=== PATIENT | male | born 1955 | race Caucasian/White ===

== ENCOUNTER 2018-01-04 20:02 | Emergency (ER) | payer BC, SELFPAY ==
[2018-01-04 20:07] VITALS: BP 122/75; PULSE 76; RESP 14; TEMP 36.6; O2SAT 97
--- NOTE | 2018-01-04 20:44 | ED.GENADUL ---
Disposition Clinical Impression: Laceration of face Disposition: HOME Condition: Good Instructions: Care For Your Absorbable Stitches (ED), Facial Laceration (ED) Additional Instructions: Please keep the area dry for the next 24-48 hours. Please follow-up immediately with your primary care provider for reassessment. If you notice any redness, or signs of infection please return immediately. If you notice any worsening of your symptoms, or any new symptoms such as vomiting, diarrhea, fever, chills, shortness of breath, chest pain, numbness, weakness, or fainting , please return immediately to the emergency department for reevaluation. Please follow up with your primary care provider as soon as possible for reassessment and reevaluation. As always, it was a pleasure participating in your medical care today. Referrals: Noé Hung, [Primary Care Provider] - Medical Decision Making - Medical Decision Making This is a pleasant 62-year-old male who presents for laceration over his left lip superior to the vermilion border. It is 2 cm in length, it is linear, and vertical. Physical exam demonstrates no internal laceration. The patient's tetanus is up-to-date. He is on no blood thinners. The area was cleaned, irrigated, anesthetized, and suture. He tolerated this well. 5 absorbable sutures/5.0 were placed for good wound edge reapproximation. The area was covered with a small amount of Dermabond. Patient tolerated the procedure well. He will be discharged home with close follow-up with his primary care provider. We discussed red flags which to return he understands. I have extensively reviewed the treatment plan and discharge instructions with the patient and their family. I have addressed all patient concerns at this time. The patient and family was made aware of what symptoms to monitor for that would warrant a return to the emergency department. Discussed the plan with the patient and family, they demonstrate verbal understanding and agreement with our assessment and plan at this time. Procedure: Suture Patient was positioned appropriately, 5cc lidocaine with epinephrine was used as a local anesthetic. Copious amounts of normal saline were used for irrigation. Patient was sterile draped with wound exposed. 5.0 chromic gut sutures /5 simple interrupted sutures were placed with good approximation. The area was then glued with Dermabond. The area was covered with bandage. Estimated Blood Loss: 0ml The patient tolerated the procedure well and there were no complications. History of Present Illness - General Chief complaint: Laceration Stated complaint: UNKNOWN Time Seen by Provider: 01/04/18 20:40 - History of Present Illness Initial comments: This is a pleasant 62-year-old male with a past medical history of hypertension, hyperlipidemia, quadruple bypass and daily aspirin use who presents for facial laceration. She states that roughly 1 hour prior to arrival he was hammering in his hammer split in half, it broke and struck him in the left upper lip. After this laceration he immediately came in for evaluation. The patient's tetanus was updated within the past 6 years. He denies any other complaints at this time. He denies any radiation of the pain, any vision changes, headache, or other symptoms at this time. - Related Data Aspirin 81 mg PO DAILY tab-cap 12/13/15 Atorvastatin Calcium 20 mg PO DAILY #90 tab-cap 05/08/17 Metoprolol [Lopressor] 12.5 mg PO BID #300 tab 08/08/17 Triamcinolone [Kenalog 0.025% Oint] 80 gm TP BID #1 tub 10/03/17 Levothyroxine [Levothroid] 100 mcg PO DAILY@0600 #90 tab 10/09/17 Nitroglycerin [Nitrostat] 0.4 mg SL Q5 MIN PRN X3 PRN #50 bottle 11/20/17 Allergies Allergy/AdvReac Type Severity Reaction Status Date / Time No Known Allergies Allergy Unverified 01/04/18 20:12 Review of Systems Other: 10 point review of systems was performed, pertinent positives and negatives are noted in the history of present illness. Past Medical History - Past Medical History Medical history: CAD, hyperlipidemia Hypothyroidism Surgical history: angioplasty/stent General Exam - Other Other exam information: 1.Const: Well-nourished, Well-developed, appearing stated age 2.Eyes: PERRL, no conjunctival injection, and symmetrical lids. 3.ENT: Atraumatic external nose and ears. Moist MM. Neck: Symmetric, trachea midline, No thyromegaly. Patient does have a small 2 cm laceration over the upper lip on the left-hand side. There is no involvement of the vermilion border. No evidence of laceration on the internal aspect of the lip. Laceration is straight and vertical. Small contusion over the gum and inside aspect of the lip. The teeth were not loose. No evidence of tooth fracture. There is no evidence of raccoon eyes, mccray sign, CSF rhinorrhea, mastoid tenderness, cranial crepitus, hemotympanum, exophthalmos, or hyphema. Patient demonstrates intact dentition with no signs of tooth avulsion or fracture, no signs of jaw deformity, no evidence of a LeFort's fracture, with an intact palate, nose and orbital region. There is no evidence of a nasal septal hematoma. No proptosis. Jaw closes symmetrically. Airway is clear. 4.CVS: +S1/S2, No murmurs or gallops. Peripheral pulses 2+ and equal in all extremities. Brisk capillary refill in all extremities. 5.RESP: Unlabored respiratory effort. Clear to auscultation bilaterally. No wheezes rales or rhonchi 6.GI: Soft, Nontender/Nondistended, No hepatosplenomegaly. No guarding or rebound. 7.MSK: Normocephalic/Atraumatic, Extremities w/o deformity or ttp No cyanosis or clubbing, Normal movement of all extremities 8.Skin: Warm, Dry. No rashes or lesions. 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 Sensation grossly intact, no focal neurologic deficits. 10.Psych: (AAO) x3. Appropriate mood and affect Course Vital Signs - 24 hr 01/04/18 20:07 Temperature 36.6 C Pulse 76 Respiratory 14 Rate Blood Pressure 122/75 Pulse Oximetry 97
== END 2018-01-04 20:54 | disposition home or self-care (01) ==
PROVIDERS: Emergency Provider Student in an Organized Health Care Education/Training Program; PCP Emergency Medicine
DX: S01.511A Laceration without foreign body of lip, initial encounter (principal); W27.0XXA Contact with workbench tool, initial encounter
CPT/HCPCS: 12011

== ENCOUNTER 2018-03-06 08:49 | Outpatient (CLI) | payer BC, SELFPAY ==
[2018-03-06 11:31] LABS: TSH 0.55 uIU/mL (0.358-3.74)
== END 2018-03-06 09:09 ==
PROVIDERS: PCP Emergency Medicine; Visit Provider Emergency Medicine
DX: E03.9 Hypothyroidism, unspecified (principal)
CPT/HCPCS: 36415; 84443

== ENCOUNTER 2018-12-19 08:37 | Emergency (ER) | payer MEDICARE, SELFPAY ==
[2018-12-19 08:38] VITALS: BP 134/77; PULSE 82; RESP 16; TEMP 36.7; O2SAT 97
--- NOTE | 2018-12-19 08:54 | W.ED.GENAD ---
Discharge Plan Disposition Patient Disposition: HOME Condition: Improving Discharge Details Chief Complaint: Nk/Back Pain Clinical Impression: Spasm of lumbar paraspinous muscle, Acute lumbar back pain, Degenerative arthritis of lumbar spine, Herniated lumbar intervertebral disc Primary Care Provider: Noé Hung ED Provider: Yoko Mathis Home Meds and New Rx's Prescriptions: New diazepam [Valium] 5 mg tablet 5 mg PO QID PRN (Reason: muscle spasm) Qty: 14 RF: 0 lidocaine [Lidoderm] 5 % adhesive patch,medicated 1 patch TP DAILY PRN (Reason: pain) Qty: 15 RF: 0 Continued aspirin [Aspirin Low-Strength] 81 MG tablet,chewable 81 mg PO DAILY RF: 0 triamcinolone acetonide 80 GM ointment 80 gm Topical BID Qty: 1 RF: 2 nitroglycerin [Nitrostat] 0.4 MG tablet, sublingual 0.4 mg Sublingual Q5 MIN PRN X3 PRNQty: 50 RF: 0 atorvastatin 20 mg tablet 20 mg PO DAILY Qty: 90 RF: 4 levothyroxine 100 mcg tablet 100 mcg PO DAILY@0600 Qty: 90 RF: 3 prednisone 20 mg tablet 40 mg PO DAILY Qty: 10 RF: 0 metoprolol tartrate 25 MG tablet 12.5 mg PO BID Qty: 300 RF: 6 Discharge Instructions Instructions: Low Back Strain (ED), Muscle Spasm (ED), Lower Back Exercises (ED) Additional Instructions: Encourage hydration. You may use Tylenol 1000mg three times daily, Ibuprofen 600mg four times daily for discomfort. You may use topical patches such as Lidoderm or Salonpas patches. Please ambulate frequently, preform gentle stretching. Attached is information on low back exercises. Referral for physical therapy attached, please call today to schedule appointment. You may use Valium as prescribed for muscle spasm. Take this medication only as prescribed. Do not drive while taking this medication. Please follow up with primary care next week for reevaluation. If you develop increased pain, fevers/chills, sensation changes, weakness or other new/worsening symptoms please seek care urgently once again. Stand Alone Forms: Physical Therapy Referral Referrals: Noé Hung, [Primary Care Provider] - Discharge Data Discharge Date/Time-TO BE ENTERED AT DEPARTURE: 12/19/18 12:25 Medical Decision Making Patient is a 63 year old male, brought in via EMS, with c/c of back pain x 3 days. Patient states that pain began slightly on Sunday. Has had pain similar to this historically, states that over the past few months he has had more flares than usual but that pain typical subsides after 24 hours and with ibuprofen. States that pain has progressively worsened since onset. States Sunday he was standing for 5 hours which exacerbated pain. Sunday unable ot get out of bed. Was seen by PCP yesterday morning who began him on po prednisone. Took 40mg in AM and PM yesterday. Pain has persisted. Had Dilaudid at home from previous surgery. Took 2 tabs this AM at 0630 at direction of PCP. Sates that he has been urinating more than typical. Does not feel that he is retaining. No fevers/chills. Denies trauma. Feels that he has spasms and tightness. Patient PMH significant for hypothyroidism, hyperlipidemia, GERD, CAD s/p CABG. Patient is not anticoagulated. Denies CP, SOB. No recent travel. Denies abdominal pain. No radiation of the pain. No altered sensation in LE. On exam, patient is resting comfortably. He does appear uncomfortable with movement. He has no saddle paresthesias. Strength equal BLE. REflexes intact, equal bilaterally. Will not preform ROM of spine secondary to pain. Indicates area L1-L5 as area of discomfort but not midline, running laterally from this. Paraspinal spasm evident throughout this area. Positive straight leg raise on left side. No midline pain, no step off palpable. Plan to treat for spasm, will give Tylenol, Toradol, Valium, Lidoderm patch and reassess. Discussed that we will need to mobilize him. Advised that him being sedentary for the past 2 days may have been exacerbating this. Patient reports minimal improvement 20 mins after medicating. Patient was not initially endorsing any weakness. However, on further discussion patient is now endorsing weakness in his BLE with ambulation. Reports that when he tried to get up yesterday he was unable to support his own weight and associates with weakness as well as pain. States that today, when coming out with EMS, he require a 2 person assist and again felt that he has BLE weakness. No perineal paresthesias. He is able to move his BLE against resistance at this time, this does cause increased pain in his lumbar spine. MRI available, will move forward with advanced imaging. Radiologist recommended plain films with MRI. Radiologist contact department. Advised that he has degenerative changes, L2-L3 small disc herniation. Advised no significant spinal stenosis. Discussed with patient. Once he returned from MRI, he is appearing much improved. Was able to ambulate unassisted with minimal pain. Feels ready for discharge. He will continue with prednisone. Prescribing Valium. Advised not to take the Dilaudid with his Valium. Discussed stretching/exercises. Will refer to PT. He will f/u with PCP in one week for reevaluation. He was given strict return precautions. All quesitons adn concerns were addressed, he is in agreement with this plan. HPI General Mode of arrival: EMS. Date/Time Provider Initiated Documentation: 12/19/18 08:54. Limitations to Documentation: no limitations. Information obtained by: patient. History of Present Illness 63 year old M presents to the emergency department with the chief complaint of back pain, described as mild, with intensity rated at 3. Quality is described as aching, and is localized to the back. Patient reports no radiation. Patient started experiencing this day(s) (3) and it has been now resolved (resolves with immobilization). Immobilization improves symptom(s), Movement worsens symptoms (pain severe with movement, unable to get out of bed x 2 days secondary to pain) . Patient notes denies chest pain, cough, diaphoresis, fever/chills, headaches, loss of appetite, malaise, nausea/vomiting, rash, shortness of breath and weakness. Patient did receive the following treatments prior to arrival, other (prednisone, dilaudid) Related Data Home Medications Medication Instructions Recorded Confirmed aspirin [Aspirin Low-Strength] 81 mg PO DAILY tab-cap 12/13/15 12/19/18 metoprolol tartrate 12.5 mg PO BID #300 tab 08/08/17 12/19/18 triamcinolone acetonide 80 gm TOPICAL BID #1 tub 10/03/17 12/19/18 nitroglycerin [Nitrostat] 0.4 mg SUBLINGUAL Q5 MIN PRN X3 11/20/17 12/19/18 PRN #50 bottle atorvastatin 20 mg tablet 20 mg PO DAILY #90 tab 05/07/18 12/19/18 levothyroxine 100 mcg tablet 100 mcg PO DAILY@0600 #90 tab 12/05/18 12/19/18 prednisone 20 mg tablet 40 mg PO DAILY #10 tab 12/18/18 12/19/18 diazepam [Valium] 5 mg PO QID PRN #14 tab 12/19/18 lidocaine [Lidoderm] 1 patch TP DAILY PRN #15 each 12/19/18 Previous Rx's Medication Instructions Recorded metoprolol tartrate 12.5 mg PO BID #300 tab 08/08/17 triamcinolone acetonide 80 gm TOPICAL BID #1 tub 10/03/17 atorvastatin 20 mg tablet 20 mg PO DAILY #90 tab 05/07/18 levothyroxine 100 mcg tablet 100 mcg PO DAILY@0600 #90 tab 12/05/18 prednisone 20 mg tablet 40 mg PO DAILY #10 tab 12/18/18 diazepam [Valium] 5 mg PO QID PRN #14 tab 12/19/18 lidocaine [Lidoderm] 1 patch TP DAILY PRN #15 each 12/19/18 Allergies Allergy/AdvReac Type Severity Reaction Status Date / Time No Known Allergies Allergy Verified 12/19/18 08:45 General Stated Complaint: Nk/Back Pain KEI: 3 Review of Systems Constitutional Reports as per HPI, Denies chills, Denies fever(s), Denies headache(s), Denies lethargy and Denies poor appetite Eyes Denies change in vision ENT Denies dizziness, Denies headache(s) and Denies neck pain Cardiovascular Reports as per HPI, Denies chest pain, Denies chest pain at rest, Denies chest pain with activity, Denies pedal edema, Denies lightheadedness, Denies dyspnea and Denies dyspnea on exertion Respiratory Reports as per HPI, Denies chest congestion, Denies cough, Denies pain on inspiration, Denies pain with cough, Denies dyspnea, Denies dyspnea on exertion and Denies wheezing Gastrointestinal Reports as per HPI, Denies abdominal pain, Denies diarrhea, Denies nausea and Denies vomiting Genitourinary Reports urinary frequency (reports unusual for him to urinate throughout the day, 5x past 24 hours) Musculoskeletal Reports as per HPI, Reports abnormal gait (unable to ambulate secondary to back pain), Reports back pain, Denies myalgias, Denies arthralgias, Denies joint swelling, Reports limited range of motion, Denies loss of height, Reports muscle cramps, Denies muscle weakness, Denies neck pain, Denies numbness, Denies radiating pain into limb, Reports stiffness and Denies tingling Integumentary/Breasts Reports as per HPI and Denies rash Neurologic Reports as per HPI, Reports abnormal gait (unable to ambulate secondary to back pain), Denies dizziness, Denies headache(s), Denies numbness, Denies radicular pain and Denies tingling Allergic/Immunologic Denies wheezing [facility] Surgical History Stress Test Family History Mother Diabetes Essential hypertension Personal history of malignant neoplasm Father Personal history of malignant neoplasm Heart disease Myocardial infarction Sister Multiple sclerosis Sister No problems noted. Brother No problems noted. Brother No problems noted. Grandfather No problems noted. Grandfather No problems noted. Grandmother No problems noted. Grandmother No problems noted. 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 What type of physical activity do you participate in: none Do you feel safe at home: Yes Do you feel safe in your relationship?: Yes Exam Const General: cooperative, healthy appearing, comfortable, no acute distress and well developed Nutritional Appearance: average body habitus and well nourished Orientation: alert, awake and oriented x3 HENMT Head: normal to inspection Ears: hearing grossly normal bilaterally Mouth: moist mucous membranes Chest Chest: normal inspection of the chest, normal palpation of entire chest wall and no crepitus Resp Effort & Inspection: normal respiratory effort, able to speak in complete sentences and no respiratory distress Auscultation: clear to auscultation bilaterally, no rales, no rhonchi and no wheezes Cardio Rate: regular rate Rhythm: regular rhythm Heart Sounds: S1 normal and S2 normal GI Inspection: normal to inspection, no edema and non-distended Palpation: soft, no hepatosplenomegaly, not firm, no guarding, not rigid and nontender Auscultation: normal bowel sounds Back/Spine/Pelvis Thoracic/Lumbar Spine: straight leg raise positive (on left side) Pelvis: no pain with anterior-posterior compression and no pain with lateral compression Skin General skin exam: no rashes or lesions noted Trauma: no lacerations or abrasions Neuro General: alert, awake and oriented x3 Cognition: normal cognition Speech: speech normal Gait: normal gait Extrem General: normal to inspection, normal capillary refill (2+ distal pulses), no pedal edema, no calf tenderness and no pedal edema Psych Appearance: grossly normal and well kempt Mental Status: mental status grossly normal Speech and Movement: speech and movement normal Course Vital Signs Temperature 36.7 C 12/19/18 08:38 Pulse 82 12/19/18 08:38 Respiratory Rate 16 12/19/18 08:38 Blood Pressure 134/77 12/19/18 08:38 Pulse Oximetry 97 12/19/18 08:38 Temperature 36.7 C 12/19/18 08:38 Temperature Source Temporal Artery Scan 12/19/18 08:38 Pulse 82 12/19/18 08:38 Respiratory Rate 16 12/19/18 08:38 Respiratory Effort Non-Labored 12/19/18 08:44 Blood Pressure 134/77 12/19/18 08:38 Blood Pressure Position Supine 12/19/18 08:38 Pulse Oximetry 97 12/19/18 08:38 Oxygen Delivery Method Room Air 12/19/18 08:38 Oxygen Flow Rate 0 12/19/18 08:38 Pain Level 2 12/19/18 08:44
[2018-12-19] MEDS: diazePAM 5 MG TAB PO (09:03)
[2018-12-19] MEDS: Acetaminophen 325 MG TAB 650 MG PO (09:04)
[2018-12-19] MEDS: predniSONE 20 MG TAB 60 MG PO (09:04)
[2018-12-19] MEDS: Ketorolac 30 MG/ML VIAL IM (09:04)
[2018-12-19] MEDS: Lidocaine 5% Patch 1 PATCH TP (09:05)
--- NOTE | 2018-12-19 09:59 | DI.RAD_ITS ---
SYMPTOM/DIAGNOSIS: BACK PAIN LUMBOSACRAL SPINE: The vertebral bodies and disc spaces appear intact. Pedicles, spinous and transverse processes are intact. There is mild DJD involving the facet joints at L4-5 and L5-S1. There is no evidence of spondylolysis or spondylolisthesis. The sacrum and sacroiliac joints are intact. SUMMARY: Subluxation. Degenerative changes involving the lower lumbar facet joints are evident with no evidence of spondylolysis or spondylolisthesis.
--- NOTE | 2018-12-19 10:40 | DI.MRI_ITS ---
SYMPTOM/DIAGNOSIS: BACK PAIN, WEAKNESS IN BLE MRI LUMBAR SPINE: T1 and T2 axial, and T2 axial MSMA pulses sequences were performed. At L1-2 there is no evidence of a disc herniation. Minimal facet joint DJD is evident and there is no evidence of spinal stenosis. At L2-3 a small disc herniation containing a radial tear is demonstrated. There are moderate facet joint degenerative changes and no evidence of a disc protrusion. There is no evidence of significant spinal stenosis. At L3-4 there is no evidence of a disc herniation. Facet joint DJD is evident and there is no evidence of significant spinal stenosis. At L4-5 there is a mild disc bulge with no evidence of a fnk disc herniation. There is severe facet joint DJD and no evidence of significant spinal stenosis. At L5-S1 there is no evidence of a disc herniation. Moderately severe facet joint DJD and no evidence of spinal stenosis. SUMMARY: Evidence of degenerative disc disease and DJD with a small subligamentous disc herniation centered to the left of the midline and containing a small radial tear at L2-3. Note is made of severe facet joint DJD involving the lower lumbar spine as noted above.
--- NOTE | 2018-12-19 12:27 | NUR.NOTE ---
Nursing Note: [age] able to walk slowly in room.
== END 2018-12-19 12:25 | disposition home or self-care (01) ==
PROVIDERS: Emergency Provider Physician Assistant; PCP Emergency Medicine
DX: M62.830 Muscle spasm of back (principal); M54.5 Low back pain; M51.36 Other intervertebral disc degeneration, lumbar region; M51.06 Intervertebral disc disorders with myelopathy, lumbar region
CPT/HCPCS: 96372; 99284; 72110; 72148; J1885; J7512

== ENCOUNTER 2018-12-27 14:21 | Emergency (ER) | payer MEDICARE, SELFPAY ==
[2018-12-27] VITALS (52 sets, daily range): BP systolic 51–120; BP diastolic 24–77; PULSE 61–98; RESP 16–24; TEMP 36.8; O2SAT 93–98
--- NOTE | 2018-12-27 15:04 | ED.GENADUL_ITS ---
Discharge Plan Disposition Patient Disposition: HOME Condition: Stable Discharge Details Chief Complaint: GI Bleed Clinical Impression: Complaint of melena, Bright red blood per rectum, Diverticulosis Primary Care Provider: Noé Hung ED Provider: Denia Cooley Home Meds and New Rx's Prescriptions: New cyclobenzaprine 10 mg tablet 10 mg PO TID PRN (Reason: muscle spasm) Qty: 10 RF: 0 Prilosec OTC 20 mg tablet,delayed release (DR/EC) 20 mg PO DAILY 14 Days Qty: 14 RF: 0 sucralfate [Carafate] 1 gram tablet 1 gm PO BID 14 Days Qty: 28 RF: 0 Continued aspirin [Aspirin Low-Strength] 81 MG tablet,chewable 81 mg PO DAILY RF: 0 nitroglycerin [Nitrostat] 0.4 MG tablet, sublingual 0.4 mg Sublingual Q5 MIN PRN X3 PRNQty: 50 RF: 0 atorvastatin 20 mg tablet 20 mg PO DAILY Qty: 90 RF: 4 levothyroxine 100 mcg tablet 100 mcg PO DAILY@0600 Qty: 90 RF: 3 diazepam [Valium] 5 mg tablet 5 mg PO QID PRN (Reason: muscle spasm) Qty: 14 RF: 0 lidocaine [Lidoderm] 5 % adhesive patch,medicated 1 patch TP DAILY PRN (Reason: pain) Qty: 15 RF: 0 metoprolol tartrate 25 MG tablet 12.5 mg PO BID Qty: 300 RF: 6 Discharge Instructions Instructions: Rectal Bleeding (ED) Additional Instructions: Avoid aspirin and ibuprofen for the next few weeks. Take the Flexeril as needed and directed for any back pain. Take the Prilosec and Carafate as directed. Follow-up with Dr. Olea in the office on Sunday. Return to the emergency department if you develop any worsening or new concerning symptoms. Referrals: Merry Olea DO [OSTEOPATHIC DOCTOR] - Discharge Data Discharge Date/Time-TO BE ENTERED AT DEPARTURE: 12/27/18 21:06 Discharge Physician: Denia Cooley Medical Decision Making 63-year-old male with a history of coronary artery disease, CABG, high cholesterol, hypothyroidism who presents with dark stools for the past 2 days, and melena mixed with blood clots today. He denied fever, vomiting or abdominal pain. He is hemodynamically stable. He appears nontoxic and is texting on his phone on arrival. He has mild left lower quadrant abdominal tenderness. Rectal exam reveals bright red blood-tinged mucus. No steve blood. No stool noted. Differential diagnosis includes PUD, gastritis, diverticulitis, colitis. Will place an IV, check screening labs, CT abdomen and pelvis and give bolus IV fluids. 1700 -- Labs reviewed. Hgb 13.9. Normal white blood cell count. Normal electrolytes. Lipase normal. CT notes diverticulosis without diverticulitis. Patient's bleeding started at 1:30 PM today. Will obtain a repeat hemoglobin which will be approximately 5 hours after onset of bleeding, and 3 hours after first hemoglobin. 1845 -- Repeat hemoglobin down trended to 12.6. Case discussed with Dr. Miranda and she will evaluate patient in the ED. patient states he would rather go home. Dr. Olea evaluated patient and cleared for discharge. Patient given dose of IV Protonix here as well as prescription for Prilosec, Carafate and Flexeril for his back pain in place of aspirin and NSAIDs which he is advised to avoid for the next couple weeks. Dr. Olea will follow up with patient in the office on Sunday. Patient advised to return here immediately with any worsening or new concerning symptoms. Imaging Data Radiologic Study: Radiologist's impression: CT Abdomen and Pelvis With Contrast EXAM DATE/TIME: 12/27/2018 4:10 PM CLINICAL HISTORY: 63 years old, male; Abdominal pain; Localized; Other: R/O diverticulitis TECHNIQUE: Imaging protocol: Axial computed tomography images of the abdomen and pelvis with intravenous contrast. Coronal and sagittal reformatted images were created and reviewed. Contrast material: OMNIPAQUE 350;Contrast volume: 100 ml;Contrast route: IV RAC; COMPARISON: No relevant prior studies available. FINDINGS: Lungs: Scarring versus atelectasis at the pulmonary bases. Liver: Normal. No mass. Gallbladder and bile ducts: Normal. No calcified stones. No ductal dilation. Pancreas: Normal. No ductal dilation. Spleen: Normal. No splenomegaly. Adrenals: Normal. No mass. Kidneys and ureters: Normal. No hydronephrosis. Stomach and bowel: Distal colonic diverticulosis without diverticulitis. Appendix: Unable to identify the appendix. Intraperitoneal space: Normal. No free air. No significant fluid collection. Vasculature: Normal. No abdominal aortic aneurysm. Lymph nodes: Normal. No enlarged lymph nodes. Bladder: Unremarkable as visualized. Reproductive: Unremarkable as visualized. Bones/joints: Sternotomy. Soft tissues: Unremarkable. IMPRESSION: No acute finding. Distal colonic diverticulosis without diverticulitis. Lab Data Lab results reviewed: Yes I reviewed the patient's lab results. Laboratory Results WBC 7.87 k/cumm (4.4-10.8) 12/27/18 15:20 RBC 4.81 m/cumm (4.50-6.00) 12/27/18 15:20 Hgb 13.9 g/dL (13.5-17.5) 12/27/18 15:20 Hct 41.2 % (40.0-50.0) 12/27/18 15:20 MCV 85.7 fL (80-95) 12/27/18 15:20 MCH 28.9 pg (27.0-33.0) 12/27/18 15:20 MCHC 33.7 g/dL (32.0-36.0) 12/27/18 15:20 RDW 14.3 % (11.8-14.1) H 12/27/18 15:20 Plt Count 166 x1000/uL (130-400) 12/27/18 15:20 MPV 8.7 fL (8.0-11.0) 12/27/18 15:20 Immature Gran % 0.4 12/27/18 15:20 76.0 12/27/18 15:20 12.7 12/27/18 15:20 8.8 12/27/18 15:20 2.0 12/27/18 15:20 0.1 12/27/18 15:20 Absolute Neutrophils 5.98 k/cumm (1.2-6.7) 12/27/18 15:20 Absolute Lymphocytes 1.00 k/cumm (1.2-3.4) L 12/27/18 15:20 Absolute Monocytes 0.69 k/cumm (0.11-0.7) 12/27/18 15:20 Absolute Eosinophils 0.16 k/cumm (0.0-0.7) 12/27/18 15:20 Absolute Basophils 0.01 k/cumm (0.0-0.2) 12/27/18 15:20 Sodium 140 mmol/L (136-145) 12/27/18 15:20 Potassium 3.8 mmol/L (3.5-5.1) 12/27/18 15:20 Chloride 105 mmol/L (98-107) 12/27/18 15:20 Carbon Dioxide 25.5 mmol/L (21.0-32.0) 12/27/18 15:20 9.5 mmol/L (3-11) 12/27/18 15:20 BUN 24 mg/dL (7-18) H 12/27/18 15:20 1.01 mg/dL (0.70-1.30) 12/27/18 15:20 >= 60.00 (mL/min/1.73m2) 12/27/18 15:20 Glucose 112 mg/dL (70-100) H 12/27/18 15:20 Calcium 8.3 mg/dL (8.5-10.1) L 12/27/18 15:20 0.5 mg/dL (0.2-1.0) 12/27/18 15:20 AST 12 U/L (15-37) L 12/27/18 15:20 ALT 26 U/L (12-78) 12/27/18 15:20 67 U/L (46-116) 12/27/18 15:20 6.7 g/dL (6.4-8.2) 12/27/18 15:20 3.5 g/dL (3.4-5.0) 12/27/18 15:20 232 U/L (73-393) 12/27/18 15:20 HPI General Mode of arrival: ambulatory . Date/Time Provider Initiated Documentation: 12/27/18 14:33 . Limitations to Documentation: no limitations . Information obtained by: patient . HPI Narrative: Patient is a 63-year-old male with a history of coronary artery disease, high cholesterol, hypothyroidism who presents with dark brown-colored stools for the past 2 days, and near black mixed with blood clot stool today approximately 90 minutes ago. Patient denies any fever, nausea, vomiting, abdominal pain, rectal pain. He states he has been taking 400 to 600 mg of Motrin twice daily for the past week due to back pain. He states he drank 2 alcoholic drinks last night. He denies taking iron or blood thinners. He states he had a colonoscopy within the past 10 years which he thinks was negative. Related Data Home Medications Medication Instructions Recorded Confirmed aspirin [Aspirin Low-Strength] 81 mg PO DAILY tab-cap 12/13/15 12/27/18 metoprolol tartrate 12.5 mg PO BID #300 tab 08/08/17 12/27/18 nitroglycerin [Nitrostat] 0.4 mg SUBLINGUAL Q5 MIN PRN X3 11/20/17 12/27/18 PRN #50 bottle atorvastatin 20 mg tablet 20 mg PO DAILY #90 tab 05/07/18 12/27/18 levothyroxine 100 mcg tablet 100 mcg PO DAILY@0600 #90 tab 12/05/18 12/27/18 diazepam [Valium] 5 mg PO QID PRN #14 tab 12/19/18 12/27/18 lidocaine [Lidoderm] 1 patch TP DAILY PRN #15 each 12/19/18 12/27/18 cyclobenzaprine 10 mg PO TID PRN #10 tab 12/27/18 omeprazole magnesium [Prilosec OTC] 20 mg PO DAILY 14 Days #14 tab 12/27/18 sucralfate [Carafate] 1 gm PO BID 14 Days #28 tab 12/27/18 Previous Rx's Medication Instructions Recorded metoprolol tartrate 12.5 mg PO BID #300 tab 08/08/17 atorvastatin 20 mg tablet 20 mg PO DAILY #90 tab 05/07/18 levothyroxine 100 mcg tablet 100 mcg PO DAILY@0600 #90 tab 12/05/18 diazepam [Valium] 5 mg PO QID PRN #14 tab 12/19/18 lidocaine [Lidoderm] 1 patch TP DAILY PRN #15 each 12/19/18 cyclobenzaprine 10 mg PO TID PRN #10 tab 12/27/18 omeprazole magnesium [Prilosec OTC] 20 mg PO DAILY 14 Days #14 tab 12/27/18 sucralfate [Carafate] 1 gm PO BID 14 Days #28 tab 12/27/18 Allergies Allergy/AdvReac Type Severity Reaction Status Date / Time No Known Allergies Allergy Verified 12/19/18 08:45 General Stated Complaint: GI Bleed KEI: 3 Review of Systems Review of Systems All systems reviewed & are unremarkable except as noted in HPI and below Constitutional Reports as per HPI, Denies chills and Denies fever(s) Eyes Denies blurry vision ENT Denies dizziness, Denies sore throat and Denies throat swelling Cardiovascular Denies chest pain and Denies dyspnea Respiratory Denies cough and Denies dyspnea Gastrointestinal Denies abdominal pain, Denies diarrhea and Denies vomiting Genitourinary Denies hematuria and Denies dysuria Musculoskeletal Denies back pain and Denies numbness Integumentary/Breasts Denies lesions and Denies rash Neurologic Denies dizziness, Denies focal weakness and Denies numbness Allergic/Immunologic Denies throat swelling [facility] Medical History (Updated 12/27/18 @ 20:15 by Merry Olea DO) Coronary artery disease of [place] artery of [place] heart with stable angina pectoris (Inactive 12/15/15) Herniated intervertebral disc of lumbar spine (Acute) Hyperlipidemia (Inactive) Hypothyroidism (Inactive 11/26/12) Surgical History Hx of CABG (Chronic) Stress Test Family History Mother Diabetes Essential hypertension Personal history of malignant neoplasm Father Personal history of malignant neoplasm Heart disease Myocardial infarction Sister Multiple sclerosis Sister No problems noted. Brother No problems noted. Brother No problems noted. Grandfather No problems noted. Grandfather No problems noted. Grandmother No problems noted. Grandmother No problems noted. 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 What type of physical activity do you participate in: none Do you feel safe at home: Yes Do you feel safe in your relationship?: Yes Exam Const General: cooperative, healthy appearing and no acute distress HENMT Head: normal to inspection Face and sinus: normal facial exam Eyes General: appearance normal, both eyes and all related structures EOM: EOM intact bilaterally Neck Neck: normal visual inspection and No submandibular swelling Lymphatic: no lymphadenopathy noted Chest Chest: normal inspection of the chest and no tenderness Resp Effort & Inspection: normal respiratory effort and able to speak in complete sentences Auscultation: clear to auscultation bilaterally Cardio Rate: regular rate Rhythm: regular rhythm GI Inspection: normal to inspection Palpation: soft, not firm, not rigid and tender in the LLQ (minimal ) Auscultation: normal bowel sounds Rectal Exam: visual inspection normal, normal sphincter tone and heme positive stool gross blood Skin General skin exam: no rashes or lesions noted Neuro General: alert, awake and oriented x3 Cognition: normal cognition Speech: speech normal Motor: muscle tone normal throughout Sensory Exam: no sensory deficits noted Extrem General: normal to inspection, full ROM, normal capillary refill, no calf tenderness bilaterally and no edema Psych Appearance: grossly normal Mental Status: mental status grossly normal Speech and Movement: speech and movement normal Affect: normal affect Course Vital Signs Temperature 98.2 F 12/27/18 14:24 Pulse 98 H 12/27/18 14:24 Respiratory Rate 18 12/27/18 14:24 Blood Pressure 115/71 12/27/18 14:24 Pulse Oximetry 96 12/27/18 14:24 Temperature 98.2 F 12/27/18 14:24 Pulse 98 H 12/27/18 14:24 Respiratory Rate 18 12/27/18 14:24 Respiratory Effort Non-Labored 12/27/18 14:32 Blood Pressure 115/71 12/27/18 14:24 Blood Pressure Position Sitting 12/27/18 14:24 Pulse Oximetry 96 12/27/18 14:24 Oxygen Delivery Method Room Air 12/27/18 14:24 Oxygen Flow Rate 0 12/27/18 14:24 Pain Level 0 12/27/18 14:32
[2018-12-27 15:26] LABS: Abs Immature Grans 0.03 k/cumm (0.0-0.09); Absolute Basophil Count 0.01 k/cumm (0.0-0.2); Absolute Eosinophil Count 0.16 k/cumm (0.0-0.7); Absolute Monocyte Count 0.69 k/cumm (0.11-0.7); Absolute Neutrophil Count 5.98 k/cumm (1.2-6.7); Basophils % 0.1; HCT 41.2 % (40.0-50.0); HGB 13.9 g/dL (13.5-17.5); Immature Grans % 0.4; Lymphocytes % 12.7; Mean Corp. HGB Concentration 33.7 g/dL (32.0-36.0); Mean Corpuscular Hemoglobin 28.9 pg (27.0-33.0); Mean Corpuscular Volume 85.7 fL (80-95); Mean Platelet Volume 8.7 fL (8.0-11.0); Monocytes % 8.8; Platelet Count 166 x1000/uL (130-400); RBC 4.81 m/cumm (4.50-6.00); RBC Distribution Width 14.3 % (11.8-14.1); White Blood Cell Count 7.87 k/cumm (4.4-10.8)
[2018-12-27] MEDS: Normal Saline 1,000 ML 1000 ML IV (15:32)
--- NOTE | 2018-12-27 15:40 | NUR.NOTE ---
Nursing Note: pt resting in bed, no signs of distress. will continue to monitor.
[2018-12-27 15:47] LABS: ALT 26 U/L (12-78); AST 12 U/L (15-37); Albumin 3.5 g/dL (3.4-5.0); Alkaline Phosphatase 67 U/L (46-116); Anion Gap 9.5 mmol/L (3-11); BUN 24 mg/dL (7-18); Bilirubin, Total 0.5 mg/dL (0.2-1.0); CO2 25.5 mmol/L (21.0-32.0); CREATININE 1.01 mg/dL (0.70-1.30); Calcium 8.3 mg/dL (8.5-10.1); Chloride 105 mmol/L (98-107); Glucose 112 mg/dL (70-100); Lipase 232 U/L (73-393); Potassium 3.8 mmol/L (3.5-5.1); Sodium 140 mmol/L (136-145); Total Protein 6.7 g/dL (6.4-8.2)
[2018-12-27] MEDS: Omnipaque 350 MG/ML 100 ML BTL IJ (16:08)
--- NOTE | 2018-12-27 16:10 | DI.CT_ITS ---
SYMPTOM/DIAGNOSIS: LLQ ABD PAIN, ? DIVERTICULITIS ABDOMEN AND PELVIC CT: CT examination of the abdomen and pelvis was performed with intravenous infusion of 100 cc's of Omnipaque 350. The liver and spleen are normal in size and shape with no evidence of any focal defects. There is no evidence of biliary dilatation. The gallbladder has a normal CT appearance. The pancreas appears intact and is not enlarged. There is no evidence of retroperitoneal lymphadenopathy. The bladder appears intact. The kidneys show bilateral function and there is no evidence of a renal mass. The vascular structures appear intact. There is no evidence of a mass in the pelvis. There is no evidence of a fluid collection or adenopathy. CONCLUSION: Normal abdominal and pelvic CT. Diverticulosis without evidence of diverticulitis.
--- NOTE | 2018-12-27 16:26 | DI.VRAD_ITS ---
EXAM: CT Abdomen and Pelvis With Contrast EXAM DATE/TIME: 12/27/2018 4:10 PM CLINICAL HISTORY: 63 years old, male; Abdominal pain; Localized; Other: R/O diverticulitis TECHNIQUE: Imaging protocol: Axial computed tomography images of the abdomen and pelvis with intravenous contrast. Coronal and sagittal reformatted images were created and reviewed. Contrast material: OMNIPAQUE 350;Contrast volume: 100 ml;Contrast route: IV RAC; COMPARISON: No relevant prior studies available. FINDINGS: Lungs: Scarring versus atelectasis at the pulmonary bases. Liver: Normal. No mass. Gallbladder and bile ducts: Normal. No calcified stones. No ductal dilation. Pancreas: Normal. No ductal dilation. Spleen: Normal. No splenomegaly. Adrenals: Normal. No mass. Kidneys and ureters: Normal. No hydronephrosis. Stomach and bowel: Distal colonic diverticulosis without diverticulitis. Appendix: Unable to identify the appendix. Intraperitoneal space: Normal. No free air. No significant fluid collection. Vasculature: Normal. No abdominal aortic aneurysm. Lymph nodes: Normal. No enlarged lymph nodes. Bladder: Unremarkable as visualized. Reproductive: Unremarkable as visualized. Bones/joints: Sternotomy. Soft tissues: Unremarkable. IMPRESSION: No acute finding. Distal colonic diverticulosis without diverticulitis. Dictated and Authenticated by: Era Montemayor MD. Ordering:NADIRA Loza MD
[2018-12-27 18:37] LABS: HCT 38.1 % (40.0-50.0); HGB 12.6 g/dL (13.5-17.5)
--- NOTE | 2018-12-27 20:07 | SCONE_ITS ---
Date of service: 12/27/18 Time of Service: 20:07 Assessment and Plan (1) Gastritis: Current visit: No Status: Acute (2) GI bleed due to NSAIDs: Current visit: No Status: Acute x1 episode of black tarry stools adn clots. no further episodes. No pain. + worsening of H/I over the past week. Hx of CAD/s/p CABG and on chronic ASA. Had episode of acute back problems secondray to bulging discs and was on steriods and lg doses of ibuprofen -IV protonix today in ED and start on po protonix -po carafate ac/hs -no further NSAIDS. -hold ASA x 1 week -use flexeril/tylenol for pain. yoga/physical therapy regimine. ice/ Rx flexeril try not to used nsaid's for 2 wks -no ETOH and limit caffeine x1 weeks time -F/u w/ myself in clinic on Sunday or Sunday -return to ED if increase in abdominal /pain/passing lg clots/dizzy or lightheaded. History of Present Illness Chief Complaint: rectal bleeding Narrative: pt had episode of drak tarry stools and clots. He had one episode today. No since he was in the ED. He had one episode of mild hypotension in the ED. He has had no abdominal pain today. He was started on high does ibuprofen and prednisone adn takes ASA daily. He did have a CABG. SO stares he was having problems w/ H/I this past week. He does have mild chronic gerd. he has not had a CE. CT reviewed. he had mild LLQ pain when he came in today. He has no epigastric pain today. I did review his CT Consults Consult date: 12/27/18 Requesting physician: Denia Cooley Review of Systems Review of Systems All systems reviewed & are unremarkable except as noted in HPI and below Constitutional Reports as per HPI, Reports system reviewed and no additional complaints, except as docu, Denies anorexia, Denies chills, Denies difficulty sleeping, Denies fatigue, Denies headache(s), Denies lethargy, Denies malaise, Denies poor appetite, Denies weakness, Denies weight gain and Denies weight loss Eyes Reports as per HPI, Reports system reviewed and no additional complaints, except as docu and Denies change in vision ENT Reports system reviewed and no additional complaints, except as docu, Reports as per HPI, Denies change in voice, Denies dental pain, Denies dysphagia, Denies dizziness, Denies facial pain, Denies headache(s) and Denies odynophagia Cardiovascular Reports as per HPI, Reports system reviewed and no additional complaints, except as docu, Denies chest pain, Denies chest pain with activity, Denies syncope, De nies leg edema and Denies dyspnea Respiratory Reports as per HPI, Reports system reviewed and no additional complaints, except as docu, Denies chest congestion, Denies cough, Denies pain with cough and Denie s dyspnea Gastrointestinal Reports as per HPI, Reports system reviewed and no additional complaints, except as docu, Denies abdominal pain, Reports melena, Denies bloating, Denies change in bowel habits, Denies change in stool character, Denies constipation, Denies cramping, Denies dysphagia, Denies early satiety, Reports heartburn, Denies diarrhea, Reports loose stools, Denies nausea, Denies odynophagia and Denies vomiting Genitourinary Reports system reviewed and no additional complaints, except as docu Musculoskeletal Reports system reviewed and no additional complaints, except as docu, Reports as per HPI, Denies abnormal gait, Reports back pain, Denies arthralgias and Denies muscle weakness Comments: herniated disc Integumentary/Breasts Reports system reviewed and no additional complaints, except as docu, Reports as per HPI, Denies changing lesions, Denies new lesions and Denies jaundice Neurologic Reports system reviewed and no additional complaints, except as docu, Reports as per HPI, Denies abnormal speech, Denies abnormal gait, Denies dizziness, Denies syncope, Denies headache(s), Denies memory loss and Denies weakness Psychiatric Reports system reviewed and no additional complaints, except as docu, Reports as per HPI, Denies change in appetite and Denies memory loss Endocrine Denies fatigue, Denies polydipsia and Denies polyuria Hematologic/Lymphatic Reports system reviewed and no additional complaints, except as docu, Denies easy bleeding and Denies easy bruising Allergic/Immunologic Denies system reviewed and no additional complaints, except as docu, Reports as per HPI and Denies urticaria [facility] Medical History (Updated 12/27/18 @ 20:15 by Merry Olea DO) Coronary artery disease of [place] artery of [place] heart with stable angina pectoris (Inactive 12/15/15) Herniated intervertebral disc of lumbar spine (Acute) Hyperlipidemia (Inactive) Hypothyroidism (Inactive 11/26/12) Surgical History Hx of CABG (Chronic) Stress Test Family History Mother Diabetes Essential hypertension Personal history of malignant neoplasm Father Personal history of malignant neoplasm Heart disease Myocardial infarction Sister Multiple sclerosis Sister No problems noted. Brother No problems noted. Brother No problems noted. Grandfather No problems noted. Grandfather No problems noted. Grandmother No problems noted. Grandmother No problems noted. 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 no distress VSS currently. no further bleeding/stools since has been in the ED. [facility] Head: normal to inspection, normocephalic and atraumatic Ears: hearing grossly normal bilaterally and external ears normal General nose exam: external nose normal Face and sinus: normal facial exam and sinuses nontender Mouth: oral mucosae normal, lip normal, tongue normal and moist mucous membranes Teeth and gingiva: dentition normal Eyes General: appearance normal, both eyes and all related structures Conjunctivae: conjunctivae normal Sclera: sclerae normal Pupils: PERRL Neck Neck: normal visual inspection and full ROM Chest Chest: normal inspection of the chest Resp Effort & Inspection: normal respiratory effort, able to speak in complete sentences, no cough, no nasal flaring, not tachypneic and no use of accessory muscles Auscultation: clear to auscultation bilaterally, no rales, no rhonchi and no wheezes Cardio Jugular venous pressure: no JVD Rate: regular rate Rhythm: regular rhythm GI Inspection: normal to inspection, no edema and non-distended Palpation: soft, no masses, nontender and No ascites Auscultation: normal bowel sounds Rectal Exam: abnormal stool Skin General skin exam: no rashes or lesions noted Trauma: no lacerations or abrasions Neuro General: alert, oriented x3, oriented, gait normal, moves all extremities, no focal motor deficits and CN's II-XI intact bilaterally Cognition: normal cognition Speech: speech normal Gait: normal gait Motor: muscle tone normal throughout Extrem General: normal to inspection, full ROM and no clubbing, cyanosis or edema Psych Appearance: grossly normal and well kempt Mental Status: mental status grossly normal Speech and Movement: speech and movement normal Affect: normal affect Results Last Vital Signs Temp 36.8 C 12/27/18 14:24 Pulse 65 12/27/18 19:07 Resp 17 12/27/18 15:46 BP 116/75 12/27/18 19:07 Pulse Ox 96 12/27/18 19:10 Labs : 12/27/18 18:30 12/27/18 15:20 Laboratory Results - last 24 hr 12/27/18 12/27/18 12/27/18 15:20 15:20 18:30 WBC 7.87 RBC 4.81 Hgb 13.9 12.6 L Hct 41.2 38.1 L MCV 85.7 MCH 28.9 MCHC 33.7 RDW 14.3 H Plt Count 166 MPV 8.7 Immature Gran % 0.4 Neutrophils % 76.0 Lymphocytes % 12.7 Monocytes % 8.8 Eosinophils % 2.0 Basophils % 0.1 Absolute Neutrophils 5.98 Absolute Lymphocytes 1.00 L Absolute Monocytes 0.69 Absolute Eosinophils 0.16 Absolute Basophils 0.01 Sodium 140 Potassium 3.8 Chloride 105 Carbon Dioxide 25.5 Anion Gap 9.5 BUN 24 H Creatinine 1.01 Estimated GFR/1.73 m2 >= 60.00 Glucose 112 H Calcium 8.3 L Total Bilirubin 0.5 AST 12 L ALT 26 Alkaline Phosphatase 67 Total Protein 6.7 Albumin 3.5 Lipase 232
[2018-12-27] MEDS: Pantoprazole 40 MG VIAL IVP (20:43)
== END 2018-12-27 21:06 | disposition home or self-care (01) ==
PROVIDERS: Emergency Provider Physician Assistant; PCP Emergency Medicine
DX: K57.33 Diverticulitis of large intestine without perforation or abscess with bleeding (principal); R10.32 Left lower quadrant pain; M54.5 Low back pain
CPT/HCPCS: 36415; 80053; 83690; 96361; 96374; 99253; 99285; 74177; 85014; 85018; 85025; 99284; J3490

== ENCOUNTER 2018-12-30 13:28 | Outpatient (CLI) | payer MEDICARE, SELFPAY ==
[2018-12-30 14:08] LABS: Abs Immature Grans 0.01 k/cumm (0.0-0.09); Absolute Basophil Count 0.02 k/cumm (0.0-0.2); Absolute Eosinophil Count 0.15 k/cumm (0.0-0.7); Absolute Lymphocyte Count 1.07 k/cumm (1.2-3.4); Absolute Monocyte Count 0.31 k/cumm (0.11-0.7); Absolute Neutrophil Count 5.61 k/cumm (1.2-6.7); Basophils % 0.3; Eosinophils % 2.1; HCT 36.8 % (40.0-50.0); HGB 12.3 g/dL (13.5-17.5); Immature Grans % 0.1; Lymphocytes % 14.9; Mean Corp. HGB Concentration 33.4 g/dL (32.0-36.0); Mean Corpuscular Hemoglobin 28.9 pg (27.0-33.0); Mean Corpuscular Volume 86.6 fL (80-95); Mean Platelet Volume 8.9 fL (8.0-11.0); Monocytes % 4.3; Neutrophils % 78.3; Platelet Count 172 x1000/uL (130-400); RBC 4.25 m/cumm (4.50-6.00); RBC Distribution Width 14.2 % (11.8-14.1); White Blood Cell Count 7.17 k/cumm (4.4-10.8)
[2018-12-30 15:02] LABS: Iron 76 ug/dL (50-175); Total Iron Binding Capacity 297 ug/dL (250-450); Transferrin Sat 26 % (20-55)
[2018-12-30 15:06] LABS: Ferritin 159 ng/mL (8-388)
== END 2018-12-30 13:48 ==
PROVIDERS: PCP Emergency Medicine; Visit Provider Surgery
DX: K21.9 Gastro-esophageal reflux disease without esophagitis (principal); K29.70 Gastritis, unspecified, without bleeding; K92.2 Gastrointestinal hemorrhage, unspecified; T39.395A Adverse effect of other nonsteroidal anti-inflammatory drugs [NSAID], initial encounter; I25.10 Atherosclerotic heart disease of native coronary artery without angina pectoris
CPT/HCPCS: 36415; 82728; 83540; 83550; 85025

== ENCOUNTER → 2018-12-31 11:30 | Outpatient (BNVA) | payer MEDICARE, SELFPAY | PROVIDERS: PCP Emergency Medicine; Referring Provider Emergency Medicine; Visit Provider Surgery | DX: K92.2 Gastrointestinal hemorrhage, unspecified (principal); T39.395A Adverse effect of other nonsteroidal anti-inflammatory drugs [NSAID], initial encounter; K21.9 Gastro-esophageal reflux disease without esophagitis; I25.10 Atherosclerotic heart disease of native coronary artery without angina pectoris | CPT/HCPCS: 99212; 99213 ==

== ENCOUNTER 2019-01-01 07:22 | Day surgery (SDC) | payer MEDICARE, SELFPAY ==
[2019-01-01 07:54] VITALS: BP 100/71; PULSE 73; RESP 18; TEMP 36.4; O2SAT 96
[2019-01-01] MEDS: Lactated Ringers 1,000 ML 80 ML IV (08:20)
--- NOTE | 2019-01-01 09:30 | STOM_PTH ---
PATIENT: Olman Randolph LOC: [facility]IO U#:[id number] AGE/SX: 63/M ROOM: RE01/01/[address]: Merry Olea : 1955 BED: DIS: 01/01/2019 SPEC #: [id number] RECD: 01/01/19 12:44 STATUS: SEAN RE #: [id number] CLOVIS: 01/01/19 09:[address]: Merry Olea DEPT: Surgical Specimen RECD BY: Clara Kerr ENTERED: 01/01/19 12:45 SP TYPE: STOMACH OTHR DR: Noé Hung DO Tissues: 1 - BIOPSY BOWEL 2 - STOMACH BIOPSY 3 - STOMACH BIOPSY 4 - ESOPHAGUS BIOPSY Procedures: GROSS AND MICRO LEVEL 4 IMMUNOPEROXIDASE STAIN Comments: [id number]
--- NOTE | 2019-01-01 09:45 | ENDO_ITS ---
Date of service: 01/01/19 Time of Service: 09:45 Endoscopy Report DATE OF PROCEDURE: 01/01/19 PRE-OP DIAGNOSIS: GI bleed POST-OP DIAGNOSIS: other (hiatal hernia/esophageal diverticulum/gastritis) PROCEDURE: egd w/ bx SURGEON: Merry Olea ANESTHESIA: GETA ESTIMATED BLOOD LOSS: 2 PATHOLOGY: other COMPLICATIONS: None DISPOSITION: same day INDICATIONS: on going rectal bleeding PROCEDURE DESCRIPTION: After informed consent was obtained the patient was take to the procedure room and placed in a supine position. Monitors were applied and a time out was done. The patients name, date of , procedure type, allergies to medications and metal in their body was reviewed. A bite block was placed and the patient was sedated. Once sedated and comfortable the gastroscop e was advanced through the oropharynx which was grossly normal into the esophagus. The proximal and mid-esophagus were nl. He does have a small esophageal diverticululm in the mid eohagus. No signs of infection or incarceration. It was small and asymp. In the distal esophagus there was lg hiatal hernia. Possible some eohpagitis adn Barett's. Bx were taken noted. The scope was advanced into the stomach and through the pylorus into the 3rd portion of the duodenum. The duodenum was noted to be nl. Biopsies were done. The scope was retracted back into the stomach and biopsies were done to rule out H. pylori. There were x3 punctate ulcers at the antrum. One was about 3mm. It did have a nice eschar on it. There are no signs of acitve or old bleeding. The scope was retroflexed. The cardia and fundus were noted to be normal. There lg a hiatal hernia noted. The scope was retracted back into the esophagus and biopsies were done of the GE junction to rule out Greco's. The Z line was regular. The scope was removed and the patient was woken up and taken back to [facility] in stable condition. Follow up: 2 wks
--- NOTE | 2019-01-01 10:02 | W.PM.DS.N ---
Date of service: 01/01/19 Time of Service: 10:02 Discharge Plan Disposition Patient Disposition: HOME Condition: Good Discharge Details Reason For Visit: gi bleed Attending Provider: Merry Olea Primary Care Provider: Noé Hung Home Meds and New Rx's Prescriptions: New esomeprazole magnesium [Heartburn Treatment] 20 mg capsule,delayed release(DR/EC) 40 mg PO DAILY Qty: 30 RF: 12 Continued sucralfate [Carafate] 1 gram tablet 1 gm PO BID 14 Days Qty: 28 RF: 0 Discontinued aspirin [Aspirin Low-Strength] 81 MG tablet,chewable 81 mg PO DAILY RF: 0 Prilosec OTC 20 mg tablet,delayed release (DR/EC) 20 mg PO DAILY 14 Days Qty: 14 RF: 0 No Action nitroglycerin [Nitrostat] 0.4 MG tablet, sublingual 0.4 mg Sublingual Q5 MIN PRN X3 PRNQty: 50 RF: 0 atorvastatin 20 mg tablet 20 mg PO DAILY Qty: 90 RF: 4 levothyroxine 100 mcg tablet 100 mcg PO DAILY@0600 Qty: 90 RF: 3 lidocaine [Lidoderm] 5 % adhesive patch,medicated 1 patch TP DAILY PRN (Reason: pain) Qty: 15 RF: 0 metoprolol tartrate 25 MG tablet 12.5 mg PO BID Qty: 300 RF: 6 cyclobenzaprine 10 mg tablet 10 mg PO TID PRN (Reason: muscle spasm) Qty: 10 RF: 0 Discharge Instructions Additional Instructions: Findings:gastritis/hiatal hernia Continue with lifestyle modifications: no alcohol, tobacco products, Aspirin or NSAID's (ibuprofen, Motrin, Naprosyn, aleve, etc) x 2 wks. Limit: soda pop/any carbonated beverages, caffeine (including tea & chocolate), and acidic foods, (tomatoes, citrus, onions, peppermints) spicy or fried/fatty foods. Do not lie down for 30 minutes after eating, and do not eat 2 hours prior to bedtime. Avoid wearing tight fitting clothing/ belts -F/u w/ pain managment to discuss epidural injectons rx: nexium 40mg po daily carafate AC/HS stop ASA for 2 wks. Than resums Follow up:2 wks Please call if you develop: fevers >101.5 Nausea or Vomiting Abdominal pain that is not transient DAY SURGERY UNIT POST COLONOSCOPY INSTRUCTIONS 1. Because there will be medication in your system for the next 24 hours, you may feel a little sleepy. Your coordination will be affected. Therefore: a. Do not drive or operate dangerous equipment for 24 hours. b. Do not drink alcohol beverages for 24 hours (not even beer). c. Plan to go home and rest for the day. 2. Generally there are no restrictions on your activity after a day or so has gone by, but you may feel a bit fatigued for a few days. 3 After you arrive home you may have a light meal and return to a normal diet as you can tolerate it without feeling sick to your stomach. 4. After surgery, you may feel pain or discomfort. This should be only transient, but if it persists please contact your doctor. 5. If there are any questions regarding the findings of your procedure, please feel free to contact your doctor. 6. If you are unable to contact your doctor with a problem, contact the hospital at [phone]. 7. Continue all your regular medications unless directed otherwise. I understand the above instructions and have no questions. Signature of Patient or Responsible Adult Escort Date/Time Name of Responsible Adult Escort Signature of Nurse Date/Time Stand Alone Forms: DSU Post EGD Instructions, Andrey Perez (DSU) Activity:: Activity as Tolerated Diet:: small light meals x 24 hrs Discharge Orders Discharge Orders: Discharge Order (Routine); Ordered 01/01/19 Ordered By: Merry Olea DS: Data Vitals/I&O Vitals and I&O: Vital Signs Temperature 36.4 C L 01/01/19 07:54 Pulse 73 01/01/19 07:54 Pulse Rhythm Regular 01/01/19 07:54 Respiratory Rate 18 01/01/19 07:54 Respiratory Depth Normal 01/01/19 07:54 Blood Pressure 100/71 01/01/19 07:54 Pulse Oximetry 96 01/01/19 07:54 Oxygen Delivery Method Room Air 01/01/19 07:54 Oxygen Flow Rate 0 01/01/19 07:54 Intake & Output 12/31/18 12/31/18 01/01/19 11:59 23:59 11:59 Intake Total 300 / 300 Balance 300 / 300 Weight 76.3 kg 75.2 kg Intake: IV 300 / 300 PFSH Medical History Coronary artery disease of [place] artery of [place] heart with stable angina pectoris (Inactive 12/15/15) Herniated intervertebral disc of lumbar spine (Acute) Hyperlipidemia (Inactive) Hypothyroidism (Inactive 11/26/12) 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 What type of physical activity do you participate in: none Do you feel safe at home: Yes Do you feel safe in your relationship?: Yes
[2019-01-01 10:15] VITALS: BP 105/67; PULSE 60; RESP 16; TEMP 36.6; O2SAT 96
== END 2019-01-01 10:50 | disposition home or self-care (01) ==
PROVIDERS: PCP Emergency Medicine; Visit Provider Surgery
PROC: 0DJ68ZZ Inspection of Stomach, Via Natural or Artificial Opening Endoscopic (ICD-10-PCS; CPT 43235; principal; 2019-01-01 08:45)
DX: K25.4 Chronic or unspecified gastric ulcer with hemorrhage (principal); D62 Acute posthemorrhagic anemia; T39.315A Adverse effect of propionic acid derivatives, initial encounter; K44.9 Diaphragmatic hernia without obstruction or gangrene; Q39.6 Congenital diverticulum of esophagus; K31.89 Other diseases of stomach and duodenum; K22.70 Barrett's esophagus without dysplasia; K21.0 Gastro-esophageal reflux disease with esophagitis
CPT/HCPCS: 43239; 88305; NC; 88361

== ENCOUNTER 2019-01-15 14:23 | Outpatient (CLI) | payer MEDICARE, SELFPAY ==
[2019-01-15 14:50] LABS: Abs Immature Grans 0.01 k/cumm (0.0-0.09); Absolute Basophil Count 0.02 k/cumm (0.0-0.2); Absolute Eosinophil Count 0.15 k/cumm (0.0-0.7); Absolute Lymphocyte Count 0.98 k/cumm (1.2-3.4); Absolute Monocyte Count 0.31 k/cumm (0.11-0.7); Basophils % 0.4; Eosinophils % 3.1; HCT 37.6 % (40.0-50.0); HGB 12.4 g/dL (13.5-17.5); Immature Grans % 0.2; Lymphocytes % 20.1; Mean Corpuscular Hemoglobin 28.8 pg (27.0-33.0); Mean Corpuscular Volume 87.2 fL (80-95); Monocytes % 6.4; Neutrophils % 69.8; Platelet Count 205 x1000/uL (130-400); RBC 4.31 m/cumm (4.50-6.00); RBC Distribution Width 14.6 % (11.8-14.1); White Blood Cell Count 4.87 k/cumm (4.4-10.8)
== END 2019-01-15 14:43 ==
PROVIDERS: PCP Emergency Medicine; Visit Provider Surgery
DX: D62 Acute posthemorrhagic anemia (principal); K25.9 Gastric ulcer, unspecified as acute or chronic, without hemorrhage or perforation; K92.2 Gastrointestinal hemorrhage, unspecified; T39.395A Adverse effect of other nonsteroidal anti-inflammatory drugs [NSAID], initial encounter
CPT/HCPCS: 36415; 85025

== ENCOUNTER → 2019-01-22 11:09 | Outpatient (BNVA) | payer MEDICARE, SELFPAY | PROVIDERS: PCP Emergency Medicine; Referring Provider Emergency Medicine; Visit Provider Surgery | DX: K92.2 Gastrointestinal hemorrhage, unspecified (principal); T39.395A Adverse effect of other nonsteroidal anti-inflammatory drugs [NSAID], initial encounter | CPT/HCPCS: 99212; 99213 ==

== ENCOUNTER 2019-04-04 07:00 | Outpatient (CLI) | payer OTHER, SELFPAY ==
[2019-04-04 11:52] LABS: Calculated LDL 74 mg/dL; Cholesterol 152 mg/dL (50-200); HDL Cholesterol 48 mg/dL (40-60); TSH 0.66 uIU/mL (0.36-3.74); Triglyceride 154 mg/dL (30-150)
[2019-04-07 12:08] LABS: PSA, Screening 1.1 ng/mL (0.0-4.5)
== END 2019-04-04 07:20 ==
PROVIDERS: PCP Emergency Medicine; Visit Provider Emergency Medicine
DX: E03.9 Hypothyroidism, unspecified (principal); I25.10 Atherosclerotic heart disease of native coronary artery without angina pectoris; Z12.5 Encounter for screening for malignant neoplasm of prostate
CPT/HCPCS: 36415; 80061; 84153; 84443

== ENCOUNTER 2020-04-29 04:44 | Outpatient (CLI) | payer OTHER, SELFPAY ==
[2020-05-01 10:05] LABS: COVID-19 RT-PCR Result NEGATIVE (Negative)
== END 2020-04-29 05:04 ==
PROVIDERS: PCP Emergency Medicine; Visit Provider Emergency Medicine
DX: Z11.59 Encounter for screening for other viral diseases (principal)
CPT/HCPCS: U0003

== ENCOUNTER 2021-08-04 18:27 | Outpatient (REF) | payer OTHER, SELFPAY ==
[2021-08-04 19:23] LABS: Bilirubin Negative (Negative); Blood Trace-intact (Negative); Clarity Clear (Clear); Glucose Negative (Negative); Ketones Trace mg/dL (Negative); Leukocyte Esterase Negative (Negative); Nitrite Negative (Negative); Specific Gravity >= 1.030 (1.005-1.025)
[2021-08-04 19:29] LABS: Bacteria Negative HPF (Negative); C & S Indicated? No; Casts Negative LPF (Negative); Crystals Many Calcium Oxalate HPF (Negative); Epithelial Cells Negative HPF (Negative); Mucus Trace (Negative); Other Cells Negative (Negative); WBC 0-2 HPF (0-5)
== END 2021-08-04 18:28 | disposition home or self-care (01) ==
LOC: LBN 18:27
PROVIDERS: PCP Emergency Medicine; Visit Provider Emergency Medicine
DX: R31.9 Hematuria, unspecified (principal)
CPT/HCPCS: 81003; 81015

== ENCOUNTER 2021-08-12 02:07 | Outpatient (CLI) | payer MEDICARE, SELFPAY ==
--- NOTE | 2021-08-12 11:03 | DI.CT_ITS ---
Exam(s) CT RENAL COLIC WO EXAM: CT RENAL COLIC WO CLINICAL HISTORY: gross hematuria,R31.9. TECHNIQUE: Imaging Protocol: Axial computed tomography images with coronal and sagittal reformatted images were created and reviewed. COMPARISON: CT CT ABDOMEN PELVIS W from 12/27/2018 FINDINGS: ABDOMEN: Lung Bases: Normal where visualized. Liver: Normal density. No measurable mass. Gallbladder and biliary tract: No radiodense calculus or biliary ductal dilation. Pancreas: Normal density, no abnormal calcifications or inflammatory process. Spleen: Normal. Kidneys: Normal size, contour and axis.No radiodense stones or obstructive uropathy. No masses seen. Adrenal glands: No mass is seen. Lymph nodes: Within normal limits. Abdominal Aorta: Abdominal portion non-dilated. Atherosclerosis. PELVIS: Bladder:The bladder is not well distended limiting evaluation. Bowel: No obstruction or bowel wall thickening. Appendix is unremarkable. There is diverticulosis of the sigmoid colon but no evidence of acute diverticulitis. Peritoneal cavity: No ascites, collection or mesenteric inflammatory response. No free air. Reproductive organs: Within normal limits. Bones: Within normal limits. Soft Tissues: Within normal limits. IMPRESSION: 1. No evidence of nephrolithiasis or hydronephrosis. 2. The urinary bladder is not distended limiting evaluation. If there is concern for urinary bladder abnormality cystoscopy or CT urogram should be considered. 3. Sigmoid diverticulosis but no evidence of acute diverticulitis. RADIATION DOSE DELIVERED: 739.15mGy.cm Total DLP DATA REPOSITORY: All CT scans at this facility are submitted to the National Radiology Data Registry (NRDR) Dose Index Registry (DIR) with the [employer] (ACR). RADIATION OPTIMIZATION: All CT scans at this facility use at least one of these dose optimization te chniques: automated exposure control; mA and/or kV adjustment per patient size (includes targeted exa ms where dose is matched to clinical indication); or iterative reconstruction.
== END 2021-08-12 02:27 ==
PROVIDERS: PCP Family Medicine; Visit Provider Emergency Medicine
DX: R31.9 Hematuria, unspecified (principal); K57.30 Diverticulosis of large intestine without perforation or abscess without bleeding
CPT/HCPCS: 74176

== ENCOUNTER 2021-08-12 03:35 | Outpatient (CLI) | payer MEDICARE, SELFPAY ==
[2021-08-12 12:36] LABS: Anion Gap 8.2 mmol/L (3-11); BUN 15 mg/dL (7-18); CO2 27.8 mmol/L (21.0-32.0); CREATININE 0.9 mg/dL (0.70-1.30); Calcium 8.8 mg/dL (8.5-10.1); Calculated LDL 72 mg/dL (<100); Chloride 107 mmol/L (98-107); Cholesterol 133 mg/dL (<200); Glucose 97 mg/dL (74-106); HDL Cholesterol 53 mg/dL (40-60); Potassium 4.3 mmol/L (3.5-5.1); Sodium 143 mmol/L (136-145); TSH 1.38 uIU/mL (0.36-3.74); Triglyceride 43 mg/dL (<150)
== END 2021-08-12 03:36 | disposition home or self-care (01) ==
LOC: LBO 03:35
PROVIDERS: PCP Family Medicine; Visit Provider Emergency Medicine
DX: E03.9 Hypothyroidism, unspecified (principal); R31.9 Hematuria, unspecified; I10 Essential (primary) hypertension
CPT/HCPCS: 36415; 80048; 80061; 84153; 84443

== ENCOUNTER → 2021-08-16 13:28 | Outpatient (BNVA) | payer MEDICARE, SELFPAY | PROVIDERS: PCP Family Medicine; Referring Provider Family Medicine; Visit Provider Surgery | DX: R13.10 Dysphagia, unspecified (principal); Z12.11 Encounter for screening for malignant neoplasm of colon | CPT/HCPCS: 99213 ==

== ENCOUNTER → 2021-09-14 12:51 | Outpatient (BNVA) | payer MEDICARE, SELFPAY | PROVIDERS: PCP Family Medicine; Referring Provider Family Medicine; Visit Provider Nurse Practitioner Gerontology | DX: R31.0 Gross hematuria (principal) | CPT/HCPCS: 99215 ==

== ENCOUNTER 2021-09-19 01:58 | Outpatient (CLI) | payer MEDICARE, SELFPAY ==
[2021-09-19 12:15] LABS: Source Nasal/Nares
[2021-09-19 21:31] LABS: COVID-19 PCR Negative (Negative)
== END 2021-09-19 01:59 | disposition home or self-care (01) ==
LOC: LBO 01:59
PROVIDERS: PCP Family Medicine; Visit Provider Surgery
DX: Z20.822 Contact with and (suspected) exposure to COVID-19 (principal); Z01.818 Encounter for other preprocedural examination
CPT/HCPCS: 87635; U0005

== ENCOUNTER 2021-09-21 08:27 | Day surgery (SDC) | payer MEDICARE, SELFPAY ==
[2021-09-21] VITALS (9 sets, daily range): BP systolic 92–120; BP diastolic 57–86; PULSE 57–77; RESP 11–24; TEMP 36–36.5; O2SAT 97–100; BMI 24.4
--- NOTE | 2021-09-21 07:02 | W.PREOPHP ---
Assessment and Plan Assessment and plan (1) Dysphagia: Status: Acute Assessment and plan: Mr. Spring is a pleasant 65-year-old gentleman with some infrequent dysphagia.? He underwent an upper endoscopy for GI bleeding in 2019.? At that time he was noted to have an esophageal diverticulum, hiatal hernia and some gastritis.? He is no longer having to take ibuprofen for his back pain.? He is no longer taking the PPI that was prescribed back then.? He denies any burning in his chest or epigastric pain.? We discussed doing an upper endoscopy at the time of his screening colonoscopy just to make sure that he does not have some silent reflux and has a Schatzki's ring or Greco's.? The procedure was described as well as the risks and benefits and the patient wished to proceed. Risks, benefits and complications have been reviewed. Complications include but are not limited to bleeding, pain, perforation, sore throat, aspiration, and adverse reaction to the medications.? Questions were entertained and answered to their satisfaction and they wished to proceed. No guarantees were given or implied. Proceed with EGD under sedation (2) Encounter for colorectal cancer screening: Mr. Spring is a 65-year-old gentleman who had a colonoscopy back in 2009.? He did not have any polyps but he did have some evidence of ischemic colitis.? He denies any melena, hematochezia, changes in bowel habits, unintentional weight loss or family history of colon cancer.? We reviewed the procedure and the risks and benefits and he wished to proceed Risks, benefits and complications have been reviewed. Complications include but are not limited to bleeding, pain, perforation, missed small lesion/polyp, sore throat, aspiration and adverse reaction to the medications. Questions were entertained and answered to their satisfaction and they wished to proceed. No guarantees were given or implied. Proceed with colonoscopy under sedation History of Present Illness Narrative: Mr. Spring is a very pleasant 65-year-old gentleman who comes in today to discuss an upper endoscopy.? He was referred by his primary care physician for some intermittent dysphagia.? Mr. Flaherty states that it happens very infrequently.? He thinks maybe 3-4 times a year.? It usually does not depend on what he is eating.? He had an upper endoscopy back in 2018 which showed a hiatal hernia, esophageal diverticulum and gastritis.? At that time he was taking a lot of ibuprofen for some back pain.? His back pain is much better and he only takes ibuprofen rarely at this point.? He is not taking any antacids at this time.? He denies any reflux or heartburn type symptoms. Of note the patient's last colonoscopy was in 2009.? He did not have any polyps at that time.? He was noted to have some ischemic colitis.? He denies any changes in bowel habits, melena, hematochezia, unintentional weight loss or abdominal pain.? We discussed doing an upper endoscopy at the time of a colonoscopy. His past medical history significant for cardiovascular disease.? He has had no chest pain and no shortness of breath.? He had a normal echo and normal stress test in 2018. Anesthesia: general (without airway) Previous surgical intolerances: No Previous surgical complications: No Pulmonary risk factors: age > 60 Date of surgery: Planned procedure: Yes Sleep apnea risks: No Can climb one flight of stairs (12-13 steps) in less than 30 seconds without stopping and without symptoms: Yes The surgery proposed for this patient is: moderate risk Active cardiac conditions: CAD- Hx of CABG x4 (11/2015) Active risk factors: none ASA (acetylsalicylic acid): aspirin Beta blockers: yes, continue No changes in his health since he was last seen Review of Systems All systems reviewed & are unremarkable except as noted in HPI and below PFSH All Active Problems Deviated nasal septum (Acute) Gastroesophageal reflux disease (Acute) Headache (Acute) Psoriasis (Acute 10/03/17) Gastritis (Acute) 01/01/19, EGD Dr Merry Olea, [facility] GI bleed due to NSAIDs (Acute) CAD (coronary artery disease) (Chronic) Postoperative anemia due to acute blood loss (Acute) History of stress test (Acute) Low back pain (Acute) Hematuria (Acute) Dysphagia (Acute) Medical History Coronary artery disease of [place] artery of [place] heart with stable angina pectoris (12/15/15) CABG x 4 12/03 Esophageal diverticulum 01/01/19 Dr Merry Olea Herniated intervertebral disc of lumbar spine Hiatal hernia EGD, 01/01/19, Dr Merry Olea, [facility] Hyperlipidemia Hypothyroidism (11/26/12) Surgical History (Updated 09/21/21 @ 08:45 by Lay Silva) History of colonoscopy History of esophagogastroduodenoscopy (EGD) Hx of CABG 2016-F/U with PCP Dr. Hung, was told he did not have to f/u with cardiology Stress Test [facility]-Abnormal study after max exercise. Family History Mother Diabetes Essential hypertension Personal history of malignant neoplasm lung Father Personal history of malignant neoplasm throat Heart disease Myocardial infarction Sister Multiple sclerosis Sister No problems noted. Brother No problems noted. Brother No problems noted. Grandfather No problems noted. Grandfather No problems noted. Grandmother No problems noted. Grandmother No problems noted. 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 What is your relationship status?: Panel score (0-1 are the most socially isolated patients): 1 What type of physical activity do you participate in: bicycling and additional Details: currently unable Do you feel safe at home: Yes Do you feel safe in your relationship?: Yes Meds Allergies and Home Medications Allergies Allergy/AdvReac Type Severity Reaction Status Date / Time No Known Allergies Allergy Verified 09/21/21 08:15 Home Medications Medication Instructions Recorded Confirmed Type aspirin 81 mg tablet,delayed 81 mg PO DAILY 02/25/19 09/19/21 History release (Adult Aspirin Regimen) levothyroxine 100 mcg tablet 100 mcg PO DAILY@0600 #90 tab 01/04/21 09/21/21 Rx metoprolol tartrate 25 mg tablet 12.5 mg PO BID #300 tab 01/27/21 09/21/21 Rx nitroglycerin 0.4 mg sublingual 0.4 mg SUBLINGUAL Q5 MIN PRN X3 05/28/21 09/19/21 Rx tablet (Nitrostat) PRN #20 tab atorvastatin 20 mg tablet 20 mg PO DAILY #90 tab 06/02/21 09/21/21 Rx Exam Const General: cooperative, comfortable and no acute distress [facility] Head: normocephalic and atraumatic Resp Effort & Inspection: normal respiratory effort Auscultation: clear to auscultation bilaterally Cardio Rate: regular rate Rhythm: regular rhythm
--- NOTE | 2021-09-21 07:05 | PDOC.DSDIS_ITS ---
Discharge Plan Disposition Patient Disposition: HOME Condition: Good Discharge Details Reason For Visit: [place]/EGD Attending Provider: Savannah Vega Primary Care Provider: Huang Vines Home Meds and New Rx's Prescriptions: New famotidine [Pepcid] 40 mg tablet 40 mg PO QHS Qty: 30 3RF Continued aspirin [Adult Aspirin Regimen] 81 mg tablet,delayed release (DR/EC) 81 mg PO DAILY 0RF levothyroxine 100 mcg tablet 100 mcg PO DAILY@0600 Qty: 90 3RF metoprolol tartrate 25 mg tablet 12.5 mg PO BID Qty: 300 6RF nitroglycerin [Nitrostat] 0.4 mg tablet, sublingual 0.4 mg Sublingual Q5 MIN PRN X3 PRN (Reason: chest pain) Qty: 20 1RF atorvastatin 20 mg tablet 20 mg PO DAILY Qty: 90 4RF Discharge Instructions Additional Instructions: Findings: inflammation at the GE junction 2 polyps prep was not adequate Follow up: 1 year Please call if you develop: fevers >101.5 Nausea or Vomiting Abdominal pain that is not transient Rectal bleeding that is more then a tbsp A hard abdomen and inability to pass gas DAY SURGERY UNIT POST ENDOSCOPY INSTRUCTIONS Instructions for everyone who is given Anesthesia: For your safety, please do the following for the next 24 Hours: a. Do not drive or operate dangerous equipment b. Do not drink alcohol beverages or use any recreational drugs for the first 24 hours or while taking pain medications. The medications in your body may have a reaction that can be dangerous. c. Do not make any important decisions or sign any important papers 1. Generally there are no restrictions on your activity after a day or so has gone by, but you may feel a bit fatigued for a few days. 2. After you arrive home you may have a light meal and return to a normal diet as you can tolerate it without feeling sick to your stomach. 3. After surgery, you may feel pain or discomfort. This should be only transient, but if it persists please contact your doctor. 4. If there are any questions regarding the findings of your procedure, please feel free to contact your doctor. 6. If you are unable to contact your doctor with a problem, contact the hospital at [phone]. 7. Continue all your regular medications unless directed otherwise. I understand the above instructions and have no questions. Signature of Patient or Responsible Adult Escort Date/Time Name of Responsible Adult Escort Signature of Nurse Date/Time Activity:: Activity as Tolerated Diet:: As Tolerated Discharge Orders Discharge Orders: Discharge Order (Routine); Ordered 09/21/21 Ordered By: Savannah Vega DS: Diagnosis Discharge Diagnosis (1) Dysphagia: Status: Acute
--- NOTE | 2021-09-21 07:06 | ENDO_ITS ---
Date of service: 09/21/21 Time of Service: 10:10 Endoscopy Report DATE OF PROCEDURE: 09/21/21 PRE-OP DIAGNOSIS: Dysphagia and screening colonoscopy POST-OP DIAGNOSIS: other (esophagitis, gastritis, polyps, diverticulosis) PROCEDURE: 1. EGD with biopsies 2. Colonoscopy SURGEON: Savannah Vega ANESTHESIA TYPE: General:No Airway PATHOLOGY: other (GE junction bx, antrum bx, ascending colon polyps x2) COMPLICATIONS: None DISPOSITION: same day INDICATIONS: Mr. Spring is a pleasant 65-year-old gentleman with some infrequent dysphagia.? He underwent an upper endoscopy for GI bleeding in 2019.? At that time he was noted to have an esophageal diverticulum, hiatal hernia and some gastritis.? He is no longer having to take ibuprofen for his back pain.? He is no longer taking the PPI that was prescribed back then.? He denies any burning in his chest or epigastric pain.? We discussed doing an upper endoscopy at the time of his screening colonoscopy just to make sure that he does not have some silent reflux and has a Schatzki's ring or Greco's.? The procedure was described as well as the risks and benefits and the patient wished to proceed. Risks, benefits and complications have been reviewed. Complications include but are not limited to bleeding, pain, perforation, sore throat, aspiration, and adverse reaction to the medications.? Questions were entertained and answered to their satisfaction and they wished to proceed. No guarantees were given or implied. Proceed with EGD under sedation (2) Encounter for colorectal cancer screening: Mr. Spring is a 65-year-old gentleman who had a colonoscopy back in 2009.? He did not have any polyps but he did have some evidence of ischemic colitis.? He denies any melena, hematochezia, changes in bowel habits, unintentional weight loss or family history of colon cancer.? We reviewed the procedure and the risks and benefits and he wished to proceed Risks, benefits and complications have been reviewed. Complications include but are not limited to bleeding, pain, perforation, missed small lesion/polyp, sore throat, aspiration and adverse reaction to the medications. Questions were entertained and answered to their satisfaction and they wished to proceed. No guarantees were given or implied. Proceed with colonoscopy under sedation PREP: Miralax/Dulcolax PROCEDURE START TIME: 10:10 PROCEDURE END TIME: 10:53 COLONOSCOPY RETRACTION TIME: 18 minutes FINDINGS: inflammation of the ge junction and antrum incomplete prep with pond waster: and lost of debris including nuts and seeds which were clogging the scope. Ascending colon polyps x2 PROCEDURE DESCRIPTION: After informed consent was obtained the patient was take to the procedure room and placed in a supine position. Monitors were applied and a time out was done. The patients name, date of , procedure type, allergies to med ications and metal in their body was reviewed. A bite block was placed and the patient was sedated. Once sedated and comfortable the gastroscope was advanced through the oropharynx which was grossly normal into the esophagus. The proximal and mid- esophagus were normal. In the distal esophagus there was mild inflammation noted. The scope was advanced into the stomach and through the pylorus into the 3rd portion of the duodenum. The duodenum was noted to be normal. The scope was retracted back into the stomach. There was mild inflammation noted in the antrum. Biopsies were done to rule out H. pylori. There were no ulcers. The scope was retro-flexed. The cardia and fundus were noted to be normal. There was no hiatal hernia noted. The scope was retracted back into the esophagus and biopsies were done of the GE junction to rule out Greco's. The Z line was regular. The GE junction was at 34 cm. While the patient was still sedated they were placed in a left decubitous position. A rectal exam was done. External exam was normal. Internal exam revealed a normal sphincter tone and no palpable masses. The scope was then introduced and retro-flexed. no internal hemorrhoids, masses or polyps were identified on retroflexion. The scope was then advanced to the cecum with some difficulty. The ileocecal valve and appendiceal orifice were identified. The prep was inadequate. The scope was then slowly retracted over 15 minutes back into the rectum. Polyps were removed with with cold forceps in the ascending colon. There was diverticulosis noted in the sigmoid colon. The scope was removed and the patient was woken up and taken back to Same day surgery in stable condition. The patient tolerated the procedure well and there were no immediate complications. Follow up: 1year due to poor prep
[2021-09-21] MEDS: Lactated Ringers 1,000 ML 80 ML IV (08:56)
--- NOTE | 2021-09-21 09:37 | W.ANESPRE ---
General Info Date of Service Date Performed: 09/21/21 Height: 5 ft 10 in Weight: 77.2 kg Body Mass Index (BMI): 24.4 Surgical Procedure: Operation Date: 09/21/21 10:05 Proposed Procedure Side Surgeon p Colonoscopy/Gastroscopy Savannah Vega MD Meds Allergies and Home Medications Allergies Allergy/AdvReac Type Severity Reaction Status Date / Time No Known Allergies Allergy Verified 09/21/21 08:15 Home Medication Medication Instructions Recorded aspirin 81 mg tablet,delayed 81 mg PO DAILY 02/25/19 release (Adult Aspirin Regimen) levothyroxine 100 mcg tablet 100 mcg PO DAILY@0600 #90 tab 01/04/21 metoprolol tartrate 25 mg tablet 12.5 mg PO BID #300 tab 01/27/21 nitroglycerin 0.4 mg sublingual 0.4 mg SUBLINGUAL Q5 MIN PRN X3 05/28/21 tablet (Nitrostat) PRN #20 tab atorvastatin 20 mg tablet 20 mg PO DAILY #90 tab 06/02/21 Current Visit Medications: Current Medications Generic Name Dose Route Start Last Admin Trade Name Freq PRN Reason Stop Dose Admin Hyoscyamine Sulfate 0.125 mg 09/21/21 07:11 Hyoscyamine 0.125 Mg Sl/Oral/Chew SL DIRECTED PRN Ringer's Solution 1,000 mls @ 80 mls/hr 09/21/21 06:00 09/21/21 08:56 IV 10/20/21 23:59 80 mls/hr INFUSION RENEE Administration IV Miscellaneous Supplies 1 each 09/21/21 06:00 Iv Access IV 10/20/21 23:59 DIRECTED RENEE Ondansetron HCl 4 mg 09/21/21 07:11 Ondansetron 4 Mg/2 Ml Vial IVP Q4H PRN PRN Nausea / Vomiting Sodium Chloride 0 ml 09/21/21 06:00 Normal Saline Flush 10 Ml Syr IV 10/20/21 23:59 PRN PRN Sodium Chloride 0 ml 09/21/21 06:00 Normal Saline 10 Ml Vial IJ 10/20/21 23:59 DIRECTED PRN Sterile Water 0 ml 09/21/21 06:00 Water,Injection,Sterile 10 Ml Vial IJ 10/20/21 23:59 DIRECTED PRN PFSH Active Problems Active Problems: Problem Status Onset Code Deviated nasal septum J34.2 Gastroesophageal reflux disease K21.9 Headache R51 Psoriasis 10/03/17 L40.9 Gastritis K29.70 GI bleed due to NSAIDs K92.2, T39.395A CAD (coronary artery disease) I25.10 Postoperative anemia due to acute blood loss D62 History of stress test Z92.89 Low back pain M54.5 Hematuria R31.9 Dysphagia R13.10 Medical History Medical History 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 Hung, was told he did not have to f/u with cardiology Stress Test [facility]-Abnormal study after max exercise. Tobacco Smoking/Tobacco Use Status: Never Alcohol Alcohol Intake: current Alcohol intake frequency: a few times a week Substance Use Substance use: Never Substance use type: does not use Vital Signs and Lab Results Vital Signs Most Recent Vital Signs in EMR: Most Recent Vital Signs Temp Pulse Resp BP Pulse Ox 36.1 C L 77 16 120/86 99 09/21/21 08:39 09/21/21 08:39 09/21/21 08:39 09/21/21 08:39 09/21/21 08:39 Lab Results Blood Type / Crossmatch: No Data to Display Complete Blood Count: No Data to Display Complete Metabolic Panel: No Data to Display Liver Function Panel: No Data to Display Coagulation Panel: No Data to Display Cardiac Panel: No Data to Display Arterial Blood Gas: No Data to Display Venous Blood Gas: No Data to Display Pancreas Panel: No Data to Display Thyroid Panel: No Data to Display Infectious Disease: Coronavirus (COVID-19)(PCR) Negative (Negative) 09/19/21 09:00 09/19/21 Coronavirus 2019 Source Nasal/Nares 09/19/21 09:00 09/19/21 Blood Cultures: No Data to Display Toxicology Panel: No Data to Display Imaging and Studies Imaging and Studies Study information below may be from another EMR and interpreted by another provider. Please see original notes in EMR for more complete details. Stress Test Summary: 1. Myocardial perfusion imaging: No myocardial perfusion defects noted. 2. The calculated left ventricular ejection fraction after stress: 51%. LV global systolic function is normal. No left ventricular regional motion abnormality. Echocardiogram Summary: 1. Left ventricle: The cavity size was normal. Wall thickness was normal. Systolic function was normal. The estimated ejection fraction was 55-60%. Wall motion was normal; there were no regional wall motion abnormalities. Diastolic parameters were normal. 2. Ascending aorta: The ascending aorta was mildly dilated. 3. Right ventricle: The cavity size was normal. Wall thickness was normal. Systolic function was normal. Anesthesia Assessment and Plan Anesthesia History Personal History: No History of Anesthesia Complications Family History: No Family History of Anesthesia Complications Exercise Tolerance Exercise Tolerance: Metabolic Equivalents>4 Pertinent Negatives Pertinent Negatives: No Symptoms of GERD, No Major Cardiovascular Symptoms or Complaints, No Major Pulmonary Symptoms or Complaints and No History of CVA/TIA Cardiac & Pulmonary Exam Cardiac Exam: Normal S1/S2 Heart Sounds Pulmonary Exam: Clear Bilateral Breath Sounds Implantable Cardiac Device Does patient have a Pacemaker or an ICD?: No Airway Exam Known Difficult Airway: No Mallampati Class: 2 Mouth Opening: Normal (> 3cm) Thyromental Distance: Greater than 3 cm Neck Range of Motion: Full ROM Neck Circumference: Normal Teeth Condition: Normal Dentition ASA Classification ASA Score: ASA 2 Emergency Case?: No NPO Status NPO Status: NPO Clears >2 hours, Solids >8 hours Anesthesia Plan Resuscitation Status: Full Code Anesthesia Technique: General Anesthesia Airway Planned: Natural Airway Monitors Used: Standard Monitors
--- NOTE | 2021-09-21 10:11 | BOWEL_PTH ---
PATIENT: Olman Randolph LOC: RIO U#:[id number] AGE/SX: 65/M ROOM: RE09/21/[address]: Savannah Vega MD : [id number] BED: DIS: 09/21/2021 SPEC #: [id number] RECD: 09/21/21 12:20 STATUS: SEAN REQ #: [id number] CLOVIS: 09/21/21 10:[address]: Savannah Vega DEPT: Surgical Specimen RECD BY: Paige Mcghee ENTERED: 09/21/21 12:22 SP TYPE: Bowel OTHR DR: Huang Vines Tissues: 1 - STOMACH BIOPSY 2 - ESOPHAGUS BIOPSY 3 - BIOPSY BOWEL Procedures: GROSS AND MICRO LEVEL 4 Comments: [id number]
--- NOTE | 2021-09-21 12:12 | W.ANESPOSTOP ---
Postoperative Evaluation Date, Time and Location Date Performed: 09/21/21 Time Performed: 12:08 Patient Location: Day Surgery Unit Vital Signs Most Recent Imported Vital Signs: Most Recent Vital Signs Temp Pulse Resp BP Pulse Ox 36 C L 63 16 109/78 100 09/21/21 11:38 09/21/21 11:38 09/21/21 11:38 09/21/21 11:38 09/21/21 11:38 Pain Score Most Recent Pain Score: Most Recent Pain Score Pain Level 0 09/21/21 11:38 Assessment Mental Status: Awake (Alert & Oriented to Patient Baseline) Airway and Respiratory Function: Patent airway with normal (patient baseline) respiratory exam Cardiovascular Function: Hemodynamically Stable Hydration Status: Adequately Hydrated Nausea & Vomiting: No Nausea or Vomiting Pain: Pt. Denies Any Pain Peripheral Nerve Block: Patient did not receive a nerve block
== END 2021-09-21 12:15 | disposition home or self-care (01) ==
LOC: SUR 08:27
PROVIDERS: PCP Family Medicine; Visit Provider Surgery
PROC: (CPT 45380; principal; 2021-09-21 10:00)
DX: Z12.11 Encounter for screening for malignant neoplasm of colon (principal); K20.90 Esophagitis, unspecified without bleeding; K29.70 Gastritis, unspecified, without bleeding; K63.5 Polyp of colon; K57.30 Diverticulosis of large intestine without perforation or abscess without bleeding; K31.9 Disease of stomach and duodenum, unspecified; K22.89 Other specified disease of esophagus
CPT/HCPCS: 45380; 43239; 88305

== ENCOUNTER 2021-10-18 02:32 | Outpatient (CLI) | payer MEDICARE, SELFPAY ==
[2021-10-18 11:15] LABS: Source Nasal/Nares
[2021-10-18 14:37] LABS: COVID-19 PCR Negative (Negative)
== END 2021-10-18 02:33 | disposition home or self-care (01) ==
LOC: LBO 02:32
PROVIDERS: PCP Family Medicine; Visit Provider Urology
DX: Z20.822 Contact with and (suspected) exposure to COVID-19 (principal); Z01.818 Encounter for other preprocedural examination
CPT/HCPCS: 87635; U0005

== ENCOUNTER 2021-10-20 08:23 | Day surgery (SDC) | payer MEDICARE, SELFPAY ==
[2021-10-20 08:34] VITALS: BP 122/78; PULSE 54; RESP 16; TEMP 36.5; O2SAT 98
[2021-10-20] MEDS: Lactated Ringers 1,000 ML 80 ML IV (08:57)
[2021-10-20 09:40] VITALS: BMI 25.1
--- NOTE | 2021-10-20 09:40 | ANES.PREOP_ITS ---
General Info Date of Service Date Performed: 10/20/21 Height: 5 ft 10 in Weight: 79.4 kg Body Mass Index (BMI): 25.1 Surgical Procedure: Operation Date: 10/20/21 10:25 Proposed Procedure Side Surgeon p Cystoscopy/Retrograde Bilateral Uriel Crump MD s Possible Transurethral Resection Prostate Uriel Crump MD Meds Allergies and Home Medications Allergies Allergy/AdvReac Type Severity Reaction Status Date / Time No Known Allergies Allergy Verified 10/20/21 08:38 Home Medication Medication Instructions Recorded aspirin 81 mg tablet,delayed 81 mg PO DAILY 02/25/19 release (Adult Aspirin Regimen) levothyroxine 100 mcg tablet 100 mcg PO DAILY@0600 #90 tabs 01/04/21 metoprolol tartrate 25 mg tablet 12.5 mg PO BID #300 tabs 01/27/21 nitroglycerin 0.4 mg sublingual 0.4 mg sublingual Q5 MIN PRN X3 05/28/21 tablet (Nitrostat) PRN chest pain #20 tabs atorvastatin 20 mg tablet 20 mg PO DAILY #90 tabs 06/02/21 Current Visit Medications: Current Medications Generic Name Dose Route Start Last Admin Trade Name Freq PRN Reason Stop Dose Admin Ringer's Solution 1,000 mls @ 80 mls/hr 10/20/21 06:00 10/20/21 08:57 IV 11/18/21 23:59 80 mls/hr INFUSION RENEE Administration Cefazolin Sodium/Dextrose 2 gm in 50 mls @ 100 mls/hr 10/20/21 06:00 Ancef Duplex IVPB 11/18/21 23:59 PREOP RENEE IV Miscellaneous Supplies 1 each 10/20/21 06:00 Iv Access IV 11/18/21 23:59 DIRECTED RENEE Sodium Chloride 0 ml 10/20/21 06:00 Normal Saline Flush 10 Ml Syr IV 11/18/21 23:59 PRN PRN Sodium Chloride 0 ml 10/20/21 06:00 Normal Saline 10 Ml Vial IJ 11/18/21 23:59 DIRECTED PRN Sterile Water 0 ml 10/20/21 06:00 Water,Injection,Sterile 10 Ml Vial IJ 11/18/21 23:59 DIRECTED PRN PFSH Active Problems Active Problems: Problem Status Onset Code Colon polyp K63.5 Deviated nasal septum J34.2 Gastroesophageal reflux disease K21.9 Headache R51 Psoriasis 10/03/17 L40.9 Gastritis K29.70 GI bleed due to NSAIDs K92.2, T39.395A CAD (coronary artery disease) I25.10 Postoperative anemia due to acute blood loss D62 History of stress test Z92.89 Low back pain M54.5 Hematuria R31.9 Dysphagia R13.10 Medical History Medical History 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 Hung, was told he did not have to f/u with cardiology Stress Test [facility]-Abnormal study after max exercise. Tobacco Smoking/Tobacco Use Status: Never Alcohol Alcohol Intake: current Alcohol intake frequency: a few times a week Substance Use Substance use: Never Substance use type: does not use Vital Signs and Lab Results Vital Signs Most Recent Vital Signs in EMR: Most Recent Vital Signs Temp Pulse Resp BP Pulse Ox 36.5 C 54 L 16 122/78 98 10/20/21 08:34 10/20/21 08:34 10/20/21 08:34 10/20/21 08:34 10/20/21 08:34 Lab Results Blood Type / Crossmatch: No Data to Display Complete Blood Count: No Data to Display Complete Metabolic Panel: No Data to Display Liver Function Panel: No Data to Display Coagulation Panel: No Data to Display Cardiac Panel: No Data to Display Arterial Blood Gas: No Data to Display Venous Blood Gas: No Data to Display Pancreas Panel: No Data to Display Thyroid Panel: No Data to Display Infectious Disease: Coronavirus (COVID-19)(PCR) Negative (Negative) 10/18/21 10:45 Coronavirus 2019 Source Nasal/Nares 10/18/21 10:45 Blood Cultures: No Data to Display Toxicology Panel: No Data to Display Imaging and Studies Imaging and Studies Study information below may be from another EMR and interpreted by another provider. Please see original notes in EMR for more complete details. Stress Test Summary: 1. Myocardial perfusion imaging: No myocardial perfusion defects noted. 2. The calculated left ventricular ejection fraction after stress: 51%. LV global systolic function is normal. No left ventricular regional motion abnormality. Echocardiogram Summary: 1. Left ventricle: The cavity size was normal. Wall thickness was normal. Systolic function was normal. The estimated ejection fraction was 55-60%. Wall motion was normal; there were no regional wall motion abnormalities. Diastolic parameters were normal. 2. Ascending aorta: The ascending aorta was mildly dilated. 3. Right ventricle: The cavity size was normal. Wall thickness was normal. Systolic function was normal. Anesthesia Assessment and Plan Anesthesia History Personal History: No History of Anesthesia Complications Family History: No Family History of Anesthesia Complications Exercise Tolerance Exercise Tolerance: Metabolic Equivalents>4 Pertinent Negatives Pertinent Negatives: No Symptoms of GERD, No Major Cardiovascular Symptoms or Complaints, No Major Pulmonary Symptoms or Complaints and No History of CVA/TIA Cardiac & Pulmonary Exam Cardiac Exam: Normal S1/S2 Heart Sounds Pulmonary Exam: Clear Bilateral Breath Sounds Implantable Cardiac Device Does patient have a Pacemaker or an ICD?: No Airway Exam Known Difficult Airway: No Mallampati Class: 2 Mouth Opening: Normal (> 3cm) Thyromental Distance: Greater than 3 cm Neck Range of Motion: Full ROM Neck Circumference: Normal Teeth Condition: Normal Dentition ASA Classification ASA Score: ASA 2 Emergency Case?: No NPO Status NPO Status: NPO Clears >2 hours, Solids >8 hours Anesthesia Plan Resuscitation Status: Full Code Anesthesia Technique: General Anesthesia Airway Planned: Natural Airway (ETT if tumor is found) Monitors Used: Standard Monitors
--- NOTE | 2021-10-20 10:06 | W.PM.HP.N ---
Date of service: 10/20/21 Time of Service: 09:06 Assessment and Plan Assessment and plan (1) Hematuria: Status: Acute Assessment and plan: For cystoscopy with bilateral retrograde pyelogram to complete his hematuria workup. History of Present Illness History of Present Illness Chief Complaint: Gross Hematuria Narrative: This is a 65-year-old gentleman who has a history of intermittent gross painless hematuria. He tells me that these episodes usually occur after strenuous activity. Most recently, he noticed gross hematuria for about 24 hours over the weekend. He has been evaluated with a noncontrast CT scan which showed no kidney stones and no renal masses. He presents for cystoscopy to complete his hematuria work-up. Review of Systems Constitutional Comments: No fevers or chills Deviated septum. No vision change or dysphasia No diabetes or thyroid dysfunction No shortness of breath, cough or hemoptysis No chest pain or palpitations Hx GERD. No hepatitis, ulcers, jaundice No seizures, strokes or peripheral neuropathy Hx GI bleed/anemia Low back pain. 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 Hung, was told he did not have to f/u with cardiology Stress Test [facility]-Abnormal study after max exercise. Family History Mother Diabetes Essential hypertension Personal history of malignant neoplasm lung Father Personal history of malignant neoplasm throat Heart disease Myocardial infarction Sister Multiple sclerosis Sister No problems noted. Brother No problems noted. Brother No problems noted. Grandfather No problems noted. Grandfather No problems noted. Grandmother No problems noted. Grandmother No problems noted. 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 What is your relationship status?: Panel score (0-1 are the most socially isolated patients): 1 What type of physical activity do you participate in: bicycling and additional Details: currently unable Do you feel safe at home: Yes Do you feel safe in your relationship?: Yes Meds Allergies and Home Medications Allergies Allergy/AdvReac Type Severity Reaction Status Date / Time No Known Allergies Allergy Verified 10/20/21 08:38 Home Medications Medication Instructions Recorded Confirmed Type aspirin 81 mg tablet,delayed 81 mg PO DAILY 02/25/19 10/20/21 History release (Adult Aspirin Regimen) levothyroxine 100 mcg tablet 100 mcg PO DAILY@0600 #90 tabs 01/04/21 10/20/21 Rx metoprolol tartrate 25 mg tablet 12.5 mg PO BID #300 tabs 01/27/21 10/20/21 Rx nitroglycerin 0.4 mg sublingual 0.4 mg sublingual Q5 MIN PRN X3 05/28/21 10/20/21 Rx tablet (Nitrostat) PRN chest pain #20 tabs atorvastatin 20 mg tablet 20 mg PO DAILY #90 tabs 06/02/21 10/20/21 Rx Exam Const General: cooperative and comfortable Neck Neck: normal visual inspection and supple Resp Effort & Inspection: normal respiratory effort Auscultation: clear to auscultation bilaterally Cardio Rate: regular rate Rhythm: regular rhythm GI Palpation: soft Neuro General: patient alert, patient awake and patient oriented x3 Results Last Vital Signs Temp 36.5 C 10/20/21 08:34 Pulse 54 L 10/20/21 08:34 Resp 16 10/20/21 08:34 BP 122/78 10/20/21 08:34 Pulse Ox 98 10/20/21 08:34
[2021-10-20] MEDS: ceFAZolin 2 GM/50 ML BAG IVPB (10:46)
[2021-10-20] MEDS: Lidocaine 2% Jelly 6 ML SYR (10:55)
[2021-10-20] MEDS: Omnipaque 300 MG/ML 50 ML BTL (11:04)
--- NOTE | 2021-10-20 11:08 | DI.RAD_ITS ---
Exam(s) XR RETROGRADE IN OR EXAM: XR RETROGRADE IN OR CLINICAL HISTORY: Hematuria. TECHNIQUE: 2D digital imaging was performed. COMPARISON: No exams were available for comparison FINDINGS: Fluoroscopy was provided during retrograde bilateral injections performed by the urologist. See procedure report for details. Total fluoroscopy time 33 seconds/cumulative dose= 5.5210mGy IMPRESSION: DATA REPOSITORY: RADIATION DOSE DELIVERED:
--- NOTE | 2021-10-20 11:12 | W.PM.DSUDISC ---
Discharge Plan Disposition Patient Disposition: HOME Condition: Stable Discharge Details Reason For Visit: cystoscopy Attending Provider: Uriel Crump Primary Care Provider: Noble Ramirez Home Meds and New Rx's Prescriptions: No Action aspirin [Adult Aspirin Regimen] 81 mg tablet,delayed release (DR/EC) 81 mg PO DAILY levothyroxine 100 mcg tablet 100 mcg PO DAILY@0600 Qty: 90 3RF metoprolol tartrate 25 mg tablet 12.5 mg PO BID Qty: 300 6RF nitroglycerin [Nitrostat] 0.4 mg tablet, sublingual 0.4 mg Sublingual Q5 MIN PRN X3 PRN (Reason: chest pain) Qty: 20 1RF atorvastatin 20 mg tablet 20 mg PO DAILY Qty: 90 4RF Discharge Instructions Additional Instructions: followup @ 1 month Stand Alone Forms: Anesthesia Discharge Inst., Andrey Perez (DSU) Activity:: Activity as Tolerated Shower/Bathe:: 24 hours Diet:: As Tolerated Discharge Orders Discharge Orders: Discharge Order (Routine); Ordered 10/20/21 Ordered By: Uriel Crump DS: Diagnosis Discharge Diagnosis (1) Hematuria: Status: Acute
[2021-10-20 11:18] VITALS: BP 93/67; PULSE 62; RESP 18; TEMP 36.2; O2SAT 98
[2021-10-20] MEDS: Phenazopyridine 200 MG TAB PO (11:39)
[2021-10-20 11:46] VITALS: BP 108/72; PULSE 58; RESP 16; TEMP 36.3; O2SAT 99
--- NOTE | 2021-10-20 13:20 | ROE_ITS ---
Date of service: 10/20/21 Time of Service: 11:30 Operative Note Operative Note DATE OF PROCEDURE: 10/20/21 PRE-OP DIAGNOSIS: Gross hematuria PROCEDURE: cystoscopy with bilateral retrograde pyelogram SURGEON: Uriel Crump ANESTHESIA TYPE: Local By Surgeon and General:No Airway Refer to Anesthesia Record ESTIMATED BLOOD LOSS: 2 PATHOLOGY: none sent COMPLICATIONS: None Patient was transported to: same day Patient's condition: stable Implants: none Indications: This is a 65-year-old gentleman who has a history of intermittent episodes of gross painless hematuria. He has been evaluated with a noncontrast CT scan which showed no evidence of renal stones or renal masses. He presents for cystoscopy with bilateral retrograde pyelogram to complete his hematuria work- up. Findings: No bladder tumors Procedure Description: The patient was given a dose of preoperative antibiotics. He was brought to the operating room on 10/20/2021. After successful induction of general anesthesia, he was placed in the dorsal lithotomy position. His genitalia was prepped and draped. 2% Xylocaine jelly was instilled into the urethra to act as a local anesthetic. A 22 Portuguese rigid cystoscope was passed through the urethra into the bladder. The urethra and bladder were inspected with the 30 degree lens. The pendulous, bulbar and membranous urethra appeared normal with no strictures. The prostatic urethra showed some increased vascularity out toward the verumontanum. No papillary lesions were seen on the prostatic mucosa. No active bleeding was seen. The bladder neck was then entered and the bladder mucosa was inspected. Both ureteral orifices appeared normal with no blood coming from either side. The remainder the bladder was relatively smooth-walled with no papillary or nodular lesions. The bladder findings were confirmed on reinspection of the bladder with a 70 degree lens. Each ureteral orifice was then cannulated with a 5 Portuguese access catheter. A retrograde film was obtained by injecting Omnipaque through the access catheter under fluoroscopic guidance. No filling defects were found in either ureter or collecting system. Both sides drained promptly on a 5-minute drainage film. Based on today's examination, there is no significant uropathology. The most likely source of his hematuria would be his prostate. If he remains symptomatic, a trial of a 5 alpha reductase inhibitor could be considered.
--- NOTE | 2021-10-20 15:08 | W.ANESPOSTOP ---
Postoperative Evaluation Date, Time and Location Date Performed: 10/20/21 Time Performed: 15:09 Patient Location: Day Surgery Unit Vital Signs Most Recent Imported Vital Signs: Most Recent Vital Signs Temp Pulse Resp BP Pulse Ox 36.3 C L 58 L 16 108/72 99 10/20/21 11:46 10/20/21 11:46 10/20/21 11:46 10/20/21 11:46 10/20/21 11:46 Pain Score Most Recent Pain Score: Most Recent Pain Score Pain Level 0 10/20/21 11:46 Assessment Mental Status: Awake (Alert & Oriented to Patient Baseline) Airway and Respiratory Function: Patent airway with normal (patient baseline) respiratory exam Cardiovascular Function: Hemodynamically Stable Hydration Status: Adequately Hydrated Nausea & Vomiting: No Nausea or Vomiting Pain: Pt. Denies Any Pain Peripheral Nerve Block: Patient did not receive a nerve block Postoperative Comments:: Patient seen earlier today. Denied question or concern.
== END 2021-10-20 12:19 | disposition home or self-care (01) ==
PROVIDERS: PCP Family Medicine; Visit Provider Urology
PROC: (CPT 74450; principal; 2021-10-20 10:15)
DX: R31.0 Gross hematuria (principal); I25.10 Atherosclerotic heart disease of native coronary artery without angina pectoris; K21.9 Gastro-esophageal reflux disease without esophagitis
CPT/HCPCS: 52005; 74420; J0690; Q9967

== ENCOUNTER → 2021-12-01 10:34 | Outpatient (BNVA) | payer MEDICARE, SELFPAY | PROVIDERS: PCP Family Medicine; Referring Provider Family Medicine; Visit Provider Urology | DX: R31.9 Hematuria, unspecified (principal) | CPT/HCPCS: 99213 ==

== ENCOUNTER → 2023-03-06 08:40 | Outpatient (BNVA) | payer MEDICARE, SELFPAY | PROVIDERS: PCP Family Medicine; Referring Provider Family Medicine; Visit Provider Surgery | DX: Z12.11 Encounter for screening for malignant neoplasm of colon (principal); Z86.010 Personal history of colon polyps ==

== ENCOUNTER 2023-03-15 08:25 | Day surgery (SDC) | payer MEDICARE, SELFPAY ==
--- NOTE | 2023-03-14 16:59 | W.PM.DSUDISC ---
Date of service: 03/15/23 Time of Service: 10:47 Discharge Plan Disposition Patient Disposition: Home Condition: Good Discharge Details Attending Provider: Krishna Denney Primary Care Provider: Noble Ramirez Home Meds and New Rx's Prescriptions: Continued metoprolol succinate 25 mg tablet extended release 24 hr 25 mg PO DAILY Qty: 90 3RF nitroglycerin [Nitrostat] 0.4 mg tablet, sublingual 0.4 mg Sublingual Q5 MIN PRN X3 PRN (Reason: chest pain) Qty: 25 1RF aspirin [Adult Aspirin Regimen] 81 mg tablet,delayed release (DR/EC) 81 mg PO DAILY atorvastatin 20 mg tablet 20 mg PO DAILY Qty: 90 4RF levothyroxine 100 mcg tablet 100 mcg PO DAILY@0600 Qty: 90 3RF Discontinued polyethylene glycol 3350 17 gram/dose powder 238 g PO ONCE Qty: 238 0RF Rx Instructions: take per colonoscopy instructions bisacodyl [Dulcolax (bisacodyl)] 5 mg tablet,delayed release (DR/EC) 5 mg PO ONCE Qty: 8 0RF Rx Instructions: take per colonoscopy instructions Discharge Instructions Instructions: Diverticulosis (GEN), Diverticulosis Diet (GEN) Additional Instructions: Cristi, we were able to complete your colonoscopy today without much difficulty. I did not see any signs of tumors or polyps anywhere along the length of your colon. Incidentally, you do have some diverticulosis. Diverticula are weak spots in the colon wall that typically accumulate with persons age. The best way to manage them is with a diet that is well-balanced and rich in dietary fiber. I have attached some general information here regarding diverticulosis and basic principles of diverticular disease management. Because of the nature of the polyp that was removed on your previous colonoscopy, I recommend a follow-up in 5 years. 1. If tolerated, consume a soft, low fiber diet for 1-2 days. 2[address] Do not drive, drink alcohol, operate machinery, make critical decisions, or do activities that require coordination or balance for 24 hours. 3. Because air was put into your colon during the procedure, expelling air from your rectum (passing gas or farting) is normal. 4. You may not have a bowel movement for 1-3 days because of the colonoscopy prep. This is normal. 5. Go directly to the emergency room if you notice any of the following: Develop chills (warm to touch), or if you have a thermometer and your temperature is above 101 Difficulty breathing or difficultly swallowing Persistent vomiting Severe abdominal pain, other than gas cramps Severe chest pain Black, tarry stools Any bleeding ? exceeding one tablespoon 6. Call your physician if the site where your intravenous was started becomes red, swollen, painful, and warm to touch. 7. Your physician has reviewed your pre-procedure medications. Please continue to take those medications as previously ordered. You will be given specific information/education regarding any changes to your medications before leaving. Activity:: Activity as Tolerated Diet:: As Tolerated Discharge Orders Discharge Orders: Discharge Order (Routine); Ordered 03/14/23 Ordered By: Krishna Denney DS: Diagnosis Discharge Diagnosis (1) Screening for colorectal cancer: Status: Acute Asessment and Plan: Diverticulosis, but otherwise negative screening colonoscopy. Based on previous tubular adenoma, recommend follow-up in 5 years
--- NOTE | 2023-03-14 17:00 | COLE_ITS ---
Date of service: 03/15/23 Time of Service: 10:50 Colonoscopy Report Date of procedure: 03/15/23 Pre-op diagnosis general: Screening colonoscopy Post-op diagnosis procedure note: other (Diverticulosis) Procedure: Colonoscopy Surgeon: Krishna Denney Anesthesia Type: General:No Airway Estimated blood loss (mL): 0 Pathology: none sent Complications: None Disposition: same day Indications: Cristi is a 67-year-old male who needs another screening colonoscopy Prep: Miralax/Dulcolax Procedure Start Time: 10:14 Procedure End Time: 10:38 Retraction Time: 16 Findings: Diverticulosis Procedure Description: After the induction of monitored anesthetic care, and with the patient in left lateral decubitus position, I began by performing an external anorectal exam.? Perineum and skin were normal, as was the anal verge.? There was no evidence of external hemorrhoids.? Next, I performed a digital rectal exam.? I did not appreciate any abnormal findings.? Next, I advanced a colonoscope into the rectal vault.? I performed retroflexion.? This was normal.? Using insufflation, I then advanced the colonoscope beyond the rectal folds and into the sigmoid colon before advancing towards the cecum.? There was sigmoid diverticulosis.? The scope was noted to be in the cecum by identification of the ileocecal valve and appendiceal orifice.? I then began withdrawing the colonoscope using repeated irrigation as necessary for full evaluation of the colonic mucosa. ?Once the scope was withdrawn to the level of the rectum, great care was taken to examine portions of the rectal folds.? Finally, the scope was withdrawn and the patient was brought to the same-day surgery recovery unit as the anesthetic wore off. ?The findings and instructions were shared with the patient prior to discharge. [place] Bowel Prep [place] Bowel Prep Right Colon: 2 Left Colon: 2 Transverse Colon: 3 Total Score: 7
[2023-03-15 08:30] VITALS: BP 117/88; PULSE 86; RESP 16; TEMP 36.6; O2SAT 97
[2023-03-15] MEDS: Lactated Ringers 1,000 ML 80 ML IV (09:15)
--- NOTE | 2023-03-15 09:47 | ANES.PREOP_ITS ---
General Info Date of Service Date Performed: 03/15/23 Height: 5 ft 10 in Weight: 79.1 kg Body Mass Index (BMI): 25.0 Surgical Procedure: Operation Date: 03/15/23 10:05 Proposed Procedure Side Surgeon grover Denney MD Meds Allergies and Home Medications Allergies Allergy/AdvReac Type Severity Reaction Status Date / Time No Known Allergies Allergy Verified 03/15/23 08:46 Home Medication Medication Instructions Recorded aspirin 81 mg tablet,delayed 81 mg PO DAILY 02/25/19 release (Adult Aspirin Regimen) metoprolol succinate 25 mg 25 mg PO DAILY #90 tabs 11/30/22 tablet,extended release 24 hr nitroglycerin 0.4 mg sublingual 0.4 mg sublingual Q5 MIN PRN X3 11/30/22 tablet (Nitrostat) PRN chest pain #25 tabs atorvastatin 20 mg tablet 20 mg PO DAILY #90 tabs 12/09/22 levothyroxine 100 mcg tablet 100 mcg PO DAILY@0600 #90 tabs 03/08/23 Current Visit Medications: Current Medications Generic Name Dose Route Start Last Admin Trade Name Freq PRN Reason Stop Dose Admin Hyoscyamine Sulfate 0.125 mg 03/14/23 17:02 Hyoscyamine 0.125 Mg Sl/Oral/Chew SL 04/13/23 17:01 DIRECTED PRN Ringer's Solution 1,000 mls @ 80 mls/hr 03/15/23 06:00 03/15/23 09:15 IV 03/15/23 23:59 80 mls/hr INFUSION RENEE Administration IV Miscellaneous Supplies 1 each 03/15/23 06:00 Iv Access IV 03/15/23 23:59 DIRECTED RENEE Ondansetron HCl 4 mg 03/14/23 17:02 Ondansetron 4 Mg/2 Ml Vial IVP 04/13/23 17:01 Q4H PRN PRN Nausea / Vomiting Sodium Chloride 0 ml 03/15/23 06:00 Normal Saline Flush 10 Ml Syr IV 03/15/23 23:59 PRN PRN Sodium Chloride 0 ml 03/15/23 06:00 Normal Saline 10 Ml Vial IJ 03/15/23 23:59 DIRECTED PRN Sterile Water 0 ml 03/15/23 06:00 Water,Injection,Sterile 10 Ml Vial IJ 03/15/23 23:59 DIRECTED PRN PFSH Active Problems Active Problems: Problem Status Onset Code Screening for colorectal cancer Z12.11, Z12.12 Colon polyp K63.5 Dysphagia R13.10 Hematuria R31.9 Low back pain M54.5 History of stress test Z92.89 Postoperative anemia due to acute blood loss D62 CAD (coronary artery disease) I25.10 GI bleed due to NSAIDs K92.2, T39.395A Gastritis K29.70 Psoriasis 10/03/17 L40.9 Headache R51 Gastroesophageal reflux disease K21.9 Deviated nasal septum J34.2 Medical History Medical History Esophageal diverticulum 01/01/19 Dr Merry Olea Hiatal hernia EGD, 01/01/19, Dr Merry Olea, [facility] Herniated intervertebral disc of lumbar spine Hypothyroidism (11/26/12) Hyperlipidemia 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 Hung, was told he did not have to f/u with cardiology 02/2023 F/U with Dr. zaman currently Stress Test [facility]-Abnormal study after max exercise. Tobacco Smoking/Tobacco Use Status: Never Passive smoking exposure: Yes Second hand exposure: Yes Alcohol Alcohol Intake: current Alcohol intake frequency: a few times a week Alcohol type: hard liquor Substance Use Substance use: Never Substance use type: does not use Vital Signs and Lab Results Vital Signs Most Recent Vital Signs in EMR: Most Recent Vital Signs Temp Pulse Resp BP Pulse Ox 36.6 C 86 16 117/88 97 03/15/23 08:30 03/15/23 08:30 03/15/23 08:30 03/15/23 08:30 03/15/23 08:30 Lab Results Blood Type / Crossmatch: No Data to Display Complete Blood Count: No Data to Display Complete Metabolic Panel: No Data to Display Liver Function Panel: No Data to Display Coagulation Panel: No Data to Display Cardiac Panel: No Data to Display Arterial Blood Gas: No Data to Display Venous Blood Gas: No Data to Display Pancreas Panel: No Data to Display Thyroid Panel: No Data to Display Infectious Disease: No Data to Display Blood Cultures: No Data to Display Toxicology Panel: No Data to Display Imaging and Studies Imaging and Studies Study information below may be from another EMR and interpreted by another provider. Please see original notes in EMR for more complete details. Stress Test Summary: 1. Myocardial perfusion imaging: No myocardial perfusion defects noted. 2. The calculated left ventricular ejection fraction after stress: 51%. LV global systolic function is normal. No left ventricular regional motion abnormality. Echocardiogram Summary: 1. Left ventricle: The cavity size was normal. Wall thickness was normal. Systolic function was normal. The estimated ejection fraction was 55-60%. Wall motion was normal; there were no regional wall motion abnormalities. Diastolic parameters were normal. 2. Ascending aorta: The ascending aorta was mildly dilated. 3. Right ventricle: The cavity size was normal. Wall thickness was normal. Systolic function was normal. Anesthesia Assessment and Plan Anesthesia History Personal History: No History of Anesthesia Complications Family History: No Family History of Anesthesia Complications Exercise Tolerance Exercise Tolerance: Metabolic Equivalents>4 Pertinent Negatives Pertinent Negatives: No Symptoms of GERD and No Major Pulmonary Symptoms or Complaints Cardiac & Pulmonary Exam Cardiac Exam: Normal S1/S2 Heart Sounds Pulmonary Exam: Clear Bilateral Breath Sounds Implantable Cardiac Device Does patient have a Pacemaker or an ICD?: No Airway Exam Known Difficult Airway: No Mallampati Class: 2 Mouth Opening: Normal (> 3cm) Thyromental Distance: Greater than 3 cm Neck Range of Motion: Full ROM Neck Circumference: Normal Teeth Condition: Normal Dentition ASA Classification ASA Score: ASA 3 Emergency Case?: No NPO Status NPO Status: NPO Clears >2 hours, Solids >8 hours Anesthesia Plan Resuscitation Status: Full Code Anesthesia Technique: General Anesthesia Airway Planned: Natural Airway Monitors Used: Standard Monitors
[2023-03-15 09:50] VITALS: BMI 25.0
[2023-03-15 10:49] VITALS: BP 101/79; PULSE 68; RESP 16; TEMP 36.4; O2SAT 96
--- NOTE | 2023-03-15 10:58 | W.ANESPOSTOP ---
Postoperative Evaluation Date, Time and Location Date Performed: 03/15/23 Time Performed: 10:58 Patient Location: Day Surgery Unit Vital Signs Most Recent Imported Vital Signs: Most Recent Vital Signs Temp Pulse Resp BP Pulse Ox 36.4 C L 68 16 101/79 96 03/15/23 10:49 03/15/23 10:49 03/15/23 10:49 03/15/23 10:49 03/15/23 10:49 Pain Score Most Recent Pain Score: Most Recent Pain Score Pain Level 0 03/15/23 10:49 Assessment Mental Status: Awake (Alert & Oriented to Patient Baseline) Airway and Respiratory Function: Patent airway with normal (patient baseline) respiratory exam Cardiovascular Function: Hemodynamically Stable Hydration Status: Adequately Hydrated Nausea & Vomiting: No Nausea or Vomiting Pain: Pt. Denies Any Pain Peripheral Nerve Block: Patient did not receive a nerve block
[2023-03-15 11:21] VITALS: BP 112/67; PULSE 67; RESP 16; TEMP 36.5; O2SAT 99
== END 2023-03-15 11:59 | disposition home or self-care (01) ==
LOC: SUR 08:26
PROVIDERS: PCP Family Medicine; Visit Provider Surgery
PROC: 0DJD8ZZ Inspection of Lower Intestinal Tract, Via Natural or Artificial Opening Endoscopic (ICD-10-PCS; CPT 45378; principal; 2023-03-15 10:00)
DX: Z12.11 Encounter for screening for malignant neoplasm of colon (principal); K21.9 Gastro-esophageal reflux disease without esophagitis; K57.30 Diverticulosis of large intestine without perforation or abscess without bleeding
CPT/HCPCS: G0121

== ENCOUNTER 2023-03-27 00:58 | Outpatient (CLI) | payer MEDICARE, SELFPAY ==
[2023-03-27 12:57] LABS: Calculated LDL 166 mg/dL (<100); Cholesterol 266 mg/dL (<200); HDL Cholesterol 53 mg/dL (40-60); TSH (W/Ref FT4) 38.75 uIU/mL (0.36-3.74); Triglyceride 238 mg/dL (<150)
[2023-03-27 13:19] LABS: FREE T4 0.76 ng/dL (0.76-1.46)
== END 2023-03-27 00:59 | disposition home or self-care (01) ==
LOC: LOS 00:58
PROVIDERS: PCP Family Medicine; Visit Provider Family Medicine
DX: E78.5 Hyperlipidemia, unspecified (principal); E03.9 Hypothyroidism, unspecified
CPT/HCPCS: 36415; 80061; 84439; 84443

== ENCOUNTER 2023-12-06 02:41 | Outpatient (CLI) | payer MEDICARE, SELFPAY ==
--- OUTSIDE RECORDS SUMMARY | 2023-12-06 02:42 | XMS_ITS | Encounter Summary ---
Author Organization [facility] [place] [address] Care Team Providers Care Livestock Breeder Name Role Phone Noé Hung DO Primary Care Provider Encounter Details Date Type Department Care Team (Late st Contact Info) Description 12/22/2015 Orders [place] [id number] Ashley Wall APRN [facility] [place] [address] Social History Tobacco Use Types Packs/Day Years Used Date Smoking Tobacco: Never Smokeless Tobacco: Never Alcohol Use Standard Drinks/Week Comments Yes 1 (1 standard drink = 0.6 oz pur e alcohol) 1 glass per day Sex and Gender Information Value Date Recorded Sex Assigned at Not on file Gender Identity Not on file Sexual Orientation Not on file documented as of this encounter Plan of Treatment Not on file documented as of this encounter Visit Diagnoses Not on filedocumented in this encounter Care Teams Livestock Breeder Relationship Specialty Start Date End Date Noé Hung DO [address] [place], [place] [id number] PCP - General 05/10/10 documented as of this encounter
--- OUTSIDE RECORDS SUMMARY | 2023-12-06 02:42 | XMS_ITS | Clinical Summary ---
Author Organization [facility] Address [facility] [place] [address] Care Team Providers Care Wheel Assembler Name Role Phone Noé Hung DO Primary Care Provider Allergies No known active allergies Medications Medication Sig Dispensed Refills Start Date End Date Status aspirin 81 mg Tablet, Chewable Take 81 mg by mouth daily. Active nitroGLYcerin (NITROSTAT) 0.4 mg Tablet, Sublingual Place 0.4 mg under the tongue every 5 minutes as needed for Chest pain. Active acetaminophen (TYLENOL) 500 mg Tablet Take 2 tablets by mouth every 6 hours. 12/04/2015 Active meTOPROLOL tartrate (LOPRESSOR) 25 mg Tablet Take 1 tablet by mouth every 8 hours. 120 tablet 3 12/04/2015 Active gabapentin (NEURONTIN) 100 mg Capsule Take 1 capsule by mouth 3 times daily. 30 capsule 3 12/22/2015 Active Additional Information Patient not taking.Reported on 03/11/2019 ferrous sulfate 325 mg (65 mg iron) Tablet Take 325 mg by mouth 2 times daily. Active atorvastatin (LIPITOR) 20 mg Tablet Take 1 tablet by mouth daily. 30 tablet 3 12/31/2015 Active levothyroxine (SYNTHROID) 100 mcg Tablet 0 03/06/2019 Active Active Problems Problem Noted Date Diagnosed Date Hypothyroidism 11/25/2015 3-vessel CAD Overview (11/26/2015): ?? 11/25/2015 cardiac catheterization: Three vessel coronary artery disease (LAD, LCX and RCA) Resolved Problems Problem Noted Date Diagnosed Date Resolved Date Coronary artery disease 11/25/2015 070 11/2015 Family History Medical History Relation Comments Myocardial Infarction Father Type 2 Diabetes Mother Relation Status Comments Father Mother Social History Tobacco Use Types Packs/Day Years Used Date Smoking Tobacco: Never Smokeless Tobacco: Never Alcohol Use Standard Drinks/Week Comments Yes 1 (1 standard drink = 0.6 oz pur e alcohol) 1 glass per day Sex and Gender Information Value Date Recorded Sex Assigned at Not on file Gender Identity Not on file Sexual Orientation Not on file Last Filed Vital Signs Vital Sign Reading Time Taken Comments Blood Pressure 127/73 03/11/2019 1:22 PM EDT Pulse 70 03/11/2019 1:22 PM EDT Temperature 37.2 ??C (99 ??F) 12/04/2015 7:44 AM EDT Respiratory Rate 17 12/04/2015 7:44 AM EDT Oxygen Saturation 98% 12/31/2015 4:09 PM EDT Inhaled Oxygen Concentration - - Weight 75.8 kg (167 lb) 03/11/2019 1:22 PM EDT Height 177.8 cm (5' 10) 03/11/2019 1:22 PM EDT Body Mass Index 23.96 03/11/2019 1:22 PM EDT Plan of Treatment Health Maintenance Due Date Last Done Comments CT Colonography 1953 Colonoscopy 1953 Colorectal Cancer Screening 1953 FIT DNA 1953 FIT 1953 Sigmoidoscopy (10 year) with FIT yearly 1953 Sigmoidoscopy 1953 Hepatitis C Screening 12/15/1971 Tdap adult 1972 Tetanus vaccine 1972 Zoster vaccine (1 of 2) 12/15/2003 Advance Directive 2008 Pneumoccocal Vaccine: 65+ (1 of 1 - PCV) 2018 Covid-19 Vaccine (1 - 2022-24 season) 2023 Influenza (Flu) vaccine (1 o f 1 - Influenza standard series) 01/20/2024 Medical Devices Implanted Type Area Automatic Bandsaw Tender Device Identifier Shelf Expiration Date Model / Serial / Lot Bryce Berumen Ss ,38in ([id number]) - [id number] Implanted:Qty : 4 on 11/29/2015 by Yash Benton MD at [facility] IMPLANTS N/A: Sternum [employer] - [id number] 07/12/2020 [id number] / NA / [id number] Cable,Tpr,Bln t,Ss ([id number]) - [id number] Implanted:Qty : 1 on 11/29/2015 by Yash Benton MD at [facility] IMPLANTS N/A: Sternum [employer] - [id number] 05/20/2020 [id number] / NA / [id number] Advance Directives * Full Code (Latest Code Status on File) Date Activated Date Inactivated Comments 11/29/2015 2:09 PM 12/04/2015 3:30 PM Question Answer Comments Does patient have capacity to make decision: Yes * Full Code Date Activated Date Inactivated Comments 11/29/2015 7:13 AM 11/29/2015 1:58 PM Question Answer Comments Does patient have capacity to make decision: Yes * Full Code Date Activated Date Inactivated Comments 11/25/2015 9:18 AM 11/29/2015 7:13 AM Question Answer Comments Does patient have capacity to make decision: Yes Care Teams Wheel Assembler Relationship Specialty Start Date End Date Noé Hung DO [address] [place], [place] [address] PCP - General 05/10/10
--- OUTSIDE RECORDS SUMMARY | 2023-12-06 02:42 | XMS_ITS | Encounter Summary ---
[place] [address] Care Team Providers Care Heavy Equipment Technician Name Role Phone Noé Hnug DO Primary Care Provider [phone] Encounter Details Date Type Department Care Team (Late st Contact Info) Description 12/19/2018 Ancillary Procedure [place] [phone] Stuart Elizondo MD [facility] [address] [place] [address] Social History Tobacco Use Types Packs/Day Years [...] on file documented as of this encounter Procedures Procedure Name Priority Date/Time Associated Diagnosis Comments FILM LIBRARY STORAGE ONLY MR SPINE Routine 12/19/2018 12:00 AM EDT documented in this encounter Results * Film Library- Storage Only MR Spine (12/19/2018 12:00 AM EDT) Narrative [facility] - 02/28/2019 5:37 AM EDT This exam is auto-finalizing. It's purpose is for storage only. Stuart Elizondo MD IMG FILM LIBRARY ORD ERABLES [facility] [place], [place] documented in this encounter Visit Diagnoses Not on filedocumented in this encounter Care Teams Heavy Equipment Technician Relationship Specialty Start Date End Date Noé Hung DO [address] [place] [address] PCP - General 05/10/10 documented as of this encounter
--- OUTSIDE RECORDS SUMMARY | 2023-12-06 02:42 | XMS_ITS | Encounter Summary ---
Author Organization [facility] Address [facility] [place] [address] Care Team Providers Care Material Combiner Name Role Phone Noé Hung DO Primary Care Provider [phone] Encounter Details Date Type Department Care Team (Late st Contact Info) Description 12/31/2015 3:40 PM EDT Office Visit [place]iac [place] [id number] Michael Etienne PA [facility] [place] [address] S/P CABG x 4 Social History Tobacco Use Types Packs/Day Years Used Date Smoking Tobacco: Never Smokeless Tobacco: Never Alcohol Use Standard Drinks/Week Comments Yes 1 (1 standard drink = 0.6 oz pur e alcohol) 1 glass per day Sex and Gender Information Value Date Recorded Sex Assigned at Not on file Gender Identity Not on file Sexual Orientation Not on file documented as of this encounter Last Filed Vital Signs Vital Sign Reading Time Taken Comments Blood Pressure 120/78 12/31/2015 4:09 PM EDT Pulse 90 12/31/2015 4:09 PM EDT Temperature - - Respiratory Rate - - Oxygen Saturation 98% 12/31/2015 4:09 PM EDT Inhaled Oxygen Concentration - - Weight 76.2 kg (168 lb 1.6 oz) 12/31/2015 4:09 P M EDT Height 177.8 cm (5' 10) 12/31/2015 4:09 PM EDT Body Mass Index 24.12 12/31/2015 4:09 PM EDT documented in this encounter Progress Notes * Michael Etienne PA - 12/31/2015 3:40 PM EDT Cardiac Surgery Clinic Note: ID: [id number] Cardiac Surgery Attending: Dr. Benton Tacker Off: Dr. Atkins PCP: NOÉ HUNG, DO S: s/p cabg x4 on 11/29/2015 discharged on POD#5. Doing ok. Reports right forearm and 2nd digit numbness after surgery. The right forearm has improved but has some residual right hand 2nd digit numbness. Was on neurontin for this but wants to stop due to fear of side effects. He was only taking 100mg TID. He does report some mild blurry vision after surgery as well. This has improved over the lastfew days. No vision loss, eye pain, change in patterns, hallucinations, DIETZ. He has not seen his Tacker Off. He will see his PCP in the next week. Denies n/v, fever, chills, SOB, CP, abd pain. He isambulating well. Told PO diet. Normal BM's. EKG: Shows NSR. CXR: Demonstrates clear inflated lungs. No effusions. Current medications: Outpatient Prescriptions Marked as Taking for the 12/31/15 encounter (Office Visit) with Michael Etienne PA Medication Sig Dispense Refill ??? ferrous sulfate 325 mg (65 mg iron) Tablet Take 325 mg by mouth 2 times daily. ??? gabapentin (NEURONTIN) 100 mg Capsule Take 1 capsule by mouth 3 times daily. 30 capsule 3 ??? acetaminophen (TYLENOL) 500 mg Tablet Take 2 tablets by mouth every 6 hours. ??? meTOPROLOL tartrate (LOPRESSOR) 25 mg Tablet Take 1 tablet by mouth every 8 hours. 120 tablet 3 ??? aspirin 81 mg Tablet, Chewable Take 81 mg by mouth daily. ??? nitroGLYcerin (NITROSTAT) 0.4 mg Tablet, Sublingual Place 0.4 mg under the tongue every 5 minutes as needed for Chest pain. ??? atorvastatin (LIPITOR) 20 mg Tablet Take 20 mg by mouth daily. ??? levothyroxine (SYNTHROID) 75 mcg tablet 75MCG = 1 Tablet(s), PO, Once daily O: Vitals: 12/31/15 1609 BP: 120/78 Pulse: 90 SpO2: 98% Weight: 76.2 kg (168 lb 1.6 oz) Height: 177.8 cm (5' 10) Physical exam: General: A&Ox3. NAD. Lungs: CTABL Heart: RRR Abdomen: +BS. NT, ND Ext: Moves all extremities. Right hand 2nd digit decreased sensation. Decreased 3rd digit strength 3/5. Incisions: c/d/i Assessment/Plan: s/p CABG doing well. Recovering. Right hand likely due to OR surgical positioning.Numbness is improving and will likely improve over the next month or so. His blurry vision should also resolve but if it does not I asked him to see his Opthalmologist in the next month or so as he may need a change in prescription. No Medications changes: Will refill lipitor. -May resume driving. -May resume unrestricted activities with exception of heavy lifting > 20# for four more weeks. -Patient to follow up with PCP to resume management of chronic medical issues. -Patient to contact PCP for future refill needs. -Patient to follow-up with Tacker Off as discussed/arranged. -We would happy to see patient on an as needed basis going forward. DW Attending Surgeon. Signed: NEPTALI WELCH [facility] Section of Cardiac Surgery 12/31/2015 documented in this encounter Plan of Treatment Not on file documented as of this encounter Procedures Procedure Name Priority Date/Time Associated Diagnosis Comments EKG 12-LEAD Routine 12/31/2015 4:18 PM EDT S/P CABG x 4 documented in this encounter Results * EKG 12 Lead (12/31/2015 4:18 PM EDT) Ventricular rate 89 BPM MUSE SYSTEM Atrial Rate 89 BPM MUSE SYSTEM P-R Interval 136 ms MUSE SYSTEM QRS Duration 90 ms MUSE SYSTEM Q-T Interval 388 ms MUSE SYSTEM QTC Calculated (Bezet) 472 ms MUSE SYSTEM Calculated P Rodeo 67 degrees MUSE SYSTEM Calculated R Rodeo 48 degrees MUSE SYSTEM Calculated T Rodeo 56 degrees MUSE SYSTEM INTERPRETATION Normal sinus rhythm Nonspecific T wave abnormality Prolonged QT Abnormal ECG Confirmed by MD Thurman Douglas ([id number]) on 01/01/2016 5:25:59 PM MUSE SYSTEM 12/31/2015 4:18 PM EDT 01/01/2016 5:25 PM EDT Yash Benton MD ECG ORDERABLES MUSE SYSTEM documented in this encounter Visit Diagnoses Diagnosis S/P CABG x 4 Postsurgical aortocoronary bypass status documented in this encounter Care Teams Material Combiner Relationship Specialty Start Date End Date Noé Hung DO [address] [place] [address] PCP - General 05/10/10 documented as of this encounter
--- OUTSIDE RECORDS SUMMARY | 2023-12-06 02:42 | XMS_ITS | Encounter Summary ---
Author Organization [facility] [place] [address] Care Team Providers Care Cyber Security Engineer Name Role Phone Noé Hung DO Primary Care Provider Encounter Details Date Type Department Care Team (Late st Contact Info) Description 12/19/2018 12:05 AM EDT Ancillary [place] [address] [facility] [place] [address] Social History Tobacco Use Types Packs/Day Years [...] Associated Diagnosis Comments FILM LIBRARY STORAGE ONLY DX SPINE Routine 12/19/2018 12:05 AM EDT documented in this encounter Results * Film Library- Storage Only DX Spine (12/19/2018 12:05 AM EDT) Narrative [facility] - 02/28/2019 5:38 AM EDT This exam is auto-finalizing. It's purpose is for storage only. Stuart Elizondo MD IMG FILM LIBRARY ORD ERABLES [facility] [place] documented in this encounter Visit Diagnoses Not on filedocumented in this encounter Care Teams Cyber Security Engineer Relationship Specialty Start Date End Date Noé Hung DO [address] [place] [address] PCP - General 05/10/10 documented as of this encounter
--- OUTSIDE RECORDS SUMMARY | 2023-12-06 02:42 | XMS_ITS | Encounter Summary ---
Author Organization [facility] Address [facility] [place] [address] Care Team Providers Care Halftone Operator Name Role Phone Noé Hung DO Primary Care Provider Reason for Visit * Reason Comments Back Pain * Consultation (Routine) - Closed Specialty Diagnoses / Procedures Referred By Contac t Referred To Contact [facility] Diagnoses Low back pain Spine - Low back pain/ MRI (L) 12/19/18 @ [facility] Yusra Christian, SAND ANALYST [address] [place] [address] [facility] [place] [address] Referral ID Status Reason Start Date Expiration Date Visits Re quested Visits Authorized [id number] Closed 02/26/2019 02/26/2020 1 1 Encounter Details Date Type Department Care Team (Late st Contact Info) Description 03/11/2019 1:20 PM EDT Office Visit [place] [address] Hussain Rangel PA [facility] [place] [address] Chronic midline low back pain without sciatica Social History Tobacco Use Types Packs/Day Years [...] Pulse 70 03/11/2019 1:22 PM EDT Temperature - - Respiratory Rate - - Oxygen Saturation - - Inhaled Oxygen Concentration - - Weight 75.8 kg (167 lb) 03/11/2019 1:22 PM EDT Height 177.8 cm (5' 10) 03/11/2019 1:22 PM EDT Body Mass Index 23.96 03/11/2019 1:22 PM EDT documented in this encounter Progress Notes * Hussain Rangel PA - 03/11/2019 1:20 PM EDT Olman Rivera is a 63-year-old gentleman I am seen today for chief complaint of episodic low back pain. He tells me that about 30 years ago he had significant back pain that took him out of work for a few days after he was lifting a heavy range into a building. He tells me that ever since that time he gets episodes of back pain every 5 years or so which can be quite debilitating but ultimatelyimprove in less than a week. He was concerned however because earlier this year he tells me he had 4 such episodes and even had one quite significant and severe in December that he required emergency medical attention. More recently his pain has been improving. He mentions no more than 2/10 pain intensity. Mention a sense of locking up and tightness and spasm that affects him mostly over his midline low back and bilateral lumbosacral junctions without more distal radiation. No lower extremity pain or weakness with this. No bowel or bladder changes. 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 He also tells me he left the cycle but has not been doing so due to his back injuries this year. Objective: On exam today this is a pleasant thin 63-year-old gentleman. Height is 5 feet 10 inches weight is 167 pounds, body mass index 23.9. He stands with straight spine level shoulders and pelvis without obvious spinal deformity. Motor and sensory exam shows full and intact sensation throughout. +2 reflexes both knees and both ankles painless hip range of motion bilaterally. Straight leg raises are negat tiera. Imaging: I went over his lumbar spine MRI from December 2018. In summary this shows a very small central protruding disc with a small annular tear at the L2-L3 level but aside from that disc and vertebral body heights well-maintained throughout and there is no significant evidence for nerve root compression or any significant kind of spinal stenosis at any level of the low back. Alignment is maintained without scoliosis or listhesis. Assessment/plan: Olman Rivera is a 63-year-old gentleman I am seen today for chief complaint of episodic chroniclow back pain in relation to distant back injury with more frequent episodes as of late. I advised Mr. Flaherty that fortunately his neurological exam and imaging studies are quite reassuring. We discussed that ultimately he knows back pain is more mechanical and functional in nature as opposed to anykind of structural abnormality. He has been starting to do the Kylie strategy following the treat your own back book, althoughthat has only been about 2 days ago. I encouraged him to go further with that. Also talked about the use of a TENS unit as well. We also discussed briefly the use of a lumbar roll especially when he is driving across the nation and also doing basic extension exercises. I advised Mr. Rivera I am happy to follow-up with him if necessary. documented in this encounter Plan of Treatment Not on file documented as of this encounter Visit Diagnoses Diagnosis Chronic midline low back pain without sciatica documented in this encounter Care Teams Halftone Operator Relationship Specialty Start Date End Date Noé Hung DO [address] [place] [address] PCP - General 05/10/10 documented as of this encounter
--- OUTSIDE RECORDS SUMMARY | 2023-12-06 02:42 | XMS_ITS | Encounter Summary ---
Author Organization [facility] Address [facility] [place] [address] Care Team Providers Care Fundraising Consultant Name Role Phone Noé Hung DO Primary Care Provider Encounter Details Date Type Department Care Team (Latest Contact Info) Description 12/31/2015 1:11 PM EDT - 12/31/2015 11:59 PM EDT Hospital Encounter XRay at [address] [place] [address] Yash Benton MD [facility] [place] [address] S/P CABG x 4 Discharge Disposition: Home Social History Tobacco Use Types Packs/Day Years Used Date Smoking Tobacco: Never Smokeless Tobacco: Never Alcohol Use Standard Drinks/Week Comments Yes 1 (1 standard drink = 0.6 oz pur e alcohol) 1 glass per day Sex and Gender Information Value Date Recorded Sex Assigned at Not on file Gender Identity Not on file Sexual Orientation Not on file documented as of this encounter Medications at Time of Discharge Medication Sig Dispensed Refills Start Date End Date atorvastatin (LIPITOR) 20 mg Tablet Take 1 tablet by mouth daily. 30 tablet 3 12/31/2015 acetaminophen (TYLENOL) 500 mg Tablet Take 2 tablets by mouth every 6 hours. 12/04/2015 meTOPROLOL tartrate (LOPRESSOR) 25 mg Tablet Take 1 tablet by mouth every 8 hours. 120 tablet 3 12/04/2015 aspirin 81 mg Tablet, Chewable Take 81 mg by mouth daily. nitroGLYcerin (NITROSTAT) 0.4 mg Tablet, Sublingual Place 0.4 mg under the tongue every 5 minutes as needed for Chest pain. ferrous sulfate 325 mg (65 mg iron) Tablet Take 325 mg by mouth 2 times daily. gabapentin (NEURONTIN) 100 mg Capsule Take 1 capsule by mouth 3 times daily. 30 capsule 3 12/22/2015 levothyroxine (SYNTHROID) 75 mcg tablet 75MCG = 1 Tablet(s), PO, Once daily 04/24/2006 03/11/2019 documented as of this encounter Plan of Treatment Not on file documented as of this encounter Procedures Procedure Name Priority Date/Time Associated Diagnosis Comments XR CHEST PA AND LATERAL Routine 12/31/2015 1:23 PM EDT S/P CABG x 4 documented in this encounter Results * XR Chest PA & Lateral (Generic) (12/31/2015 1:23 PM EDT) Anatomical Region Laterality Modality Chest N/A Digital Radiogra phy Impressions 12/31/2015 2:23 PM EDT Improved inflation but small residual pleural effusions. I have personally reviewed the image(s) and the residents interpretation and agree with the findings, Stuart Campos at 12/31/2015 2:23 PM Narrative 12/31/2015 2:23 PM EDT EXAMINATION: XR CHEST ROUTINE PA AND LATERAL CLINICAL HISTORY: s/p cabg TECHNIQUE: PA and lateral chest COMPARISON: Chest radiograph 12/02/2015, 11/29/2015. FINDINGS: Minimal by basilar atelectasis, improved compared to prior examination. Otherwise no focal opacities. No pneumothorax. Small bilateral pleural effusion, improved compared to prior examination. Cardiomediastinal silhouette and pulmonary vascular markings are within normal limits. Intact median sternotomy wires and surgical clips are noted. No acute or aggressive osseous lesions. Procedure Note Stuart Campos MD - 12/31/2015 EXAMINATION: XR CHEST ROUTINE PA AND LATERAL CLINICAL HISTORY: s/p cabg TECHNIQUE: PA and lateral chest COMPARISON: Chest radiograph 12/02/2015, 11/29/2015. FINDINGS: Minimal by basilar atelectasis, improved compared to prior examination. Otherwise no focal opacities. No pneumothorax. Small bilateral pleuraleffusion, improved compared to prior examination. Cardiomediastinal silhouette and pulmonary vascular markings are within normal limits. Intact mediansternotomy wires and surgical clips are noted. No acute or aggressive osseouslesions. IMPRESSION Improved inflation but small residual pleural effusions. I have personally reviewed the image(s) and the residents interpretationand agree with the findings, Stuart Campos at 12/31/2015 2:23 PM Yash Benton MD IMG DX ORDERABLES documented in this encounter Visit Diagnoses Diagnosis S/P CABG x 4 Postsurgical aortocoronary bypass status documented in this encounter Care Teams Fundraising Consultant Relationship Specialty Start Date End Date Noé Hung DO [address] [place] [address] PCP - General 05/10/10 documented as of this encounter
--- OUTSIDE RECORDS SUMMARY | 2023-12-06 02:43 | XMS_ITS | Encounter Summary ---
Author Organization [facility] Address [facility] [place] [address] Care Team Providers Care Manager Paid Name Role Phone Mojgan Boateng DO Primary Care Provider Reason for Referral * Consultation (Routine) - Specialty Diagnoses / Procedures Referred By Contac t Referred To Contact Cardiac Rehabilitation Diagnoses S/P CABG x 4 Yash Benton MD [facility] [place] [address] Referral ID Status Reason Start Date Expiration Date V isits Requested Visits Authorized [id number] Consult, Test & Treat 12/04/2015 06/01/2016 36 36 Reason for Visit * Auth/Cert Specialty Diagnoses / Procedures Referred By Contac t Referred To Contact Diagnoses Coronary artery disease CHEST PAIN CAD Procedures CARDIAC CATHETERIZATION @CABG; 4 VENOUS GRAFTS & ARTERIAL GRAFT ENDOSCOPIC HARVEST VEIN(S) FOR CABG Referral ID Status Reason Start Date Expiration Date Visits Re quested Visits Authorized [id number] 1 1 Encounter Details Date Type Department Care Team (Latest Contact Info) Description 11/25/2015 8:08 AM EDT - 12/04/2015 1:30 PM EDT Hospital Encounter Intermediate [place] [address] Xiomy Zarate MD [facility] [place] [address] [address] Julius Atkins MD [facility] [place] [address] Yash Benton MD [facility] [place] [address] ASCVD (arteriosclerotic cardiovascular disease); S/P CABG x 4 Discharge Disposition: Home with VNA Social History Tobacco Use Types Packs/Day Years [...] Sign Reading Time Taken Comments Blood Pressure 111/70 12/04/2015 7:44 AM EDT Pulse 98 12/03/2015 2:45 PM EDT Temperature 37.2 ??C (99 ??F) 12/04/2015 7:44 AM EDT Respiratory Rate 17 12/04/2015 7:44 AM EDT Oxygen Saturation 97% 12/04/2015 7:44 AM EDT Inhaled Oxygen Concentration - - Weight 79.1 kg (174 lb 6.1 oz) 12/04/2015 5:13 A M EDT Height 177.8 cm (5' 10) 11/25/2015 8:53 AM EDT Body Mass Index 25.02 11/25/2015 8:53 AM EDT documented in this encounter Discharge Summaries * Srikanth Barnes PA - 12/04/2015 9:27 AM EDT Inpatient - Discharge Summary Patient Name: Olman Rivera Patient Age: 59 y.o. Birthdate: 1955 Language: Macedonian Race: White Ethnicity: Not nor Admit Date: 11/25/2015 Discharge Date: 12/04/15 Attending Physician: Yash Benton MD Follow-up Recommendations for Providers: Please continue routine management of cardiovascular risk factors including blood pressure, lipids,glucose, etc. Please note any changes to medications. Patient to follow-up with PCP, MOJGAN BOATENG DO, in 1-2 weeks. Patient to follow-up with Business Risk Consultant, Julius Atkins MD, in two weeks. Patient to follow-up with Cardiac Surgery, Dr. Yash Benton, in ~ 4 weeks with CXR, EKG. Inpatient Provider Contact Information: [facility] Section of Cardiac Surgery [facility] [address] FAX [phone] Discharge Diagnoses (Hospital Problems) Primary Diagnoses: CAD: s/p cabg x4 on 11/29/2015 Secondary Diagnoses: None Other Diagnoses (Chronic Problems): There are no active non-hospital problems to display for this patient. Discharged to: Patient discharged to home Functional and Cognitive Status: At baseline Discharge Conditions/Prognosis: Stable and improving Past Medical History Diagnosis Date ??? Hypothyroidism Past Surgical History Procedure Laterality Date ??? Tonsillectomy N/A ??? Pro endoscopy w/video-asst vein harvest, cabg N/A 11/29/2015 ENDOSCOPIC HARVEST VEIN(S) FOR CABG performed by Yash Benton MD at [facility] MA[facility] OR ??? Pro cabg, artery-vein, three N/A 11/29/2015 @CABG; 3 VENOUS GRAFTS & ARTERIAL GRAFT performed by Yash Benton MD at [facility] MA[facility] OR Prior To Admission Medications Prescriptions Prior to Admission Medication Sig Dispense Refill Last Dose ??? aspirin 81 mg Tablet, Chewable Take 81 mg by mouth daily. 11/25/2015 at Unknown time ??? atorvastatin (LIPITOR) 20 mg Tablet Take 20 mg by mouth daily. 11/24/2015 at Unknown time ??? isosorbide mononitrate (IMDUR) 30 mg Tablet Sustained Release 24 hr Take 30 mg by mouth daily. 11/25/2015 at Unknown time ??? clopidogrel (PLAVIX) 75 mg Tablet Take 75 mg by mouth daily. 11/25/2015 at Unknown time ??? levothyroxine (SYNTHROID) 75 mcg tablet 75MCG = 1 Tablet(s), PO, Once daily 11/25/2015 at Unknowntime ??? nitroGLYcerin (NITROSTAT) 0.4 mg Tablet, Sublingual Place 0.4 mg under the tongue every 5 minutes as needed for Chest pain. Unknown at Unknown time Updated Allergies/ADRs: No Known Allergies History of Presentation: 59 year old male with PMH of hypothyroidism. Patient had been in usual state of health until several weeks ago when he has been noticing exertional chest discomfort while walking his dog. Relieved with rest. Non-radiating. Denies n/v, diaphoresis, syncope, abd pain, rest pain. Seen his PCP and was worked up with nuclear stress test showing inferior/apical ischemia. He does have FMH of CAD. Cardiac Cath performed today showing 3V CAD (LAD, LCX, RCA). ?? No history of cancer, diabetes, smoking, stroke, chest surgery. Creatinine 1. EF 60%. Was on plavixprior to cath, but not given during or after. Not on heparin gtt. No rest pain. ?? Major Procedures/Operations: 11/29/2015: Coronary artery bypass grafting x 4 (MURRAY to LAD, RSVG to PDA, RSVG to OM1, RSVG to D1) Hospital Course: Olman Rivera was admitted to [facility] on 11/25/2015 via the Cardiology Service. He was found to have obstructive CAD. He consented for surgery. He was medically managed and remained stable while awaiting surgery He was brought to the operating room 11/29/[address] Yash Benton performed coronary arterybypass grafting. He tolerated the procedure and was brought to the Cardiovascular Intensive Care Unit for recovery. He initially required the pharmacologic support of intravenous levophed and epinephrine. In the first several hours after surgery there was concern for bleeding and possible tamponadeand a TTE was obtained, which ruled out tamponade. He was able to wean off of pressors with hemodynamic stability being maintained and his chest tube output tapered off. He was extubated from the ventilator the morning of POD#1. All drips were weaned to off. Routine postoperative and home medications were started and a diet was advanced. He was started on beta blockade and this was optimized. Diuretics were started and he responded appropriately. By postoperative day #1 he was transferred to the Intermediate Cardiac Care Unit for continued rehabilitation. All tubes, lines, and epicardial pacing wires were removed without incident. He voided normally after his Anderson was removed. He was seen by Physical Therapy and Cardiac Rehabilitation. Sternal precaution education was provided. The remainder of the his hospital course was uneventful and by postoperative day #5 he had met all criteria for discharge. Pain was controlled on oral medications. He had walked 5 minutes and goneup and down stairs. He was tolerating a regular diet and had a bowel movement. Vital Signs at Discharge: Last set of vitals: BP 111/70 (BP Location (NBP): Left arm) Pulse 98 Temp 37.2 ??C (99 ??F) (Oral) Resp 17 Ht 177.8 cm (5' 10) Wt 79.1 kg (174 lb 6.1 oz) SpO2 97% BMI 25.02 kg/m2 Patient Vitals for the past 168 hrs: Weight 12/04/15 0513 79.1 kg (174 lb 6.1 oz) 12/03/15 0606 81 kg (178 lb 9.2 oz) 12/02/15 0559 83.5 kg (184 lb 1.4 oz) 12/01/15 0600 81.6 kg (179 lb 14.3 oz) 11/30/15 0400 83.9 kg (184 lb 15.5 oz) 11/29/15 0547 76.8 kg (169 lb 5 oz) 11/28/15 0618 77 kg (169 lb 12.1 oz) 11/28/15 0603 77 kg (169 lb 12.1 oz) Current weight: 79.1 kg Admit/Preop weight: 76.8 kg Pertinent physical exam findings prior to discharge: General: NAD, AOx3, sitting in bedside chair CVS: RRR, no m/r/g Pulm: LSC ?? Abd: soft, non-tender, +bs : anderson with yellow urine Ext: warm and well perfused, trace b/l LEIA Neuro: Grossly intact, nonfocal, moving all four extremities spontaneously. ?? Important Studies and Lab Data: Lab Results Component Value Date WBC 5.4 12/03/2015 RBC 3.02 (L) 12/03/2015 HGB 8.6 (L) 12/03/2015 HCT 26.1 (L) 12/03/2015 PLATELET 141 (L) 12/03/2015 Recent Labs 11/29/15 1425 INR 1.4* Lab Results Component Value Date NA 138 12/03/2015 K 3.9 12/04/2015 CL 101 12/03/2015 CO2 28 12/03/2015 BUN 11 12/03/2015 CREATININE 0.82 12/03/2015 Pending Studies and Lab Data: None Immunizations Given this Hospitalization: There is no immunization history on file for this patient. Smoking Status at Discharge: History Smoking Status ??? Never Smoker Smokeless Tobacco ??? Never Used Discharge Medications: Your Medications New Medications Dose Details acetaminophen 500 mg Tab Commonly known as: TYLENOL Take 2 tablets by mouth every 6 hours. 1000 mg Refills: 0 furosemide 20 mg Tab Commonly known as: LASIX Take 1 tablet by mouth daily. 20 mg Quantity: 10 tablet Refills: 0 HYDROmorphone 2 mg Tab Commonly known as: DILAUDID Take 1 tablet by mouth every 4 hours as needed for Pain (2 mg for pain 3-5/10; 4 mg for pain 6-7/10; 6 mg for pain 8-10/10). 2 mg Quantity: 30 tablet Refills: 0 meTOPROLOL tartrate 25 mg Tab Commonly known as: LOPRESSOR Take 1 tablet by mouth every 8 hours. 25 mg Quantity: 120 tablet Refills: 3 potassium chloride 10 mEq Tbsr Commonly known as: K-DUR/KLOR-CON Take 1 tablet by mouth daily. 10 mEq Quantity: 10 tablet Refills: 0 Continued medications, unchanged Dose Details aspirin 81 mg Chew Take 81 mg by mouth daily. 81 mg Refills: 0 atorvastatin 20 mg Tab Commonly known as: LIPITOR Take 20 mg by mouth daily. 20 mg Refills: 0 nitroGLYcerin 0.4 mg Subl Commonly known as: NITROSTAT Place 0.4 mg under the tongue every 5 minutes as needed for Chest pain. 0.4 mg Refills: 0 SYNTHROID 75 mcg Tab 75MCG = 1 Tablet(s), PO, Once daily Generic drug: levothyroxine Refills: 0 STOPPED Medications clopidogrel 75 mg Tab Commonly known as: PLAVIX isosorbide mononitrate 30 mg Tablet sr Commonly known as: IMDUR Discharge Instructions: Call your doctor if: You have a fever of greater than 101 degrees, shaking chills, if you develop redness or drainage from your incision sites, or if you have questions. Please call your surgeon's office if you have any discharge or drainage from your chest incision. Your surgeon, Dr. Yash Benton and/or the Cardiac Surgery Physician Regular Senior Care Provider Team may be reached at . Weight: Weigh yourself daily. Please call the office if you notice increasing weight, increasing fluid retention (edema), and/or SOB. Sternal (breast bone) precautions: No lifting greater than 7-10 pounds; no pushing or pulling with upper extremities; no excessive chest stretching for the first 4 weeks. Further instructions will begiven to you at your follow-up appointment. Activity level: Walk three times a day. You should continue to increase your walks by 1-2 minutes each day. It is expected that you will be walking 20-30 minutes twice a day within 3-4 weeks after discharge to home. Rest between activities and after meals. Use common sense, don't exhaust yourself. Biking: You may use a stationary bicycle whenever you are comfortable enough to permit this. Tighten the resistance slightly. Increase the amount of time on the bicycle as you would do for your walks, a minute or two each day. No biking outside until after your return appointment with Dr. Jeffery. You may use a [place] Track or treadmill but avoid any pulling motion with the arms. Home activities: You may do light housework, e.g. dusting, setting the table, washing dishes, preparing a meal. Light carpentry and gardening are allowed. Avoid trying to open tight jars and stuck windows. No vacuuming, mopping, raking, shoveling, digging or hoeing until after your return visit with the surgeon. Sexual activity: You may engage in sexual activity when you feel ready. Use a position that protects your sternum (breastbone). Do not have your partner lie on your chest. Stairs: There are no restrictions on stair climbing. Use common sense. Don't exhaust yourself. Activities outside the home: After the first week home you may go out to dinner, visit friends, go to a movie, go to yarsanism, etc. Heavy activities: No hunting, skiing, jogging, snow shoveling, snowmobiling, lawn mowing, swimming,golf or tennis until after your return appointment with the surgeon. Do not ride motorcycles, ATV'stractors or horses. Avoid the use of a rifle with kickback against the shoulder for six months. Sleep: Try to establish normal sleep patterns. Long naps during the day may make it hard for you tosleep at night. Use the pain medication at bedtime for the first week at home. If you have nightmares, contact us. Some medications make this worse and these can be changed. Smoking: It is very important that you not smoke after surgery. Smoking cessation education was provided as appropriate. If you need further assistance with this please call and you will be referred to a smoking cessation specialist. Medications: Take only those medications listed on your discharge information. Keep your pain undercontrol so you can be active, do your coughing and breathing exercises and sleep. Contact us if thepain medication isn't working for you. Do not take any herbal preparations until after you return to see the surgeon. Special Physician Instructions: DO NOT USE ANY IBUPROFEN (ADVIL, MOTRIN, ETC) OR OTHER NSAIDS (NONSTEROIDAL ANTI-INFLAMMATORY DRUGS) FOR A TOTAL OF 10 DAYS AFTER SURGERY. PLEASE CONTACT THE CARDIOTHORACIC SURGERY OFFICE IF YOU HAVE QUESTIONS ABOUT WHICH DRUGS YOU SHOULD NOT USE. . Diet: You should follow a regular diet until your appetite returns to normal. At that point in timeyou should resume a low fat, low cholesterol, [place] [employer] Diet. Driving: No driving until cleared by your surgeon. Avoid long trips if possible. If you must go on a long trip, stop the car and walk every hour. Shower/Bath: You may shower daily. No baths, soaking, or swimming until cleared by your surgeon. Wound care: Wash your incisions daily with antibacterial soap and rinse well, pat dry. Assess for any signs of infection such as increased redness, pain, warmth or drainage. Please call your surgeon's office if you have any discharge or drainage from your chest incision. If there is a lot of swelling, apply fadi wraps during the day and remove at bedtime. Elevate your legs when you are sitting. REMOVE CHEST TUBE SUTURES ON OR AFTER 12/09/2015 Home oxygen therapy: N/A Follow up appointments: 1. You should arrange to see your primary care physician, MOJGAN BOATENG DO, in one-to-two weeksor as soon as possible. 2. Cardiology, Dr. Atkins, in two weeks. 3. You will return to clinic to see Dr. Yash Benton or a Cardiac Surgery PA in ~4 weeks and will have a CXR, EKG at that time. A letter will be mailed to you with your appointment information. Cardiac Rehabilitation: Olman Rivera was seen today regarding participation in the outpatient Phase 2 Cardiac Rehabilitation at [facility] . The patient agrees to a referral to this program. The referral will be sent at discharge and the patient should be contacted by the ?? Program within 1- 2 weeks from discharge. ?? Future Appointments and Orders Future Orders Complete By Expires EKG 12 Lead [EKG1 Custom] 01/04/2016 12/03/2016 Process Instructions: Scheduling Instructions: Questions: Which DH location will this be performed?: [place] Is a rhythm strip needed?: No If EKG Reason is Pre-op Evaluation, indicate diagnosis for surgery.: Should this service/procedure be billed to the research sponsor?: XR Chest PA & Lateral (Generic) [[id number] Custom] 01/04/2016 12/03/2016 Process Instructions: Scheduling Instructions: Questions: Where will study be performed?: [facility] Portable exam?: Reason for exam and clinical history: s/p cabg Other pertinent information: Stat read required?: Date of injury if applicable: Requested Time: Referral to Cardiac Rehab [[id number] Custom] As directed Process Instructions: If no progress note charted, please enter Clinical details in comments. Scheduling Instructions: Questions: My question or request is: s/p CABG; cardiac rehab @ [facility] Referral to Home Health - at DISCHARGE [WVL5188 CPT(R)] As directed Process Instructions: Scheduling Instructions: Comments: DOCUMENTATION FOR VNA SERVICES (INCLUDING THOSE PATIENTS WITH MEDICARE COVERAGE REQUIRING HOME VNA SERVICES AND/OR HOSPICE SERVICES) PATIENT'S LOCATION: Olman Rivera [address] [place] [address] [phone] (home) No relevant phone numbers on file. Director Of Analytics's Name: Self, Aziza In discussion with the attending physician, it is certified that this patient is under their care and that they, or a Nurse Practitioner, or Physician Regular Senior Care Provider who is working directly with them, hada face to face encounter that meets the physician face to face encounter requirements with this patient on 11/26/2015 The encounter with the patient was in whole, or in part, for the following medical condition, whichis the primary reason for home health care services: Deconditioned after surgery, Now requires assist of one person to safely manage community surfaces. In discussion with the provider, it is certified that, based on their findings, the following services are medically necessary for home health services. To provide the following care/treatments with the clinical findings supporting the need for services as follows: HOME HEALTH AGENCY: [facility] PHONE: [phone] FAX: [phone] RN orders: Cardiopulmonary assessment, incisional assessment, assess vital signs, assessment of rehab progress, medication management and effectiveness, home safety evaluation. PT ORDERS: Continue rehab for endurance, gait stability and strength with mobility and transfers. Home safety evaluation. Home exercise program if appropriate. Start of Care Date: 24-48 hours post discharge SPECIAL INSTRUCTIONS: For any follow up questions, needs, or issues please call the Cardiac SurgeryOffice at [phone] Home Health agencies which cover the area of patient's residence have been reviewed, either verbally or in writing, and patient/family have chosen the agency as noted. Questions: Agency name and contact information: [facility] Patient location post discharge: home What services are requested: Physical Therapy Registered Nurse Start date: 11/26/2015 Responsible MD post discharge contact info: PCP Arrangements for VNA/home care: As above. VN RN OR PCP TO PLEASE REMOVE CHEST TUBE SUTURES ON OR AFTER 12/09/2015 Signed: Srikanth Barnes PA-C [facility] Section of Cardiac Surgery [facility] [address] FAX [phone] Date: 12/04/2015 CC: DO Salo SMITH Michael G, MD [address] [address] [place] [address] documented in this encounter Discharge Instructions * Patient Instructions* Srikanth Barnes PA - 12/04/2015 9:27 AM EDT ?? Discharge Instructions: ?? Call your doctor if: You have a fever of greater than 101 degrees, shaking chills, if you develop redness or drainage from your incision sites, or if you have questions. Please call your surgeon's office if you have any discharge or drainage from your chest incision. Your surgeon, Dr. Yash Benton and/or the Cardiac Surgery Physician Regular Senior Care Provider Team may be reached at . ?? Weight: Weigh yourself daily. Please call the office if you notice increasing weight, increasing fluid retention (edema), and/or SOB. ?? Sternal (breast bone) precautions: No lifting greater than 7-10 pounds; no pushing or pulling with upper extremities; no excessive chest stretching for the first 4 weeks. Further instructions will begiven to you at your follow-up appointment. ?? Activity level: Walk three times a day. You should continue to increase your walks by 1-2 minutes each day. It is expected that you will be walking 20-30 minutes twice a day within 3-4 weeks after discharge to home. Rest between activities and after meals. Use common sense, don't exhaust yourself. ?? Biking: You may use a stationary bicycle whenever you are comfortable enough to permit this. Tighten the resistance slightly. Increase the amount of time on the bicycle as you would do for your walks, a minute or two each day. No biking outside until after your return appointment with Dr. Jeffery. You may use a [place] Track or treadmill but avoid any pulling motion with the arms. ?? Home activities: You may do light housework, e.g. dusting, setting the table, washing dishes, preparing a meal. Light carpentry and gardening are allowed. Avoid trying to open tight jars and stuck windows. No vacuuming, mopping, raking, shoveling, digging or hoeing until after your return visit with the surgeon. ?? Sexual activity: You may engage in sexual activity when you feel ready. Use a position that protects your sternum (breastbone). Do not have your partner lie on your chest. ?? Stairs: There are no restrictions on stair climbing. Use common sense. Don't exhaust yourself. ?? Activities outside the home: After the first week home you may go out to dinner, visit friends, go to a movie, go to yarsanism, etc. ?? Heavy activities: No hunting, skiing, jogging, snow shoveling, snowmobiling, lawn mowing, swimming,golf or tennis until after your return appointment with the surgeon. Do not ride motorcycles, ATV'stractors or horses. Avoid the use of a rifle with kickback against the shoulder for six months. ?? Sleep: Try to establish normal sleep patterns. Long naps during the day may make it hard for you tosleep at night. Use the pain medication at bedtime for the first week at home. If you have nightmares, contact us. Some medications make this worse and these can be changed. ?? Smoking: It is very important that you not smoke after surgery. Smoking cessation education was provided as appropriate. If you need further assistance with this please call and you will be referred to a smoking cessation specialist. ?? Medications: Take only those medications listed on your discharge information. Keep your pain undercontrol so you can be active, do your coughing and breathing exercises and sleep. Contact us if thepain medication isn't working for you. Do not take any herbal preparations until after you return to see the surgeon. ?? Special Physician Instructions: DO NOT USE ANY IBUPROFEN (ADVIL, MOTRIN, ETC) OR OTHER NSAIDS (NONSTEROIDAL ANTI-INFLAMMATORY DRUGS) FOR A TOTAL OF 10 DAYS AFTER SURGERY. PLEASE CONTACT THE CARDIOTHORACIC SURGERY OFFICE IF YOU HAVE QUESTIONS ABOUT WHICH DRUGS YOU SHOULD NOT USE. . ? Diet: You should follow a regular diet until your appetite returns to normal. At that point in timeyou should resume a low fat, low cholesterol, [place] Heart [employer] Diet. ?? Driving: No driving until cleared by your surgeon. Avoid long trips if possible. If you must go on a long trip, stop the car and walk every hour. ?? Shower/Bath: You may shower daily. No baths, soaking, or swimming until cleared by your surgeon. ? Wound care: Wash your incisions daily with antibacterial soap and rinse well, pat dry. Assess for any signs of infection such as increased redness, pain, warmth or drainage. Please call your surgeon's office if you have any discharge or drainage from your chest incision. If there is a lot of swelling, apply fadi wraps during the day and remove at bedtime. Elevate your legs when you are sitting. ?? REMOVE CHEST TUBE SUTURES ON OR AFTER 12/09/2015 ?? Home oxygen therapy: N/A ? Follow up appointments: ?? 1. You should arrange to see your primary care physician, MOJGAN BOATENG DO, in one-to-two weeksor as soon as possible. ?? 2. Cardiology, Dr. Atkins, in two weeks. ?? 3. You will return to clinic to see Dr. Yash Benton or a Cardiac Surgery PA in ~4 weeks and will have a CXR, EKG at that time. A letter will be mailed to you with your appointment information. ?? Cardiac Rehabilitation: ?? Olman Rivera was seen today regarding participation in the outpatient Phase 2 Cardiac Rehabilitation at [facility] . ?? The patient agrees to a referral to this program. ?? The referral will be sent at discharge and the patient should be contacted by the ?? Program within 1- 2 weeks from discharge. ? documented in this encounter Medications at Time of Discharge Medication Sig Dispensed Refills Start Date End Date acetaminophen (TYLENOL) 500 mg Tablet Take 2 tablets by mouth every 6 hours. 12/04/2015 meTOPROLOL tartrate (LOPRESSOR) 25 mg Tablet Take 1 tablet by mouth every 8 hours. 120 tablet 3 12/04/2015 aspirin 81 mg Tablet, Chewable Take 81 mg by mouth daily. nitroGLYcerin (NITROSTAT) 0.4 mg Tablet, Sublingual Place 0.4 mg under the tongue every 5 minutes as needed for Chest pain. levothyroxine (SYNTHROID) 75 mcg tablet 75MCG = 1 Tablet(s), PO, Once daily 04/24/2006 03/11/2019 HYDROmorphone (DILAUDID) 2 mg Tablet Take 1 tablet by mouth every 4 hours as needed for Pain (2 mg for pain 3-5/10; 4 mg for pain 6-7/10; 6 mg for pain 8-10/10). 30 tablet 12/04/2015 12/31/2015 furosemide (LASIX) 20 mg Tablet Take 1 tablet by mouth daily. 10 tablet 12/04/2015 12/31/2015 potassium chloride (K-DUR/KLOR-CON) 10 mEq Tablet Sustained Release Take 1 tablet by mouth daily. 10 tablet 12/04/2015 12/31/2015 atorvastatin (LIPITOR) 20 mg Tablet Take 20 mg by mouth daily. 12/31/2015 documented as of this encounter Progress Notes * Karin Godwin RN - 12/04/2015 12:19 PM EDT Pt. Discharged off tele and IVs. Patient and family stated an understanding of follow up appointments, medications, activity tolerance, education, and teaching materials. Patient discharged to home via personal vehicle and family. Patient to have outpatient cardiac rehab. * Lizbet Baker RN - 12/04/2015 5:49 AM EDT OUTCOME EVALUATION NOTE: OUTCOME SUMMARY: Patient slept throughout the shift, awaking for nursing care and toileting. VSS, no events on tele.Patient reported 2/10 pain, scheduled Tylenol adequate for pain control. Safety maintained. PLAN MOVING FORWARD: Discharge today. INDIVIDUALIZED FALL PREVENTION INTERVENTIONS: Patient-specific fall risk factors per assessment: [current deficits]: S/P CABGx4, pain in right leg from graft site Assistance [level of assistance required for transfers and ambulation]: Independent/SBA Supervision [direct monitoring required during toileting and ADLs]: SBA as needed. Surveillance [continuous indirect monitoring]: Telemetry, purposeful rounding. Patient-specific fall prevention interventions for sensory deficits provided, if applicable: No slip socks, lighting for task safety, call wray and belongings within reach, assistance as needed. CPG GOAL OUTCOME EVALUATION: Ongoing. * Svetlana Curry PTA - 12/03/2015 3:09 PM EDT Physical Therapy Treatment Note Visit #: 3 Patient Dx: Olman Stewart EmilyAdithya is a 59 y.o. male of Yash Liang MD, admitted on 11/25/2015with multi-vessel CAD s/p CABG x 4. Post-op course pathway with some pressor support weaned from 4 to 1 today. ?? Precautions: sternal (no lifting >7-10 lbs.; no pushing or pulling with UE's; no excessive cheststretching). Staff communication/Mobility Recommendations: Indep Interval History: no acute events S: O: Patient seen for 24 mins for transfers, gait, therex and pt ed to address goals. Pt demonstratedthe following: Review of HEP and sternal precautions with patient. Sit to stand indep within precautions. Pt ambulated 160 feet without AD, indep. Up and down 1 flight of stairs with light railing indep. Sit><supine with HOB flat, indep within precautions. Pt ed: re need to increase mobility as tolerated at home. ?? All needs met. Pain: 05/30 Education: Pt/family education ongoing for precautions, safety and mobility A: Improved overall mobility. Goals met. Understands sternal precautions. Physical Therapy Goals: To be achieved by 12/07/15 ALL MET 1. Pt will ambulate independently 320 ft. without an assistive device to allow for a safe d/c. 2. Pt will perform all post op cardiac surgery exercises adequately. 3. Pt will demonstrate independence with incentive spirometer and/or threshold PEP to promote lung function. 4. Pt will demonstrate understanding of sternal precautions to allow for a safe d/c. 5. Pt will be able to transfer sit <-> stand independently while maintaining sternal precautions to allow for a safe d/c. 6. Pt will be able to go supine <-> sit independently while maintaining sternal precautions to allow for a safe d/c. 7. Pt will be able to go up and down 1 flight of stairs using a rail for balance only independentlyto prepare for a safe d/c. Discharge Recommendations: Based on the current findings noted during this evaluation, patient could benefit from Home with further Skilled Therapy when medically ready for hospital discharge. ??Thisrecommendation is based on the patient's Current physical impairments, Prior functional status, Potential to return to prior level of function and Current level of endurance and may change based on patient progress during this hospitalization. P: D/C IP PT. Total time spent with patient: 24 minutes Total timed interventions: 24 minutes Pager: [phone] SVETLANA CURRY PTA Physical Therapy Rehabilitation Department * Inessa Benitez DT - 12/03/2015 3:02 PM EDT Nutrition Services - Initial Note Olman Rivera : 1955 AGE: 59 y.o. Patient Active Problem List Diagnosis Date Noted ??? *[id number] CAD Priority: High ??? Hospital-Hypothyroidism 11/25/2015 Reason for Nutrition Intervention: Hospital Day 9 Diet Order: Dysphagia Soft Appetite: Poor Food allergies: NKFA Ht Readings from Last 3 Encounters: 11/25/15 177.8 cm (5' 10) Wt Readings from Last 3 Encounters: 12/03/15 81 kg (178 lb 9.2 oz) Body mass index is 25.62 kg/(m^2). Assessment: Patient reported a poor appetite without difficulty chewing or swallowing. He is experiencing nausea. Added supplement shakes on meal trays to increase po. Encouraged patient to contact Food and Nutrition services with any questions that may arise. Nutrition Plan: Continue current diet. CIB w/ skim milk 3x/day. Monitor weight. Encourage good po intake. Support and encouragement provided. Nutrition services to follow weekly thru hospital course unless consulted in the interim. BIN Foote * Ashley Wall APRN - 12/03/2015 8:59 AM EDT Cardiac Surgery Progress Note Patient Name: Olman Rivera Patient Age: 59 y.o. Birthdate: 1955 Admit date: 11/25/2015 Attending Physician: Yash Benton MD ID: Olman Rivera is a 59 y.o. male w/ hypothyroidism who is 4 Days Post-Op s/p CABG x 4 w/ Dr. Benton. Recent events/symptoms: - tx to floor yesterday - visual floaters have resolved -endorses some abd discomfort this am, feeling constipated, no nausea, +flatus O: Last value Range last 24hrs Temperature Temp: 37.1 ??C (98.8 ??F) Temp: [36.4 ??C (97.5 ??F)-37.2 ??C (99 ??F)] Heart Rate Heart Rate: 85 Heart Rate: [83-101] Blood Pressure BP: 100/70 BP: (100-128)/(59-76) Blood Pressure (a-line) BP (Arterial Line): 99/57 BP (Arterial Line): -- Respiratory Rate Resp: 17 Resp: [16-18] SpO2 SpO2: 98 % SpO2: [95 %-99 %] Physical Exam: General: NAD, AOx3, sitting in bedside chair CVS: RRR, no m/r/g Pulm: LSC Abd: soft, non-tender, +bs : anderson with yellow urine Ext: warm and well perfused, trace b/l LEIA Neuro: Grossly intact, nonfocal, moving all four extremities spontaneously. Recent Labs 12/03/1541712/02/1544812/01/15 042 WBC 5.4 5.8 5.6 HGB 8.6* 7.7* 8.0* HCT 26.1* 24.6* 24.8* PLATELET 141* 101* 100* Recent Labs 12/03/1541712/02/159 12/01/15 0420 11/30/15 1725 NA 138 135 139 -- K 3.7 4.0 4.4 4.4 CL 101 100 106 -- CO2 28 28 25 -- BUN 11 11 10 -- CREATININE 0.82 0.71* 0.67* -- GLUCOSE 96 115 122 -- CALCIUM 8.0* 8.0* 7.9* -- ASSESSMENT: Olman Rivera is a 59 y.o. male 4 Days Post-Op 4 Days Post-Op s/p CABG x 4 progressing well postoperatively, initially barrier to transfer out of ICU pressor dependent hypotension. HDSnow had C/O visual floaters yesterday, has since resolved. Diuresis started yesterday, out 4L urinein last 24 hours. Off oxygen. Increased metoprolol to tid yesterday for better rate control - SR/ST. Better this am. Will watch may need increase. Weaned off oxygen yesterday. Needs BM plan for suppository if no BM after breakfast. Increase ambulation today plan for d/c home tomorrow. ASHLEY WALL APRN 12/03/2015 * Karin Godwin RN - 12/02/2015 1:47 PM EDT Pt. Complaining of seeing things and fuzzy vision. Ashley ADHIKARI notified. * Svetlana Curry PTA - 12/02/2015 9:51 AM EDT Physical Therapy Treatment Note Visit #: 2 Patient Dx: Olman Rivera is a 59 y.o. male of Yash Liang MD, admitted on 11/25/2015with multi-vessel CAD s/p CABG x 4. Post-op course pathway with some pressor support weaned from 4 to 1 today. ?? Precautions: sternal (no lifting >7-10 lbs.; no pushing or pulling with UE's; no excessive cheststretching). Staff communication/Mobility Recommendations: ?? Pt. to utilize =/-rolling walker and supervision for ambulation with nursing. ? Please encourage up to chair for meal times as able. ? Pt encouraged to ambulate with staff, getting into the bathroom for toileting and walking out inthe gómez >/= 3 times daily as able. Interval History: floor status, pathway, anderson and PW d/c'ed S: I could be better. O: Patient seen for 24 mins for transfers, gait, therex and pt ed to address goals. Pt demonstratedthe following: On RA but needed 1 L to maintain above 92% ?? Sit to stand within sternal precautions with close supervision ?? Ambulated 160 feet with O2 cart and supervision. ?? Review of sternal precautions and therex with patient ?? Review of IS. ?? Positioned for comfort ?? All needs met Pain: 07/28 Education: Pt/family education ongoing for precautions, safety and mobility A: Continues to improve with ambulation. Still hesitate and stiff when moving around. Some anxiety/fear with mobility. Pt will benefit from ongoing therapeutic interventions to achieve therapy goals Physical Therapy Goals: To be achieved by 12/07/15 1. Pt will ambulate independently 320 ft. without an assistive device to allow for a safe d/c. 2. Pt will perform all post op cardiac surgery exercises adequately. 3. Pt will demonstrate independence with incentive spirometer and/or threshold PEP to promote lung function. 4. Pt will demonstrate understanding of sternal precautions to allow for a safe d/c. 5. Pt will be able to transfer sit <-> stand independently while maintaining sternal precautions to allow for a safe d/c. 6. Pt will be able to go supine <-> sit independently while maintaining sternal precautions to allow for a safe d/c. 7. Pt will be able to go up and down 1 flight of stairs using a rail for balance only independentlyto prepare for a safe d/c. Discharge Recommendations: Based on the current findings noted during this evaluation, patient could benefit from Home with further Skilled Therapy when medically ready for hospital discharge. ?? This recommendation is based on the patient's Current physical impairments, Prior functional status, Potential to return to prior level of function and Current level of endurance and may change basedon patient progress during this hospitalization. P: Cont per POC as outlined on 11/30/15. Total time spent with patient: 24 minutes Total timed interventions: 24 minutes Pager: [phone] SVETLANA CURRY PTA Physical Therapy Rehabilitation Department * Ashley Wall APRN - 12/02/2015 8:14 AM EDT Cardiac Surgery Progress Note Patient Name: Olman Rivera Patient Age: 59 y.o. Birthdate: 1955 Admit date: 11/25/2015 Attending Physician: Yash Benton MD ID: Olman Rivera is a 59 y.o. male w/ hypothyroidism who is 3 Days Post-Op s/p CABG x 4 w/ Dr. Benton. Recent events/symptoms: - tx to floor yesterday - visual floaters overnight O: Last value Range last 24hrs Temperature Temp: 36.5 ??C (97.7 ??F) Temp: [36.5 ??C (97.7 ??F)-37.6 ??C (99.7 ??F)] Heart Rate Heart Rate: 87 Heart Rate: [86-94] Blood Pressure BP: 108/70 BP: (93-128)/(62-86) Blood Pressure (a-line) BP (Arterial Line): 99/57 BP (Arterial Line): (99-106)/(56-60) Respiratory Rate Resp: 18 Resp: [8-20] SpO2 SpO2: 100 % SpO2: [88 %-100 %] Physical Exam: General: NAD, AOx3, sitting in bedside chair CVS: RRR, no m/r/g Pulm: LSC, dim bases on 2LNC Abd: soft, non-tender, +bs : anderson with yellow urine Ext: warm and well perfused, trace b/l LEIA Neuro: Grossly intact, nonfocal, moving all four extremities spontaneously. Lines/Drains: PIV Anderson PW Recent Labs 12/02/1544812/01/15 04211/30/15 0205 11/29/15 1425 11/29/15 1247 WBC 5.8 5.6 5.5 12.8* 11.4* HGB 7.7* 8.0* 8.7* 11.0* 8.2* HCT 24.6* 24.8* 26.7* 33.5* 25.8* PLATELET 101* 100* 129* 166 137* PT -- -- -- 17.0* 20.9* INR -- -- -- 1.4* 1.7* PTT -- -- -- 36* 38* Recent Labs 12/02/1544812/01/1541911/30/15 1725 11/30/15 0205 11/29/15 1425 NA 135 139 -- 141 140 K 4.0 4.4 4.4 4.5 3.9 CL 100 106 -- 107 108* CO2 28 25 -- 21* 18* BUN 11 10 -- 8* 10 CREATININE 0.71* 0.67* -- 0.70* 0.72* GLUCOSE 115 122 -- -- 161 CALCIUM 8.0* 7.9* -- -- 7.2* ASSESSMENT: Olman Rivera is a 59 y.o. male 3 Days Post-Op 3 Days Post-Op s/p CABG x 4 progressing well postoperatively, initially barrier to transfer out of ICU pressor dependent hypotension. Tx out to floor yesterday. C/O visual floaters overnight, has resolved. Not on lasix due to hypotensionyesterday. Has since improved, weight up 6.7 kg. Will start lasix 20mg iv bid today. Continue metoprolol 12.5mg bid. Plan to remove anderson and pw removed without incident today. Wean oxygen as he is 100% on 2L. Needs BM, no flatus yet. Increased RBO's and pt encouraged to increase mobility today. Day 3 studies reviewed. ASHLEY WALL APRN 12/02/2015 * Joyce Turner MD - 12/01/2015 8:43 AM EDT Cardiac Surgery Progress Note Patient Name: Olman Rivera Patient Age: 59 y.o. Birthdate: 1955 Admit date: 11/25/2015 Attending Physician: Yash Benton MD ID: Olman Rivera is a 59 y.o. male w/ hypothyroidism who is 2 Days Post-Op s/p CABG x 4 w/ Dr. Benton. Recent events/symptoms: - Yest am on levo, titrated off by early afternoon, ambulated - Meds CT removed yesterday - Arielle PO intake O: Last value Range last 24hrs Temperature Temp: 37.6 ??C (99.7 ??F) Temp: [37.5 ??C (99.5 ??F)-38.2 ??C (100.8 ??F)] Heart Rate Heart Rate: 89 Heart Rate: [88-105] Blood Pressure BP: (!) 89/61 BP: (89-122)/(58-76) Blood Pressure (a-line) BP (Arterial Line): 104/53 BP (Arterial Line): (95-127)/(46-61) Respiratory Rate Resp: 16 Resp: [13-38] SpO2 SpO2: 97 % SpO2: [92 %-100 %] 4LNC ABG (Arterial Blood Gas) No results found for: PHART, PO2ART, [id number] Intake/Output Summary (Last 24 hours) at 12/01/15 0843 Last data filed at 12/01/15 0800 Gross per 24 hour Intake 1347.89 ml Output 1460 ml Net -112.11 ml L pleura 230 (0) Regular diet Body mass index is 25.81 kg/(m^2). BMI diagnosis: overweight Patient Vitals for the past 168 hrs: Weight 12/01/15 0600 81.6 kg (179 lb 14.3 oz) 11/30/15 0400 83.9 kg (184 lb 15.5 oz) 11/29/15 0547 76.8 kg (169 lb 5 oz) 11/28/15 0618 77 kg (169 lb 12.1 oz) 11/28/15 0603 77 kg (169 lb 12.1 oz) 11/27/15 0438 77.2 kg (170 lb 3.1 oz) 11/26/15 0625 77 kg (169 lb 12.1 oz) 11/25/15 0853 76.5 kg (168 lb 11.2 oz) Physical Exam: General: NAD, AOx3, sitting in bedside chair HEENT: NC/AT CVS: RRR, no m/r/g Pulm: Coarse breath sounds, clear, Pleural w/ ss output no airleak, no wheezes or rhonchi, breathing comfortably on 2LNC Abd: soft, non-tender : anderson with yellow urine Ext: warm and well perfused, no edema Neuro: Grossly intact, nonfocal, moving all four extremities spontaneously. Lines/Drains: RIJ A line Pleura CT Anderson Drips: None Recent Labs 12/01/15 0420 11/30/15 0205 11/29/15 1425 11/29/15 1247 11/29/15 1145 11/29/15 0440 WBC 5.6 5.5 12.8* 11.4* -- 6.1 HGB 8.0* 8.7* 11.0* 8.2* -- 14.5 HCT 24.8* 26.7* 33.5* 25.8* -- 43.7 PLATELET 100* 129* 166 137* 146 165 PT -- -- 17.0* 20.9* -- -- INR -- -- 1.4* 1.7* -- -- PTT -- -- 36* 38* -- -- Recent Labs 12/01/15 0420 11/30/15 1725 11/30/15 0205 11/29/15 1425 11/29/15 0440 NA 139 -- 141 140 139 K 4.4 4.4 4.5 3.9 3.9 CL 106 -- 107 108* 103 CO2 25 -- 21* 18* 23 BUN 10 -- 8* 10 14 CREATININE 0.67* -- 0.70* 0.72* 0.99 GLUCOSE 122 -- -- 161 -- CALCIUM 7.9* -- -- 7.2* 9.0 ASSESSMENT: Olman Rivera is a 59 y.o. male 2 Days Post-Op 2 Days Post-Op s/p CABG x 4 progressing well postoperatively, initially barrier to transfer out of ICU pressor dependent hypotension levonow off. Essentially pathway will start BB today hold on lasix, transfer to floor. PLAN BY SYSTEM N: Tyl Q6H, oxy 5-15, zofran CV: ASA 81, lipitor 80mg, start low dose BB 12.5mg BID, atrial pacing wire may have resistance withremoval as required suture ligation of skin vessel that may have entraped wire - if this is the case cut at skin Pulm: IS, d/c pleural CT GI: Reg diet, protonix, MoM, pericolace, bisacodyl /FE: K protocol, HOLD on lasix, keep anderson ID: [email or web address] abx complete Heme: ASA, SCDs Endo: insulin gtt T/L/D: D/c R IJ, keep PW, d/c, Pleura CT Anderson DISPO: CVCC transfer to floor today Code status: Full JOYCE TURNER MD 12/01/2015 PGY-2, General Surgery Cardiac Surgery Pager: [phone] * Julius Azul MD - 11/30/2015 10:46 AM EDT CARDIAC CRITICAL CARE STAFF PROGRESS NOTE Author: Julius Azul MD, PhD Patient seen and examined on critical care rounds. Olman Rivera is a 59 y.o.male with the following active issues: Patient Active Problem List Diagnosis Code ??? Hypothyroidism E03.9 ??? 3-vessel CAD I25.10 ASSESSMENT, MANAGEMENT, and DECISION MAKINM h/o hypothyroidism and FH and CAD p/w exertional chest pain and cath revealed 3vD now POD1 s/p 3vCABG. ICU course notable for initially high CT output that resolved, and pressor-dependent hypotension in context of adequate CI. Was extubated successfully last night to NC. Weaning pressors as guided by chavo, remove PAC. Hypotension consistent with post-CPB vasoplegia given good CI. Wean NC as tolerated, OOBtC and ambulation. Initiate diet. Cr stable, will initiate gentle diuresis when pressors weaned EXAM: Last value Range last 24 hrs Temperature Temp: 37.8 ??C (100 ??F) Temp: [35 ??C (95 ??F)-38.3 ??C (100.9 ??F)] Heart Rate Heart Rate: 90 Heart Rate: [79-105] Blood Pressure BP: 95/59 BP: (78-110)/(51-72) Respiratory Rate Resp: 23 Resp: [12-27] SpO2 SpO2: 100 % SpO2: [91 %-100 %] Art BP BP (Arterial Line): 104/46 BP (Arterial Line): (82-124)/(46-67) BP 95/59 Pulse 90 Temp 37.8 ??C (100 ??F) (Bladder) Resp 23 Ht 177.8 cm (5' 10) Wt 83.9 kg (184 lb15.5 oz) SpO2 100% BMI 26.54 kg/m2 N: Alert, answering questions appropriately CV: RRR P: Coarse BS globally, CT with leak GI: s, nt Ext: WWP Last 3 wbc, hgb, hct plt Recent Labs 11/30/15 0205 11/29/15 1425 11/29/15 1247 WBC 5.5 12.8* 11.4* HGB 8.7* 11.0* 8.2* HCT 26.7* 33.5* 25.8* PLATELET 129* 166 137* Last 3 Lytes Recent Labs 11/30/15 0205 11/29/15 1425 11/29/15 0440 NA 141 140 139 K 4.5 3.9 3.9 CL 107 108* 103 CO2 21* 18* 23 BUN 8* 10 14 CREATININE 0.70* 0.72* 0.99 Last 3 LFTs Recent Labs 11/25/15 1607 AST 15 ALT 14 ALKPHOS 62 BILITOT 0.4 BILIDIR 0.1 Last Ca, Mg, Phos Recent Labs 11/29/15 1425 CALCIUM 7.2* Last 3 Coags Recent Labs 11/29/15 1425 11/29/15 1247 11/25/15 1607 PT 17.0* 20.9* 12.7 INR 1.4* 1.7* 0.9 PTT 36* 38* -- IS PATIENT CRITICALLY ILL ? Is there a high potential of sudden, clinically significant, or life threatening deterioration? Yes Is there a need for direct personal assessment and management to treat/prevent multiple vital organfailure/deterioration? Yes PATIENT IS CRITICALLY ILL WITH THESE DIAGNOSES BEING MANAGED BY [facility] TEAM: Hypotension Req Fluids/Pressors Arterial I personally performed 30 minutes of aggregate critical care time exclusive of procedures and teaching. This includes time spent during direct patient evaluation and reassessment, interpreting diagnostic tests, directing life and/or organ supporting interventions and documentation on the unit. Julius Azul MD, PhD * Joyce Turner MD - 11/30/2015 9:22 AM EDT Cardiac Surgery Progress Note Patient Name: Olman Rivera Patient Age: 59 y.o. Birthdate: 1955 Admit date: 11/25/2015 Attending Physician: Yash Benton MD ID: Olman Rivera is a 59 y.o. male w/ hypothyroidism who is 1 Day Post-Op s/p CABG x 4 w/ Dr. Benton. Recent events/symptoms: - Came out of OR w/ high CT output ~ 10cc/hr put out >300 in first hour this then slowed down, at time was having increased pressor requirements with sudden drop in CT output, increasing tachycardia, got TTE to r/o tamponade which was negative tachycardia resolved with 5% albumin and DDAVP - Extubated @midnight - Levo this am down to 4, vaso off - T 38.3 @2300 - Meds CT 530 (130), L pleura 420 (20) - PA cath removed O: Last value Range last 24hrs Temperature Temp: 37.8 ??C (100 ??F) Temp: [35 ??C (95 ??F)-38.3 ??C (100.9 ??F)] Heart Rate Heart Rate: 86 Heart Rate: [79-105] Blood Pressure BP: 93/58 BP: (78-110)/(51-72) Blood Pressure (a-line) BP (Arterial Line): 96/50 BP (Arterial Line): (82-124)/(48-67) Respiratory Rate Resp: 27 Resp: [12-27] SpO2 SpO2: 100 % SpO2: [91 %-100 %] 4LNC ABG (Arterial Blood Gas) Lab Results Component Value Date PH ART 7.36 11/30/2015 PO2 ART 144 (H) 11/30/2015 PCO2 ART 41 11/30/2015 Intake/Output Summary (Last 24 hours) at 11/30/15 0922 Last data filed at 11/30/15 0800 Gross per 24 hour Intake 8801.05 ml Output 4955 ml Net 3846.[address] 530 (130), L pleura 420 (20) NPO diet (Hold Meds) Body mass index is 26.54 kg/(m^2). BMI diagnosis: overweight Patient Vitals for the past 168 hrs: Weight 11/30/15 0400 83.9 kg (184 lb 15.5 oz) 11/29/15 0547 76.8 kg (169 lb 5 oz) 11/28/15 0618 77 kg (169 lb 12.1 oz) 11/28/15 0603 77 kg (169 lb 12.1 oz) 11/27/15 0438 77.2 kg (170 lb 3.1 oz) 11/26/15 0625 77 kg (169 lb 12.1 oz) 11/25/15 0853 76.5 kg (168 lb 11.2 oz) Physical Exam: General: NAD, AOx3, sitting in ICU bed, cooperative HEENT: NC/AT CVS: RRR, no m/r/g Pulm: Coarse breath sounds, clear, Meds CT/ Pleural w/ ss output airleak on exhalation on Meds CT to suction, no wheezes or rhonchi, breathing comfortably on 2LNC Abd: soft, non-tender : anderson with yellow urine Ext: warm and well perfused, no edema Neuro: Grossly intact, nonfocal, moving all four extremities spontaneously. Lines/Drains: RIJ A line Meds CT Pleura CT Anderson Drips: Levo @ 4 Recent Labs 11/30/15 0205 11/29/15 1425 11/29/15 1247 11/29/15 1145 11/29/15 0440 11/28/15 0552 WBC 5.5 12.8* 11.4* -- 6.1 5.2 HGB 8.7* 11.0* 8.2* -- 14.5 14.6 HCT 26.7* 33.5* 25.8* -- 43.7 43.1 PLATELET 129* 166 137* 146 165 163 PT -- 17.0* 20.9* -- -- -- INR -- 1.4* 1.7* -- -- -- PTT -- 36* 38* -- -- -- Recent Labs 11/30/15 0205 11/29/15 1425 11/29/15 0440 11/28/15 0552 NA 141 140 139 139 K 4.5 3.9 3.9 4.1 CL 107 108* 103 104 CO2 21* 18* 23 20* BUN 8* 10 14 13 CREATININE 0.70* 0.72* 0.99 0.90 GLUCOSE -- 161 -- -- CALCIUM -- 7.2* 9.0 8.8 New Imaging: TTE: no tamponade ASSESSMENT: Olman Stewart MeronDaly is a 59 y.o. male 1 Day Post-Op 1 Day Post-Op s/p CABG x 4 progressingwell postoperatively but still on levophed. Orthostatic but Uop adequate, most likely vasoplegic from bypass. Will remain in unit today. PLAN BY SYSTEM N: Tyl Q6H, oxy 5-15, fentanyl/prop, zofran CV: ASA 81, lipitor 80mg, wean levo as needed may need fluid/albumin but most likely vasoplegic, atrial pacing wire may have resistance with removal as required suture ligation of skin vessel that may have entraped wire - if this is the case cut at skin Pulm: IS GI: NPO - adv as tolearted, protonix, MoM, pericolace, bisacodyl /FE: K protocol ID: [email or web address] abx complete Heme: ASA, SCDs Endo: insulin gtt T/L/D: R IJ, PA cath, PW, Med CT, Pleura CT Anderson DISPO: CVCC Code status: Full JOYCE TURNER MD 11/30/2015 PGY-2, General Surgery Cardiac Surgery Pager: [phone] * Olman Pickard RCP - 11/30/2015 12:43 AM EDT Olman Rivera CT ICU AMV Protocol: YES SBT: Protocol: YES Vent Settings at start of shift : SIMV VOL + PS: VT 420 RR 12 Peep+5 FIO2 40% Ps above Peep 10 BS: Clear and diminised Secretions: None Events / Plan of the Day: Pt received from Day shift RT on above settings at start of shift. Pt trialed on CT SBT 09/22: pt failed d/2 hypoventilation (VT <5ml/kg), ET C02 increased from 40 to 59. Pt trialed for 2nd time CT SBT and passed. S/P SBT AB.38/39/136/23 Pt has decent phonation and cough, no stridor noted. Pt tolerating 4LPM NC well. We will continue to closely monitor. Patient Active Problem List Diagnosis Code ??? Hypothyroidism E03.9 ??? 3-vessel CAD I25.10 * Sai Moyer RN - 11/30/2015 12:[address] Payne updated with SBT abg results. Pt extubated to 4L/NC @0025 without difficulty. * Sai Moyer RN - 11/29/2015 11:40 PM EDT 2nd SBT started @this time. * Sai Moyer RN - 11/29/2015 10:35 PM EDT SBT stopped. etC02 consistently 55-60. Dr Payne aware. Will try again in one hour. * Sai Moyer RN - 11/29/2015 10:15 PM EDT Pt awake and following commands. SBT started at this time. * Maryam Mathis RT - 11/29/2015 5:50 PM EDT Olman Rivera CT-ICU Protocol: yes Current Vent Settings: Servo I Ventilator Mode: SIMV Vol + PS Resp. Rate Set: 12 Tidal Volume Set: 420 PS Above PEEP (cm H2O): 10 Set PEEP (cm H2O): 5 (as per MD Jessie) Inspiratory Time: 1 Sec(s) Ventilator Measurements: Resp: 12 Tidal Volume Measured Exp.: 455 Minute Ventilation Total Exhaled (L/min): 6.4 Mean Airway Pressure (cm H2O): 10 Peak Inspiratory Pressure: 17 Plateau Pressure (cm H2O): 11 PEEP Total (cmH2O): 5 cmH20 Airway: 7-5 @ 24cm(as per CXR) at the teeth. Emergency equipment at the bedside and working. BS: clear Secretions: Scant white Events / Plan of the Day: Peep initially increased for bleeding, decreased back to 5 as per team. Concern for Metabolic acidosis and decreased BP at times. Plan to awaken slower. We will continue to closely monitor. Patient Active Problem List Diagnosis Code ??? Hypothyroidism E03.9 ??? 3-vessel CAD I25.10 * Nicolas Hernandez, RN - 11/29/2015 7:08 AM EDT Tx to PACU for CABG. Denied pain on tx. Patient glasses with patient. Belongings with family. O2 and mepilex on patient. Wedding ring taped. * Philip Mckinney - 11/28/2015 2:37 PM EDT Maintenance Mechanic 2Nd Shift Encounter Note Patient Name: Olman Rivera : [id number] MR#: [id number] Admit Date: 11/25/2015 8:08 AM Hospital Day 3 days Narrative:Follow-up visit for continued assessment and support. Pt was awake, alert, oriented and in bed. Pt says that he is hoping to get better. Pt asked for prayers and blessings. Assessment: Patient coping positively with stresses of illness/hospitalization at this time. Pt seems coping well and shared that tomorrow he is going for surgery he hoping to get better. Pt is living with and has family care and support. Intervention and Outcome: Provided emotional, spiritual support and encouraging presence. Maintenance Mechanic 2Nd Shift services accepted.Conversation to build trusting relationship.Provided prayer.Provided pastoral presence.Provided hoahaoism/sacramental rite. Follow-up: yes Time in Direct Care:10 Mins Philip Mckinney 11/28/2015 * Xiomy Zarate MD - 11/28/2015 9:11 AM EDT Images from the original note were not included. Inpatient Cardiology Progress Note Patient Name: Olman Rivera Service: DUAL RATE SUPERVISOR / PA Responsible Attending: Xiomy Zarate MD Reason for continued hospitalization: -Awaiting Cardiac surgery on Sunday, November Active Problems: Active Hospital Problems Diagnosis ??? 3-vessel CAD ?? 11/25/2015 cardiac catheterization: Three vessel coronary artery disease (LAD, LCX and RCA) ??? Hypothyroidism Resolved Hospital Problems Diagnosis Date Resolved No resolved problems to display. Interval History: -Pain free, no complaints. 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 HENT: Negative. Eyes: Negative. Respiratory: Negative for chest tightness and shortness of breath. Cardiovascular: Negative for chest pain and leg swelling. Endocrine: Negative. Genitourinary: Negative for flank pain. Musculoskeletal: Negative. Skin: Negative. Allergic/Immunologic: Negative. Neurological: Negative for dizziness and light-headedness. Hematological: Negative. Psychiatric/Behavioral: Negative. Telemetry: HR: 70-80s, sinus rhythm Meds: Scheduled Meds: ??? senna-docusate 1 tablet Oral BID ??? aspirin 81 mg Oral Daily ??? atorvastatin 80 mg Oral QPM ??? levothyroxine 75 mcg Oral QAM ??? sodium chloride 0.9 % 5 mL Intravenous BID ??? heparin (porcine) 5,000 Units Subcutaneous Q8H RENEE Continuous Infusions: PRN Meds:lidocaine, nitroGLYcerin, acetaminophen Physical Exam: Vital Signs: Last value Range last 24 hrs Temperature Temp: 36.6 ??C (97.9 ??F) Temp: [36.4 ??C (97.5 ??F)-36.9 ??C (98.4 ??F)] Heart Rate Heart Rate: 80 Heart Rate: [64-83] Blood Pressure BP: 104/70 BP: (98-114)/(65-74) Respiratory Rate Resp: 18 Resp: [18] SpO2 SpO2: 95 % SpO2: [95 %-98 %] Intake/Output Summary (Last 24 hours) at 11/28/15 0911 Last data filed at 11/28/15 0735 Gross per 24 hour Intake 1250 ml Output 2100 ml Net -850 ml Patient Vitals for the past 168 hrs: Weight 11/28/15 0618 77 kg (169 lb 12.1 oz) 11/28/15 0603 77 kg (169 lb 12.1 oz) 11/27/15 0438 77.2 kg (170 lb 3.1 oz) 11/26/15 0625 77 kg (169 lb 12.1 oz) 11/25/15 0853 76.5 kg (168 lb 11.2 oz) Physical Exam Constitutional: He is oriented to person, place, and time. He appears well-developed. HENT: Head: Normocephalic. Eyes: Pupils are equal, round, and reactive to light. Neck: Normal range of motion. Cardiovascular: Normal rate, regular rhythm, normal heart sounds and intact distal pulses. No murmur heard. Pulmonary/Chest: Effort normal and breath sounds normal. Abdominal: Soft. Bowel sounds are normal. Musculoskeletal: Normal range of motion. He exhibits no edema. Neurological: He is alert and oriented to person, place, and time. Skin: Skin is warm and dry. Psychiatric: He has a normal mood and affect. His behavior is normal. Lab Comments: Recent Labs 11/28/15 0552 11/27/15 0532 11/26/15 0351 WBC 5.2 4.5 4.8 HGB 14.6 13.9 13.5* HCT 43.1 41.4 41.1 PLATELET 163 154 129* Recent Labs 11/25/15 1607 INR 0.9 Recent Labs 11/28/15 0552 11/27/15 0532 11/26/15 0351 NA 139 140 139 K 4.1 4.0 3.9 CL 104 105 105 CO2 20* 22 21* BUN 13 12 15 CREATININE 0.90 0.90 0.95 Recent Labs 11/25/15 1607 AST 15 ALT 14 ALKPHOS 62 BILITOT 0.4 BILIDIR 0.1 Recent Labs 11/28/15 0552 11/27/15 0532 11/26/15 0351 CALCIUM 8.8 8.7 8.4* Recent Labs 11/27/15 0532 CK 57 TROPONINT <0.03 Pertinent Radiographic/Diagnostic Results: I have independently visualized the following studies: ECG: NSR rate 75 bpm. QRS 90 msec. QT 404 msec ?? 11/25/2015 Cardiac cath Hemodynamics: ?? Left Heart Pressures ?? Resting: ?? Syst Diast EDP a v m ?? Ao 86 61 73 ?? LV 88 5 ? Coronary Angiography: ?? Dominance: Right ? Left Main ?? There was mild diffuse disease of the entire vessel segment of the ??left main artery. ? Left Anterior Descending ?? There was a single discrete total occlusion of the mid segment of ?? the left anterior descending artery (LAD). There was no antegrade ?? distal flow (SEE Grade 0). Distal flow was via the pilot point vessel, ?? collaterals from the LCX as well as collaterals from the RCA. ? There was an 80% single discrete stenosis of the proximal segment of ??the first diagonal branch (Diagonal 1) of the LAD. Distal flow was ??normal. ? Left Circumflex ?? There was a 50% long segmental stenosis of the proximal segment of ??the left circumflex artery (LCX). The LCX was moderate in size. ?? Distal flow was normal. ? Right Coronary Artery ?? There was a 95% ectatic single discrete stenosis of the mid segment ??of the right coronary artery (RCA). The RCA was large. Distal flow ?? was decreased (SEE Grade 2). ? There was mild diffuse disease of the entire vessel segment of the ??right posterior descending branch (RPDA) of the RCA. Distal flow ?? was decreased (SEE Grade 2). ? Vascular Access: ?? Vascular Access Management: ?? Mechanical Compression of the right radial artery access site was ?? performed. ? Conclusions: ?? * Three vessel coronary artery disease (LAD, LCX and RCA) ? Assessment: Olman Rivera is a 59 y.o. male with hypothyroidism and positive family history underwent cardiac cath (11/25/2015) and was found to have 3- vessel disease. Based on anatomic disease andslow flow in RCA he will remain hospitalized until the time of bypass surgery. Ambulating with no chest pain CABG in AM ?? Plan: 1. ASCVD Cath shows three vessel CAD CT surgery consulted. OR on Sunday11/29/2015 Continue ASA 81 mg. Stopped imdur. No beta chaparrita due to bradycardia. Started lisinopril 2.5 mg daily ?? 2. Hyperlipidemia Atorvastatin 80 mg every evening. Lipid Panel: total chol 176, HDL 44, LDL direct 128 3. Hypothyroid Continue levothyroxine 75 mcg TSH 1.48 ?? MISC: DVT prophylaxis: Heparin 5000 units SQ tid GI prophylaxis: n/a Diet: Daily Healthy Choices Activity: As tolerated Code status: Full Caryl Yeager APRN Nurse Practitioner-Department of Cardiology [email or web address] [email or web address] Pager [phone] Phone number: [phone] Fax number [phone] CARYL YEAGER APRN 11/28/2015 I interviewed Mr. Rivera on 11/28/15. I agree with the history, physical exam findings and clinical plan as outlined above. No events overnight. He is on a good medical regimen and is optimized for CABG in AM. 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 He is [place], deeply committed to his donovan and family. His family are around to be with for support and encouragement. Assessment: He is scheduled for by-pass surgery for Sunday morning. He was scared with coming in for another procedure and the unexpected happened. Intervention and Outcome: Provided pastoral/supportive/counseling presence and prayers with the Sacrament of the Sick & Communion. Follow-up: Yes Time in Direct Care: 40 mins Lamont Robert Krista 11/27/2015 * Xiomy Zarate MD - 11/27/2015 8:33 AM EDT Images from the original note were not included. Inpatient Cardiology Progress Note Patient Name: Olman Rivera Service: DUAL RATE SUPERVISOR / PA Responsible Attending: Xiomy Zarate MD Reason for continued hospitalization: -Awaiting Cardiac surgery on Sunday, November Active Problems: Active Hospital Problems Diagnosis ??? 3-vessel CAD ?? 11/25/2015 cardiac catheterization: Three vessel coronary artery disease (LAD, LCX and RCA) ??? Hypothyroidism Resolved Hospital Problems Diagnosis Date Resolved No resolved problems to display. Interval History: -Pain free, no complaints. -ambulating Review of Systems: Review of Systems Constitutional: Negative. HENT: Negative. Eyes: Negative. Respiratory: Negative for chest tightness and shortness of breath. Cardiovascular: Negative for chest pain and leg swelling. Endocrine: Negative. Genitourinary: Negative for flank pain. Musculoskeletal: Negative. Skin: Negative. Allergic/Immunologic: Negative. Neurological: Negative for dizziness and light-headedness. Hematological: Negative. Psychiatric/Behavioral: Negative. Telemetry: HR: 70-80s, sinus rhythm Meds: Scheduled Meds: ??? lisinopril 2.5 mg Oral Daily ??? senna-docusate 1 tablet Oral BID ??? aspirin 81 mg Oral Daily ??? atorvastatin 80 mg Oral QPM ??? levothyroxine 75 mcg Oral QAM ??? sodium chloride 0.9 % 5 mL Intravenous BID ??? heparin (porcine) 5,000 Units Subcutaneous Q8H RENEE Continuous Infusions: PRN Meds:lidocaine, nitroGLYcerin, acetaminophen Physical Exam: Vital Signs: Last value Range last 24 hrs Temperature Temp: 36.9 ??C (98.4 ??F) Temp: [36.5 ??C (97.7 ??F)-36.9 ??C (98.4 ??F)] Heart Rate Heart Rate: 68 Heart Rate: [66-85] Blood Pressure BP: 105/65 BP: (98-122)/(58-80) Respiratory Rate Resp: 18 Resp: [18-22] SpO2 SpO2: 95 % SpO2: [95 %-99 %] Intake/Output Summary (Last 24 hours) at 11/27/15 0833 Last data filed at 11/27/15 0416 Gross per 24 hour Intake 800 ml Output 1700 ml Net -900 ml Patient Vitals for the past 168 hrs: Weight 11/27/15 0438 77.2 kg (170 lb 3.1 oz) 11/26/15 0625 77 kg (169 lb 12.1 oz) 11/25/15 0853 76.5 kg (168 lb 11.2 oz) Physical Exam Constitutional: He is oriented to person, place, and time. He appears well-developed. HENT: Head: Normocephalic. Eyes: Pupils are equal, round, and reactive to light. Neck: Normal range of motion. Cardiovascular: Normal rate, regular rhythm, normal heart sounds and intact distal pulses. No murmur heard. Pulmonary/Chest: Effort normal and breath sounds normal. Abdominal: Soft. Bowel sounds are normal. Musculoskeletal: Normal range of motion. He exhibits no edema. Neurological: He is alert and oriented to person, place, and time. Skin: Skin is warm and dry. Psychiatric: He has a normal mood and affect. His behavior is normal. Lab Comments: Recent Labs 11/27/15 0532 11/26/15 0351 11/25/15 1607 WBC 4.5 4.8 5.0 HGB 13.9 13.5* 13.3* HCT 41.4 41.1 39.8* PLATELET 154 129* 159 Recent Labs 11/25/15 1607 INR 0.9 Recent Labs 11/27/15 0532 11/26/15 0351 11/25/15 1607 NA 140 139 139 K 4.0 3.9 3.8 CL 105 105 102 CO2 22 21* 23 BUN 12 15 14 CREATININE 0.90 0.95 0.97 Recent Labs 11/25/15 1607 AST 15 ALT 14 ALKPHOS 62 BILITOT 0.4 BILIDIR 0.1 Recent Labs 11/27/15 0532 11/26/15 0351 11/25/15 1607 CALCIUM 8.7 8.4* 8.6 No results for input(s): CK, TROPONINT in the last 168 hours. Pertinent Radiographic/Diagnostic Results: I have independently visualized the following studies: ECG: NSR rate 75 bpm. QRS 90 msec. QT 404 msec ?? 11/25/2015 Cardiac cath Hemodynamics: ?? Left Heart Pressures ?? Resting: ?? Syst Diast EDP a v m ?? Ao 86 61 73 ?? LV 88 5 ? Coronary Angiography: ?? Dominance: Right ? Left Main ?? There was mild diffuse disease of the entire vessel segment of the ??left main artery. ? Left Anterior Descending ?? There was a single discrete total occlusion of the mid segment of ?? the left anterior descending artery (LAD). There was no antegrade ?? distal flow (SEE Grade 0). Distal flow was via the pilot point vessel, ?? collaterals from the LCX as well as collaterals from the RCA. ? There was an 80% single discrete stenosis of the proximal segment of ??the first diagonal branch (Diagonal 1) of the LAD. Distal flow was ??normal. ? Left Circumflex ?? There was a 50% long segmental stenosis of the proximal segment of ??the left circumflex artery (LCX). The LCX was moderate in size. ?? Distal flow was normal. ? Right Coronary Artery ?? There was a 95% ectatic single discrete stenosis of the mid segment ??of the right coronary artery (RCA). The RCA was large. Distal flow ?? was decreased (SEE Grade 2). ? There was mild diffuse disease of the entire vessel segment of the ??right posterior descending branch (RPDA) of the RCA. Distal flow ?? was decreased (SEE Grade 2). ? Vascular Access: ?? Vascular Access Management: ?? Mechanical Compression of the right radial artery access site was ?? performed. ? Conclusions: ?? * Three vessel coronary artery disease (LAD, LCX and RCA) ? Assessment: Olman Rivera is a 59 y.o. male with hypothyroidism and positive family history underwent cardiac cath (11/25/2015) and was found to have 3- vessel disease. Based on anatomic disease andslow flow in RCA he will remain hospitalized until the time of bypass surgery. Ambulating with no chest pain ?? Plan: 1. ASCVD Cath shows three vessel CAD CT surgery consulted. OR on Sunday11/29/2015 Continue ASA 81 mg. Stopped imdur. No beta chaparrita due to bradycardia. Started lisinopril 2.5 mg daily ?? 2. Hyperlipidemia Atorvastatin 80 mg every evening. Lipid Panel: total chol 176, HDL 44, LDL direct 128 3. Hypothyroid Continue levothyroxine 75 mcg TSH 1.48 ?? MISC: DVT prophylaxis: Heparin 5000 units SQ tid GI prophylaxis: n/a Diet: Daily Healthy Choices Activity: As tolerated Code status: Full Caryl Yeager APRN Nurse Practitioner-Department of Cardiology [email or web address] Pager [phone] Phone number: [phone] Fax number [phone] CARYL YEAGER APRN 11/27/2015 I did not visit with Mr. Rivera today. He remains stable and plan remains for CABG on Sunday. Xiomy Zarate MD Attending Staff Cardiology Pager [phone] * Philip Mckinney - 11/26/2015 4:25 PM EDT Maintenance Mechanic 2Nd Shift Encounter Note Patient Name: Olman Rivera : [id number] MR#: [id number] Admit Date: 11/25/2015 8:08 AM Hospital Day 1 day Narrative:Visited to introduce and assess acceptance of Maintenance Mechanic 2Nd Shift services. Pt was awake, alert, oriented and in bed and his was there. Pt asked for prayers and blessings. Assessment:Patient coping positively with stresses of illness/hospitalization at this time. Pt seems coping well and has family care and support. Pt has children and loves to be with family. Pt is very active in yarsanism community and appreciative. Intervention and Outcome: provided emotional, spiritual support and encouraging presence. Maintenance Mechanic 2Nd Shift services accepted.Conversation to build trusting relationship.Provided prayer.Provided pastoral presence.Provided hoahaoism/sacramental rite. Follow-up: yes Time in Direct Care:20 Mins Philip Mckinney 11/26/2015 * Campbell Ramirez - 11/26/2015 1:55 PM EDT Office of Care Management (OCM) / [employer] Car Loader(CM)/ Initial Assessment Discussed patient with Provider Team and in multidisciplinary discharge-planning rounds. Reviewed record and interviewed patient. Introduced/reviewed CM role and services accepted. REASON for HOSPITALIZATION: Chest pain, Pt is having CABG on Sunday. PMH See H&P PREVIOUS FUNCTIONAL STATUS: Independent CURRENT FUNCTIONAL STATUS: Independent SOCIAL / FAMILY SUPPORTS: Pt has a Griselda, children, and friends for support. ADVANCE DIRECTIVES: Information was given to patient for review. Informed him that we can assist with filing out AD at anytime. HEALTH /PRESCRIPTION COVERAGE: [employer]. Pt states he has no current concerns regarding the cost of his medicaitons. CURRENT HOME/COMMUNITY SERVICES/EQUIPMENT: Home Health Agency: Choices for home health services were provided to patient. Pt would like referral be submitted to [facility] for potential needs upon discharge. Manager Six Sigma will be asked to facilitate request. DIRECTOR CRAFT CENTER REFERRAL: not needed at this time PRIMARY CARE PHYSICIAN: MOJGAN BOATENG DO [address] / [place] [address] POTENTIAL DISCHARGE NEEDS: Pt may need home health services post discharge. Pt would like to use [facility]. ANTICIPATED BARRIERS TO DISCHARGE: None identified at this time. TRANSPORTATION @ D/C: Family to transport upon discharge. PLAN: CM will continue to monitor progress, follow for continuity of care and assist with dischargeplanning while hospitalized . * Aziza Castano, ENVIRONMENTAL FIELD PROFESSIONAL - 11/26/2015 7:15 AM EDT Inpatient Cardiology Progress Note Patient Name: Olman ChanceLisyAdithya Service: DUAL RATE SUPERVISOR / PA Responsible Attending: Xiomy Zarate MD Reason for continued hospitalization: Awaiting CT surgery on Sunday, November Active Problems: Active Hospital Problems Diagnosis ??? Hypothyroidism ??? ASCVD (arteriosclerotic cardiovascular disease) 11/25/2015 cardiac catheterization: Three vessel coronary artery disease (LAD, LCX and RCA) Resolved Hospital Problems Diagnosis Date Resolved No resolved problems to display. Interval History: Pain free, no complaints. Review of Systems: Review of Systems Constitutional: Negative. HENT: Negative. Eyes: Negative. Respiratory: Negative for chest tightness and shortness of breath. Cardiovascular: Negative for chest pain and leg swelling. Endocrine: Negative. Genitourinary: Negative for flank pain. Musculoskeletal: Negative. Skin: Negative. Allergic/Immunologic: Negative. Neurological: Negative for dizziness and light-headedness. Hematological: Negative. Psychiatric/Behavioral: Negative. Telemetry: HR: 70-80s, sinus rhythm Meds: Scheduled Meds: ??? aspirin 81 mg Oral Daily ??? atorvastatin 80 mg Oral QPM ??? isosorbide mononitrate 30 mg Oral QAM ??? levothyroxine 75 mcg Oral QAM ??? sodium chloride 0.9 % 5 mL Intravenous BID ??? heparin (porcine) 5,000 Units Subcutaneous Q8H RENEE Continuous Infusions: PRN Meds:lidocaine, nitroGLYcerin, acetaminophen Physical Exam: Vital Signs: Last value Range last 24 hrs Temperature Temp: 36.5 ??C (97.7 ??F) Temp: [36.5 ??C (97.7 ??F)-37.5 ??C (99.5 ??F)] Heart Rate Heart Rate: 73 Heart Rate: [71-73] Blood Pressure BP: 105/69 BP: (104-122)/(57-76) Respiratory Rate Resp: 20 Resp: [16-20] SpO2 SpO2: 97 % SpO2: [95 %-97 %] Intake/Output Summary (Last 24 hours) at 11/26/15 1355 Last data filed at 11/26/15 0631 Gross per 24 hour Intake 500 ml Output 1600 ml Net -1100 ml Patient Vitals for the past 168 hrs: Weight 11/26/15 0625 77 kg (169 lb 12.1 oz) 11/25/15 0853 76.5 kg (168 lb 11.2 oz) Physical Exam Constitutional: He is oriented to person, place, and time. He appears well-developed. HENT: Head: Normocephalic. Eyes: Pupils are equal, round, and reactive to light. Neck: Normal range of motion. Cardiovascular: Normal rate, regular rhythm, normal heart sounds and intact distal pulses. No murmur heard. Pulmonary/Chest: Effort normal and breath sounds normal. Abdominal: Soft. Bowel sounds are normal. Musculoskeletal: Normal range of motion. He exhibits no edema. Neurological: He is alert and oriented to person, place, and time. Skin: Skin is warm and dry. Psychiatric: He has a normal mood and affect. His behavior is normal. Lab Comments: Recent Labs 11/26/15 0351 11/25/15 1607 WBC 4.8 5.0 HGB 13.5* 13.3* HCT 41.1 39.8* PLATELET 129* 159 Recent Labs 11/25/15 1607 INR 0.9 Recent Labs 11/26/15 0351 11/25/15 1607 NA 139 139 K 3.9 3.8 CL 105 102 CO2 21* 23 BUN 15 14 CREATININE 0.95 0.97 Recent Labs 11/25/15 1607 AST 15 ALT 14 ALKPHOS 62 BILITOT 0.4 BILIDIR 0.1 Recent Labs 11/26/15 0351 11/25/15 1607 CALCIUM 8.4* 8.6 No results for input(s): CK, TROPONINT in the last 168 hours. Pertinent Radiographic/Diagnostic Results: I have independently visualized the following studies: ECG: pending Assessment: Olman Rivera is a 59 y.o. male with hypothyroidism and positive family history underwent cardiac cath today and was found to have triple vessel disease. Based on anatomic disease and slow flow in RCA he will remain hospitalized until the time of bypass surgery. ?? Plan: 1. ASCVD Cath shows three vessel CAD CT surgery consulted. OR on Sunday11/29/2015 Continue ASA 81 mg. Stopped imdur. No beta chaparrita due to bradycardia. Started lisinopril 2.5 mg daily ?? 2. Hyperlipidemia Atorvastatin 80 mg every evening. Lipid Panel: total chol 176, HDL 44, LDL direct 128 3. Hypothyroid Continue levothyroxine 75 mcg TSH 1.48 ?? MISC: DVT prophylaxis: Heparin 5000 units SQ tid GI prophylaxis: n/a Diet: Daily Healthy Choices Activity: As tolerated Code status: Full I have discussed with Dr. Xiomy Castano APRN 11/26/2015 Associated attestation - Xiomy Zarate MD - 11/26/2015 7:00 PM EDT ATTENDING ATTESTATION: Pt interviewed and examined on 11/26/2015. I agree with plan as outlined above. Plan for CABG for progressive symptoms of angina on 11/28/15. Continue optimal medical therapy rachel-operatively. Xiomy Zarate MD Interventional Cardiology * India Manuel RN - 11/25/2015 6:41 PM EDT Pt transferred to [facility] from [address] [place] [address]. VSS, no pain, no SOB. Pt went for chest xray. Cath today showed 3VD, surgery on Sunday. Will continue to monitor, no acute concerns at this time. documented in this encounter H&P Notes * Yash Benton MD - 11/29/2015 7:13 AM EDT Patient Name: Olman Rivera Patient Age: 59 y.o. Birthdate: 1955 Admit date: 11/25/2015 Attending Physician: Xiomy Zarate MD I am seeing Olman Rivera at the request of Dr. Julius Atkins for evaluation of CAD. 59 year oldmale with PMH of hypothyroidism. Patient had been in usual state of health until several weeks ago when he has been noticing exertional chest discomfort while walking his dog. Relieved with rest. Non-radiating. Denies n/v, diaphoresis, syncope, abd pain, rest pain. Seen his PCP and was worked up with nuclear stress test showing inferior/apical ischemia. He does have FMH of CAD. Cardiac Cath performed today showing 3V CAD (LAD, LCX, RCA). ?? No history of cancer, diabetes, smoking, stroke, chest surgery. Creatinine 1. EF 60%. Was on plavixprior to cath, but not given during or after. Not on heparin gtt. No rest pain. ?? Past Medical History: Past Medical History No past medical history on file. ?? Past Surgical History: Past Surgical History No past surgical history on file. ?? Family History: Family History No family history on file. ? Social History: Social History Social History? Social History? Marital status:? Spouse name:?? N/A? Number of children:?? N/A? Years of education:?? N/A? Occupational History? Not on file.? Social History Main Topics? Smoking status:?? Not on file? Smokeless tobacco:?? Not on file? Alcohol use?? Not on file? Drug use:?? Not on file? Sexual activity:?? Not on file? Other Topics?? Concern? Not on file? Social History Narrative? Allergies: ?? No Known Allergies ?? Current Medications: Current Medications and Prescriptions Ordered in [facility] Current Facility-Administered Medications Ordered in [facility]?? Medication?? Dose?? Route?? Frequency?? Provider?? Last Rate?? Last Dose? sodium chloride 0.9% infusion?? 100 mL/hr?? Intravenous?? Continuous?? Hemal Bedolla MD?? 100 mL/hr at 11/25/15 1030?? 100 mL/hr at 11/25/15 1030? nitroGLYcerin (NITROSTAT) SL tablet 0.4 mg?? 0.4 mg?? Sublingual?? Q5 Min PRN?? Hemal Bedolla MD? No current [facility]-ordered outpatient prescriptions on file.? Review of Systems: Pertinent items are noted in HPI. All other ROS negative ?? Physical Exam: Last set of vitals: BP 105/67 Pulse 66 Temp 35.9 ??C (96.6 ??F) (Temporal) Resp 12 Ht 177.8 cm (5' 10) Wt 76.5 kg (168lb 11.2 oz) SpO2 97% BMI 24.21 kg/m2 ?? BP 101/63 Pulse 66 Temp 36.7 ??C (98.1 ??F) (Oral) Resp 15 Ht 177.8 cm (5' 10) Wt 76.5 kg (168 lb 11.2 oz) SpO2 99% BMI 24.21 kg/m2 ?? General Appearance: ?? Alert, cooperative, no distress, appears stated age?? Head: ?? Normocephalic, without obvious abnormality, atraumatic?? Eyes: ?? PERRL, conjunctiva/corneas clear, EOM's intact, fundi ?? benign, both eyes ?? Ears: ?? Normal TM's and external ear canals, both ears?? Nose:?? Nares normal, septum midline, mucosa normal, no drainage or sinus tenderness?? Throat:?? Lips, mucosa, and tongue normal; teeth and gums normal?? Neck:?? Supple, symmetrical, trachea midline, no adenopathy; ?? thyroid: No enlargement/tenderness/nodules; no carotid bruit or JVD?? Back: ?? Symmetric, no curvature, ROM normal, no CVA tenderness?? Lungs: ?? Clear to auscultation bilaterally, respirations unlabored?? Chest wall: ?? No tenderness or deformity?? Heart: ?? Regular rate and rhythm, S1 and S2 normal, no murmur, rub or gallop?? Abdomen: ?? Soft, non-tender, bowel sounds active all four quadrants, ?? no masses, no organomegaly?? Genitalia: ?? Normal male without lesion, discharge or tenderness?? Rectal: ?? Normal tone, normal prostate, no masses or tenderness; guaiac negative stool?? Extremities:?? Extremities normal, atraumatic, no cyanosis or edema?? Pulses:?? 2+ and symmetric all extremities?? Skin:?? Skin color, texture, turgor normal, no rashes or lesions?? Lymph nodes:?? Cervical, supraclavicular, and axillary nodes normal?? Neurologic:?? CNII-XII intact. Normal strength, sensation and reflexes ?? throughout? Pertinent Labs: ?? CBC: BMP: Coagulation: Cardiac markers: ?? Diagnostics: (I have independently visualized the following studies): EKG: INTERPRETATION? Preliminary?? Sinus bradycardia Otherwise normal ECG No previous ECGs available ? CXR: No acute abnormality ?? ECHO: Pending ?? CATH: Conclusions: * Three vessel coronary artery disease (LAD, LCX and RCA) ?? Assessment & Plan of Management: 59 year old male with PMH of hypothyroidism found to have 3V CAD. Cardiac Surgery consulted for surgical management. Please obtain cbc, bmp, UA, LFT's, type and screen, Transthoracic ECHO. If proceeding forth with surgery please continue to hold plavix. Case discussed with Dr. Benton. Timing of surgery per Dr. Benton. ? Thank you for allowing me to participate in the care of Olman Rivera ?? Please do not hesitate to call with questions. NEPTALI WELCH ? CARDIAC SURGERY ATTENDING ?? Patient seen and examined History and physical as per Michael Etienne PA-C 59 year-old man with stable angina and no significant PMH with cardiac cath today demonstrating multi-vessel CAD Currently no chest pain or shortness of breath ?? Will plan for CABG on Sunday first case Orders as per above Continue to hold plavix ?? The working diagnosis and plan of management were reviewed with the patient, available family, and the housestaff. All questions were addressed. Risks, benefits, alternatives and possible complications of surgery were discussed including but not limited to: , stroke, myocardial infarction, bleeding, transfusion requirement or reaction, infection, nerve injury, need forpacemaker, renal failure, and respiratory failure requiring prolonged ventilation. In addition we discussed recovery after surgery. The patient appears to understand these risks and benefits. The informed consent will be signed. ?? Thank you for allowing me to participate in the care of Olman Rivera ?? Please do not hesitate to call with questions. ? Yash Benton MD, MS wine consultant Section of Cardiac Surgery [facility] Office: [phone] Pager: [phone] There has been no interval change in the patient's condition or plan since the last visit. * Julius Atkins MD - 11/25/2015 12:05 PM EDT STAFF ADDENDUM: I have reviewed the available records, interviewed and examined the patient. I have discussed the patient's medical history, differential diagnosis, and plan of therapy with Aziza Castano and have reviewed their note dated 11/25/2015 and I agree with their note and plan of therapy. Interval History: Pleasant 58 yo man being admitted from the [facility] for consideration of CABG. 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 Over the past feel weeks he has developed fatigue and SOB while walking his dogs. Given a positive family history for CAD, he underwent stress test 11/18/2015 [facility] revealed EF 60% and inferoapical ischemia. Recommended cath as a result. Cardiac cath revealed 95% mid RCA lesion with right to left collaterals filling in the LAD branch of the LCA. Injection of the LCA revealed high grade DX disease, occluded LAD filling retrograde via right collaterals and collaterals from the CX to the distal RCA. Admitted to [facility] for consideration of CABG. Lab Comments: Multiple labs assessed. Problems Reviewed: 3VD Plan: CABG * Aziza Castano, ENVIRONMENTAL FIELD PROFESSIONAL - 11/25/2015 12:02 PM EDT Cardiology Admission H&P Patient Name: Olman Rivera Date of : 1955 Age: 59 y.o. Hospital Admit Date: 11/25/2015 Inpatient Attending: Julius Atkins MD PCP: MOJGAN BOATENG DO Presenting Diagnosis/Chief Complaint: Three vessel disease Active Problem List: Active Hospital Problems Diagnosis ??? Hypothyroidism ??? ASCVD (arteriosclerotic cardiovascular disease) 11/25/2015 cardiac catheterization: Three vessel coronary artery disease (LAD, LCX and RCA) Resolved Hospital Problems Diagnosis Date Resolved No resolved problems to display. History of Present Illness: HPI 59 y.o. y/o with notable pmhx of hypothyroidism, patient of Teddy Leong who presented on 11/25/2015for scheduled cardiac catheterization. He had been in his USOH up until 6 weeks ago, at which time he began experiencing substernal chest pain. Nonradiating. No dyspnea or nausea. Symptoms began when walking his dog and climbing a hill. Stress echocardiogram testing revealed a large inferior/apical perfusion defect prompting referral to cardiology on 11/18/2015. He was started on medical management (asa, plavix, lipitor and imdur) and referred for cath. 11/25/2015 Cardiac cath revealed 95% mid RCA lesion with right to left collaterals filling in the LADbranch of the LCA. Injection of the LCA revealed high grade DX disease, occluded LAD filling retrograde via right collaterals and collaterals from the CX to the distal RCA.Based on anatomic disease and slow flow in the RCA, plan was admission to the hospital??hospital and plan for CABG. Past Medical History: Past Medical History Diagnosis Date ??? Hypothyroidism Surgical History/Problems: Past Surgical History Procedure Laterality Date ??? Tonsillectomy N/A Significant Family History: Family History Problem Relation Age of Onset ??? Type 2 Diabetes Mother ??? Myocardial Infarction Father 53 Social History: Social History Social History ??? Marital status: Spouse name: N/A ??? Number of children: N/A ??? Years of education: N/A Occupational History ??? Not on file. Social History Main Topics ??? Smoking status: Never Smoker ??? Smokeless tobacco: Not on file ??? Alcohol use Not on file Comment: occaisonal ??? Drug use: No ??? Sexual activity: Not on file Other Topics Concern ??? 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 REVIEW OF SYSTEMS: Review of Systems Constitutional: Negative. HENT: Positive for dental problem (Recent tooth extraction ~ 3 weeks ago) and trouble swallowing (Ocassionally). Eyes: Positive for visual disturbance (Wears glasses). Respiratory: Negative for chest tightness, shortness of breath and wheezing. Cardiovascular: Negative for chest pain, palpitations and leg swelling. Endocrine: Negative. Genitourinary: Negative for hematuria. Musculoskeletal: Negative. Skin: Negative. Allergic/Immunologic: Negative. Neurological: Negative for dizziness. Hematological: Negative. Psychiatric/Behavioral: Negative. Medications: Prescriptions Prior to Admission Medication Sig Dispense Refill Last Dose ??? aspirin 81 mg Tablet, Chewable Take 81 mg by mouth daily. 11/25/2015 at Unknown time ??? atorvastatin (LIPITOR) 20 mg Tablet Take 20 mg by mouth daily. 11/24/2015 at Unknown time ??? isosorbide mononitrate (IMDUR) 30 mg Tablet Sustained Release 24 hr Take 30 mg by mouth daily. 11/25/2015 at Unknown time ??? clopidogrel (PLAVIX) 75 mg Tablet Take 75 mg by mouth daily. 11/25/2015 at Unknown time ??? levothyroxine (SYNTHROID) 75 mcg tablet 75MCG = 1 Tablet(s), PO, Once daily 11/25/2015 at Unknowntime ??? nitroGLYcerin (NITROSTAT) 0.4 mg Tablet, Sublingual Place 0.4 mg under the tongue every 5 minutes as needed for Chest pain. Unknown at Unknown time Allergies: No Known Allergies PHYSICAL EXAM: Last set of vital signs: BP 106/58 Pulse 66 Temp 36.7 ??C (98.1 ??F) (Oral) Resp 15 Ht 177.8 cm (5'10) Wt 76.5 kg (168 lb 11.2 oz) SpO2 99% BMI 24.21 kg/m2 Physical Exam Constitutional: He is oriented to person, place, and time. He appears well-developed. HENT: Head: Normocephalic. Eyes: Pupils are equal, round, and reactive to light. Neck: Normal range of motion. Cardiovascular: Normal rate, regular rhythm, normal heart sounds and intact distal pulses. No murmur heard. Right radial cath site tender to touc, palp pulse, good CSM Pulmonary/Chest: Effort normal and breath sounds normal. Abdominal: Soft. Bowel sounds are normal. Musculoskeletal: He exhibits no edema. Neurological: He is alert and oriented to person, place, and time. Skin: Skin is warm and dry. Psychiatric: He has a normal mood and affect. His behavior is normal. Diagnostics: I have independently visualized the following studies: ECG: Sinus bradycardia 11/25/2015 Cardiac catheterization: Coronary Angiography: ?? Dominance: Right ? Left Main ?? There was mild diffuse disease of the entire vessel segment of the ?? left main artery. ? Left Anterior Descending ?? There was a single discrete total occlusion of the mid segment of ?? the left anterior descending artery (LAD). There was no antegrade ?? distal flow (SEE Grade 0). Distal flow was via the pilot point vessel, ?? collaterals from the LCX as well as collaterals from the RCA. ? There was an 80% single discrete stenosis of the proximal segment of ?? the first diagonal branch (Diagonal 1) of the LAD. Distal flow was ?? normal. ? Left Circumflex ?? There was a 50% long segmental stenosis of the proximal segment of ?? the left circumflex artery (LCX). The LCX was moderate in size. ?? Distal flow was normal. ? Right Coronary Artery ?? There was a 95% ectatic single discrete stenosis of the mid segment ?? of the right coronary artery (RCA). The RCA was large. Distal flow ?? was decreased (SEE Grade 2). ? There was mild diffuse disease of the entire vessel segment of the ?? right posterior descending branch (RPDA) of the RCA. Distal flow ?? was decreased (SEE Grade 2). ? Conclusions: ?? * Three vessel coronary artery disease (LAD, LCX and RCA) ?? LABS: No results found for this or any previous visit (from the past 24 hour(s)). ASSESSMENT: 59 year old male with hypothyroidism and positive family history underwent cardiac cathtoday and was found to have triple vessel disease. Based on anatomic disease and slow flow in RCA he will remain hospitalized until the time of bypass surgery. TREATMENT PLAN: 1. ASCVD Cath shows three vessel CAD CT surgery consulted Continue ASA 81 mg and imdur. No beta chaparrita due to bradycardia. 2. Hyperlipidemia Atorvastatin 80 mg every evening. Lipid panel in AM 3. Hypothyroid Continue levothyroxine 75 mcg Will check TSH MISC: DVT prophylaxis: Heparin 5000 units SQ tid GI prophylaxis: n/a Diet: Daily Healthy Choices Activity: As tolerated Code status: Full Pre CABG: CXR, HA1c and LFTs pending I have discussed with Dr. Julius Atkins MD Provider: Aziza Castano APRN Provider #: [id number] 11/25/2015 * Xiomy Zarate MD - 11/25/2015 8:44 AM EDT 24 hour h & p CC: angina HPI 59 y.o. y/o with notable pmhx of hypothyroidism who presents today for scheduled cardiac catheterization. He had been in his USOH up until 6w ago, at which time they began experiencing sscp. Nonradiating. No dyspnea or nausea. Sx's began after ambulating ~10m while walking his dog. Nuclear stress testing revealed a large inferior/apical perfusion defect prompting referral to cardiology on 11/17. He was started on medical mgmt (asa, plavix, lipitor and imdur) and referred for cath. No prior cardiac hx. Only RF is + fam hx. Asymptomatic at this time while laying in bed. PMH: + fam hx Meds reviewed, of note: ASA81 (last dose this am) 75 mg plavix (last dose this am) imdur SL nitro lipitor Exam: Vitals: VSS Gen:AAOX3, pleasant and in NAD HEENT: sclera anicteric, EOMI, no conjunctival pallor, no oral lesions Neck: no cervical LAD, Full range of motion, JVP at 6cm, Pulm: Normal respiratory effort, Normal vesicular BS b/l, Lungs CTAB CV: RRR, s1 s2 normal intensity, no m/r/g Abd: soft, NT, ND, NABS throughout, Ext: no edema, no clubbing, no cyanosis. Vascular: Radial, DP and femoral pulses 2+ b/l, no carotid bruits Neuro: no focal deficits grossly noted. Labs reviewed, of note: Wbc: 4.8 Hgb: 13.3 Plt: 210 Na: 140 K: 4.3 Cl: 105 CO2: 28 Cr: 1 INR: 1 EKG: sinus olivia without ischemic changes CXR: nml Stress Test (nuclear- 11/18/15): LVEF 60%, st depressions in inferior and anterolateral leads, moderate to large perfusion defect in inferior wall and apex A/P: 59 y/o man with fam hx of CAD who p/w typical angina. Will proceed with LHC and diagnostic coronary angiography. No upcoming surgeries, NPO since HI, no prior bleeding problems, compliant with meds. Will proceed with planned procedure. Hemal Bedolla MD 11/25/2015 Pt interviewed and examined with Dr. Bedolla. Plan for LHC with coronary angiography via right radial approach for progressive angina and a positive stress test. documented in this encounter Nursing Notes * Sierra Naqvi RN - 11/29/2015 9:07 AM EDT Patient family updated throughout procedure. ?? Zoll pads applied prior to induction. Verapamil 5mg in 60ml injectable NS (ELIEL flush) Vancomycin 4gm mixed with 5ml NS (paste to sternal bone) documented in this encounter Miscellaneous Notes * Plan of Care - Karin Godwin RN - 12/03/2015 6:06 PM EDT Problem: General Plan of Care Goal: Plan of Care Review Outcome: Ongoing (Interventions Implemented as Appropriate) 12/03/15 0712/03/15 0800 Coping/Psychosocial Response Interventions Plan of Care Reviewed with -- patient Plan of Care Review Plan of Care Outcome Status ongoing (interventions implemented as appropriate) -- Progress improving -- OUTCOME EVALUATION NOTE: OUTCOME SUMMARY: Pt had uneventful day. Walked x4, had BM. Denied SOB/CP. Stated his vision floaters were gone butis still seeing a purple dilan when eyes are closed at bottom of his vision in his right eye. Deniesheadaches, dizziness. Pt also states that his right leg is still bothering him, team notified. HR 90s-110s, NSR. No events on telemetry this shift. Pt. ready to go home tomorrow. PLAN MOVING FORWARD: D/C tomorrow? INDIVIDUALIZED FALL PREVENTION INTERVENTIONS: Patient-specific fall risk factors per assessment: [current deficits]: Generalized weakness Assistance [level of assistance required for transfers and ambulation]: Stand by Supervision [direct monitoring required during toileting and ADLs]: Hourly rounding continued. Calllight in reach. Surveillance [continuous indirect monitoring]: Purposeful Hourly Rounding. Goal: Fall Prevention-Safe Patient Handling Outcome: Ongoing (Interventions Implemented as Appropriate) 12/02/15199912/03/15 0800 12/03/15 1400 Safety Interventions Safety Precautions/Fall Reduction -- -- environmental modification;fall reduction program maintained;family at bedside;commode/urinal/bedpan at bedside;muscle strengthening facilitated;nonskid shoes/slippers when out of bed Musculoskeletal Interventions Activity/Level of Assistance -- -- up in gómez;ambulated Positioning -- -- up in chair Muscle Strengthening activity/mobility promoted;mobility in bed promoted;personal routines for BADL/IADL promoted;sitting on edge of bed encouraged;strengthening exercises performed;up in chair encouraged for meals and activities -- -- Self-Care Promotion assistance provided to decrease frustration;bathing assistance provided;dressing assistance provided;grooming assistance provided;hygiene assistance provided;independence encouraged while providing assistance;instruction in safe use of adaptive equipment provided;meal setup provided;personal routines for BADL/IADL promoted;personal/BADL objects within reach;toileting assistance provided -- -- Activity and Safety Assistive Device -- -- None Keller Fall Risk History of Falling -- 0 -- Secondary Diagnosis -- 15 -- Ambulatory Aids -- 0 -- Intravenous Therapy/Heparin/Saline Lock -- 20 -- Gait/Transferring -- 0 -- Mental Status -- 0 -- Score -- 35 -- OTHER Keller Fall Risk -- Med -- Goal: Infection Control Outcome: Ongoing (Interventions Implemented as Appropriate) 12/02/15199912/03/15 1400 Safety Interventions Isolation Precautions -- standard precautions maintained Infection Prevention bronchial hygiene promoted;environmental surveillance;hydration promoted;nutrition promoted;promote handwashing;rest/sleep promoted -- Coping/Psychosocial Response Interventions Counseling calming techniques promoted;emotional support provided;reassurance provided;relaxation techniques promoted;understanding of situation facilitated;verbalization of feelings encouraged -- Goal: Discharge Needs Assessment Outcome: Ongoing (Interventions Implemented as Appropriate) 12/02/15 0324 12/03/15 0717 Living Environment Transportation Available -- family or friend will provide Discharge Needs Assessment Concerns to be Addressed -- no discharge needs identified Readmission Within the Last 30 Days -- no previous admission in last 30 days Equipment Needed After Discharge CPAP -- Current Health Anticipated Changes Related to Illness -- none Self-Care Equipment Currently Used at Home CPAP -- Goal: Individualization and Mutuality Outcome: Ongoing (Interventions Implemented as Appropriate) 11/25/15 1928 Mutuality/Individual Preferences What anxieties, fears or concerns do you have about your health or care? what will my ins cover What questions do you have about your health or care? none What information would help us give you more personalized care? none * Consult Note - Tammy Veras RN - 12/03/2015 11:39 AM EDT [facility] Olman Stewart Meety was seen today regarding participation in the outpatient Phase 2 Cardiac Rehabilitation at [facility] . The patient agrees to a referral to this program. The referral will be sent at discharge and the patient should be contacted by the Program within 1- 2 weeks from discharge. * Plan of Care - Yamini Lutz RN - 12/03/2015 7:20 AM EDT Problem: Cardiac Surgery (Adult) Goal: Signs and symptoms of listed potential problems will be absent or manageable (reference (Cardiac Surgery (Adult)) CPG) Outcome: Ongoing (Interventions Implemented as Appropriate) 12/03/15716 Cardiac Surgery Problems Assessed (Cardiac Surgery) all Problems Present (Cardiac Surgery) situational response Problem: General Plan of Care Goal: Plan of Care Review Outcome: Ongoing (Interventions Implemented as Appropriate) 12/03/15716 Coping/Psychosocial Response Interventions Plan of Care Reviewed with patient Plan of Care Review Plan of Care Outcome Status ongoing (interventions implemented as appropriate) Progress improving Goal: Fall Prevention-Safe Patient Handling Outcome: Ongoing (Interventions Implemented as Appropriate) 12/02/15199912/03/15 0014 Safety Interventions Safety Precautions/Fall Reduction commode/urinal/bedpan at bedside;environmental modification;fall reduction program maintained;lighting adjusted for task/safety;low bed;nonskid shoes/slippers when out of bed;room near unit station;supervised activity -- Musculoskeletal Interventions Activity/Level of Assistance with stand by assist -- Positioning -- HOB up 30-45 degrees Muscle Strengthening activity/mobility promoted;mobility in bed promoted;personal routines for BADL/IADL promoted;sitting on edge of bed encouraged;strengthening exercises performed;up in chair encouraged for meals and activities -- Self-Care Promotion assistance provided to decrease frustration;bathing assistance provided;dressing assistance provided;grooming assistance provided;hygiene assistance provided;independence encouraged while providing assistance;instruction in safe use of adaptive equipment provided;meal setup provided;personal routines for BADL/IADL promoted;personal/BADL objects within reach;toileting assistance provided -- Activity and Safety Assistive Device -- None Keller Fall Risk History of Falling 0 -- Secondary Diagnosis 15 -- Ambulatory Aids 0 -- Intravenous Therapy/Heparin/Saline Lock 20 -- Gait/Transferring 0 -- Mental Status 0 -- Score 35 -- OTHER Keller Fall Risk Med -- Goal: Infection Control Outcome: Ongoing (Interventions Implemented as Appropriate) 12/02/151999 Safety Interventions Isolation Precautions standard precautions maintained Infection Prevention bronchial hygiene promoted;environmental surveillance;hydration promoted;nutrition promoted;promote handwashing;rest/sleep promoted Coping/Psychosocial Response Interventions Counseling calming techniques promoted;emotional support provided;reassurance provided;relaxation techniques promoted;understanding of situation facilitated;verbalization of feelings encouraged Goal: Discharge Needs Assessment Outcome: Ongoing (Interventions Implemented as Appropriate) 12/03/15716 Living Environment Transportation Available family or friend will provide Discharge Needs Assessment Concerns to be Addressed no discharge needs identified Readmission Within the Last 30 Days no previous admission in last 30 days Current Health Anticipated Changes Related to Illness none Problem: Skin Integrity Impairment, Risk/Actual (Adult, Obstetrics) Goal: Identify Signs and Symptoms and Related Risk Factors Signs and symptoms and related risk factors are identified upon initiation of Human Response Clinical Practice Guideline (CPG) Outcome: Ongoing (Interventions Implemented as Appropriate) 12/03/15716 Skin Integrity Impairment, Risk/Actual Personal Related Risk Factors (Skin Integrity Impairment, Risk/Actual) sleep deprivation;stress Physiological Related Risk Factors (Skin Integrity Impairment, Risk/Actual) edema Treatment Related Related Risk Factors (Skin Integrity Impairment, Risk/Actual) medication;surgery Signs and Symptoms (Skin Integrity Impairment, Risk/Actual) edema Goal: Skin Integrity/Wound Healing Patient will demonstrate the desired outcomes. Outcome: Ongoing (Interventions Implemented as Appropriate) 12/03/15716 Skin Integrity Impairment, Risk/Actual (Adult, Obstetrics) Skin Integrity/Wound Healing making progress toward outcome OUTCOME EVALUATION NOTE: OUTCOME SUMMARY: Cristi had a good night, slept between care. SR on tele with rare PVCs, HR 85-103. Pt sats well on RA.Pt denied SOB throughout the shift. PLAN MOVING FORWARD: Pt needs BM, Possible suppository INDIVIDUALIZED FALL PREVENTION INTERVENTIONS: Patient-specific fall risk factors per assessment: [current deficits]: New environment, decreased strength Assistance [level of assistance required for transfers and ambulation]: SBA Supervision [direct monitoring required during toileting and ADLs]: Arms reach, call wray within reach, room near nurses station Surveillance [continuous indirect monitoring]: Hourly rounding, telemetry monitoring Patient-specific fall prevention interventions for sensory deficits provided, if applicable: N/A CPG GOAL OUTCOME EVALUATION: On-going * Plan of Care - Karin Godwin RN - 12/02/2015 5:53 PM EDT Problem: General Plan of Care Goal: Plan of Care Review Outcome: Ongoing (Interventions Implemented as Appropriate) 12/02/15 0324 12/02/15 0800 Coping/Psychosocial Response Interventions Plan of Care Reviewed with -- patient Plan of Care Review Plan of Care Outcome Status ongoing (interventions implemented as appropriate) -- Progress improving -- OUTCOME EVALUATION NOTE: OUTCOME SUMMARY: Patient's pacer wires and anderson were removed today without incident. Pt. Continues to report changes in vision, MD aware. Pt reports feeling better after lasix administrations. Denies pain, SOB. Pt. Off O2 as of 1000 without incident. Pt walked x3 today with no report of SOB/CP. Ambulating well with front wheel walker (see PT note.) Pt. Having increasing reports of nausea. Zofran given PRN, no relief. aware. Otherwise VSS, HR 80s-90s on RA. PLAN MOVING FORWARD: Continue to monitor, diurese. INDIVIDUALIZED FALL PREVENTION INTERVENTIONS: Patient-specific fall risk factors per assessment: [current deficits]: Sternal precautions, generalized weakness. Assistance [level of assistance required for transfers and ambulation]: SBA with walker in g[place]me[place] Supervision [direct monitoring required during toileting and ADLs]: Hourly rounding continued. Calllight in reach. Surveillance [continuous indirect monitoring]: Purposeful Hourly Rounding. Goal: Fall Prevention-Safe Patient Handling Outcome: Ongoing (Interventions Implemented as Appropriate) 12/01/15 1304 12/02/15 0800 12/02/15 1336 Safety Interventions Safety Precautions/Fall Reduction -- -- -- Musculoskeletal Interventions Activity/Level of Assistance -- -- with stand by assist;with walker;ambulated;up in gómez Positioning -- -- -- Muscle Strengthening -- activity/mobility promoted -- Self-Care Promotion assistance provided to decrease frustration;independence encouraged while providing assistance -- -- Activity and Safety Assistive Device -- -- Front wheel walker Keller Fall Risk History of Falling -- 0 -- Secondary Diagnosis -- 15 -- Ambulatory Aids -- 0 -- Intravenous Therapy/Heparin/Saline Lock -- 20 -- Gait/Transferring -- 0 -- Mental Status -- 0 -- Score -- 35 -- OTHER Keller Fall Risk -- Med -- 12/02/15 1600 Safety Interventions Safety Precautions/Fall Reduction environmental modification;fall reduction program maintained;lighting adjusted for task/safety;low bed Musculoskeletal Interventions Activity/Level of Assistance -- Positioning up in chair Muscle Strengthening -- Self-Care Promotion -- Activity and Safety Assistive Device -- Keller Fall Risk History of Falling -- Secondary Diagnosis -- Ambulatory Aids -- Intravenous Therapy/Heparin/Saline Lock -- Gait/Transferring -- Mental Status -- Score -- OTHER Keller Fall Risk -- Goal: Discharge Needs Assessment Outcome: Ongoing (Interventions Implemented as Appropriate) 12/02/15 0324 Living Environment Transportation Available family or friend will provide Discharge Needs Assessment Concerns to be Addressed no discharge needs identified Readmission Within the Last 30 Days no previous admission in last 30 days Equipment Needed After Discharge CPAP Current Health Anticipated Changes Related to Illness none Self-Care Equipment Currently Used at Home CPAP * Plan of Care - Yamini Lutz RN - 12/02/2015 3:30 AM EDT Problem: Cardiac Surgery (Adult) Goal: Signs and symptoms of listed potential problems will be absent or manageable (reference (Cardiac Surgery (Adult)) CPG) Outcome: Ongoing (Interventions Implemented as Appropriate) 12/02/15 032 Cardiac Surgery Problems Assessed (Cardiac Surgery) all Problems Present (Cardiac Surgery) fluid imbalance;situational response Problem: General Plan of Care Goal: Plan of Care Review Outcome: Ongoing (Interventions Implemented as Appropriate) 12/02/15 032 Coping/Psychosocial Response Interventions Plan of Care Reviewed with patient Plan of Care Review Plan of Care Outcome Status ongoing (interventions implemented as appropriate) Progress improving Goal: Fall Prevention-Safe Patient Handling Outcome: Ongoing (Interventions Implemented as Appropriate) 12/01/15 1304 12/01/15 1948 12/01/15 2200 Safety Interventions Safety Precautions/Fall Reduction -- commode/urinal/bedpan at bedside;environmental modification;fall reduction program maintained;lighting adjusted for task/safety;low bed;nonskid shoes/slippers when out of bed;room near unit station;supervised activity -- Musculoskeletal Interventions Activity/Level of Assistance -- -- up in room;ambulated;with 1-person assist Positioning -- -- with 1-person assist Muscle Strengthening activity/mobility promoted;mobility in bed promoted;personal routines for BADL/IADL promoted;sitting on edge of bed encouraged -- -- Self-Care Promotion assistance provided to decrease frustration;independence encouraged while providing assistance -- -- Activity and Safety Assistive Device -- -- Oxygen Keller Fall Risk History of Falling -- 0 -- Secondary Diagnosis -- 15 -- Ambulatory Aids -- 0 -- Intravenous Therapy/Heparin/Saline Lock -- 20 -- Gait/Transferring -- 0 -- Mental Status -- 0 -- Score -- 35 -- OTHER Keller Fall Risk -- Med -- Goal: Infection Control Outcome: Ongoing (Interventions Implemented as Appropriate) 12/01/151947 Safety Interventions Isolation Precautions standard precautions maintained Infection Prevention bronchial hygiene promoted;environmental surveillance;hydration promoted;nutrition promoted;promote handwashing;rest/sleep promoted Coping/Psychosocial Response Interventions Counseling calming techniques promoted;emotional support provided;reassurance provided;relaxation techniques promoted;understanding of situation facilitated;verbalization of feelings encouraged Goal: Discharge Needs Assessment Outcome: Ongoing (Interventions Implemented as Appropriate) 12/02/15323 Living Environment Transportation Available family or friend will provide Discharge Needs Assessment Concerns to be Addressed no discharge needs identified Readmission Within the Last 30 Days no previous admission in last 30 days Equipment Needed After Discharge CPAP Current Health Anticipated Changes Related to Illness none Self-Care Equipment Currently Used at Home CPAP Problem: Skin Integrity Impairment, Risk/Actual (Adult, Obstetrics) Goal: Identify Signs and Symptoms and Related Risk Factors Signs and symptoms and related risk factors are identified upon initiation of Human Response Clinical Practice Guideline (CPG) Outcome: Ongoing (Interventions Implemented as Appropriate) 12/02/15323 Skin Integrity Impairment, Risk/Actual Personal Related Risk Factors (Skin Integrity Impairment, Risk/Actual) sleep deprivation;stress Physiological Related Risk Factors (Skin Integrity Impairment, Risk/Actual) edema Treatment Related Related Risk Factors (Skin Integrity Impairment, Risk/Actual) invasive catheters;medication;surgery Signs and Symptoms (Skin Integrity Impairment, Risk/Actual) edema Goal: Skin Integrity/Wound Healing Patient will demonstrate the desired outcomes. Outcome: Ongoing (Interventions Implemented as Appropriate) 12/02/15 0324 Skin Integrity Impairment, Risk/Actual (Adult, Obstetrics) Skin Integrity/Wound Healing making progress toward outcome OUTCOME EVALUATION NOTE: OUTCOME SUMMARY: Olman had an okay, . SR on tele with no events, HR 83-95. Pt sats well on 2L of supplemental O2 viaNC. Pt refused scheduled tylenol x1 for mild incisional pain, received AM dose; denied SOB throughout the shift. Pt received Zofran x1 for nausea. Pt reported some vision changes while laying in bed,RN performed neuro assessment (WDL) and notified NEPTALI [facility], no new orders at this time. PLAN MOVING FORWARD: Continue pathway (awaiting BM, ambulate, D/C anderson & pacer wires, wean O2) INDIVIDUALIZED FALL PREVENTION INTERVENTIONS: Patient-specific fall risk factors per assessment: [current deficits]: New environment, anderson Assistance [level of assistance required for transfers and ambulation]: 1 assist, O2 walker in gómez Supervision [direct monitoring required during toileting and ADLs]: Arms reach, call wray within reach, room near nurses station Surveillance [continuous indirect monitoring]: Hourly rounding, telemetry monitoring Patient-specific fall prevention interventions for sensory deficits provided, if applicable: N/A CPG GOAL OUTCOME EVALUATION: On-going * Plan of Care - Carol Grant RN - 12/01/2015 5:33 PM EDT Problem: General Plan of Care Goal: Plan of Care Review 11/30/15 0634 12/01/15 1304 Coping/Psychosocial Response Interventions Plan of Care Reviewed with -- patient Plan of Care Review Plan of Care Outcome Status ongoing (interventions implemented as appropriate) -- Progress progress toward functional goals as expected -- OUTCOME EVALUATION NOTE: OUTCOME SUMMARY: Patient arrived to floor this afternoon, A+Ox4, SR noted on telemetry, HR as high as 108 with activity. Pain adequately controlled with scheduled tylenol. Anderson draining adequate amounts of yellow urine. MSI & R leg incision WDL. Wires capped. Mid afternoon pt reported snapshot in his vision that resolved within seconds. Pt poor descriptor of episode. VSS, Neurologically intact. NEPTALI de jesus notified. Otherwise rested this afternoon. Ambulated around the unit. Up to the chair for meal. PLAN MOVING FORWARD: Mobilize, pathway INDIVIDUALIZED FALL PREVENTION INTERVENTIONS: Patient-specific fall risk factors per assessment: [current deficits]:wires, surgery, weakness Assistance [level of assistance required for transfers and ambulation]: 1A Supervision [direct monitoring required during toileting and ADLs]: SBA rings appropriately Surveillance [continuous indirect monitoring]: Telemetry, purposeful rounding Patient-specific fall prevention interventions for sensory deficits provided, if applicable: [X] N/A CPG GOAL OUTCOME EVALUATION: Goal: Fall Prevention-Safe Patient Handling 12/01/15 1100 12/01/15 1304 Safety Interventions Safety Precautions/Fall Reduction -- environmental modification Musculoskeletal Interventions Activity/Level of Assistance -- ambulated;with stand by assist Positioning -- with 1-person assist Muscle Strengthening -- activity/mobility promoted;mobility in bed promoted;personal routines for BADL/IADL promoted;sitting on edge of bed encouraged Self-Care Promotion -- assistance provided to decrease frustration;independence encouraged while providing assistance Activity and Safety Assistive Device Oxygen -- Keller Fall Risk History of Falling -- 0 Secondary Diagnosis -- 15 Ambulatory Aids -- 0 Intravenous Therapy/Heparin/Saline Lock -- 20 Gait/Transferring -- 0 Mental Status -- 0 Score -- 35 OTHER Keller Fall Risk -- Med Goal: Infection Control 12/01/15 1304 Safety Interventions Isolation Precautions standard precautions maintained Infection Prevention rest/sleep promoted;promote handwashing;nutrition promoted;hydration promoted;bronchial hygiene promoted;environmental surveillance Coping/Psychosocial Response Interventions Counseling understanding of situation facilitated;verbalization of feelings encouraged Goal: Discharge Needs Assessment 12/01/15 1723 Living Environment Transportation Available family or friend will provide;car Discharge Needs Assessment Equipment Needed After Discharge CPAP Current Health Anticipated Changes Related to Illness none Self-Care Equipment Currently Used at Home CPAP Problem: Skin Integrity Impairment, Risk/Actual (Adult, Obstetrics) Goal: Identify Signs and Symptoms and Related Risk Factors Signs and symptoms and related risk factors are identified upon initiation of Human Response Clinical Practice Guideline (CPG) 11/30/15 0634 Skin Integrity Impairment, Risk/Actual Personal Related Risk Factors (Skin Integrity Impairment, Risk/Actual) stress Physiological Related Risk Factors (Skin Integrity Impairment, Risk/Actual) edema Treatment Related Related Risk Factors (Skin Integrity Impairment, Risk/Actual) invasive catheters;medication;surgery Signs and Symptoms (Skin Integrity Impairment, Risk/Actual) edema Goal: Skin Integrity/Wound Healing Patient will demonstrate the desired outcomes. 11/30/15 0634 Skin Integrity Impairment, Risk/Actual (Adult, Obstetrics) Skin Integrity/Wound Healing making progress toward outcome * Plan of Care - Charu Pandey RN - 11/30/2015 4:57 PM EDT Problem: Cardiac Surgery (Adult) Goal: Signs and symptoms of listed potential problems will be absent or manageable (reference (Cardiac Surgery (Adult)) CPG) Outcome: Ongoing (Interventions Implemented as Appropriate) 11/30/15 0634 11/30/15 1639 Cardiac Surgery Problems Assessed (Cardiac Surgery) all -- Problems Present (Cardiac Surgery) -- hemodynamic instability Problem: General Plan of Care Goal: Plan of Care Review Outcome: Ongoing (Interventions Implemented as Appropriate) 11/30/15 0634 11/30/15 0800 Coping/Psychosocial Response Interventions Plan of Care Reviewed with -- patient Plan of Care Review Plan of Care Outcome Status ongoing (interventions implemented as appropriate) -- Progress progress toward functional goals as expected -- OUTCOME EVALUATION NOTE: OUTCOME SUMMARY: This morning pt had difficulty keeping his blood pressure up without levophed support. Pt was boosted in bed, and when head of bed was laid down, his SBP dropped into the 80's. Throughout the day, levophed was slowly able to be weaned. Pt was able to maintain his blood pressure while transitioning out of bed and sitting in the chair, and then later, ambulating around the unit. Pain initially difficult to control with oxycodone, switched to dilaudid with better control. Mediastinal chest tubes removed without incident, pt tolerated well. PLAN MOVING FORWARD: Continue to wean levophed, ambulate as tolerated. Plan to leave pleural chest tube in place over night, and move to [facility] tomorrow. INDIVIDUALIZED FALL PREVENTION INTERVENTIONS: Patient-specific fall risk factors per assessment: [current deficits]: Generalized weakness from surgery, multiple tubes and lines. Is reliable to call for assistance. Assistance [level of assistance required for transfers and ambulation]: Two person stand-by assist. Supervision [direct monitoring required during toileting and ADLs]: Stand-by only, pt reliable to call for assistance. Surveillance [continuous indirect monitoring]: Sapna bedside monitor on pt with alarms audible and appropriate for pt. Patient-specific fall prevention interventions for sensory deficits provided, if applicable: [X] Yes CPG GOAL OUTCOME EVALUATION: Progressing toward goal of moving to [facility] tomorrow. Goal: Individualization and Mutuality Outcome: Ongoing (Interventions Implemented as Appropriate) 11/25/151927 Mutuality/Individual Preferences What questions do you have about your health or care? none Goal: Fall Prevention-Safe Patient Handling Outcome: Ongoing (Interventions Implemented as Appropriate) 11/30/15 0634 11/30/15 0811/30/15 1200 Safety Interventions Safety Precautions/Fall Reduction -- -- fall reduction program maintained Musculoskeletal Interventions Activity/Level of Assistance -- -- -- Positioning -- -- -- Muscle Strengthening activity/mobility promoted;mobility in bed promoted;personal routines for BADL/IADL promoted -- -- Self-Care Promotion assistance provided to decrease frustration;personal routines for BADL/IADL promoted -- -- Activity and Safety Assistive Device -- -- -- Keller Fall Risk History of Falling -- 0 -- Secondary Diagnosis -- 15 -- Ambulatory Aids -- 0 -- Intravenous Therapy/Heparin/Saline Lock -- 20 -- Gait/Transferring -- 0 -- Mental Status -- 0 -- Score -- 35 -- OTHER Keller Fall Risk -- Med -- 11/30/15 1400 11/30/15 1600 Safety Interventions Safety Precautions/Fall Reduction -- -- Musculoskeletal Interventions Activity/Level of Assistance -- ambulated Positioning HOB up 60-90 degrees -- Muscle Strengthening -- -- Self-Care Promotion -- -- Activity and Safety Assistive Device -- Oxygen Keller Fall Risk History of Falling -- -- Secondary Diagnosis -- -- Ambulatory Aids -- -- Intravenous Therapy/Heparin/Saline Lock -- -- Gait/Transferring -- -- Mental Status -- -- Score -- -- OTHER Keller Fall Risk -- -- Goal: Infection Control Outcome: Ongoing (Interventions Implemented as Appropriate) 11/30/1534 11/30/15 0811/30/15 1200 Safety Interventions Isolation Precautions -- -- standard precautions maintained Infection Prevention -- blood glucose management;environmental surveillance;promote handwashing;rest/sleep promoted -- Coping/Psychosocial Response Interventions Counseling emotional support provided;understanding of situation facilitated;verbalization of feelings encouraged -- -- * Initial Assessments - NyasiadonniearmandLorena, PT - 11/30/2015 4:40 PM EDT Physical Therapy Evaluation Cardiac Surgery Patient Profile: Olman Rivera is a 59 y.o. male of Yash Liang MD, admitted on 11/25/2015 with multi-vessel CAD s/p CABG x 4. Post-op course pathway with some pressor support weaned from 4 to 1 today. Precautions: sternal (no lifting >7-10 lbs.; no pushing or pulling with UE's; no excessive cheststretching). PMH: Past Medical History Diagnosis Date ??? Hypothyroidism Past Surgical History Procedure Laterality Date ??? Tonsillectomy N/A ??? Pro endoscopy w/video-asst vein harvest, cabg N/A 11/29/2015 ENDOSCOPIC HARVEST VEIN(S) FOR CABG performed by Yash Benton MD at [facility] OR ??? Pro cabg, artery-vein, three N/A 11/29/2015 @CABG; 3 VENOUS GRAFTS & ARTERIAL GRAFT performed by Yash Benton MD at [facility] Social History: Patient lives in [place], [place] with in 2 floor home with 1 flight of stairs and railing bilaterally. 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 Objective: Pt seen for 33 minute initial PT evaluation in [facility] Pain: reported not bad but appears to be in discomfort with movement and mentioned pleural tube hurting Vital Signs/Cardiopulmonary Status: Pre-mobility SpO2: 95% HR: 92 BP: 104/59 RR: 19 Post- mobility BP:105/69, 122/76 Incentive Spirometer: Volume: 1000 ml Quality: poor, shallow Mental Status/Behavior: flat affect, alert, oriented Skin: sternal incision covered with bandage Sensation:normal ROM: WFL Strength: WFL Bed Mobility: Not tested today Transfers: Sit to Stand: contact guard x 1, cues for scooting towards edge of chair, countdown Stand to Sit: contact guard x 1 Pt needed cues to maintain sternal precautions. Gait: Distance: 160 ft Device used: portable O2 cart, chair follow but not needed today Level of assist: contact guard Gait pattern: step through, decreased step length *pain where pleural tube is Balance: seated= upright, midline, unchallenged Standing= slightly flexed trunk, midline, did well with O2 cart Informed Consent: The patient agrees to and understands the PT treatment plan and goals. Education: Pt was educated on post-op sternal precautions, use of incentive spirometer, the importance of deep breathing, and post-op cardiac exercises. Pt was given handouts with exercises and precautions today: head nod, head twist, shoulder flexion,knee extension, ankle circles, and ankle pumps. Pt's status, treatment, and mobility recommendations were discussed with the nursing staff. Assessment: Pt is 59 y.o. Male with PMH including hypothyroidism s/p CABG x 4 POD #1 presenting below baseline independence. Functional mobility is limited by pain and cardiopulmonary endurance. Pt did not require any rest breaks while ambulating 160' but fatigue was noted near finish. It will be important to coordinate mobility with pain medication. Pt would benefit from continued physical therapy to maximize functional mobility, independence and safety. Pt has good rehab potential based on prior level of function. Pt will likely make good progress towards increasing functional independence in coming days. Equipment needs: TBD Goals: To be achieved by 12/07/15 1. Pt will ambulate independently 320 ft. without an assistive device to allow for a safe d/c. 2. Pt will perform all post op cardiac surgery exercises adequately. 3. Pt will demonstrate independence with incentive spirometer and/or threshold PEP to promote lung function. 4. Pt will demonstrate understanding of sternal precautions to allow for a safe d/c. 5. Pt will be able to transfer sit <-> stand independently while maintaining sternal precautions to allow for a safe d/c. 6. Pt will be able to go supine <-> sit independently while maintaining sternal precautions to allow for a safe d/c. 7. Pt will be able to go up and down 1 flight of stairs using a rail for balance only independentlyto prepare for a safe d/c. Treatment Plan: Pt to be seen 3-5x/week for patient and family/caregiver education and training on sternal precautions, functional mobility, gait, stairs, exercise, safety awareness, endurance & energy conservation, and d/c planning. Discharge Recommendations: Based on the current findings noted during this evaluation, patient could benefit from Home with further Skilled Therapy when medically ready for hospital discharge. This recommendation is based on the patient's Current physical impairments, Prior functional status, Potential to return to prior level of function and Current level of endurance and may change basedon patient progress during this hospitalization. Consult Recommendations: No other consults recommended at this time Equipment needs: TBD at d/c Pt understands and agrees with PT plan, goals, and tentative discharge plan: Yes Total time spent with patient: 33 minutes initial evalution Total timed interventions: 0 minutes Harman Fuchs, SPT 11/30/15 Physical Therapy Rehabilitation Department * Med Student Progress Note - Nancy Ray - 11/30/2015 12:39 PM EDT INPATIENT DAILY PROGRESS NOTE Patient Name: Olman Rivera Patient Age: 59 y.o. Birthdate: 1955 Admit date: 11/25/2015 Attending Physician: Yash Benton MD ID: Olman Rivera is a 59 y.o. male with a history of hypothyroidism 1 Day Post-Op s/p CABG x [address] Benton. Recent events/symptoms: - Patient came out of the OR with high chest tube output - 10cc/hr and >300cc in the first hour then slowed. He had escalating requirement of vasopressors at this time. His chest tube output then suddenly dropped and he developed tachycardia. A transthoracic echo was performed to evaluate for cardiac tamponade - echo was negative. Tachycardia eventually resolved with 5% albumin and DDAVP. - Temperature at 38.3C at 23:00 - Extubated at midnight (~ 9 hours post-op) - Levo is currently at 4 - PA catheter removed - On 4L NC Vitals: Last value Range last 24hrs Temperature Temp: 37.8 ??C (100 ??F) Temp: [35 ??C (95 ??F)-38.3 ??C (100.9 ??F)] Heart Rate Heart Rate: 90 Heart Rate: [79-105] Blood Pressure BP: 95/59 BP: (78-110)/(51-72) Respiratory Rate Resp: 23 Resp: [12-27] SpO2 SpO2: 100 % On 4L NC SpO2: [91 %-100 %] Intake/Output Summary (Last 24 hours) at 11/30/15 1239 Last data filed at 11/30/15 1000 Gross per 24 hour Intake 7987.84 ml Output 4165 ml Net 3822.84 ml NPO diet (Hold Meds) Admit weight 76.52 kg Current Weight Weight - Scale: 83.9 kg (184 lb 15.5 oz) Body mass index is 26.54 kg/(m^2). Physical Exam: General: NAD, A&Ox3, resting in bed, in no acute distress HEENT: NC/AT CVS: RRR, no m/r/g Pulm: Coarse breath sounds; chest tubes with an intermittent leak on exhale, currently breathing comfortably on 2L NC Abd: soft, non-tender, non-distended : Anderson with clear yellow urine Ext: warm and well perfused, no edema Neuro: Grossly intact, nonfocal, moving all four extremities spontaneously. Lines/Drains: A line, right internal jugular line, meds chest tube, pleural chest tube, Anderson Drips: Levo at 4 Recent Labs 11/30/15 0205 11/29/15 1425 11/29/15 1247 11/29/15 1145 11/29/15 0440 11/28/15 0552 WBC 5.5 12.8* 11.4* -- 6.1 5.2 HGB 8.7* 11.0* 8.2* -- 14.5 14.6 HCT 26.7* 33.5* 25.8* -- 43.7 43.1 PLATELET 129* 166 137* 146 165 163 PT -- 17.0* 20.9* -- -- -- INR -- 1.4* 1.7* -- -- -- PTT -- 36* 38* -- -- -- Recent Labs 11/30/15 0205 11/29/15 1425 11/29/15 0440 11/28/15 0552 NA 141 140 139 139 K 4.5 3.9 3.9 4.1 CL 107 108* 103 104 CO2 21* 18* 23 20* BUN 8* 10 14 13 CREATININE 0.70* 0.72* 0.99 0.90 GLUCOSE -- 161 -- -- CALCIUM -- 7.2* 9.0 8.8 ABG (Arterial Blood Gas) Lab Results Component Value Date PH ART 7.36 11/30/2015 PO2 ART 144 (H) 11/30/2015 PCO2 ART 41 11/30/2015 New Imaging: Transthoracic echo showing no evidence of cardiac tamponade Overall Assessment: Olman Rivera is a 59 y.o. male 1 Day Post-Op s/p CABG x [address] Pandya[address]He was originally hemodynamically unstable and we considered multiple sources of shock. First consideration was hemorrhage, given his chest tube drainge were high immediately post-op and then output suddenly stopped, raising concern for a clogged tube. The pericardial and pleural cavity could accomodate up to 1-2L of fluid so an echo to done to rule out cardiac tamponade. Distributive shock (sepsis, infection) was also considered as his temperature increased to 38.3C at one point overnight. Ultimately his orthostatic condition was most likely attributed to vasoplegic from bypass. A systemic inflammation response is triggered by contact activation of blood with artificial surfaces but usually resolves within the first day, which is consistent with the patient's clinical picture. He has since improved but still requires levophed. He will remain in the unit today, with his ABG and vitals monitored. A/P by System: N: Pain is well controlled on tylenol and oxy prn CV: Still needs hemodynamic support but improving. Plan is to wean off Levo slowly while monitoringvitals. Once off vasoactives, will add metoprolol. Pulm: Encourage aggressive pulmonary hygiene (spirometry, initiate ambulating) GI: No active issues, advance diet as tolerated /FE: Good urine output, plan to remove Anderson ID: Rachel-op antibiotics complete Heme: Hemoglobin dropping from 11-8 is most likely a dilution effect from giving him fluids the previous day. WBC and platelets also dropped accordingly, which is reassuring. Chest tubes outputs were, which decreases concern for bleeding. Hemoglobin will be monitored closely over the next 24 hours. Endo: Continue insulin drip (patient has no hx of diabetes) because tight glucose control post-op has been been associated with better outcomes in cardiac surgery patients. Start home dose of synthroid of 100mcg DISPO: [facility] Code status: Manjit Ray (Jenny) Medical Student Year III Pager [phone] * Op Note - Yash Benton MD - 11/30/2015 10:14 AM EDT [facility] SECTION OF CARDIAC SURGERY OPERATIVE REPORT Case Date: 11/29/15 PATIENT NAME: Olman Rivera : 1955 MR#: [id number] REFERRING PHYSICIAN: Teddy Leong MD PRE-OPERATIVE DIAGNOSIS: Multi-vessel CAD POST-OPERATIVE DIAGNOSIS: Same PROCEDURE: 1. Coronary artery bypass grafting x 4 (MRURAY to LAD, RSVG to PDA, RSVG to OM1, RSVG to D1) TIMES: Cardiopulmonary bypass: 161 minutes Aortic cross-clamp: 132 minutes SURGEON: * Yash Benton MD - Primary * Tiffany Renteria PA - Physician Regular Senior Care Provider ANESTHESIA: General endotracheal PRE-OPERATIVE EVALUATION: This is a 59 year-old man with no significant past medical history who was admitted after a cardiaccatheterization demonstrated multi-vessel CAD. The decision was made to proceed with surgical revascularization after discussing the risks and benefits with the patient. SURGICAL PRIORITY: Elective FINDINGS: Coronary artery disease PREPARATION: After informed consent was obtained, the patient was taken to the operating room and placed supine on the operating room table. Prophylactic antibiotics were administered. Pressure points were padded. Appropriate monitoring equipment, lines, and access were obtained by the anesthesia team prior to induction. General Anesthesia was induced. The patient was endotracheally intubated. The patient waspositioned and their skin was prepped in the usual sterile fashion. The operative field was draped in the usual fashion. Surgical time-out was performed. Bypass Graft Conduit Preparation A midline incision was created and a median sternotomy was performed. The left internal mammary artery was harvested using standard techniques and divided after administration of 300 units/kg of IV heparin. The chest wall was made hemostatic. A 24 fr presley drain was placed in the left chest. Concomitantly, the right greater saphenous vein was harvested endoscopically and prepared for anastomosis. Cardiopulmonary bypass: A retractor was placed and the heart suspended in a pericardial cradle. An activated clotting time exceeding 500 seconds was maintained throughout the duration of cardiopulmonary bypass. Using digital palpation and FABRICE, the ascending aorta was carefully evaluated. There were no contraindications to ascending aortic cross-clamp. Concentric purse string sutures were placed in the ascending aorta and this was cannulated with a 18 namibian EOPA aortic cannula. Venous cannulation was accomplished using a right atrium location with a two- staged cannula. Cardiopulmonary bypass was initiated. The patient's temperature was cooled to 34 degrees celsius. Another purse string was placed in the ascending aorta and a standard, vented antegrade cardioplegia cannula was inserted. A heart basket retractor was placed as well. Myocardial Protection: Aortic occlusion was performed using a single clamp. After cross clamping the aorta, cardioplegia was induced with cold blood cardioplegia delivered antegrade (1200cc) until arrest was achieved. The heart was also cooled with topical iced saline. Quality of myocardial protection was excellent. Cardioplegia was maintained with antegrade cold blood cardioplegia at maximum of 20 minute intervals or with any evidence of activity. OPERATIVE TECHNIQUE Technical details of the coronary artery bypass grafting The coronary arterial targets were inspected. Suitable LAD, PDA, OM1 and D1 targets were identified. The distal anastomosis to the PDA was completed first. After postioning the heart, the artery was opened and a reverse saphenous vein (RSV) was anastomosed to the artery using 7-0 prolene in a running fashion. The proximal anastomosis was then completed in the standard fashion using 6-0 prolene ursula running fashion. After additional cardioplegia, the distal anastomosis to the OM1 was completed next. After postioning the heart, the artery was opened and a reverse saphenous vein (RSV) was anastomosed to the artery using 7-0 prolene in a running fashion. The proximal anastomosis was then completed in the standard fashion using 6-0 prolene in a running fashion. After additional cardioplegia, the distal anastomosis to the D1 was completed next. After postioning the heart, the artery was opened and a reverse saphenous vein (RSV) was anastomosed to the artery using 7-0 prolene in a running fashion. The proximal anastomosis was then completed in the standard fashion using 6-0 prolene in a running fashion. After additional cardioplegia, the distal anastomosis to the LAD was completed with an in-situ MURRAY using 8-0 prolene. The patient was rewarmed to 36 degrees Celsius. After adequate deairing maneuvers, the cross clamp was removed and the heart was reperfused, and normal sinus rhythm restored. Weaning from Cardiopulmonary Bypass: Examination of all surgical sites revealed good hemostasis. Atrial and ventricular epicardial pacing wires were then placed. The patient was fully ventilated and successfully weaned off of CPB. The venous cannula was removed and the purse string temporarily snared. A test dose of protamine was admin istered. Once the patient was proven to tolerate this, the remainder of the protamine was administered. Cardiotomy suction was deactivated before 30% of protamine had been administered. After complete administration of protamine, the venous purse string suture was secured. The aortic cannula was removed and the purse strings tied. All cannulation sites were reinforced with 4-0 Prolene suture. COMPLETION: The mediastinum was made hemostatic. All suture lines and cannulation sites were reexamined and made hemostatic. The sternum was closed with stainless steel cables over 2 straight mediastinal chest tubes. The wounds were irrigated and closed in layers using absorbable sutures. The skin was closed with absorbable suture. All wounds were dressed in sterile fashion. The chest tubes and Presley drain were placed to -20 cm H2O suction. At the end of the operation, all sponge, instruments, and needle counts were reported correct. COMPLICATIONS: There were no technical difficulties COMPLETION DETAIL: Post-operative FABRICE revealed preserved LV function. DISPOSITION: The patient was transported while intubated to the cardiovascular ICU in stable condition at the completion of the procedure. SPECIMENS: None DRAINS: Two mediastinal and one left pleural chest tube ATTESTATION STATEMENT: Yash Osborne, the attending cardiac surgeon, was scrubbed and present for the entire operative procedure, and performed the procedure without the assistance of a resident. Attestation: Case Date: 11/29/2015 YASH BENTON MD 11/30/2015 * Plan of Care - Sai Moyer RN - 11/30/2015 6:42 AM EDT Problem: Cardiac Surgery (Adult) Goal: Signs and symptoms of listed potential problems will be absent or manageable (reference (Cardiac Surgery (Adult)) CPG) Outcome: Ongoing (Interventions Implemented as Appropriate) 11/30/15633 Cardiac Surgery Problems Assessed (Cardiac Surgery) all Problems Present (Cardiac Surgery) acute pain;fluid imbalance;hemodynamic instability Problem: General Plan of Care Goal: Plan of Care Review Outcome: Ongoing (Interventions Implemented as Appropriate) 11/30/15633 Coping/Psychosocial Response Interventions Plan of Care Reviewed with patient Plan of Care Review Plan of Care Outcome Status ongoing (interventions implemented as appropriate) Progress progress toward functional goals as expected OUTCOME EVALUATION NOTE: OUTCOME SUMMARY: Pt currently in bed/chair position. Significantly orthostatic when attempted dangle @0400. BP dropped from 100 to 75 even before pt sat. Extubated @0025. Currently on Levophed @4mcg/ and Fentanyl gtt @25mcg/hr. UO @100ml/hr. Minimal drng from L pleural CT. 30-40/hr from mediastinal tubes. Small airleak present in mediastinal tubes with cought. PLAN MOVING FORWARD: Increase activity as tolerated. Wean Levophed gtt. DC CT's. INDIVIDUALIZED FALL PREVENTION INTERVENTIONS: Patient-specific fall risk factors per assessment: [current deficits]: none Assistance [level of assistance required for transfers and ambulation]: 2 Supervision [direct monitoring required during toileting and ADLs]: With all acitivity Surveillance [continuous indirect monitoring]: Hourly rounding Patient-specific fall prevention interventions for sensory deficits provided, if applicable: [X] No CPG GOAL OUTCOME EVALUATION: Goal: Fall Prevention-Safe Patient Handling Outcome: Ongoing (Interventions Implemented as Appropriate) 11/30/15633 Safety Interventions Safety Precautions/Fall Reduction environmental modification;fall reduction program maintained Musculoskeletal Interventions Activity/Level of Assistance chair Positioning up in chair Muscle Strengthening activity/mobility promoted;mobility in bed promoted;personal routines for BADL/IADL promoted Self-Care Promotion assistance provided to decrease frustration;personal routines for BADL/IADL promoted Activity and Safety Assistive Device Oxygen Keller Fall Risk History of Falling 0 Secondary Diagnosis 15 Ambulatory Aids 0 Intravenous Therapy/Heparin/Saline Lock 20 Gait/Transferring 0 Mental Status 0 Score 35 OTHER Keller Fall Risk Med Goal: Infection Control Outcome: Ongoing (Interventions Implemented as Appropriate) 11/30/1534 Safety Interventions Isolation Precautions standard precautions maintained Infection Prevention blood glucose management;bronchial hygiene promoted;environmental surveillance;hydration promoted;rest/sleep promoted;promote handwashing Coping/Psychosocial Response Interventions Counseling emotional support provided;understanding of situation facilitated;verbalization of feelings encouraged Problem: Skin Integrity Impairment, Risk/Actual (Adult, Obstetrics) Goal: Identify Signs and Symptoms and Related Risk Factors Signs and symptoms and related risk factors are identified upon initiation of Human Response Clinical Practice Guideline (CPG) Outcome: Ongoing (Interventions Implemented as Appropriate) 11/30/15633 Skin Integrity Impairment, Risk/Actual Personal Related Risk Factors (Skin Integrity Impairment, Risk/Actual) stress Physiological Related Risk Factors (Skin Integrity Impairment, Risk/Actual) edema Treatment Related Related Risk Factors (Skin Integrity Impairment, Risk/Actual) invasive catheters;medication;surgery Signs and Symptoms (Skin Integrity Impairment, Risk/Actual) edema Goal: Skin Integrity/Wound Healing Patient will demonstrate the desired outcomes. Outcome: Ongoing (Interventions Implemented as Appropriate) 11/30/15633 Skin Integrity Impairment, Risk/Actual (Adult, Obstetrics) Skin Integrity/Wound Healing making progress toward outcome * Brief Op Note - Yash Benton MD - 11/29/2015 3:15 PM EDT Brief Operative Note Patient Name: Olman Rivera : [id number] MR#: [id number] Case Date: 11/29/2015 Surgeon: Surgeon(s) and Role: * Yash Benton MD - Primary * Tiffany Renteria PA - Physician Regular Senior Care Provider Preoperative diagnosis: CAD Postoperative diagnosis: CAD Procedure(s): ENDOSCOPIC HARVEST VEIN(S) FOR CABG @CABG; 3 VENOUS GRAFTS & ARTERIAL GRAFT Anesthesia: General Findings: CAD Complications: None Fluids: N/A Estimated Blood Loss: * No values recorded between 11/29/2015 8:25 AM and 11/29/2015 1:38 PM * Drains: 2 mediastinal and 1 pleural Disposition: stable to ICU Condition: stable to ICU Infection Bundle used? N/A Attestation: Case Date: 11/29/2015 I performed this procedure without the involvement of a resident. (Please see the Surgical Encounter Summary for any Implant and Specimen details pertinent to this patient.) * Plan of Care - Malinda Amanda RN - 11/28/2015 6:29 PM EDT Problem: General Plan of Care Goal: Plan of Care Review Outcome: Ongoing (Interventions Implemented as Appropriate) 11/27/15 02511/28/15 0700 Coping/Psychosocial Response Interventions Plan of Care Reviewed with -- patient Plan of Care Review Plan of Care Outcome Status ongoing (interventions implemented as appropriate) -- Progress improving -- OUTCOME EVALUATION NOTE: OUTCOME SUMMARY: Patient visiting with family, denies chest pain. PLAN MOVING FORWARD: First case surgery tomorrow INDIVIDUALIZED FALL PREVENTION INTERVENTIONS: Patient-specific fall risk factors per assessment: [current deficits]: none Assistance [level of assistance required for transfers and ambulation]: none Supervision [direct monitoring required during toileting and ADLs]: none Surveillance [continuous indirect monitoring]:,call wray with in reach Patient-specific fall prevention interventions for sensory deficits provided, if applicable: NA CPG GOAL OUTCOME EVALUATION: * Plan of Care - Malinda Amanda RN - 11/27/2015 5:57 PM EDT Problem: General Plan of Care Goal: Plan of Care Review Outcome: Ongoing (Interventions Implemented as Appropriate) 11/27/1525411/27/15 0800 Coping/Psychosocial Response Interventions Plan of Care Reviewed with -- patient Plan of Care Review Plan of Care Outcome Status ongoing (interventions implemented as appropriate) -- Progress improving -- OUTCOME EVALUATION NOTE: OUTCOME SUMMARY: Patient had an uneventful day, pain free. Up and about, visiting with family, preip teaching initiated. PLAN MOVING FORWARD: Continue to prepare for surgery, INDIVIDUALIZED FALL PREVENTION INTERVENTIONS: Patient-specific fall risk factors per assessment: [current deficits]: none Assistance [level of assistance required for transfers and ambulation]: none Supervision [direct monitoring required during toileting and ADLs]: none Surveillance [continuous indirect monitoring]: none Patient-specific fall prevention interventions for sensory deficits provided, if applicable: N/A * Plan of Care - Tiffany Babcock RN - 11/27/2015 2:58 AM EDT Problem: General Plan of Care Goal: Plan of Care Review 11/27/15 0255 Coping/Psychosocial Response Interventions Plan of Care Reviewed with patient Plan of Care Review Plan of Care Outcome Status ongoing (interventions implemented as appropriate) Progress improving OUTCOME EVALUATION NOTE: OUTCOME SUMMARY: Pt A&Ox4. SR via tele throughout the night. Denies pain or discomfort. Pt ambulating independently in room and in halls. Family support throughout the day. PLAN MOVING FORWARD: Plan for CABG November 28 INDIVIDUALIZED FALL PREVENTION INTERVENTIONS: Patient-specific fall risk factors per assessment: [current deficits]: None Assistance [level of assistance required for transfers and ambulation]: Independent Supervision [direct monitoring required during toileting and ADLs]: Independent Surveillance [continuous indirect monitoring]: Purposeful Q1-2 HR rounding Patient-specific fall prevention interventions for sensory deficits provided, if applicable: [X] N/A CPG GOAL OUTCOME EVALUATION: * Plan of Care - Amarjit Carter RN - 11/26/2015 2:33 PM EDT Problem: Cardiac Surgery (Adult) Goal: Signs and symptoms of listed potential problems will be absent or manageable (reference (Cardiac Surgery (Adult)) CPG) Outcome: Ongoing (Interventions Implemented as Appropriate) OUTCOME EVALUATION NOTE: OUTCOME SUMMARY: Patient who was admitted on 11/24 after 2 weeks of exertional chest pain had a cardiac cath and foundto have 3 vessel disease. Patient stable and has had no pain. PLAN MOVING FORWARD: Patient wait until Sunday to have cardiac surgery. Cont to monitor hemo-dynamic status. INDIVIDUALIZED FALL PREVENTION INTERVENTIONS: Patient-specific fall risk factors per assessment: [current deficits]: Risk of becoming symptomaticof the disease. Assistance [level of assistance required for transfers and ambulation]: independent Supervision [direct monitoring required during toileting and ADLs]: Call wray Surveillance [continuous indirect monitoring]: Hourly rounds Patient-specific fall prevention interventions for sensory deficits provided, if applicable: CPG GOAL OUTCOME EVALUATION: Problem: General Plan of Care Goal: Plan of Care Review Outcome: Ongoing (Interventions Implemented as Appropriate) 11/26/15338 Coping/Psychosocial Response Interventions Plan of Care Reviewed with patient Plan of Care Review Plan of Care Outcome Status ongoing (interventions implemented as appropriate) Progress improving Goal: Individualization and Mutuality Outcome: Ongoing (Interventions Implemented as Appropriate) 11/25/151927 Mutuality/Individual Preferences What anxieties, fears or concerns do you have about your health or care? what will my ins cover What questions do you have about your health or care? none What information would help us give you more personalized care? none Goal: Fall Prevention-Safe Patient Handling Outcome: Ongoing (Interventions Implemented as Appropriate) 11/25/15193911/25/15200911/26/15 0800 Safety Interventions Safety Precautions/Fall Reduction -- -- environmental modification;fall reduction program maintained;lighting adjusted for task/safety;nonskid shoes/slippers when out of bed Musculoskeletal Interventions Activity/Level of Assistance -- -- up ad chanel Positioning up in chair;independent -- -- Activity and Safety Assistive Device -- None -- Keller Fall Risk History of Falling -- -- 0 Secondary Diagnosis -- -- 15 Ambulatory Aids -- -- 0 Intravenous Therapy/Heparin/Saline Lock -- -- 20 Gait/Transferring -- -- 0 Mental Status -- -- 0 Score -- -- 35 OTHER Keller Fall Risk -- -- Med Goal: Infection Control Outcome: Ongoing (Interventions Implemented as Appropriate) 11/25/15 1325 11/26/15 0625 Safety Interventions Isolation Precautions -- standard precautions maintained Infection Prevention -- rest/sleep promoted;promote handwashing Coping/Psychosocial Response Interventions Counseling understanding of situation facilitated;reassurance provided -- Goal: Discharge Needs Assessment Outcome: Ongoing (Interventions Implemented as Appropriate) 11/25/151927 Living Environment Transportation Available car * Plan of Care - Tiffany Babcock RN - 11/26/2015 4:02 AM EDT Problem: General Plan of Care Goal: Plan of Care Review 11/26/15338 Coping/Psychosocial Response Interventions Plan of Care Reviewed with patient Plan of Care Review Plan of Care Outcome Status ongoing (interventions implemented as appropriate) Progress improving OUTCOME EVALUATION NOTE: OUTCOME SUMMARY: Pt A&Ox4. SR via tele. Denies pain or discomfort throughout the shift. PLAN MOVING FORWARD: CABG on Sunday INDIVIDUALIZED FALL PREVENTION INTERVENTIONS: Patient-specific fall risk factors per assessment: [current deficits]: Independent Assistance [level of assistance required for transfers and ambulation]: Independent Supervision [direct monitoring required during toileting and ADLs]: Independent Surveillance [continuous indirect monitoring]: Purposeful Q1-2HR rounding, telemetry Patient-specific fall prevention interventions for sensory deficits provided, if applicable: [X] N/A CPG GOAL OUTCOME EVALUATION: * Consult Note - Yash Benton MD - 11/25/2015 2:04 PM EDT Images from the original note were not included. Cardiac Surgery Consultation Date of Service: 11/25/2015 Time: 1300hrs Referring Provider: Teddy Leong Primary Care Provider: MOJGAN BOATENG DO Reason for Consultation: CAD History of Present Illness: I am seeing Olman Rivera at the request of Dr. Julius Atkins for evaluation of CAD. 59 year oldmale with PMH of hypothyroidism. Patient had been in usual state of health until several weeks ago when he has been noticing exertional chest discomfort while walking his dog. Relieved with rest. Non-radiating. Denies n/v, diaphoresis, syncope, abd pain, rest pain. Seen his PCP and was worked up with nuclear stress test showing inferior/apical ischemia. He does have FMH of CAD. Cardiac Cath performed today showing 3V CAD (LAD, LCX, RCA). No history of cancer, diabetes, smoking, stroke, chest surgery. Creatinine 1. EF 60%. Was on plavixprior to cath, but not given during or after. Not on heparin gtt. No rest pain. Past Medical History: No past medical history on file. Past Surgical History: No past surgical history on file. Family History: No family history on file. Social History: Social History Social History ??? Marital status: Spouse name: N/A ??? Number of children: N/A ??? Years of education: N/A Occupational History ??? Not on file. Social History Main Topics ??? Smoking status: Not on file ??? Smokeless tobacco: Not on file ??? Alcohol use Not on file ??? Drug use: Not on file ??? Sexual activity: Not on file Other Topics Concern ??? Not on file Social History Narrative Allergies: No Known Allergies Current Medications: Current Facility-Administered Medications Ordered in [facility] Medication Dose Route Frequency Provider Last Rate Last Dose ??? sodium chloride 0.9% infusion 100 mL/hr Intravenous Continuous Hemal Bedolla MD 100 mL/hr at 11/25/15 1030 100 mL/hr at 11/25/15 1030 ??? nitroGLYcerin (NITROSTAT) SL tablet 0.4 mg 0.4 mg Sublingual Q5 Min PRN Hemal Bedolla MD No current [facility]-ordered outpatient prescriptions on file. Review of Systems: Pertinent items are noted in HPI. All other ROS negative Physical Exam: Last set of vitals: BP 105/67 Pulse 66 Temp 35.9 ??C (96.6 ??F) (Temporal) Resp 12 Ht 177.8 cm (5' 10) Wt 76.5 kg (168lb 11.2 oz) SpO2 97% BMI 24.21 kg/m2 BP 101/63 Pulse 66 Temp 36.7 ??C (98.1 ??F) (Oral) Resp 15 Ht 177.8 cm (5' 10) Wt 76.5 kg (168 lb 11.2 oz) SpO2 99% BMI 24.21 kg/m2 General Appearance: Alert, cooperative, no distress, appears stated age Head: Normocephalic, without obvious abnormality, atraumatic Eyes: PERRL, conjunctiva/corneas clear, EOM's intact, fundi benign, both eyes Ears: Normal TM's and external ear canals, both ears Nose: Nares normal, septum midline, mucosa normal, no drainage or sinus tenderness Throat: Lips, mucosa, and tongue normal; teeth and gums normal Neck: Supple, symmetrical, trachea midline, no adenopathy; thyroid: No enlargement/tenderness/nodules; no carotid bruit or JVD Back: Symmetric, no curvature, ROM normal, no CVA tenderness Lungs: Clear to auscultation bilaterally, respirations unlabored Chest wall: No tenderness or deformity Heart: Regular rate and rhythm, S1 and S2 normal, no murmur, rub or gallop Abdomen: Soft, non-tender, bowel sounds active all four quadrants, no masses, no organomegaly Genitalia: Normal male without lesion, discharge or tenderness Rectal: Normal tone, normal prostate, no masses or tenderness; guaiac negative stool Extremities: Extremities normal, atraumatic, no cyanosis or edema Pulses: 2+ and symmetric all extremities Skin: Skin color, texture, turgor normal, no rashes or lesions Lymph nodes: Cervical, supraclavicular, and axillary nodes normal Neurologic: CNII-XII intact. Normal strength, sensation and reflexes throughout Pertinent Labs: CBC: BMP: Coagulation: Cardiac markers: Diagnostics: (I have independently visualized the following studies): EKG: INTERPRETATION Preliminary Sinus bradycardia Otherwise normal ECG No previous ECGs available CXR: No acute abnormality ECHO: Pending CATH: Conclusions: * Three vessel coronary artery disease (LAD, LCX and RCA) Assessment & Plan of Management: 59 year old male with PMH of hypothyroidism found to have 3V CAD. Cardiac Surgery consulted for surgical management. Please obtain cbc, bmp, UA, LFT's, type and screen, Transthoracic ECHO. If proceeding forth with surgery please continue to hold plavix. Case discussed with Dr. Benton. Timing of surgery per Dr. Benton. Thank you for allowing me to participate in the care of Olman Stewart MeronDaly Please do not hesitate to call with questions. NEPTALI WELCH CARDIAC SURGERY ATTENDING Patient seen and examined History and physical as per NEPTALI Oquendo-C 59 year-old man with stable angina and no significant PMH with cardiac cath today demonstrating multi-vessel CAD Currently no chest pain or shortness of breath Will plan for CABG on Sunday first case Orders as per above Continue to hold plavix The working diagnosis and plan of management were reviewed with the patient, available family, and the housestaff. All questions were addressed. Risks, benefits, alternatives and possible complications of surgery were discussed including but not limited to: , stroke, myocardial infarction, bleeding, transfusion requirement or reaction, infection, nerve injury, need forpacemaker, renal failure, and respiratory failure requiring prolonged ventilation. In addition we discussed recovery after surgery. The patient appears to understand these risks and benefits. The informed consent will be signed. Thank you for allowing me to participate in the care of Olman Rivera Please do not hesitate to call with questions. Yash Benton MD, MS wine consultant Section of Cardiac Surgery [facility] Office: [phone] Pager: [phone] * Plan of Care - Erika Stout RN - 11/25/2015 1:30 PM EDT Problem: General Plan of Care Goal: Plan of Care Review Outcome: Ongoing (Interventions Implemented as Appropriate) 11/25/15 1300 Coping/Psychosocial Response Interventions Plan of Care Reviewed with patient;spouse OUTCOME EVALUATION NOTE: OUTCOME SUMMARY: 59 year old male admitted through SD- s/p cath- 3VD. Right radial approach- CSM- WNL. Pt currently without c/o's. Surgical packet given along with IS. PLAN MOVING FORWARD: CT consult. Reinforce surgical information. INDIVIDUALIZED FALL PREVENTION INTERVENTIONS: Patient-specific fall risk factors per assessment: [current deficits]: none Assistance [level of assistance required for transfers and ambulation]: Independent Supervision [direct monitoring required during toileting and ADLs]: Call wray within reach Surveillance [continuous indirect monitoring]: Hourly rounds Patient-specific fall prevention interventions for sensory deficits provided, if applicable: CPG GOAL OUTCOME EVALUATION: Goal: Fall Prevention-Safe Patient Handling Outcome: Ongoing (Interventions Implemented as Appropriate) 11/25/15 1311 Safety Interventions Safety Precautions/Fall Reduction nonskid shoes/slippers when out of bed;environmental modification;fall reduction program maintained Musculoskeletal Interventions Activity/Level of Assistance up ad chanel Activity and Safety Assistive Device None Keller Fall Risk History of Falling 0 Secondary Diagnosis 15 Ambulatory Aids 0 Intravenous Therapy/Heparin/Saline Lock 20 Gait/Transferring 0 Mental Status 0 Score 35 Goal: Infection Control Outcome: Ongoing (Interventions Implemented as Appropriate) 11/25/15 1325 Safety Interventions Infection Prevention environmental surveillance;hydration promoted;nutrition promoted;promote handwashing;rest/sleep promoted Coping/Psychosocial Response Interventions Counseling understanding of situation facilitated;reassurance provided documented in this encounter Plan of Treatment Scheduled Referrals Name Type Priority Associated Diagnoses Orde r Schedule Referral to Cardiac Rehab Outpatient Referral Routine S/P CABG x 4 Ordered: 12/04/2015 documented as of this encounter Procedures Procedure Name Priority Date/Time Associated Diagnosis Comments LAB SCAN 12/05/2015 12:00 AM EDT LITIGATION MANAGER SCAN 12/05/2015 12:00 AM EDT LITIGATION MANAGER SCAN 12/05/2015 12:00 AM EDT POTASSIUM Routine 12/04/2015 6:02 AM EDT HEMOGRAM STAT 12/03/2015 4:18 AM EDT DIFFERENTIAL, AUTOMATED STAT 12/03/2015 4:18 AM EDT CBC (WITH DIFF) STAT 12/03/2015 4:18 AM EDT BASIC METABOLIC PANEL (NON-FASTING) STAT 12/03/2015 4:18 AM EDT XR CHEST PA AND LATERAL Routine 12/02/2015 6:08 AM EDT HEMOGRAM STAT 12/02/2015 4:49 AM EDT DIFFERENTIAL, AUTOMATED STAT 12/02/2015 4:49 AM EDT CBC (WITH DIFF) STAT 12/02/2015 4:49 AM EDT BASIC METABOLIC PANEL (NON-FASTING) STAT 12/02/2015 4:49 AM EDT POCT GLUCOSE Routine 12/01/2015 11:56 AM EDT POCT GLUCOSE Routine 12/01/2015 7:53 AM EDT SCAN, PERIPHERAL BLOOD STAT 12/01/2015 4:20 AM EDT HEMOGRAM STAT 12/01/2015 4:20 AM EDT DIFFERENTIAL, AUTOMATED STAT 12/01/2015 4:20 AM EDT CBC (WITH DIFF) STAT 12/01/2015 4:20 AM EDT BASIC METABOLIC PANEL (NON-FASTING) STAT 12/01/2015 4:20 AM EDT POCT GLUCOSE Routine 12/01/2015 4:17 AM EDT POCT GLUCOSE Routine 12/01/2015 12:18 AM EDT POCT GLUCOSE Routine 11/30/2015 8:04 PM EDT POCT GLUCOSE Routine 11/30/2015 6:26 PM EDT POTASSIUM Routine 11/30/2015 5:25 PM EDT POCT GLUCOSE Routine 11/30/2015 4:22 PM EDT POCT GLUCOSE Routine 11/30/2015 2:14 PM EDT POCT GLUCOSE Routine 11/30/2015 12:08 PM EDT POCT GLUCOSE Routine 11/30/2015 10:02 AM EDT POCT GLUCOSE Routine 11/30/2015 7:59 AM EDT POCT GLUCOSE Routine 11/30/2015 4:46 AM EDT HEMOGRAM Routine 11/30/2015 2:05 AM EDT DIFFERENTIAL, AUTOMATED Routine 11/30/2015 2:05 AM EDT CARDIAC ENZYMES (MC/CGP) Routine 11/30/2015 2:05 AM EDT CREATININE Routine 11/30/2015 2:05 AM EDT CBC (WITH DIFF) Routine 11/30/2015 2:05 AM EDT BUN Routine 11/30/2015 2:05 AM EDT GLUCOSE, FASTING Routine 11/30/2015 2:05 AM EDT ELECTROLYTES PANEL Routine 11/30/2015 2: 05 AM EDT POCT GLUCOSE Routine 11/30/2015 2:04 AM EDT BLOOD GAS 2 ARTERIAL Routine 11/30/2015 12:14 AM EDT POCT GLUCOSE Routine 11/29/2015 10:03 PM EDT POCT GLUCOSE Routine 11/29/2015 8:45 PM EDT ECHO LMTD W/O CONTRAST STAT 11/29/2015 6:33 PM EDT S/P CABG x 4 COOX2 Routine 11/29/2015 6:21 PM EDT BLOOD GAS 2 ARTERIAL Routine 11/29/2015 6:18 PM EDT BLOOD GAS 2 ARTERIAL Routine 11/29/2015 5:14 PM EDT POCT GLUCOSE Routine 11/29/2015 4:10 PM EDT ENDOTRACHEAL TUBE POSITION CHANGE Routine 11/29/2015 3:33 PM EDT XR CHEST ONE VIEW STAT 11/29/2015 3:0 7 PM EDT EKG 12-LEAD STAT 11/29/2015 2:37 PM EDT S/P CABG x 4 HEMOGRAM Routine 11/29/2015 2:25 PM EDT DIFFERENTIAL, AUTOMATED Routine 11/29/2015 2:25 PM EDT APTT Routine 11/29/2015 2:25 PM EDT PROTHROMBIN TIME Routine 11/29/2015 2:25 PM EDT FIBRINOGEN Routine 11/29/2015 2:25 PM EDT CBC (WITH DIFF) Routine 11/29/2015 2:25 PM EDT BASIC METABOLIC PANEL (NON-FASTING) Routine 11/29/2015 2:25 PM EDT BLOOD GAS 2 ARTERIAL Routine 11/29/2015 2:22 PM EDT BLOOD GAS 2 ARTERIAL Routine 11/29/2015 12:51 PM EDT HEMOGRAM STAT 11/29/2015 12:47 PM EDT APTT STAT 11/29/2015 12:47 PM EDT THROMBIN TIME STAT 11/29/2015 12:47 PM EDT PROTHROMBIN TIME STAT 11/29/2015 12:4 7 PM EDT FIBRINOGEN STAT 11/29/2015 12:47 PM EDT BLOOD GAS 2 ARTERIAL Routine 11/29/2015 12:15 PM EDT BLOOD GAS 2 ARTERIAL Routine 11/29/2015 11:48 AM EDT FIBRINOGEN STAT 11/29/2015 11:45 AM EDT PLATELET COUNT STAT 11/29/2015 11:45 AM EDT BLOOD GAS 2 ARTERIAL Routine 11/29/2015 11:16 AM EDT BLOOD GAS 2 ARTERIAL Routine 11/29/2015 10:51 AM EDT BLOOD GAS 2 ARTERIAL Routine 11/29/2015 10:20 AM EDT BLOOD GAS 2 ARTERIAL Routine 11/29/2015 8:19 AM EDT @CABG; 3 VENOUS GRAFTS & ARTERIAL GRAFT (WRVU 10.49) 11/29/2015 7:32 AM EDT CAD ENDOSCOPIC HARVEST VEIN(S) FOR CABG (WRVU 0.31) 11/29/2015 7:32 AM EDT CAD PREPARE COAG FACTORS (NON-HEMOPHILIA) STAT 11/29/2015 6:30 AM EDT PREPARE RBC STAT 11/29/2015 6:30 AM EDT POCT GLUCOSE Routine 11/29/2015 5:36 AM EDT BMP W/FASTING GLUCOSE Routine 11/29/2015 4:40 AM EDT HEMOGRAM Routine 11/29/2015 4:40 AM EDT DIFFERENTIAL, AUTOMATED Routine 11/29/2015 4:40 AM EDT CBC (WITH DIFF) Routine 11/29/2015 4:40 AM EDT EKG 12-LEAD Routine 11/28/2015 7:44 AM EDT ASCVD (arteriosclerotic cardiovascular disease) BMP W/FASTING GLUCOSE Routine 11/28/2015 5:52 AM EDT HEMOGRAM Routine 11/28/2015 5:52 AM EDT DIFFERENTIAL, AUTOMATED Routine 11/28/2015 5:52 AM EDT ABO/RH TYPING Routine 11/28/2015 5:52 AM EDT CBC (WITH DIFF) Routine 11/28/2015 5:52 AM EDT ANTIBODY SCREEN Routine 11/28/2015 5:52 AM EDT TYPE AND SCREEN ([facility]/CGP/MARNI) Routine 11/28/2015 5:52 AM EDT EKG 12-LEAD Routine 11/27/2015 7:34 AM EDT ASCVD (arteriosclerotic cardiovascular disease) BMP W/FASTING GLUCOSE Routine 11/27/2015 5:32 AM EDT HEMOGRAM Routine 11/27/2015 5:32 AM EDT DIFFERENTIAL, AUTOMATED Routine 11/27/2015 5:32 AM EDT CARDIAC ENZYMES ([facility]/CGP) Routine 11/27/2015 5:32 AM EDT CBC (WITH DIFF) Routine 11/27/2015 5:32 AM EDT EKG 12-LEAD Routine 11/26/2015 2:09 PM EDT ASCVD (arteriosclerotic cardiovascular disease) EKG 12-LEAD Routine 11/26/2015 7:21 AM EDT ASCVD (arteriosclerotic cardiovascular disease) BMP W/FASTING GLUCOSE Routine 11/26/2015 3:51 AM EDT HEMOGRAM Routine 11/26/2015 3:51 AM EDT DIFFERENTIAL, AUTOMATED Routine 11/26/2015 3:51 AM EDT CBC (WITH DIFF) Routine 11/26/2015 3:51 AM EDT TRIGLYCERIDE Routine 11/26/2015 3:51 AM EDT LDL CHOLESTEROL, DIRECT Routine 11/26/2015 3:51 AM EDT HDL/CHOL PROFILE Routine 11/26/2015 3:51 AM EDT HEMOGLOBIN A1C Routine 11/26/2015 3:51 AM EDT XR CHEST PA AND LATERAL Routine 11/25/2015 6:05 PM EDT HEMOGRAM Routine 11/25/2015 4:07 PM EDT DIFFERENTIAL, AUTOMATED Routine 11/25/2015 4:07 PM EDT PROTHROMBIN TIME Routine 11/25/2015 4:07 PM EDT CBC (WITH DIFF) Routine 11/25/2015 4:07 PM EDT TSH Routine 11/25/2015 4:07 PM EDT HEPATIC FUNCTION PANEL Routine 11/25/2015 4:07 PM EDT BASIC METABOLIC PANEL (NON-FASTING) Routine 11/25/2015 4:07 PM EDT EKG 12-LEAD Routine 11/25/2015 8:38 AM EDT ASCVD (arteriosclerotic cardiovascular disease) documented in this encounter Results * EKG 12 Lead (12/31/2015 4:18 PM EDT) Ventricular rate 89 BPM MUSE SYSTEM Atrial Rate 89 BPM MUSE SYSTEM P-R Interval 136 ms MUSE SYSTEM QRS Duration 90 ms MUSE SYSTEM Q-T Interval 388 ms MUSE SYSTEM QTC Calculated (Bezet) 472 ms MUSE SYSTEM Calculated P [place] 67 degrees MUSE SYSTEM Calculated R [place] 48 degrees MUSE SYSTEM Calculated T [place] 56 degrees MUSE SYSTEM INTERPRETATION Normal sinus rhythm Nonspecific T wave abnormality Prolonged QT Abnormal ECG Confirmed by MD Thurman Douglas ([id number]) on 01/01/2016 5:25:59 PM MUSE SYSTEM 12/31/2015 4:18 PM EDT 01/01/2016 5:25 PM EDT Yash Benton MD ECG ORDERABLES MUSE SYSTEM * XR Chest PA & Lateral (Generic) [...] PM Yash Benton MD IMG DX ORDERABLES * SCAN DOC: LAB (12/05/2015 12:00 AM EDT) Scanning Provider MEDIA MGR SCAN EXT O RDR/RSLT * SCAN DOC: LITIGATION MANAGER (12/05/2015 12:00 AM EDT) Anatomical Region Laterality Modality Other Scanning Provider MEDIA MGR SCAN EXT O RDR/RSLT * SCAN DOC: LITIGATION MANAGER (12/05/2015 12:00 AM EDT) Anatomical Region Laterality Modality Other Scanning Provider MEDIA MGR SCAN EXT O RDR/RSLT * Potassium (12/04/2015 6:02 AM EDT) Potassium 3.9 3.5 - 5.0 mmol/L [facility] Comment: Please note: ??Patients with WBC >100,000 may have falsely elevated Potassium levels. ??For accurate Potassium quantification in these patients send serum separator tube (gold top) for subsequent determinations. ??Contact the Clinical Chemistry Laboratory if there are any questions. Blood specimen (specimen) 12/04/2015 6:02 AM EDT 12/04/2015 6:29 AM EDT Narrative Resulting Agency Comment Spec In Lab Yash Benton MD CHEMISTRY ORDERABL ES [facility] [place] [address] * (ABNORMAL) Differential, Automated (12/03/2015 4:18 AM EDT) Neutrophils % 70.7 % [facility] Neutr Abs (ANC) 3.79 1.50 - 6.30 x10(3)/ L [facility] Lymphocytes % 14.0 % [facility] Lymphocytes Abs 0.8(L) 1.0 - 3.6 x10(3)/[facility] Monocytes % 10.6 % [facility] Monocyte Abs 0.6 0.2 - 1.0 x10(3)/ L [facility] Eosinophils % 4.1 % [facility] Eosinophils Abs 0.2 0.0 - 0.5 x10(3)/[facility] Basophils % 0.2 % [facility] Basophils Abs 0.0 0.0 - 0.2 x10(3)/[facility] Immature Gran % 0.40 % [facility] Comment: Immature granulocytes(IG's)percentage and absolute count will include metamyelocytes, myelocytes, and promyelocytes. Blood smears from CBCs yielding IG's will be scanned manually for concordance. If this scan disagrees with the automated IG or if promyelocytes are noted, a manual differential will be performed. Hemalatha Gran Abs 0.02 0.00 - 0.05 x10(3)/ L [facility] Blood specimen (specimen) 12/03/2015 4:18 AM EDT 12/03/2015 4:25 AM EDT Narrative Resulting Agency Comment Spec In Lab Yash Benton MD HEMATOLOGY ORDERAB LES [facility] [place] [address] * (ABNORMAL) Hemogram (12/03/2015 4:18 AM EDT) WBC 5.4 4.0 - 10.0 x10(3)/[facility] RBC 3.02(L) 4.63 - 6.08 x10(6)/[facility] Hemoglobin 8.6(L) 13.7 - 17.5 gm/dL [facility] Hematocrit 26.1(L) 40.0 - 51.0 % [facility] MCV 86.4 79.0 - 92.0 fL [facility] MCH 28.5 25.6 - 32.2 pg [facility] MCHC 33.0 32.0 - 36.5 gm/dL [facility] Platelets 141(L) 145 - 370 x10(3)/[facility] RDWSD 46.5(H) 35.0 - 46.0 fL [facility] RDWCV 14.6(H) 10.9 - 14.4 % [facility] MPV 9.3 9.0 - 12.0 fL [facility] Blood specimen (specimen) 12/03/2015 4:18 AM EDT 12/03/2015 4:25 AM EDT Narrative Resulting Agency Comment Spec In Lab Yash Benton MD HEMATOLOGY ORDERAB LES [facility] [place] [address] * (ABNORMAL) Basic Metabolic Panel (non-fasting) (12/03/2015 4:18 AM EDT) Pathologist [facility] Glucose Lvl 96 65 - 199 mg/dL [facility] Comment:Diabetes: >=200 mg/d L plus symptoms BUN 11 10 - 20 mg/dL [facility] Creatinine 0.82 0.80 - 1.50 mg/dL [facility] Comment: Please note that the pediatric reference intervals supplied above were not validated at [facility]. Results from pediatric patients should be interpreted in conjunction to the patient's age, height and muscle mass. Sodium 138 135 - 145 mmol/L [facility] Potassium 3.7 3.5 - 5.0 mmol/L [facility] Comment: Please note: ??Patients with WBC >100,000 may have falsely elevated Potassium levels. ??For accurate Potassium quantification in these patients send serum separator tube (gold top) for subsequent determinations. ??Contact the Clinical Chemistry Laboratory if there are any questions. Chloride 101 98 - 107 mmol/L [facility] CO2 28 22 - 31 mmol/L [facility] Anion Gap 9 5 - 15 mmol/L [facility] Calcium 8.0(L) 8.5 - 10.5 mg/dL [facility] Estimated GFR >60 >=60 [facility] Comment: This estimated GFR (eGFR) value was calculated using the MDRD equation which has been validated on patients between the ages of 18 and 70. The MDRD should not be used to assess kidney function in patients < 18 years of age or in patients with extremes of body mass, or in patients with acute kidney failure. This value should be multiplied by 1.2 for patients. For further information please copy and paste the following links into your internet browser. [email or web address] Blood specimen (specimen) 12/03/2015 4:18 AM EDT 12/03/2015 4:25 AM EDT Narrative Resulting Agency Comment Spec In Lab Yash Benton MD CHEMISTRY ORDERABL ES [facility] [place] [address] * XR Chest PA & Lateral (Generic) (12/02/2015 6:08 AM EDT) Anatomical Region Laterality Modality Chest N/A Digital Radiogra phy Impressions 12/02/2015 7:28 AM EDT 1. ??Interval extubation with decreased lung volumes and increased bibasilar atelectasis. 2. ??Small bilateral pleural effusions. 3. ??No pneumothorax seen. I have personally reviewed the image(s) and the residents interpretation and agree with the findings, Zhang Ayala at 12/02/2015 7:28 AM Narrative 12/02/2015 7:28 AM EDT EXAMINATION: Chest, 2 views CLINICAL HISTORY: s/p cardiac surgery TECHNIQUE: PA and lateral views of the chest COMPARISON: 11/29/2015 and 11/25/2015 FINDINGS: The endotracheal tube, Summit-Samuel catheter and vascular sheath, and chest tubes have been removed. Median sternotomy wires, surgical clips, and epicardial pacing wires are redemonstrated. There are decreased lung volumes with increase left greater than right basilar opacities and new streaky right midlung opacities likely representing atelectasis. There are small bilateral pleural effusions. No pneumothorax is seen. The cardiomediastinal silhouette appears grossly stable. No interval osseous abnormality. Procedure Note Zhang Ayala MD - 12/02/2015 EXAMINATION: Chest, 2 views CLINICAL HISTORY: s/p cardiac surgery TECHNIQUE: PA and lateral views of the chest COMPARISON: 11/29/2015 and 11/25/2015 FINDINGS: The endotracheal tube, Summit-Samuel catheter and vascular sheath, and chesttubes have been removed. Median sternotomy wires, surgical clips, andepicardial pacing wires are redemonstrated. There are decreased lung volumes with increase left greater than rightbasilar opacities and new streaky right midlung opacities likely representing atelectasis. There are small bilateral pleural effusions. No pneumothoraxis seen. The cardiomediastinal silhouette appears grossly stable. Nointerval osseous abnormality. IMPRESSION 1. Interval extubation with decreased lung volumes and increasedbibasilar atelectasis. 2. Small bilateral pleural effusions. 3. No pneumothorax seen. I have personally reviewed the image(s) and the residents interpretationand agree with the findings, Zhang Ayala at 12/02/2015 7:28 AM Yash Benton MD IMG DX ORDERABLES * (ABNORMAL) Differential, Automated (12/02/2015 4:49 AM EDT) Neutrophils % 79.3 % [facility] Neutr Abs (ANC) 4.60 1.50 - 6.30 x10(3)/mc L [facility] Lymphocytes % 10.7 % [facility] Lymphocytes Abs 0.6(L) 1.0 - 3.6 x10(3)/ L [facility] Monocytes % 8.4 % [facility] Monocyte Abs 0.5 0.2 - 1.0 x10(3)/[facility] Eosinophils % 1.2 % [facility] Eosinophils Abs 0.1 0.0 - 0.5 x10(3)/[facility] Basophils % 0.2 % [facility] Basophils Abs 0.0 0.0 - 0.2 x10(3)/[facility] Immature Gran % 0.20 % [facility] Comment: Immature granulocytes(IG's)percentage and absolute count will include metamyelocytes, myelocytes, and promyelocytes. Blood smears from CBCs yielding IG's will be scanned manually for concordance. If this scan disagrees with the automated IG or if promyelocytes are noted, a manual differential will be performed. Hemalatha Gran Abs 0.01 0.00 - 0.05 x10(3)/ L [facility] Blood specimen (specimen) 12/02/2015 4:49 AM EDT 12/02/2015 5:07 AM EDT Narrative Resulting Agency Comment Spec In Lab Yash Benton MD HEMATOLOGY ORDERAB LES [facility] [place] [address] * (ABNORMAL) Hemogram (12/02/2015 4:49 AM EDT) Pathologist [facility] WBC 5.8 4.0 - 10.0 x10(3)/[facility] RBC 2.82(L) 4.63 - 6.08 x10(6)/[facility] Hemoglobin 7.7(L) 13.7 - 17.5 gm/dL [facility] Hematocrit 24.6(L) 40.0 - 51.0 % [facility] MCV 87.2 79.0 - 92.0 fL [facility] MCH 27.3 25.6 - 32.2 pg [facility] MCHC 31.3(L) 32.0 - 36.5 gm/dL [facility] Platelets 101(L) 145 - 370 x10(3)/[facility] RDWSD 45.9 35.0 - 46.0 fL [facility] RDWCV 14.3 10.9 - 14.4 % [facility] MPV 9.6 9.0 - 12.0 fL [facility] Blood specimen (specimen) 12/02/2015 4:49 AM EDT 12/02/2015 5:07 AM EDT Narrative Resulting Agency Comment Spec In Lab Yash Benton MD HEMATOLOGY ORDERAB LES [facility] [place] [address] * (ABNORMAL) Basic Metabolic Panel (non-fasting) (12/02/2015 4:49 AM EDT) Pathologist [facility] Glucose Lvl 115 65 - 199 mg/dL [facility] Comment:Diabetes: >=200 mg/d L plus symptoms BUN 11 10 - 20 mg/dL [facility] Creatinine 0.71(L) 0.80 - 1.50 mg/dL [facility] Comment: Please note that the pediatric reference intervals supplied above were not validated at [facility] [facility]. Results from pediatric patients should be interpreted in conjunction to the patient's age, height and muscle mass. Sodium 135 135 - 145 mmol/L [facility] Potassium 4.0 3.5 - 5.0 mmol/L [facility] Comment: Please note: ??Patients with WBC >100,000 may have falsely elevated Potassium levels. ??For accurate Potassium quantification in these patients send serum separator tube (gold top) for subsequent determinations. ??Contact the Clinical Chemistry Laboratory if there are any questions. Chloride 100 98 - 107 mmol/L [facility] CO2 28 22 - 31 mmol/L [facility] Anion Gap 7 5 - 15 mmol/L [facility] Calcium 8.0(L) 8.5 - 10.5 mg/dL [facility] Estimated GFR >60 >=60 [facility] Comment: This estimated GFR (eGFR) value was calculated using the MDRD equation which has been validated on patients between the ages of 18 and 70. The MDRD should not be used to assess kidney function in patients < 18 years of age or in patients with extremes of body mass, or in patients with acute kidney failure. This value should be multiplied by 1.2 for patients. For further information please copy and paste the following links into your internet browser. [email or web address] Blood specimen (specimen) 12/02/2015 4:49 AM EDT 12/02/2015 5:07 AM EDT Narrative Resulting Agency Comment Spec In Lab Yash Benton MD CHEMISTRY ORDERABL ES [facility] [place] [address] * POCT Glucose (12/01/2015 11:56 AM EDT) POC Glucose 122 65 - 199 mg/dL [facility] Comment: Supplemental ranges: <140 mg/dL before meals <180 mg/dL all other times of the day Blood specimen (specimen) 12/01/2015 11:56 AM EDT 12/01/2015 11:56 AM EDT Yash Benton MD POINT OF CARE TEST ORDERABLES Performing Organization Address [facility] Co de Phone Number [facility] [place] [address] * POCT Glucose (12/01/2015 7:53 AM EDT) Pathologist [facility] POC Glucose 117 65 - 199 mg/dL [facility] Comment: Supplemental ranges: <140 mg/dL before meals <180 mg/dL all other times of the day Blood specimen (specimen) 12/01/2015 7:53 AM EDT 12/01/2015 7:53 AM EDT Yash Benton MD POINT OF CARE TEST ORDERABLES Performing Organization Address [facility] Co de Phone Number [facility] [place] [address] * Scan, Peripheral Blood (12/01/2015 4:20 AM EDT) Plat Estimate Decreased [facility] RBC Morphology Abnormal [facility] Ovalocytes 1-5 /HPF [facility] Turney Cells 1-5 /HPF [facility] Giant Platelets Less than 1 /HPF [facility] Blood specimen (specimen) 12/01/2015 4:20 AM EDT 12/01/2015 4:34 AM EDT Narrative Resulting Agency Comment Spec In Lab Yash Benton MD HEMATOLOGY ORDERAB LES Performing Organization Address [facility]/ZIP Co de Phone Number [facility] [place] [address] * (ABNORMAL) Differential, Automated (12/01/2015 4:20 AM EDT) Neutrophils % 73.9 % [facility] Neutr Abs (ANC) 4.14 1.50 - 6.30 x10(3)/mc L [facility] Lymphocytes % 12.9 % [facility] Lymphocytes Abs 0.7(L) 1.0 - 3.6 x10(3)/[facility] Monocytes % 13.0 % [facility] Monocyte Abs 0.7 0.2 - 1.0 x10(3)/[facility] Eosinophils % 0.2 % [facility] Eosinophils Abs 0.0 0.0 - 0.5 x10(3)/[facility] Basophils % 0.0 % [facility] Basophils Abs 0.0 0.0 - 0.2 x10(3)/[facility] Immature Gran % 0.00 % [facility] Comment: Immature granulocytes(IG's)percentage and absolute count will include metamyelocytes, myelocytes, and promyelocytes. Blood smears from CBCs yielding IG's will be scanned manually for concordance. If this scan disagrees with the automated IG or if promyelocytes are noted, a manual differential will be performed. Hemalatha Gran Abs 0.00 0.00 - 0.05 x10(3)/[facility] Blood specimen (specimen) 12/01/2015 4:20 AM EDT 12/01/2015 4:34 AM EDT Narrative Resulting Agency Comment Spec In Lab Yash Benton MD HEMATOLOGY ORDERAB LES Performing Organization Address City/State/[facility] Co de Phone Number [facility] [place] [address] * (ABNORMAL) Hemogram (12/01/2015 4:20 AM EDT) WBC 5.6 4.0 - 10.0 x10(3)/[facility] RBC 2.85(L) 4.63 - 6.08 x10(6)/[facility] Hemoglobin 8.0(L) 13.7 - 17.5 gm/dL [facility] Hematocrit 24.8(L) 40.0 - 51.0 % [facility] MCV 87.0 79.0 - 92.0 fL [facility] MCH 28.1 25.6 - 32.2 pg [facility] MCHC 32.3 32.0 - 36.5 gm/dL [facility] Platelets 100(L) 145 - 370 x10(3)/mcL [facility] RDWSD 46.2(H) 35.0 - 46.0 fL [facility] RDWCV 14.5(H) 10.9 - 14.4 % [facility] MPV 9.1 9.0 - 12.0 fL [facility] Blood specimen (specimen) 12/01/2015 4:20 AM EDT 12/01/2015 4:34 AM EDT Narrative Resulting Agency Comment Spec In Lab Yash Benton MD HEMATOLOGY ORDERAB LES [facility] [place] [address] * (ABNORMAL) Basic Metabolic Panel (non-fasting) (12/01/2015 4:20 AM EDT) Glucose Lvl 122 65 - 199 mg/dL [facility] Comment:Diabetes: >=200 mg/d L plus symptoms BUN 10 10 - 20 mg/dL [facility] Creatinine 0.67(L) 0.80 - 1.50 mg/dL [facility] Comment: Please note that the pediatric reference intervals supplied above were not validated at [facility]. Results from pediatric patients should be interpreted in conjunction to the patient's age, height and muscle mass. Sodium 139 135 - 145 mmol/L [facility] Potassium 4.4 3.5 - 5.0 mmol/L [facility] Comment: Please note: ??Patients with WBC >100,000 may have falsely elevated Potassium levels. ??For accurate Potassium quantification in these patients send serum separator tube (gold top) for subsequent determinations. ??Contact the Clinical Chemistry Laboratory if there are any questions. Chloride 106 98 - 107 mmol/L [facility] CO2 25 22 - 31 mmol/L [facility] Anion Gap 8 5 - 15 mmol/L [facility] Calcium 7.9(L) 8.5 - 10.5 mg/dL [facility] Comment:result rechecked-llu Estimated GFR >60 >=60 [facility] Comment: This estimated GFR (eGFR) value was calculated using the MDRD equation which has been validated on patients between the ages of 18 and 70. The MDRD should not be used to assess kidney function in patients < 18 years of age or in patients with extremes of body mass, or in patients with acute kidney failure. This value should be multiplied by 1.2 for patients. For further information please copy and paste the following links into your internet browser. [email or web address] Blood specimen (specimen) 12/01/2015 4:20 AM EDT 12/01/2015 4:34 AM EDT Narrative Resulting Agency Comment Spec In Lab Yash Benton MD CHEMISTRY ORDERABL ES Performing Organization Address City/[facility]/ZIP Co de Phone Number [facility] [place] [address] * POCT Glucose (12/01/2015 4:17 AM EDT) POC Glucose 106 65 - 199 mg/dL [facility] Comment: Supplemental ranges: <140 mg/dL before meals <180 mg/dL all other times of the day Blood specimen (specimen) 12/01/2015 4:17 AM EDT 12/01/2015 4:17 AM EDT Yash Benton MD POINT OF CARE TEST ORDERABLES Performing Organization Address City/[facility]/ZIP Co de Phone Number [facility] [place] [address] * POCT Glucose (12/01/2015 12:18 AM EDT) POC Glucose 112 65 - 199 mg/dL [facility] Comment: Supplemental ranges: <140 mg/dL before meals <180 mg/dL all other times of the day Blood specimen (specimen) 12/01/2015 12:18 AM EDT 12/01/2015 12:18 AM EDT Yash Benton MD POINT OF CARE TEST ORDERABLES [facility] [place] [address] * POCT Glucose (11/30/2015 8:04 PM EDT) POC Glucose 105 65 - 199 mg/dL [facility] Comment: Supplemental ranges: <140 mg/dL before meals <180 mg/dL all other times of the day Blood specimen (specimen) 11/30/2015 8:04 PM EDT 11/30/2015 8:04 PM EDT Yash Benton MD POINT OF CARE TEST ORDERABLES [facility] [place] [id number] * POCT Glucose (11/30/2015 6:26 PM EDT) POC Glucose 113 65 - 199 mg/dL [facility] Comment: Supplemental ranges: <140 mg/dL before meals <180 mg/dL all other times of the day Blood specimen (specimen) 11/30/2015 6:26 PM EDT 11/30/2015 6:26 PM EDT Yash Benton MD POINT OF CARE TEST ORDERABLES [facility] [place] [address] * Potassium (11/30/2015 5:25 PM EDT) Potassium 4.4 3.5 - 5.0 mmol/L [facility] Comment: Please note: ??Patients with WBC >100,000 may have falsely elevated Potassium levels. ??For accurate Potassium quantification in these patients send serum separator tube (gold top) for subsequent determinations. ??Contact the Clinical Chemistry Laboratory if there are any questions. Blood specimen (specimen) 11/30/2015 5:25 PM EDT 11/30/2015 5:38 PM EDT Narrative Resulting Agency Comment Spec In Lab Yash Benton MD CHEMISTRY ORDERABL ES Performing Organization Address City/[facility]/ZIP Co de Phone Number [facility] [place] [address] * POCT Glucose (11/30/2015 4:22 PM EDT) POC Glucose 92 65 - 199 mg/dL [facility] Comment: Supplemental ranges: <140 mg/dL before meals <180 mg/dL all other times of the day Blood specimen (specimen) 11/30/2015 4:22 PM EDT 11/30/2015 4:22 PM EDT Yash Benton MD POINT OF CARE TEST ORDERABLES Performing Organization Address City/[facility]/ZIP Co de Phone Number [facility] [place] [address] * POCT Glucose (11/30/2015 2:14 PM EDT) POC Glucose 105 65 - 199 mg/dL [facility] Comment: Supplemental ranges: <140 mg/dL before meals <180 mg/dL all other times of the day Blood specimen (specimen) 11/30/2015 2:14 PM EDT 11/30/2015 2:14 PM EDT Yash Benton MD POINT OF CARE TEST ORDERABLES Performing Organization Address City/[facility]/ZIP Co de Phone Number [facility] [place] [address] * POCT Glucose (11/30/2015 12:08 PM EDT) POC Glucose 122 65 - 199 mg/dL [facility] Comment: Supplemental ranges: <140 mg/dL before meals <180 mg/dL all other times of the day Blood specimen (specimen) 11/30/2015 12:08 PM EDT 11/30/2015 12:08 PM EDT Yash Benton MD POINT OF CARE TEST ORDERABLES [facility] [place] [address] * POCT Glucose (11/30/2015 10:02 AM EDT) POC Glucose 120 65 - 199 mg/dL [facility] Comment: Supplemental ranges: <140 mg/dL before meals <180 mg/dL all other times of the day Blood specimen (specimen) 11/30/2015 10:02 AM EDT 11/30/2015 10:02 AM EDT Yash Benton MD POINT OF CARE TEST ORDERABLES [facility] [place] [address] * POCT Glucose (11/30/2015 7:59 AM EDT) POC Glucose 115 65 - 199 mg/dL [facility] Comment: Supplemental ranges: <140 mg/dL before meals <180 mg/dL all other times of the day Blood specimen (specimen) 11/30/2015 7:59 AM EDT 11/30/2015 7:59 AM EDT Yash Benton MD POINT OF CARE TEST ORDERABLES [facility] [place] [address] * POCT Glucose (11/30/2015 4:46 AM EDT) POC Glucose 126 65 - 199 mg/dL [facility] Comment: Supplemental ranges: <140 mg/dL before meals <180 mg/dL all other times of the day Blood specimen (specimen) 11/30/2015 4:46 AM EDT 11/30/2015 4:46 AM EDT Yash Benton MD POINT OF CARE TEST ORDERABLES Performing Organization Address [facility] Co de Phone Number [facility] [place] [address] * (ABNORMAL) Electrolytes panel (11/30/2015 2:05 AM EDT) Pathologist [facility] Sodium 141 135 - 145 mmol/L [facility] Potassium 4.5 3.5 - 5.0 mmol/L [facility] Comment: Please note: ??Patients with WBC >100,000 may have falsely elevated Potassium levels. ??For accurate Potassium quantification in these patients send serum separator tube (gold top) for subsequent determinations. ??Contact the Clinical Chemistry Laboratory if there are any questions. Chloride 107 98 - 107 mmol/L [facility] CO2 21(L) 22 - 31 mmol/L [facility] Anion Gap 13 5 - 15 mmol/L [facility] Blood specimen (specimen) Venous Draw / Unknown 11/30/2015 2:05 AM EDT 11/30/2015 2:47 AM EDT Narrative Resulting Agency Comment Spec In Lab Yash Benton MD CHEMISTRY ORDERABL ES Performing Organization Address [facility] Co de Phone Number [facility] [place] [address] * (ABNORMAL) Differential, Automated (11/30/2015 2:05 AM EDT) Neutrophils % 80.8 % [facility] Neutr Abs (ANC) 4.42 1.50 - 6.30 x10(3)/mc L [facility] Lymphocytes % 6.8 % [facility] Lymphocytes Abs 0.4(L) 1.0 - 3.6 x10(3)/[facility] Monocytes % 12.4 % [facility] Monocyte Abs 0.7 0.2 - 1.0 x10(3)/[facility] Eosinophils % 0.0 % [facility] Eosinophils Abs 0.0 0.0 - 0.5 x10(3)/[facility] Basophils % 0.0 % [facility] Basophils Abs 0.0 0.0 - 0.2 x10(3)/[facility] Immature Gran % 0.00 % [facility] Comment: Immature granulocytes(IG's)percentage and absolute count will include metamyelocytes, myelocytes, and promyelocytes. Blood smears from CBCs yielding IG's will be scanned manually for concordance. If this scan disagrees with the automated IG or if promyelocytes are noted, a manual differential will be performed. Hemalatha Gran Abs 0.00 0.00 - 0.05 x10(3)/[facility] Blood specimen (specimen) 11/30/2015 2:05 AM EDT 11/30/2015 2:47 AM EDT Narrative Resulting Agency Comment Spec In Lab Yahs Benton MD HEMATOLOGY ORDERAB LES [facility] [place] [address] * (ABNORMAL) Hemogram (11/30/2015 2:05 AM EDT) WBC 5.5 4.0 - 10.0 x10(3)/[facility] RBC 3.10(L) 4.63 - 6.08 x10(6)/[facility] Hemoglobin 8.7(L) 13.7 - 17.5 gm/dL [facility] Comment: This result has been called to JOSEPH FERNANDEZ by AURELIO MAGDALENO on 11 30 2015 at 0304, and has been read back. Hematocrit 26.7(L) 40.0 - 51.0 % [facility] MCV 86.1 79.0 - 92.0 fL [facility] MCH 28.1 25.6 - 32.2 pg [facility] MCHC 32.6 32.0 - 36.5 gm/dL [facility] Platelets 129(L) 145 - 370 x10(3)/mcL [facility] RDWSD 46.2(H) 35.0 - 46.0 fL [facility] RDWCV 14.6(H) 10.9 - 14.4 % [facility] MPV 9.2 9.0 - 12.0 fL [facility] Blood specimen (specimen) 11/30/2015 2:05 AM EDT 11/30/2015 2:47 AM EDT Narrative Resulting Agency Comment Spec In Lab Yash Benton MD HEMATOLOGY ORDERAB LES [facility] [place] [phone] * (ABNORMAL) Cardiac Enzymes (11/30/2015 2:05 AM EDT) Troponin-T 0.76(H) <=0.03 ng/mL [facility] Comment: 0.03 ng/mL: Represents the 99th percentile upper reference limit for normals. >0.03 ng/mL: Elevated cardiac troponin T level indicative of myocardial damage. Diagnosis of acute, evolving or recent UT requires a typical rise and gradual fall of cTnT with at least ONE of the following: a) Ischemic symptoms b) Development of pathologic Q waves on the ECG c) ECG changes indicative of eschemia (S-T segment elevation/depression) d) Coronary artery intervention Serial bloods should be obtained for testing on admission, at 6 to 9 hrs and again at 12 to 24 hrs if earlier samples are negative and the clinical index of suspicion is high. Reference: [Myocardial infarction redefined? a consensus document of the Joint Society of Cardiology/[place] [employer] Committee for the redefinition of myocardial infarction. ??Journal of the [place] [employer] 2000; 36: 959-969] CK, Total 356(H) 0 - 200 unit/L [facility] Comment:result rechecked-llu Blood specimen (specimen) 11/30/2015 2:05 AM EDT 11/30/2015 2:47 AM EDT Narrative Resulting Agency Comment Spec In Lab Yash Benton MD CHEMISTRY ORDERABL ES Performing Organization Address [facility] Co de Phone Number [facility] [place] [address] * (ABNORMAL) Glucose, fasting (11/30/2015 2:05 AM EDT) Glucose Fasting 134(H) 65 - 99 mg/dL [facility] Comment: ?Fasting* Glucose Interpretive Criteria Normal ?65-99 mg/dL Impaired Fasting glucose ?100-125 mg/dL Consistent with Diabetes Mellitus ? >or= 126 mg/dL *Fasting is defined as no caloric intake for at least 8 hours In the absence of unequivocal hyperglycemia a plasma glucose value of >or= 126 mg/dL should be repeated on a subsequent day. Diagnosis and Classification of Diabetes Mellitus, Position Statement from the [place] [employer]. ??Diabetes Care, Volume 33, Supplement 1, May 2009 Blood specimen (specimen) 11/30/2015 2:05 AM EDT 11/30/2015 2:47 AM EDT Narrative Resulting Agency Comment Spec In Lab Yash Benton MD CHEMISTRY ORDERABL ES Performing Organization Address [facility] Co de Phone Number [facility] [place] [address] * (ABNORMAL) Creatinine (11/30/2015 2:05 AM EDT) Creatinine 0.70(L) 0.80 - 1.50 mg/dL [facility] Comment: Please note that the pediatric reference intervals supplied above were not validated at [facility]. Results from pediatric patients should be interpreted in conjunction to the patient's age, height and muscle mass. Estimated GFR >60 >=60 [facility] Comment: This estimated GFR (eGFR) value was calculated using the MDRD equation which has been validated on patients between the ages of 18 and 70. The MDRD should not be used to assess kidney function in patients < 18 years of age or in patients with extremes of body mass, or in patients with acute kidney failure. This value should be multiplied by 1.2 for patients. For further information please copy and paste the following links into your internet browser. [email or web address] Blood specimen (specimen) 11/30/2015 2:05 AM EDT 11/30/2015 2:47 AM EDT Narrative Resulting Agency Comment Spec In Lab Yash Benton MD CHEMISTRY ORDERABL ES Performing Organization Address [facility] Co de Phone Number [facility] [place] [address] * (ABNORMAL) BUN (11/30/2015 2:05 AM EDT) Pathologist [facility] BUN 8(L) 10 - 20 mg/dL [facility] Blood specimen (specimen) 11/30/2015 2:05 AM EDT 11/30/2015 2:47 AM EDT Narrative Resulting Agency Comment Spec In Lab Yash Benton MD CHEMISTRY ORDERABL ES Performing Organization Address [facility]/ZIP Co de Phone Number [facility] [place] [address] * POCT Glucose (11/30/2015 2:04 AM EDT) POC Glucose 135 65 - 199 mg/dL [facility] Comment: Supplemental ranges: <140 mg/dL before meals <180 mg/dL all other times of the day Blood specimen (specimen) 11/30/2015 2:04 AM EDT 11/30/2015 2:04 AM EDT Yash Benton MD POINT OF CARE TEST ORDERABLES [facility] [place] [address] * (ABNORMAL) BLOOD GAS 2 ARTERIAL (11/30/2015 12:14 AM EDT) pH Art 7.36 7.35 - 7.45 [facility] pCO2 Art 41 35 - 45 mmHg [facility] pO2 Art 144(H) 85 - 104 mmHg [facility] HCO3 Art 22.4 20.0 - 26.0 mmol/L [facility] Art -2.8 -3.0 - 3.0 mmol/L [facility] Hgb Blood Gas 9.7(L) 13.7 - 17.5 gm/dL [facility] O2HB Art 97.0 94.0 - 97.0 % [facility] COHB Art 0.1 % [facility] Comment: Nonsmokers: 0.5-1.5% COHB Smokers: Variable, but usually less than 10% Toxic: 20-30% COHB Lethal: Greater than 60% COHB METHB Art 0.7 <=1.5 % [facility] Na Whole Blood 136 135 - 145 mmol/L [facility] K Whole Blood 4.8 3.5 - 5.0 mmol/L [facility] Comment: Please note: Patients with WBC >100,000 may have falsely elevated Potassium levels. Contact the Clinical Chemistry Laboratory if there are any questions. ICa Whole Blood 1.09(L) 1.15 - 1.33 mmol/L [facility] Comment: Note: ??Total bilirubin higher than 20 mg/dL may lead to falsely low ionized calcium. CL Whole Blood 105 98 - 107 mmol/L [facility] Gluc Whole Bld 149 65 - 199 mg/dL [facility] Comment:Diabetes: >=200 mg/d L plus symptoms. Lactate WB 1.1 0.5 - 2.2 mmol/L [facility] FIO2 Art 40 % [facility] PF Ratio Art [address] [facility] Temp Art 38.2 Celsius [facility] Blood specimen (specimen) 11/30/2015 12:14 AM EDT 11/30/2015 12:14 AM EDT Yash Benton MD CHEMISTRY ORDERABL ES [facility] [place] [address] * POCT Glucose (11/29/2015 10:03 PM EDT) POC Glucose 106 65 - 199 mg/dL [facility] Comment: Supplemental ranges: <140 mg/dL before meals <180 mg/dL all other times of the day Blood specimen (specimen) 11/29/2015 10:03 PM EDT 11/29/2015 10:03 PM EDT Yash Benton MD POINT OF CARE TEST ORDERABLES [facility] [place] [address] * POCT Glucose (11/29/2015 8:45 PM EDT) POC Glucose 123 65 - 199 mg/dL [facility] Comment: Supplemental ranges: <140 mg/dL before meals <180 mg/dL all other times of the day Blood specimen (specimen) 11/29/2015 8:45 PM EDT 11/29/2015 8:45 PM EDT Yash Benton MD POINT OF CARE TEST ORDERABLES [facility] [place] [address] * ECHO LMTD W/O CONTRAST (11/29/2015 6:33 PM EDT) Anatomical Region Laterality Modality Other 11/30/2015 Narrative 11/30/2015 9:01 AM EDT Procedure: ?Transthoracic Echocardiogram Patient: ?MeronANAHAJITYSON Stewart ?(Age): 1955(59y) Med Rec#: ? [id number] ?Sex: ?M ? Site Loc: ? [facility] ?Ht / Wt: ??178(cm)/77(kg) Pt. Loc: ?ICU ? BSA: ?1.7 Study Date: ?? 11/29/2015 ?Pt. Type: Inpatient Tape: ? 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 94/59 SUMMARY: 1. Limited study of only 4 clips. The images are technically limited. There is no pericardial effusion. Global LV function is probably normal. Global RV function is probably normal. Suggest a complete study be performed with contrast if necessary. Findings ? : Pericardium: ? There is no echo evidence of pericardial tamponade. This report has been electronically signed by: Ricky Hernandez MD ? 11/30/2015 09:01:08 Images reviewed and interpretation verified [facility] Procedure Note Ricky Hernandez MD - 11/30/2015 Procedure: Transthoracic Echocardiogram Patient: NIKHIL Stewart (Age): 1955(59y) Med Rec#: [id number] Sex: M [place] Loc: [facility] Ht / Wt: 178(cm)/77(kg) Pt. Loc: ICU BSA: 1.7 Study Date: 11/29/2015 Pt. 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 Limited study of only 4 clips. The images are technically limited. There is no pericardial effusion. Global LV function is probably normal. Global RV function is probably normal. Suggest a complete study be performed with contrast if necessary. Findings : Pericardium: There is no echo evidence of pericardial tamponade. This report has been electronically signed by: Ricky Hernandez MD 11/30/2015 09:01:08 Images reviewed and interpretation verified [facility] Dario Payne MD ECHO ORDERABLES * (ABNORMAL) Coox2 (11/29/2015 6:21 PM EDT) pO2 Coox 34 mmHg [facility] Hgb Blood Gas 10.6(L) 13.7 - 17.5 gm/dL [facility] O2HB Coox 66.9 % [facility] COHB Coox 0.7 % [facility] Comment: Nonsmokers: 0.5-1.5% COHB Smokers: Variable, but usually less than 10% Toxic: 20-30% COHB Lethal: Greater than 60% COHB METHB Coox 0.9 <=1.5 % [facility] Comment: Reference Interval: Methemoglobin: less than 1.5% Source Coox Mixed Venous [facility] Blood specimen (specimen) 11/29/2015 6:21 PM EDT 11/29/2015 6:21 PM EDT Yash Benton MD CHEMISTRY ORDERABL ES [facility] [place] [address] * (ABNORMAL) BLOOD GAS 2 ARTERIAL (11/29/2015 6:18 PM EDT) pH Art 7.36 7.35 - 7.45 [facility] pCO2 Art 41 35 - 45 mmHg [facility] pO2 Art 120(H) 85 - 104 mmHg [facility] HCO3 Art 22.6 20.0 - 26.0 mmol/L [facility] BE Art -2.8 -3.0 - 3.0 mmol/L [facility] Hgb Blood Gas 10.7(L) 13.7 - 17.5 gm/dL [facility] O2HB Art 96.6 94.0 - 97.0 % [facility] COHB Art 0.3 % [facility] Comment: Nonsmokers: 0.5-1.5% COHB Smokers: Variable, but usually less than 10% Toxic: 20-30% COHB Lethal: Greater than 60% COHB METHB Art 0.8 <=1.5 % [facility] Na Whole Blood 138 135 - 145 mmol/L [facility] K Whole Blood 4.5 3.5 - 5.0 mmol/L [facility] Comment: Please note: Patients with WBC >100,000 may have falsely elevated Potassium levels. Contact the Clinical Chemistry Laboratory if there are any questions. ICa Whole Blood 1.06(L) 1.15 - 1.33 mmol/L [facility] Comment: Note: ??Total bilirubin higher than 20 mg/dL may lead to falsely low ionized calcium. CL Whole Blood 106 98 - 107 mmol/L [facility] Gluc Whole Bld 181 65 - 199 mg/dL [facility] Comment:Diabetes: >=200 mg/d L plus symptoms. Lactate WB 2.8(H) 0.5 - 2.2 mmol/L [facility] FIO2 Art 40 % [facility] PF Ratio Art [address] [facility] Blood specimen (specimen) 11/29/2015 6:18 PM EDT 11/29/2015 6:18 PM EDT Yash Benton MD CHEMISTRY ORDERABL ES [facility] [place] [id number] * (ABNORMAL) BLOOD GAS 2 ARTERIAL (11/29/2015 5:14 PM EDT) pH Art 7.26(Criti ton) 7.35 - 7.45 [facility] Comment:Noted by instrument processing tech. pCO2 Art 41 35 - 45 mmHg [facility] pO2 Art 113(H) 85 - 104 mmHg [facility] HCO3 Art 17.9(L) 20.0 - 26.0 mmol/L [facility] BE Art -9.2(L) -3.0 - 3.0 mmol/L [facility] Hgb Blood Gas 11.0(L) 13.7 - 17.5 gm/dL [facility] O2HB Art 95.9 94.0 - 97.0 % [facility] COHB Art 0.3 % [facility] Comment: Nonsmokers: 0.5-1.5% COHB Smokers: Variable, but usually less than 10% Toxic: 20-30% COHB Lethal: Greater than 60% COHB METHB Art 0.8 <=1.5 % [facility] Na Whole Blood 137 135 - 145 mmol/L [facility] K Whole Blood 4.3 3.5 - 5.0 mmol/L [facility] Comment: Please note: Patients with WBC >100,000 may have falsely elevated Potassium levels. Contact the Clinical Chemistry Laboratory if there are any questions. ICa Whole Blood 1.07(L) 1.15 - 1.33 mmol/L [facility] Comment: Note: ??Total bilirubin higher than 20 mg/dL may lead to falsely low ionized calcium. CL Whole Blood 107 98 - 107 mmol/L [facility] Gluc Whole Bld 172 65 - 199 mg/dL [facility] Comment:Diabetes: >=200 mg/d L plus symptoms. Lactate WB 2.3(H) 0.5 - 2.2 mmol/L [facility] FIO2 Art 40 % [facility] PF Ratio Art [address] [facility] Blood specimen (specimen) 11/29/2015 5:14 PM EDT 11/29/2015 5:14 PM EDT Yash Benton MD CHEMISTRY ORDERABL ES Performing Organization Address City/[facility]/ZIP Co de Phone Number [facility] [place] [address] * POCT Glucose (11/29/2015 4:10 PM EDT) POC Glucose 125 65 - 199 mg/dL [facility] Comment: Supplemental ranges: <140 mg/dL before meals <180 mg/dL all other times of the day Blood specimen (specimen) 11/29/2015 4:10 PM EDT 11/29/2015 4:10 PM EDT Yash Benton MD POINT OF CARE TEST ORDERABLES [facility] [place] [address] * XR Chest Pa or AP- 1 View (11/29/2015 3:07 PM EDT) Anatomical Region Laterality Modality Chest N/A Digital Radiogra phy Impressions 11/29/2015 3:20 PM EDT Status post CABG with tubes and lines positioned as above and a small amount of left lower lobe atelectasis. Narrative 11/29/2015 3:20 PM EDT EXAMINATION: XR CHEST PA OR AP 1 VIEW CLINICAL HISTORY: s/p cabg x4 TECHNIQUE: AP portable chest COMPARISON: 11/25/2015. FINDINGS: Since the prior study, there are now sternal wires and mediastinal clips consistent with CABG. An ET tube is in the mid trachea, there is a right IJ Summit-Samuel catheter with the tip in the right pulmonary artery, there is a left chest tube with no evidence of pneumothorax and there are two mediastinal drains. The heart is normal in size. There is no evidence of pulmonary edema. There is a small amount of left lower lobe atelectasis Procedure Note Nicolas Hicks MD - 11/29/2015 EXAMINATION: XR CHEST PA OR AP 1 VIEW CLINICAL HISTORY: s/p cabg x4 TECHNIQUE: AP portable chest COMPARISON: 11/25/2015. FINDINGS: Since the prior study, there are now sternal wires and mediastinal clips consistent with CABG. An ET tube is in the mid trachea, there is a rightIJ Summit-Samuel catheter with the tip in the right pulmonary artery, there is aleft chest tube with no evidence of pneumothorax and there are twomediastinal drains. The heart is normal in size. There is no evidence of pulmonary edema.There is a small amount of left lower lobe atelectasis IMPRESSION Status post CABG with tubes and lines positioned as above and a smallamount of left lower lobe atelectasis. Yash Benton MD IMG DX ORDERABLES * EKG 12 Lead (11/29/2015 2:37 PM EDT) Ventricular rate 82 BPM MUSE SYSTEM Atrial Rate 82 BPM MUSE SYSTEM P-R Interval 140 ms MUSE SYSTEM QRS Duration 96 ms MUSE SYSTEM Q-T Interval 388 ms MUSE SYSTEM QTC Calculated (Bezet) 453 ms MUSE SYSTEM Calculated P [place] 69 degrees MUSE SYSTEM Calculated R [place] 54 degrees MUSE SYSTEM Calculated T [place] 85 degrees MUSE SYSTEM INTERPRETATION Normal sinus rhythm Low voltage QRS T wave abnormality, consider anterolateral ischemia -- new Abnormal ECG When compared with ECG of 28-NOV-2015 07:44, T wave inversion now evident in Anterior leads Confirmed by MD Colby, Hemal ([id number]) on 11/29/2015 3:31:51 PM MUSE SYSTEM 11/29/2015 2:37 PM EDT 11/29/2015 3:31 PM EDT Yash Benton MD ECG ORDERABLES MUSE SYSTEM * (ABNORMAL) Differential, Automated (11/29/2015 2:25 PM EDT) Neutrophils % 79.7 % [facility] Neutr Abs (ANC) 10.17(H) 1.50 - 6.30 x10(3)/[facility] Lymphocytes % 12.5 % [facility] Lymphocytes Abs 1.6 1.0 - 3.6 x10(3)/[facility] Monocytes % 7.1 % [facility] Monocyte Abs 0.9 0.2 - 1.0 x10(3)/[facility] Eosinophils % 0.4 % [facility] Eosinophils Abs 0.0 0.0 - 0.5 x10(3)/[facility] Basophils % 0.1 % [facility] Basophils Abs 0.0 0.0 - 0.2 x10(3)/[facility] Immature Gran % 0.20 % [facility] Comment: Immature granulocytes(IG's)percentage and absolute count will include metamyelocytes, myelocytes, and promyelocytes. Blood smears from CBCs yielding IG's will be scanned manually for concordance. If this scan disagrees with the automated IG or if promyelocytes are noted, a manual differential will be performed. Hemalatha Gran Abs 0.02 0.00 - 0.05 x10(3)/mc L [facility] Blood specimen (specimen) 11/29/2015 2:25 PM EDT 11/29/2015 2:30 PM EDT Narrative Resulting Agency Comment Spec In Lab Yash Benton MD HEMATOLOGY ORDERAB LES [facility] [place] [address] * (ABNORMAL) Hemogram (11/29/2015 2:25 PM EDT) WBC 12.8(H) 4.0 - 10.0 x10(3)/[facility] RBC 3.89(L) 4.63 - 6.08 x10(6)/[facility] Hemoglobin 11.0(L) 13.7 - 17.5 gm/dL [facility] Hematocrit 33.5(L) 40.0 - 51.0 % [facility] MCV 86.1 79.0 - 92.0 fL [facility] MCH 28.3 25.6 - 32.2 pg [facility] MCHC 32.8 32.0 - 36.5 gm/dL [facility] Platelets 166 145 - 370 x10(3)/[facility] RDWSD 44.8 35.0 - 46.0 fL [facility] RDWCV 14.2 10.9 - 14.4 % [facility] MPV 9.2 9.0 - 12.0 fL [facility] Blood specimen (specimen) 11/29/2015 2:25 PM EDT 11/29/2015 2:30 PM EDT Narrative Resulting Agency Comment Spec In Lab Yash Benton MD HEMATOLOGY ORDERAB LES [facility] [place] [address] * (ABNORMAL) Basic Metabolic Panel (non-fasting) (11/29/2015 2:25 PM EDT) Glucose Lvl 161 65 - 199 mg/dL [facility] Comment:Diabetes: >=200 mg/d L plus symptoms BUN 10 10 - 20 mg/dL [facility] Creatinine 0.72(L) 0.80 - 1.50 mg/dL [facility] Comment: Please note that the pediatric reference intervals supplied above were not validated at [facility]. Results from pediatric patients should be interpreted in conjunction to the patient's age, height and muscle mass. Sodium 140 135 - 145 mmol/L [facility] Potassium 3.9 3.5 - 5.0 mmol/L [facility] Comment: Please note: ??Patients with WBC >100,000 may have falsely elevated Potassium levels. ??For accurate Potassium quantification in these patients send serum separator tube (gold top) for subsequent determinations. ??Contact the Clinical Chemistry Laboratory if there are any questions. Chloride 108(H) 98 - 107 mmol/L [facility] CO2 18(L) 22 - 31 mmol/L [facility] Anion Gap 14 5 - 15 mmol/L [facility] Calcium 7.2(L) 8.5 - 10.5 mg/dL [facility] Estimated GFR >60 >=60 [facility] Comment: This estimated GFR (eGFR) value was calculated using the MDRD equation which has been validated on patients between the ages of 18 and 70. The MDRD should not be used to assess kidney function in patients < 18 years of age or in patients with extremes of body mass, or in patients with acute kidney failure. This value should be multiplied by 1.2 for patients. For further information please copy and paste the following links into your internet browser. [email or web address] [email or web address] Blood specimen (specimen) 11/29/2015 2:25 PM EDT 11/29/2015 2:30 PM EDT Narrative Resulting Agency Comment Spec In Lab Yash Benton MD CHEMISTRY ORDERABL ES Performing Organization Address [facility] de Phone Number [facility] [place] [address] * Fibrinogen (11/29/2015 2:25 PM EDT) Fibrinogen 270 175 - 450 mg/dL [facility] Comment: A fibrinogen level >100 mg/dL is adequate for hemostasis in most patients without underlying bleeding disorders. Blood specimen (specimen) 11/29/2015 2:25 PM EDT 11/29/2015 2:30 PM EDT Narrative Resulting Agency Comment Spec In Lab Yash Benton MD HEMATOLOGY ORDERAB LES Performing Organization Address [facility] de Phone Number [facility] [place] [address] * (ABNORMAL) APTT (11/29/2015 2:25 PM EDT) PTT 36(H) 25 - 35 sec [facility] Comment: The recommended therapeutic range for full dose, unfractionated heparin at [facility] is 80 ? 114 seconds. The use of the anti-Xa (heparin) level rather than the PTT is recommended for monitoring anticoagulation intensity in critically ill patients receiving unfractionated heparin by continuous IV infusion. Blood specimen (specimen) 11/29/2015 2:25 PM EDT 11/29/2015 2:30 PM EDT Narrative Resulting Agency Comment Spec In Lab Yash Benton MD HEMATOLOGY ORDERAB LES Performing Organization Address [facility] Co de Phone Number [facility] [place] [address] * (ABNORMAL) Prothrombin Time (11/29/2015 2:25 PM EDT) PT 17.0(H) 12.0 - 15.0 sec [facility] Comment: An INR <2.0 indicates adequate procoagulant activity for hemostasis in most patients without underlying bleeding disorders, though the INR may not adequately reflect hemostatic capacity in patients with liver disease and synthetic impairment. The recommended target INR range for therapeutic anticoagulation is 2.0 ? 3.0 for most applications, though lower and higher ranges may be appropriate depending on clinical circumstances. INR 1.4(H) 0.9 - 1.1 [facility] Blood specimen (specimen) 11/29/2015 2:25 PM EDT 11/29/2015 2:30 PM EDT Narrative Resulting Agency Comment Spec In Lab Yash Benton MD HEMATOLOGY ORDERAB LES [facility] [place] [address] * (ABNORMAL) BLOOD GAS 2 ARTERIAL (11/29/2015 2:22 PM EDT) pH Art 7.31(L) 7.35 - 7.45 [facility] pCO2 Art 37 35 - 45 mmHg [facility] pO2 Art 241(H) 85 - 104 mmHg [facility] HCO3 Art 18.0(L) 20.0 - 26.0 mmol/L [facility] BE Art -8.3(L) -3.0 - 3.0 mmol/L [facility] Hgb Blood Gas 11.9(L) 13.7 - 17.5 gm/dL [facility] O2HB Art 97.8(H) 94.0 - 97.0 % [facility] COHB Art 0.1 % [facility] Comment: Nonsmokers: 0.5-1.5% COHB Smokers: Variable, but usually less than 10% Toxic: 20-30% COHB Lethal: Greater than 60% COHB METHB Art 0.9 <=1.5 % [facility] Na Whole Blood 135 135 - 145 mmol/L [facility] K Whole Blood 3.9 3.5 - 5.0 mmol/L [facility] Comment: Please note: Patients with WBC >100,000 may have falsely elevated Potassium levels. Contact the Clinical Chemistry Laboratory if there are any questions. ICa Whole Blood 1.19 1.15 - 1.33 mmol/L [facility] Comment: Note: ??Total bilirubin higher than 20 mg/dL may lead to falsely low ionized calcium. CL Whole Blood 106 98 - 107 mmol/L [facility] Gluc Whole Bld 155 65 - 199 mg/dL [facility] Comment:Diabetes: >=200 mg/d L plus symptoms. Lactate WB 2.6(H) 0.5 - 2.2 mmol/L [facility] FIO2 Art 100 % [facility] PF Ratio Art [address] [facility] Blood specimen (specimen) 11/29/2015 2:22 PM EDT 11/29/2015 2:22 PM EDT Yash Benton MD CHEMISTRY ORDERABL ES Performing Organization Address City/State/[facility] Co de Phone Number [facility] [place] [address] * (ABNORMAL) BLOOD GAS 2 ARTERIAL (11/29/2015 12:51 PM EDT) pH Art 7.32(L) 7.35 - 7.45 [facility] pCO2 Art 41 35 - 45 mmHg [facility] pO2 Art 288(H) 85 - 104 mmHg [facility] HCO3 Art 20.9 20.0 - 26.0 mmol/L [facility] BE Art -5.2(L) -3.0 - 3.0 mmol/L [facility] Hgb Blood Gas 8.9(L) 13.7 - 17.5 gm/dL [facility] O2HB Art 98.5(H) 94.0 - 97.0 % [facility] COHB Art 0.7 % [facility] Comment: Nonsmokers: 0.5-1.5% COHB Smokers: Variable, but usually less than 10% Toxic: 20-30% COHB Lethal: Greater than 60% COHB METHB Art 0.3 <=1.5 % [facility] Na Whole Blood 131(L) 135 - 145 mmol/L [facility] K Whole Blood 3.8 3.5 - 5.0 mmol/L [facility] Comment: Please note: Patients with WBC >100,000 may have falsely elevated Potassium levels. Contact the Clinical Chemistry Laboratory if there are any questions. ICa Whole Blood 1.11(L) 1.15 - 1.33 mmol/L [facility] Comment: Note: ??Total bilirubin higher than 20 mg/dL may lead to falsely low ionized calcium. CL Whole Blood 106 98 - 107 mmol/L [facility] Gluc Whole Bld 172 65 - 199 mg/dL [facility] Comment:Diabetes: >=200 mg/d L plus symptoms. Blood specimen (specimen) 11/29/2015 12:51 PM EDT 11/29/2015 12:51 PM EDT Xiomy Zarate MD CHEMISTRY ORDERABLES Performing Organization Address City/[facility]/ZIP Co de Phone Number [facility] [place] [address] * Thrombin time (11/29/2015 12:47 PM EDT) Thrombin Time 17 15 - 20 sec [facility] Comment: A prolongation in the thrombin time (>20 seconds) may be indicative of hypofibrinogenemia or dysfibrinogenemia. The thrombin time will be prolonged, often markedly so, by the presence of heparin or direct thrombin inhibitors (argatroban, bivalirudin, dabigatran) in the specimen. Blood specimen (specimen) 11/29/2015 12:47 PM EDT 11/29/2015 12:53 PM EDT Narrative Resulting Agency Comment Spec In Lab Xiomy Zarate MD HEMATOLOGY ORDERABLE S Performing Organization Address City/[facility]/ZIP Co de Phone Number [facility] [place] [address] * Fibrinogen (11/29/2015 12:47 PM EDT) Fibrinogen 208 175 - 450 mg/dL [facility] Comment: Called by: SHIREEN, Read back by: Milagro Spencer, Date/Time:11/29/15 13:07. A fibrinogen level >100 mg/dL is adequate for hemostasis in most patients without underlying bleeding disorders. Blood specimen (specimen) 11/29/2015 12:47 PM EDT 11/29/2015 12:53 PM EDT Narrative Resulting Agency Comment Spec In Lab Xiomy Zarate MD HEMATOLOGY ORDERABLE S Performing Organization Address [facility] Co de Phone Number [facility] [place] [address] * (ABNORMAL) APTT (11/29/2015 12:47 PM EDT) PTT 38(H) 25 - 35 sec [facility] Comment: The recommended therapeutic range for full dose, unfractionated heparin at [facility] is 80 ? 114 seconds. The use of the anti-Xa (heparin) level rather than the PTT is recommended for monitoring anticoagulation intensity in critically ill patients receiving unfractionated heparin by continuous IV infusion. Blood specimen (specimen) 11/29/2015 12:47 PM EDT 11/29/2015 12:53 PM EDT Narrative Resulting Agency Comment Spec In Lab Xiomy Zarate MD HEMATOLOGY ORDERABLE S Performing Organization Address [facility] Co de Phone Number [facility] [place] [address] * (ABNORMAL) Prothrombin Time (11/29/2015 12:47 PM EDT) PT 20.9(H) 12.0 - 15.0 sec [facility] Comment: An INR <2.0 indicates adequate procoagulant activity for hemostasis in most patients without underlying bleeding disorders, though the INR may not adequately reflect hemostatic capacity in patients with liver disease and synthetic impairment. The recommended target INR range for therapeutic anticoagulation is 2.0 ? 3.0 for most applications, though lower and higher ranges may be appropriate depending on clinical circumstances. INR 1.7(H) 0.9 - 1.1 [facility] Blood specimen (specimen) 11/29/2015 12:47 PM EDT 11/29/2015 12:53 PM EDT Narrative Resulting Agency Comment Spec In Lab Xiomy Zarate MD HEMATOLOGY ORDERABLE S [facility] [place] [address] * (ABNORMAL) Hemogram (11/29/2015 12:47 PM EDT) WBC 11.4(H) 4.0 - 10.0 x10(3)/[facility] Comment: Called by: Shelby Marvin, Read back by: Sierra Naqvi, Date-Time: 11 29 2015 1257 RBC 2.99(L) 4.63 - 6.08 x10(6)/[facility] Hemoglobin 8.2(L) 13.7 - 17.5 gm/dL [facility] Comment: This result has been called to SIERRA NAQVI by Shelby Marvin on 11 29 2015 at 1257, and has been read back. Hematocrit 25.8(L) 40.0 - 51.0 % [facility] MCV 86.3 79.0 - 92.0 fL [facility] MCH 27.4 25.6 - 32.2 pg [facility] MCHC 31.8(L) 32.0 - 36.5 gm/dL [facility] Platelets 137(L) 145 - 370 x10(3)/[facility] RDWSD 45.1 35.0 - 46.0 fL [facility] RDWCV 14.3 10.9 - 14.4 % [facility] MPV 9.1 9.0 - 12.0 fL [facility] Blood specimen (specimen) 11/29/2015 12:47 PM EDT 11/29/2015 12:53 PM EDT Narrative Resulting Agency Comment Spec In Lab Xiomy Zarate MD HEMATOLOGY ORDERABLE S [facility] [place] [address] * (ABNORMAL) BLOOD GAS 2 ARTERIAL (11/29/2015 12:15 PM EDT) pH Art 7.37 7.35 - 7.45 [facility] pCO2 Art 39 35 - 45 mmHg [facility] pO2 Art 292(H) 85 - 104 mmHg [facility] HCO3 Art 21.8 20.0 - 26.0 mmol/L [facility] BE Art -3.5(L) -3.0 - 3.0 mmol/L [facility] Hgb Blood Gas 9.4(L) 13.7 - 17.5 gm/dL [facility] O2HB Art 98.5(H) 94.0 - 97.0 % [facility] COHB Art 0.6 % [facility] Comment: Nonsmokers: 0.5-1.5% COHB Smokers: Variable, but usually less than 10% Toxic: 20-30% COHB Lethal: Greater than 60% COHB METHB Art 0.3 <=1.5 % [facility] Na Whole Blood 128(L) 135 - 145 mmol/L [facility] K Whole Blood 5.5(H) 3.5 - 5.0 mmol/L [facility] Comment: Please note: Patients with WBC >100,000 may have falsely elevated Potassium levels. Contact the Clinical Chemistry Laboratory if there are any questions. ICa Whole Blood 0.87(Criti ton) 1.15 - 1.33 mmol/L [facility] Comment: Noted by instrument processing tech. Note: ??Total bilirubin higher than 20 mg/dL may lead to falsely low ionized calcium. CL Whole Blood 102 98 - 107 mmol/L [facility] Gluc Whole Bld 193 65 - 199 mg/dL [facility] Comment:Diabetes: >=200 mg/d L plus symptoms. Blood specimen (specimen) 11/29/2015 12:15 PM EDT 11/29/2015 12:15 PM EDT Xiomy Zarate MD CHEMISTRY ORDERABLES [facility] [place] [address] * (ABNORMAL) BLOOD GAS 2 ARTERIAL (11/29/2015 11:48 AM EDT) pH Art 7.34(L) 7.35 - 7.45 [facility] pCO2 Art 45 35 - 45 mmHg [facility] pO2 Art 273(H) 85 - 104 mmHg [facility] HCO3 Art 23.8 20.0 - 26.0 mmol/L [facility] BE Art -1.9 -3.0 - 3.0 mmol/L [facility] Hgb Blood Gas 10.1(L) 13.7 - 17.5 gm/dL [facility] O2HB Art 98.8(H) 94.0 - 97.0 % [facility] COHB Art 0.2 % [facility] Comment: Nonsmokers: 0.5-1.5% COHB Smokers: Variable, but usually less than 10% Toxic: 20-30% COHB Lethal: Greater than 60% COHB METHB Art 0.3 <=1.5 % [facility] Na Whole Blood 128(L) 135 - 145 mmol/L [facility] K Whole Blood 6.0(H) 3.5 - 5.0 mmol/L [facility] Comment: Please note: Patients with WBC >100,000 may have falsely elevated Potassium levels. Contact the Clinical Chemistry Laboratory if there are any questions. ICa Whole Blood 0.87(Criti ton) 1.15 - 1.33 mmol/L [facility] Comment: Noted by instrument processing tech. Note: ??Total bilirubin higher than 20 mg/dL may lead to falsely low ionized calcium. CL Whole Blood 103 98 - 107 mmol/L [facility] Gluc Whole Bld 200(H) 65 - 199 mg/dL [facility] Comment:Diabetes: >=200 mg/d L plus symptoms. Blood specimen (specimen) 11/29/2015 11:48 AM EDT 11/29/2015 11:48 AM EDT Xiomy Zarate MD CHEMISTRY ORDERABLES Performing Organization Address [facility] Co de Phone Number [facility] [place] [address] * Fibrinogen (11/29/2015 11:45 AM EDT) Fibrinogen 247 175 - 450 mg/dL [facility] Comment: Called by: SHIREEN, Read back by: Sierra Naqvi, Date/Time:11/29/15 12:09. A fibrinogen level >100 mg/dL is adequate for hemostasis in most patients without underlying bleeding disorders. Blood specimen (specimen) 11/29/2015 11:45 AM EDT 11/29/2015 11:53 AM EDT Narrative Resulting Agency Comment Spec In Lab Xiomy Zarate MD HEMATOLOGY ORDERABLE S Performing Organization Address [facility] de Phone Number [facility] [place] [address] * Platelet count (11/29/2015 11:45 AM EDT) Platelets 146 145 - 370 x10(3)/mcL [facility] Comment: Called by: Shelby Marvin, Read back by: Sierra Naqvi, Date-Time: 11 29 2015 120 Blood specimen (specimen) 11/29/2015 11:45 AM EDT 11/29/2015 11:53 AM EDT Narrative Resulting Agency Comment Spec In Lab Xiomy Zarate MD HEMATOLOGY ORDERABLE S Performing Organization Address [facility] Co de Phone Number [facility] [place] [address] * (ABNORMAL) BLOOD GAS 2 ARTERIAL (11/29/2015 11:16 AM EDT) pH Art 7.33(L) 7.35 - 7.45 [facility] pCO2 Art 44 35 - 45 mmHg [facility] pO2 Art 278(H) 85 - 104 mmHg [facility] HCO3 Art 22.8 20.0 - 26.0 mmol/L [facility] BE Art -3.2(L) -3.0 - 3.0 mmol/L [facility] Hgb Blood Gas 10.5(L) 13.7 - 17.5 gm/dL [facility] O2HB Art 99.0(H) 94.0 - 97.0 % [facility] COHB Art 0.2 % [facility] Comment: Nonsmokers: 0.5-1.5% COHB Smokers: Variable, but usually less than 10% Toxic: 20-30% COHB Lethal: Greater than 60% COHB METHB Art 0.2 <=1.5 % [facility] Na Whole Blood 128(L) 135 - 145 mmol/L [facility] K Whole Blood 6.5(Critic al) 3.5 - 5.0 mmol/L [facility] Comment: Noted by instrument processing tech. Please note: Patients with WBC >100,000 may have falsely elevated Potassium levels. Contact the Clinical Chemistry Laboratory if there are any questions. ICa Whole Blood 0.90(Criti ton) 1.15 - 1.33 mmol/L [facility] Comment: Noted by instrument processing tech. Note: ??Total bilirubin higher than 20 mg/dL may lead to falsely low ionized calcium. CL Whole Blood 102 98 - 107 mmol/L [facility] Gluc Whole Bld 206(H) 65 - 199 mg/dL [facility] Comment:Diabetes: >=200 mg/d L plus symptoms. Blood specimen (specimen) 11/29/2015 11:16 AM EDT 11/29/2015 11:16 AM EDT Xiomy Zarate MD CHEMISTRY ORDERABLES [facility] [place] [address] * (ABNORMAL) BLOOD GAS 2 ARTERIAL (11/29/2015 10:51 AM EDT) pH Art 7.32(L) 7.35 - 7.45 [facility] pCO2 Art 46(H) 35 - 45 mmHg [facility] pO2 Art 263(H) 85 - 104 mmHg [facility] HCO3 Art 23.0 20.0 - 26.0 mmol/L [facility] BE Art -3.2(L) -3.0 - 3.0 mmol/L [facility] Hgb Blood Gas 10.2(L) 13.7 - 17.5 gm/dL [facility] O2HB Art 98.7(H) 94.0 - 97.0 % [facility] COHB Art 0.3 % [facility] Comment: Nonsmokers: 0.5-1.5% COHB Smokers: Variable, but usually less than 10% Toxic: 20-30% COHB Lethal: Greater than 60% COHB METHB Art 0.3 <=1.5 % [facility] Na Whole Blood 128(L) 135 - 145 mmol/L [facility] K Whole Blood 6.7(Critic al) 3.5 - 5.0 mmol/L [facility] Comment: Noted by instrument processing tech. Please note: Patients with WBC >100,000 may have falsely elevated Potassium levels. Contact the Clinical Chemistry Laboratory if there are any questions. ICa Whole Blood 0.88(Criti ton) 1.15 - 1.33 mmol/L [facility] Comment: Noted by instrument processing tech. Note: ??Total bilirubin higher than 20 mg/dL may lead to falsely low ionized calcium. CL Whole Blood 102 98 - 107 mmol/L [facility] Gluc Whole Bld 204(H) 65 - 199 mg/dL [facility] Comment:Diabetes: >=200 mg/d L plus symptoms. Blood specimen (specimen) 11/29/2015 10:51 AM EDT 11/29/2015 10:51 AM EDT Xiomy Zarate MD CHEMISTRY ORDERABLES [facility] [place] [address] * (ABNORMAL) BLOOD GAS 2 ARTERIAL (11/29/2015 10:20 AM EDT) pH Art 7.38 7.35 - 7.45 [facility] pCO2 Art 40 35 - 45 mmHg [facility] pO2 Art 322(H) 85 - 104 mmHg [facility] HCO3 Art 22.9 20.0 - 26.0 mmol/L [facility] BE Art -2.3 -3.0 - 3.0 mmol/L [facility] Hgb Blood Gas 9.8(L) 13.7 - 17.5 gm/dL [facility] O2HB Art 98.9(H) 94.0 - 97.0 % [facility] COHB Art 0.3 % [facility] Comment: Nonsmokers: 0.5-1.5% COHB Smokers: Variable, but usually less than 10% Toxic: 20-30% COHB Lethal: Greater than 60% COHB METHB Art 0.2 <=1.5 % [facility] Na Whole Blood 130(L) 135 - 145 mmol/L [facility] K Whole Blood 5.8(H) 3.5 - 5.0 mmol/L [facility] Comment: Please note: Patients with WBC >100,000 may have falsely elevated Potassium levels. Contact the Clinical Chemistry Laboratory if there are any questions. ICa Whole Blood 0.83(Criti ton) 1.15 - 1.33 mmol/L [facility] Comment: Noted by instrument processing tech. Note: ??Total bilirubin higher than 20 mg/dL may lead to falsely low ionized calcium. CL Whole Blood 103 98 - 107 mmol/L [facility] Gluc Whole Bld 179 65 - 199 mg/dL [facility] Comment:Diabetes: >=200 mg/d L plus symptoms. Blood specimen (specimen) 11/29/2015 10:20 AM EDT 11/29/2015 10:20 AM EDT Xiomy Zarate MD CHEMISTRY ORDERABLES [facility] [place] [address] * (ABNORMAL) BLOOD GAS 2 ARTERIAL (11/29/2015 8:19 AM EDT) pH Art 7.45 7.35 - 7.45 [facility] pCO2 Art 28(L) 35 - 45 mmHg [facility] pO2 Art 413(H) 85 - 104 mmHg [facility] HCO3 Art 19.3(L) 20.0 - 26.0 mmol/L [facility] BE Art -4.7(L) -3.0 - 3.0 mmol/L [facility] Hgb Blood Gas 14.3 13.7 - 17.5 gm/dL [facility] O2HB Art 98.8(H) 94.0 - 97.0 % [facility] COHB Art 0.7 % [facility] Comment: Nonsmokers: 0.5-1.5% COHB Smokers: Variable, but usually less than 10% Toxic: 20-30% COHB Lethal: Greater than 60% COHB METHB Art 0.2 <=1.5 % [facility] Na Whole Blood 142 135 - 145 mmol/L [facility] K Whole Blood 4.3 3.5 - 5.0 mmol/L [facility] Comment: Please note: Patients with WBC >100,000 may have falsely elevated Potassium levels. Contact the Clinical Chemistry Laboratory if there are any questions. ICa Whole Blood 1.14(L) 1.15 - 1.33 mmol/L [facility] Comment: Note: ??Total bilirubin higher than 20 mg/dL may lead to falsely low ionized calcium. CL Whole Blood 106 98 - 107 mmol/L [facility] Gluc Whole Bld 97 65 - 199 mg/dL [facility] Comment:Diabetes: >=200 mg/d L plus symptoms. Blood specimen (specimen) 11/29/2015 8:19 AM EDT 11/29/2015 8:19 AM EDT Xiomy Zarate MD CHEMISTRY ORDERABLES Performing Organization Address [facility]/ZIP Co de Phone Number [facility] [place] [address] * Prepare Coag Factors (Non-Hemophilia) (11/29/2015 6:30 AM EDT) Dispensed? Yes [facility] Blood specimen (specimen) 11/29/2015 6:30 AM EDT 11/29/2015 6:29 AM EDT Narrative Resulting Agency Comment Spec In Lab Xiomy Zarate MD BLOOD BANK PRODUCT O RDERABLES Performing Organization Address [facility]/ZIP Co de Phone Number [facility] [place] [address] * Prepare RBC (11/29/2015 6:30 AM EDT) Dispensed? Yes [facility] Blood specimen (specimen) 11/29/2015 6:30 AM EDT 11/29/2015 6:29 AM EDT Narrative Resulting Agency Comment Spec In Lab Xiomy Zarate MD BLOOD BANK PRODUCT O RDERABLES Performing Organization Address City/[facility]/ZIP Co de Phone Number [facility] [place] [address] * POCT Glucose (11/29/2015 5:36 AM EDT) POC Glucose 88 65 - 199 mg/dL [facility] Comment: Supplemental ranges: <140 mg/dL before meals <180 mg/dL all other times of the day Blood specimen (specimen) 11/29/2015 5:36 AM EDT 11/29/2015 5:36 AM EDT Xiomy Zarate MD POINT OF CARE TEST O RDERABLES [facility] [place] [address] * Differential, Automated (11/29/2015 4:40 AM EDT) Neutrophils % 64.0 % [facility] Neutr Abs (ANC) 3.90 1.50 - 6.30 x10(3)/[facility] Lymphocytes % 21.7 % [facility] Lymphocytes Abs 1.3 1.0 - 3.6 x10(3)/[facility] Monocytes % 9.2 % [facility] Monocyte Abs 0.6 0.2 - 1.0 x10(3)/[facility] Eosinophils % 4.6 % [facility] Eosinophils Abs 0.3 0.0 - 0.5 x10(3)/[facility] Basophils % 0.3 % [facility] Basophils Abs 0.0 0.0 - 0.2 x10(3)/[facility] Immature Gran % 0.20 % [facility] Comment: Immature granulocytes(IG's)percentage and absolute count will include metamyelocytes, myelocytes, and promyelocytes. Blood smears from CBCs yielding IG's will be scanned manually for concordance. If this scan disagrees with the automated IG or if promyelocytes are noted, a manual differential will be performed. Hemalatha Gran Abs 0.01 0.00 - 0.05 x10(3)/[facility] Blood specimen (specimen) 11/29/2015 4:40 AM EDT 11/29/2015 4:47 AM EDT Narrative Resulting Agency Comment Spec In Lab Julius Atkins MD HEMATOLOGY ORDERABLE S Performing Organization Address [facility] Co de Phone Number [facility] [place] [address] * (ABNORMAL) Hemogram (11/29/2015 4:40 AM EDT) WBC 6.1 4.0 - 10.0 x10(3)/[facility] RBC 5.12 4.63 - 6.08 x10(6)/[facility] Hemoglobin 14.5 13.7 - 17.5 gm/dL [facility] Hematocrit 43.7 40.0 - 51.0 % [facility] MCV 85.4 79.0 - 92.0 fL [facility] MCH 28.3 25.6 - 32.2 pg [facility] MCHC 33.2 32.0 - 36.5 gm/dL [facility] Platelets 165 145 - 370 x10(3)/[facility] RDWSD 45.3 35.0 - 46.0 fL [facility] RDWCV 14.5(H) 10.9 - 14.4 % [facility] MPV 9.5 9.0 - 12.0 fL [facility] Blood specimen (specimen) 11/29/2015 4:40 AM EDT 11/29/2015 4:47 AM EDT Narrative Resulting Agency Comment Spec In Lab Julius Atkins MD HEMATOLOGY ORDERABLE S Performing Organization Address City/[facility]/ZIP Co de Phone Number [facility] [place] [address] * BMP w/fasting Glucose (11/29/2015 4:40 AM EDT) Glucose Fasting 97 65 - 99 mg/dL [facility] Comment: ?Fasting* Glucose Interpretive Criteria Normal ?65-99 mg/dL Impaired Fasting glucose ?100-125 mg/dL Consistent with Diabetes Mellitus ? >or= 126 mg/dL *Fasting is defined as no caloric intake for at least 8 hours In the absence of unequivocal hyperglycemia a plasma glucose value of >or= 126 mg/dL should be repeated on a subsequent day. Diagnosis and Classification of Diabetes Mellitus, Position Statement from the [place] [employer]. ??Diabetes Care, Volume 33, Supplement 1, May 2009 BUN 14 10 - 20 mg/dL [facility] Creatinine 0.99 0.80 - 1.50 mg/dL [facility] Comment: Please note that the pediatric reference intervals supplied above were not validated at [facility]. Results from pediatric patients should be interpreted in conjunction to the patient's age, height and muscle mass. Sodium 139 135 - 145 mmol/L [facility] Potassium 3.9 3.5 - 5.0 mmol/L [facility] Comment: Please note: ??Patients with WBC >100,000 may have falsely elevated Potassium levels. ??For accurate Potassium quantification in these patients send serum separator tube (gold top) for subsequent determinations. ??Contact the Clinical Chemistry Laboratory if there are any questions. Chloride 103 98 - 107 mmol/L [facility] CO2 23 22 - 31 mmol/L [facility] Anion Gap 13 5 - 15 mmol/L [facility] Calcium 9.0 8.5 - 10.5 mg/dL [facility] Estimated GFR >60 >=60 [facility] Comment: This estimated GFR (eGFR) value was calculated using the MDRD equation which has been validated on patients between the ages of 18 and 70. The MDRD should not be used to assess kidney function in patients < 18 years of age or in patients with extremes of body mass, or in patients with acute kidney failure. This value should be multiplied by 1.2 for patients. For further information please copy and paste the following links into your internet browser. [email or web address] [email or web address] Blood specimen (specimen) 11/29/2015 4:40 AM EDT 11/29/2015 4:47 AM EDT Narrative Resulting Agency Comment Spec In Lab Julius Atkins MD CHEMISTRY ORDERABLES Performing Organization Address [facility] de Phone Number [facility] [place] [address] * EKG 12 Lead (11/28/2015 7:44 AM EDT) Ventricular rate 67 BPM MUSE SYSTEM Atrial Rate 67 BPM MUSE SYSTEM P-R Interval 140 ms MUSE SYSTEM QRS Duration 92 ms MUSE SYSTEM Q-T Interval 416 ms MUSE SYSTEM QTC Calculated (Bezet) 439 ms MUSE SYSTEM Calculated P [place] 61 degrees MUSE SYSTEM Calculated R [place] 0 degrees MUSE SYSTEM Calculated T [place] 20 degrees MUSE SYSTEM INTERPRETATION Normal sinus rhythm Normal ECG When compared with ECG of 27-NOV-2015 07:34, No significant change was found Confirmed by MD TIAGO, DILAN ([id number]) on 11/28/2015 11:32:01 AM MUSE SYSTEM 11/28/2015 7:44 AM EDT 11/28/2015 11:32 AM EDT Julius Atkins MD ECG ORDERABLES Performing Organization Address [facility] de Phone Number MUSE SYSTEM * Differential, Automated (11/28/2015 5:52 AM EDT) Neutrophils % 64.2 % [facility] Neutr Abs (ANC) 3.36 1.50 - 6.30 x10(3)/[facility] Lymphocytes % 19.3 % [facility] Lymphocytes Abs 1.0 1.0 - 3.6 x10(3)/[facility] Monocytes % 10.7 % [facility] Monocyte Abs 0.6 0.2 - 1.0 x10(3)/[facility] Eosinophils % 4.8 % [facility] Eosinophils Abs 0.2 0.0 - 0.5 x10(3)/[facility] Basophils % 0.8 % [facility] Basophils Abs 0.0 0.0 - 0.2 x10(3)/[facility] Immature Gran % 0.20 % [facility] Comment: Immature granulocytes(IG's)percentage and absolute count will include metamyelocytes, myelocytes, and promyelocytes. Blood smears from CBCs yielding IG's will be scanned manually for concordance. If this scan disagrees with the automated IG or if promyelocytes are noted, a manual differential will be performed. Hemalatha Gran Abs 0.01 0.00 - 0.05 x10(3)/[facility] Blood specimen (specimen) 11/28/2015 5:52 AM EDT 11/28/2015 6:17 AM EDT Narrative Resulting Agency Comment Spec In Lab Julius Atkins MD HEMATOLOGY ORDERABLE S [facility] [place] [address] * Hemogram (11/28/2015 5:52 AM EDT) WBC 5.2 4.0 - 10.0 x10(3)/[facility] RBC 5.03 4.63 - 6.08 x10(6)/[facility] Hemoglobin 14.6 13.7 - 17.5 gm/dL [facility] Hematocrit 43.1 40.0 - 51.0 % [facility] MCV 85.7 79.0 - 92.0 fL [facility] MCH 29.0 25.6 - 32.2 pg [facility] MCHC 33.9 32.0 - 36.5 gm/dL [facility] Platelets 163 145 - 370 x10(3)/[facility] RDWSD 44.5 35.0 - 46.0 fL [facility] RDWCV 14.4 10.9 - 14.4 % [facility] MPV 9.7 9.0 - 12.0 fL [facility] Blood specimen (specimen) 11/28/2015 5:52 AM EDT 11/28/2015 6:17 AM EDT Narrative Resulting Agency Comment Spec In Lab Julius Atkins MD HEMATOLOGY ORDERABLE S [facility] [place] [address] * Antibody screen (11/28/2015 5:52 AM EDT) Ab Screen Interp Negative [facility] Expires at [id number] on: 12/01/2015 [facility] Blood specimen (specimen) 11/28/2015 5:52 AM EDT 11/28/2015 6:01 AM EDT Narrative Resulting Agency Comment Spec In Lab Yash Benton MD BLOOD BANK LAB ORD ERABLES Performing Organization Address City/[facility]/ZIP Co de Phone Number [facility] [place] [address] * ABO/Rh Typing (11/28/2015 5:52 AM EDT) ABORH Type B Pos [facility] Blood specimen (specimen) 11/28/2015 5:52 AM EDT 11/28/2015 6:01 AM EDT Narrative Resulting Agency Comment Spec In Lab Yash Benton MD BLOOD BANK LAB ORD ERABLES Performing Organization Address City/[facility]/ZIP Co de Phone Number [facility] [place] [address] * (ABNORMAL) BMP w/fasting Glucose (11/28/2015 5:52 AM EDT) Glucose Fasting 102(H) 65 - 99 mg/dL [facility] Comment: ?Fasting* Glucose Interpretive Criteria Normal ?65-99 mg/dL Impaired Fasting glucose ?100-125 mg/dL Consistent with Diabetes Mellitus ? >or= 126 mg/dL *Fasting is defined as no caloric intake for at least 8 hours In the absence of unequivocal hyperglycemia a plasma glucose value of >or= 126 mg/dL should be repeated on a subsequent day. Diagnosis and Classification of Diabetes Mellitus, Position Statement from the [employer]. ??Diabetes Care, Volume 33, Supplement 1, May 2009 BUN 13 10 - 20 mg/dL [facility] Creatinine 0.90 0.80 - 1.50 mg/dL [place] [facility] Comment: Please note that the pediatric reference intervals supplied above were not validated at [facility]. Results from pediatric patients should be interpreted in conjunction to the patient's age, height and muscle mass. Sodium 139 135 - 145 mmol/L [facility] Potassium 4.1 3.5 - 5.0 mmol/L [facility] Comment: Please note: ??Patients with WBC >100,000 may have falsely elevated Potassium levels. ??For accurate Potassium quantification in these patients send serum separator tube (gold top) for subsequent determinations. ??Contact the Clinical Chemistry Laboratory if there are any questions. Chloride 104 98 - 107 mmol/L [facility] CO2 20(L) 22 - 31 mmol/L [facility] Anion Gap 15 5 - 15 mmol/L [facility] Calcium 8.8 8.5 - 10.5 mg/dL [facility] Estimated GFR >60 >=60 [facility] Comment: This estimated GFR (eGFR) value was calculated using the MDRD equation which has been validated on patients between the ages of 18 and 70. The MDRD should not be used to assess kidney function in patients < 18 years of age or in patients with extremes of body mass, or in patients with acute kidney failure. This value should be multiplied by 1.2 for patients. For further information please copy and paste the following links into your internet browser. [email or web address] Blood specimen (specimen) 11/28/2015 5:52 AM EDT 11/28/2015 6:17 AM EDT Narrative Resulting Agency Comment Spec In Lab Julius Atkins MD CHEMISTRY ORDERABLES Performing Organization Address [facility] de Phone Number [facility] [place] [address] * EKG 12 Lead (11/27/2015 7:34 AM EDT) Ventricular rate 75 BPM MUSE SYSTEM Atrial Rate 75 BPM MUSE SYSTEM P-R Interval 132 ms MUSE SYSTEM QRS Duration 90 ms MUSE SYSTEM Q-T Interval 404 ms MUSE SYSTEM QTC Calculated (Bezet) 451 ms MUSE SYSTEM Calculated P [place] 56 degrees MUSE SYSTEM Calculated R [place] -3 degrees MUSE SYSTEM Calculated T [place] 17 degrees MUSE SYSTEM INTERPRETATION Normal sinus rhythm with sinus arrhythmia Normal ECG When compared with ECG of 26-NOV-2015 14:09, No significant change was found Confirmed by MD Thurman Douglas ([id number]) on 11/27/2015 8:55:09 AM MUSE SYSTEM 11/27/2015 7:34 AM EDT 11/27/2015 8:55 AM EDT Julius Atkins MD ECG ORDERABLES Performing Organization Address [facility] de Phone Number MUSE SYSTEM * Cardiac Enzymes (11/27/2015 5:32 AM EDT) Troponin-T <0.03 <=0.03 ng/mL [facility] Comment: 0.03 ng/mL: Represents the 99th percentile upper reference limit for normals. >0.03 ng/mL: Elevated cardiac troponin T level indicative of myocardial damage. Diagnosis of acute, evolving or recent UT requires a typical rise and gradual fall of cTnT with at least ONE of the following: a) Ischemic symptoms b) Development of pathologic Q waves on the ECG c) ECG changes indicative of eschemia (S-T segment elevation/depression) d) Coronary artery intervention Serial bloods should be obtained for testing on admission, at 6 to 9 hrs and again at 12 to 24 hrs if earlier samples are negative and the clinical index of suspicion is high. Reference: [Myocardial infarction redefined? a consensus document of the Joint Society of Cardiology/[place] [employer] Committee for the redefinition of myocardial infarction. ??Journal of the [place] College [employer]iology 2000; 36: 959-969] CK, Total 57 0 - 200 unit/L [facility] Blood specimen (specimen) Venous Draw / Unknown 11/27/2015 5:32 AM EDT 11/27/2015 5:55 AM EDT Narrative Resulting Agency Comment Spec In Lab Julius Atkins MD CHEMISTRY ORDERABLES [facility] [place] [address] * Differential, Automated (11/27/2015 5:32 AM EDT) Neutrophils % 64.8 % [facility] Neutr Abs (ANC) 2.93 1.50 - 6.30 x10(3)/[facility] Lymphocytes % 21.2 % [facility] Lymphocytes Abs 1.0 1.0 - 3.6 x10(3)/[facility] Monocytes % 8.8 % [facility] Monocyte Abs 0.4 0.2 - 1.0 x10(3)/[facility] Eosinophils % 4.6 % [facility] Eosinophils Abs 0.2 0.0 - 0.5 x10(3)/[facility] Basophils % 0.4 % [facility] Basophils Abs 0.0 0.0 - 0.2 x10(3)/[facility] Immature Gran % 0.20 % [facility] Comment: Immature granulocytes(IG's)percentage and absolute count will include metamyelocytes, myelocytes, and promyelocytes. Blood smears from CBCs yielding IG's will be scanned manually for concordance. If this scan disagrees with the automated IG or if promyelocytes are noted, a manual differential will be performed. Hemalatha Gran Abs 0.01 0.00 - 0.05 x10(3)/[facility] Blood specimen (specimen) 11/27/2015 5:32 AM EDT 11/27/2015 5:53 AM EDT Narrative Resulting Agency Comment Spec In Lab Julius Atkins MD HEMATOLOGY ORDERABLE S Performing Organization Address City/[facility]/ZIP Co de Phone Number [facility] [place] [address] * Hemogram (11/27/2015 5:32 AM EDT) WBC 4.5 4.0 - 10.0 x10(3)/[facility] RBC 4.87 4.63 - 6.08 x10(6)/[facility] Hemoglobin 13.9 13.7 - 17.5 gm/dL [facility] Hematocrit 41.4 40.0 - 51.0 % [facility] MCV 85.0 79.0 - 92.0 fL [facility] MCH 28.5 25.6 - 32.2 pg [facility] MCHC 33.6 32.0 - 36.5 gm/dL [facility] Platelets 154 145 - 370 x10(3)/[facility] RDWSD 44.2 35.0 - 46.0 fL [facility] RDWCV 14.1 10.9 - 14.4 % [facility] MPV 9.6 9.0 - 12.0 fL [facility] Blood specimen (specimen) 11/27/2015 5:32 AM EDT 11/27/2015 5:53 AM EDT Narrative Resulting Agency Comment Spec In Lab Julius Atkins MD HEMATOLOGY ORDERABLE S [facility] [place] [address] * (ABNORMAL) BMP w/fasting Glucose (11/27/2015 5:32 AM EDT) [facility] Signature Glucose Fasting 108(H) 65 - 99 mg/dL [facility] Comment: ?Fasting* Glucose Interpretive Criteria Normal ?65-99 mg/dL Impaired Fasting glucose ?100-125 mg/dL Consistent with Diabetes Mellitus ? >or= 126 mg/dL *Fasting is defined as no caloric intake for at least 8 hours In the absence of unequivocal hyperglycemia a plasma glucose value of >or= 126 mg/dL should be repeated on a subsequent day. Diagnosis and Classification of Diabetes Mellitus, Position Statement from the [place] [employer]. ??Diabetes Care, Volume 33, Supplement 1, May 2009 BUN 12 10 - 20 mg/dL [facility] Creatinine 0.90 0.80 - 1.50 mg/dL [facility] Comment: Please note that the pediatric reference intervals supplied above were not validated at [facility]. Results from pediatric patients should be interpreted in conjunction to the patient's age, height and muscle mass. Sodium 140 135 - 145 mmol/L [facility] Potassium 4.0 3.5 - 5.0 mmol/L [facility] Comment: Please note: ??Patients with WBC >100,000 may have falsely elevated Potassium levels. ??For accurate Potassium quantification in these patients send serum separator tube (gold top) for subsequent determinations. ??Contact the Clinical Chemistry Laboratory if there are any questions. Chloride 105 98 - 107 mmol/L [facility] CO2 22 22 - 31 mmol/L [facility] Anion Gap 13 5 - 15 mmol/L [facility] Calcium 8.7 8.5 - 10.5 mg/dL [facility] Estimated GFR >60 >=60 [facility] Comment: This estimated GFR (eGFR) value was calculated using the MDRD equation which has been validated on patients between the ages of 18 and 70. The MDRD should not be used to assess kidney function in patients < 18 years of age or in patients with extremes of body mass, or in patients with acute kidney failure. This value should be multiplied by 1.2 for patients. For further information please copy and paste the following links into your internet browser. [email or web address] Blood specimen (specimen) 11/27/2015 5:32 AM EDT 11/27/2015 5:53 AM EDT Narrative Resulting Agency Comment Spec In Lab Julius Atkins MD CHEMISTRY ORDERABLES Performing Organization Address [facility] Co de Phone Number [facility] [place] [phone] * EKG 12 Lead (11/26/2015 2:09 PM EDT) Ventricular rate 77 BPM MUSE SYSTEM Atrial Rate 77 BPM MUSE SYSTEM P-R Interval 136 ms MUSE SYSTEM QRS Duration 92 ms MUSE SYSTEM Q-T Interval 382 ms MUSE SYSTEM QTC Calculated (Bezet) 432 ms MUSE SYSTEM Calculated P [place] 66 degrees MUSE SYSTEM Calculated R [place] 6 degrees MUSE SYSTEM Calculated T [place] 34 degrees MUSE SYSTEM INTERPRETATION Normal sinus rhythm Normal ECG When compared with ECG of 26-NOV-2015 07:21, No significant change was found Confirmed by MD Olman, Nando ([id number]) on 11/26/2015 5:23:45 PM MUSE SYSTEM 11/26/2015 2:09 PM EDT 11/26/2015 5:23 PM EDT Xiomy Zarate MD ECG ORDERABLES Performing Organization Address [facility] Co de Phone Number MUSE SYSTEM * EKG 12 Lead (11/26/2015 7:21 AM EDT) Ventricular rate 76 BPM MUSE SYSTEM Atrial Rate 76 BPM MUSE SYSTEM P-R Interval 140 ms MUSE SYSTEM QRS Duration 94 ms MUSE SYSTEM Q-T Interval 396 ms MUSE SYSTEM QTC Calculated (Bezet) 445 ms MUSE SYSTEM Calculated P [place] 60 degrees MUSE SYSTEM Calculated R [place] -10 degrees MUSE SYSTEM Calculated T [place] 21 degrees MUSE SYSTEM INTERPRETATION Normal sinus rhythm Normal ECG When compared with ECG of 25-NOV-2015 08:38, No significant change was found Confirmed by MD Ben, Van ([id number]) on 11/26/2015 8:41:00 AM MUSE SYSTEM 11/26/2015 7:21 AM EDT 11/26/2015 8:41 AM EDT Julius Atkins MD ECG ORDERABLES MUSE SYSTEM * (ABNORMAL) Differential, Automated (11/26/2015 3:51 AM EDT) Neutrophils % 72.1 % [facility] Neutr Abs (ANC) 3.44 1.50 - 6.30 x10(3)/[facility] Lymphocytes % 15.5 % [facility] Lymphocytes Abs 0.7(L) 1.0 - 3.6 x10(3)/[facility] Monocytes % 8.6 % [facility] Monocyte Abs 0.4 0.2 - 1.0 x10(3)/[facility] Eosinophils % 3.4 % [facility] Eosinophils Abs 0.2 0.0 - 0.5 x10(3)/[facility] Basophils % 0.2 % [facility] Basophils Abs 0.0 0.0 - 0.2 x10(3)/[facility] Immature Gran % 0.20 % [facility] Comment: Immature granulocytes(IG's)percentage and absolute count will include metamyelocytes, myelocytes, and promyelocytes. Blood smears from CBCs yielding IG's will be scanned manually for concordance. If this scan disagrees with the automated IG or if promyelocytes are noted, a manual differential will be performed. Hemalatha Gran Abs 0.01 0.00 - 0.05 x10(3)/[facility] Blood specimen (specimen) 11/26/2015 3:51 AM EDT 11/26/2015 3:58 AM EDT Narrative Resulting Agency Comment Spec In Lab Julius Atkins MD HEMATOLOGY ORDERABLE S Performing Organization Address City/[facility]/ZIP Co de Phone Number [facility] [place] [address] * (ABNORMAL) Hemogram (11/26/2015 3:51 AM EDT) WBC 4.8 4.0 - 10.0 x10(3)/[facility] RBC 4.80 4.63 - 6.08 x10(6)/[facility] Hemoglobin 13.5(L) 13.7 - 17.5 gm/dL [facility] Hematocrit 41.1 40.0 - 51.0 % [facility] MCV 85.6 79.0 - 92.0 fL [facility] MCH 28.1 25.6 - 32.2 pg [facility] MCHC 32.8 32.0 - 36.5 gm/dL [facility] Platelets 129(L) 145 - 370 x10(3)/[facility] RDWSD 44.9 35.0 - 46.0 fL [facility] RDWCV 14.4 10.9 - 14.4 % [facility] MPV 9.2 9.0 - 12.0 fL [facility] Blood specimen (specimen) 11/26/2015 3:51 AM EDT 11/26/2015 3:58 AM EDT Narrative Resulting Agency Comment Spec In Lab Julius Atkins MD HEMATOLOGY ORDERABLE S Performing Organization Address City/[facility]/ZIP Co de Phone Number [facility] [place] [address] * (ABNORMAL) BMP w/fasting Glucose (11/26/2015 3:51 AM EDT) [facility] Glucose Fasting 105(H) 65 - 99 mg/dL [facility] Comment: ?Fasting* Glucose Interpretive Criteria Normal ?65-99 mg/dL Impaired Fasting glucose ?100-125 mg/dL Consistent with Diabetes Mellitus ? >or= 126 mg/dL *Fasting is defined as no caloric intake for at least 8 hours In the absence of unequivocal hyperglycemia a plasma glucose value of >or= 126 mg/dL should be repeated on a subsequent day. Diagnosis and Classification of Diabetes Mellitus, Position Statement from the [place] [employer]. ??Diabetes Care, Volume 33, Supplement 1, May 2009 BUN 15 10 - 20 mg/dL [facility] Creatinine 0.95 0.80 - 1.50 mg/dL [facility] Comment: Please note that the pediatric reference intervals supplied above were not validated at [facility]. Results from pediatric patients should be interpreted in conjunction to the patient's age, height and muscle mass. Sodium 139 135 - 145 mmol/L [facility] Potassium 3.9 3.5 - 5.0 mmol/L [facility] Comment: Please note: ??Patients with WBC >100,000 may have falsely elevated Potassium levels. ??For accurate Potassium quantification in these patients send serum separator tube (gold top) for subsequent determinations. ??Contact the Clinical Chemistry Laboratory if there are any questions. Chloride 105 98 - 107 mmol/L [facility] CO2 21(L) 22 - 31 mmol/L [facility] Anion Gap 13 5 - 15 mmol/L [facility] Calcium 8.4(L) 8.5 - 10.5 mg/dL [facility] Estimated GFR >60 >=60 [facility] Comment: This estimated GFR (eGFR) value was calculated using the MDRD equation which has been validated on patients between the ages of 18 and 70. The MDRD should not be used to assess kidney function in patients < 18 years of age or in patients with extremes of body mass, or in patients with acute kidney failure. This value should be multiplied by 1.2 for patients. For further information please copy and paste the following links into your internet browser. [email or web address] Blood specimen (specimen) 11/26/2015 3:51 AM EDT 11/26/2015 3:58 AM EDT Narrative Resulting Agency Comment Spec In Lab Julius Atkins MD CHEMISTRY ORDERABLES Performing Organization Address [facility] Co de Phone Number [facility] [place] [address] * Triglyceride (11/26/2015 3:51 AM EDT) Triglycerides 105 <=149 mg/dL [facility] Comment: Reference Range: Normal triglycerides: ??<150 mg/dL Borderline high: ??150-199 mg/dL High: ??200-499 mg/dL Very high: ??>jm=296 mg/dL AMARA 2001; 285(54):0461-2275 Blood specimen (specimen) 11/26/2015 3:51 AM EDT 11/26/2015 3:58 AM EDT Narrative Resulting Agency Comment Spec In Lab Julius Atkins MD CHEMISTRY ORDERABLES Performing Organization Address [facility] Co de Phone Number [facility] [place] [address] * HDL/Cholesterol Profile (11/26/2015 3:51 AM EDT) Chol, Total 176 <=199 mg/dL [facility] Comment: Recommendations of the NCEP Adult Treatment Panel for the following risk cutoff thresholds for the [place] population: Desirable: <200 mg/dL Borderline High: 200-239 mg/dL High: > or = 240 mg/dL HDL 44 >=40 mg/dL [facility] Comment: Reference range: ??Low HDL: ?? < 40 mg/dL ??Normal: ?40-60 mg/dL ??Desirable: > 60 mg/dL AMARA 2001; 285(19):7446-2705 Chol/HDL Ratio 4.0 ratio [facility] Comment: A Cholesterol to HDL ratio below 4:1 is desirable. ??Studies suggest that increased CAD risk occurs at ratios above 5 for females and above 6 for men. ? [place] Heart Association ??(http://www.americanheart.org) ? Bita Int Med, 1994; 121:641 ? AM J Med, 1998; 105(1A):48S Blood specimen (specimen) 11/26/2015 3:51 AM EDT 11/26/2015 3:58 AM EDT Narrative Resulting Agency Comment Spec In Lab Julius Atikns MD CHEMISTRY ORDERABLES [facility] [place] [address] * (ABNORMAL) LDL Cholesterol, Direct (11/26/2015 3:51 AM EDT) LDL Chol Direct 128(H) <=99 mg/dL [facility] Comment: The National Cholesterol Education Program (NCEP) has set the following guidelines for LDL Cholesterol: Reference range: ?? Optimal: ?<100 mg/dL ?? Near Optimal/Above Optimal: ?? 100-129 mg/dL ?? Borderline high: ?130-159 mg/dL ?? High: ? 160-189 mg/dL ?? Very high: ?>jc=396 mg/dL AMARA 2001: 285(19):6281-6419 Blood specimen (specimen) 11/26/2015 3:51 AM EDT 11/26/2015 3:58 AM EDT Narrative Resulting Agency Comment Spec In Lab Julius Atkins MD CHEMISTRY ORDERABLES [facility] [place] [address] * (ABNORMAL) Hemoglobin A1c (11/26/2015 3:51 AM EDT) Hemoglobin A1C 5.7(H) 4.3 - 5.6 % [facility] Comment: Reference Range: 4.3 - 5.6% 5.7 - 6.4% - Increased Risk of Developing Diabetes Mellitus >= 6.5% - Consistent with diagnosis of Diabetes Mellitus In the absence of hyperglycemia (i.e. plasma glucose > 200 mg/dL) or classic symptoms of hyperglycemia a repeat measurement of HbA1c should be performed on a separate sample to confirm the diagnosis. Diagnosis and Classification of Diabetes Mellitus, Diabetes Care 2013; 36: Suppl. 1, J57-88 Est Avg Gluc 117 mg/dL [facility] Comment: eAG equivalents for HbA1c percentages: HbA1c(%) ?eAG(mg/dL) 6.0 ?126 6.5 ?140 7.0 ?154 7.5 ?169 8.0 ?183 8.5 ?197 9.0 ?212 9.5 ?226 10.0 ? 240 Limitations: The eAG calculation has not been validated on women, individuals below 18 years old and above 70 years old, and individuals with hemoglobinopathies. Additional resources are available on the ADA website: [email or web address] Amaury ESPARZA, Betty J, [place] R, et al. ??Translating the A1C assay into estimated average glucose values. ??Diabetes Care 2008:31(8):0044-1975. Blood specimen (specimen) 11/26/2015 3:51 AM EDT 11/26/2015 3:59 AM EDT Narrative Resulting Agency Comment Spec In Lab Julius Atkins MD CHEMISTRY ORDERABLES Performing Organization Address City/State/[facility] Co de Phone Number [facility] [place] [phone] * XR Chest PA & Lateral (Generic) (11/25/2015 6:05 PM EDT) Anatomical Region Laterality Modality Chest N/A Digital Radiogra phy Addenda Addendum by Heather Christensen MD on 12/28/2015 8:51 PM EDT CLINICAL HISTORY: ??progressive angina and a positive stress test, pre-op CABG. Addendum by Heather Christensen MD on 12/10/2015 9:15 AM EDT CLINICAL HISTORY: ??progressive angina and a positive stress test, pre-op CABG. Impressions 11/25/2015 6:46 PM EDT No radiographic evidence of active cardiopulmonary disease. Narrative 11/25/2015 6:46 PM EDT EXAMINATION: XR CHEST ROUTINE PA AND LATERAL CLINICAL HISTORY: Pre-op CABG TECHNIQUE: Frontal and lateral radiographs of the chest COMPARISON: None FINDINGS: Cardiomediastinal contours are within normal limits. Lungs are clear. No pleural effusions. Mild degenerative changes of the midthoracic spine. Procedure Note Heather Christensen MD - 11/25/2015 EXAMINATION: XR CHEST ROUTINE PA AND LATERAL CLINICAL HISTORY: Pre-op CABG TECHNIQUE: Frontal and lateral radiographs of the chest COMPARISON: None FINDINGS: Cardiomediastinal contours are within normal limits. Lungs are clear. No pleural effusions. Mild degenerative changes of the midthoracic spine. IMPRESSION No radiographic evidence of active cardiopulmonary disease. Julius Atkins MD IMG DX ORDERABLES * (ABNORMAL) Differential, Automated (11/25/2015 4:07 PM EDT) Neutrophils % 74.4 % [facility] Neutr Abs (ANC) 3.74 1.50 - 6.30 x10(3)/[facility] Lymphocytes % 14.5 % [facility] Lymphocytes Abs 0.7(L) 1.0 - 3.6 x10(3)/[facility] Monocytes % 8.5 % [facility] Monocyte Abs 0.4 0.2 - 1.0 x10(3)/[facility] Eosinophils % 2.4 % [facility] Eosinophils Abs 0.1 0.0 - 0.5 x10(3)/[facility] Basophils % 0.2 % [facility] Basophils Abs 0.0 0.0 - 0.2 x10(3)/[facility] Immature Gran % 0.00 % [facility] Comment: Immature granulocytes(IG's)percentage and absolute count will include metamyelocytes, myelocytes, and promyelocytes. Blood smears from CBCs yielding IG's will be scanned manually for concordance. If this scan disagrees with the automated IG or if promyelocytes are noted, a manual differential will be performed. Hemalatha Gran Abs 0.00 0.00 - 0.05 x10(3)/[facility] Blood specimen (specimen) 11/25/2015 4:07 PM EDT 11/25/2015 4:15 PM EDT Narrative Resulting Agency Comment Spec In Lab Julius Atkins MD HEMATOLOGY ORDERABLE S [facility] [place] [address] * (ABNORMAL) Hemogram (11/25/2015 4:07 PM EDT) WBC 5.0 4.0 - 10.0 x10(3)/[facility] RBC 4.64 4.63 - 6.08 x10(6)/[facility] Hemoglobin 13.3(L) 13.7 - 17.5 gm/dL [facility] Hematocrit 39.8(L) 40.0 - 51.0 % [facility] MCV 85.8 79.0 - 92.0 fL [facility] MCH 28.7 25.6 - 32.2 pg [facility] MCHC 33.4 32.0 - 36.5 gm/dL [facility] Platelets 159 145 - 370 x10(3)/[facility] RDWSD 45.9 35.0 - 46.0 fL [facility] RDWCV 14.7(H) 10.9 - 14.4 % [facility] MPV 9.2 9.0 - 12.0 fL [facility] Blood specimen (specimen) 11/25/2015 4:07 PM EDT 11/25/2015 4:15 PM EDT Narrative Resulting Agency Comment Spec In Lab Julius Atkins MD HEMATOLOGY ORDERABLE S Performing Organization Address City/State/[facility] Co de Phone Number [facility] [place] [address] * Hepatic Function Panel (11/25/2015 4:07 PM EDT) Total Protein 6.5 6.1 - 8.0 gm/dL [facility] Albumin 4.1 3.2 - 5.2 gm/dL [facility] AST 15 0 - 39 unit/L [facility] ALT 14 0 - 55 unit/L [facility] Alk Phos 62 40 - 120 unit/L [facility] Total Bilirubin 0.4 0.2 - 1.3 mg/dL [facility] Bili, Direct 0.1 0.0 - 0.3 mg/dL [facility] Blood specimen (specimen) 11/25/2015 4:07 PM EDT 11/25/2015 4:15 PM EDT Narrative Resulting Agency Comment Spec In Lab Julius Atkins MD CHEMISTRY ORDERABLES Performing Organization Address City/[facility] Co de Phone Number [facility] [place] [address] * TSH (11/25/2015 4:07 PM EDT) TSH 1.48 0.27 - 4.20 mcIU/mL [facility] Blood specimen (specimen) 11/25/2015 4:07 PM EDT 11/25/2015 4:15 PM EDT Narrative Resulting Agency Comment Spec In Lab Julius Atkins MD CHEMISTRY ORDERABLES Performing Organization Address [facility] de Phone Number [facility] [place] [address] * Prothrombin Time (11/25/2015 4:07 PM EDT) PT 12.7 12.0 - 15.0 sec [facility] Comment: An INR <2.0 indicates adequate procoagulant activity for hemostasis in most patients without underlying bleeding disorders, though the INR may not adequately reflect hemostatic capacity in patients with liver disease and synthetic impairment. The recommended target INR range for therapeutic anticoagulation is 2.0 ? 3.0 for most applications, though lower and higher ranges may be appropriate depending on clinical circumstances. INR 0.9 0.9 - 1.1 [facility] Blood specimen (specimen) 11/25/2015 4:07 PM EDT 11/25/2015 4:15 PM EDT Narrative Resulting Agency Comment Spec In Lab Julius Atkins MD HEMATOLOGY ORDERABLE S Performing Organization Address City/[facility] Co de Phone Number [facility] [place] [address] * Basic Metabolic Panel (non-fasting) (11/25/2015 4:07 PM EDT) Glucose Lvl 87 65 - 199 mg/dL [facility] Comment:Diabetes: >=200 mg/d L plus symptoms BUN 14 10 - 20 mg/dL [facility] Creatinine 0.97 0.80 - 1.50 mg/dL [facility] Comment: Please note that the pediatric reference intervals supplied above were not validated at [facility]. Results from pediatric patients should be interpreted in conjunction to the patient's age, height and muscle mass. Sodium 139 135 - 145 mmol/L [facility] Potassium 3.8 3.5 - 5.0 mmol/L [facility] Comment: Please note: ??Patients with WBC >100,000 may have falsely elevated Potassium levels. ??For accurate Potassium quantification in these patients send serum separator tube (gold top) for subsequent determinations. ??Contact the Clinical Chemistry Laboratory if there are any questions. Chloride 102 98 - 107 mmol/L [facility] CO2 23 22 - 31 mmol/L [facility] Anion Gap 14 5 - 15 mmol/L [facility] Calcium 8.6 8.5 - 10.5 mg/dL [facility] Estimated GFR >60 >=60 [facility] Comment: This estimated GFR (eGFR) value was calculated using the MDRD equation which has been validated on patients between the ages of 18 and 70. The MDRD should not be used to assess kidney function in patients < 18 years of age or in patients with extremes of body mass, or in patients with acute kidney failure. This value should be multiplied by 1.2 for patients. For further information please copy and paste the following links into your internet browser. [email or web address] Blood specimen (specimen) 11/25/2015 4:07 PM EDT 11/25/2015 4:15 PM EDT Narrative Resulting Agency Comment Spec In Lab Julius Atkins MD CHEMISTRY ORDERABLES [facility] [place] [address] * EKG 12 Lead (11/25/2015 8:38 AM EDT) Ventricular rate 57 BPM MUSE SYSTEM Atrial Rate 57 BPM MUSE SYSTEM P-R Interval 140 ms MUSE SYSTEM QRS Duration 92 ms MUSE SYSTEM Q-T Interval 426 ms MUSE SYSTEM QTC Calculated (Bezet) 414 ms MUSE SYSTEM Calculated P [place] 62 degrees MUSE SYSTEM Calculated R [place] -2 degrees MUSE SYSTEM Calculated T [place] 11 degrees MUSE SYSTEM INTERPRETATION Sinus bradycardia Otherwise normal ECG No previous ECGs available Confirmed by MD Ben, Van ([id number]) on 11/25/2015 4:05:55 PM MUSE SYSTEM 11/25/2015 8:38 AM EDT 11/25/2015 4:05 PM EDT Xiomy Zarate MD ECG ORDERABLES MUSE SYSTEM documented in this encounter Visit Diagnoses Diagnosis 3-vessel CAD- Primary Unspecified cardiovascular disease ASCVD (arteriosclerotic cardiovascular disease) Unspecified cardiovascular disease S/P CABG x 4 Postsurgical aortocoronary bypass status Hypothyroidism Unspecified hypothyroidism S/P CABG x 4 Postsurgical aortocoronary bypass status documented in this encounter Admitting Diagnoses Diagnosis Coronary artery disease Coronary atherosclerosis of unspecified type of vessel, pilot point or graft documented in this encounter Administered Medications Inactive Administered Medications - up to 3 most recent administrations Medication Order MAR Action Action Date Dose Rate Site acetaminophen (OFIRMEV) injection 1,000 mg 1,000 mg, Intravenous, at 400 mL/hr, Administer over 15 Minutes, EVERY 8 HOURS SCHEDULED, 3 doses, First dose on Sun11/29/15 at 2130, Last dose on Sun11/30/15 at 1400, Maximum dose of acetaminophen is 4000 mg from all sources in 24 hours., Routine, Is ketorolac (Toradol) IV contraindicated? Yes, Can this patient tolerate oral medications or suppositories? No Given 11/30/2015 5:05 AM EDT 1,000 mg 400 mL/hr Given 11/29/2015 10:15 PM EDT 1,000 mg 400 mL/hr acetaminophen (TYLENOL) tablet 1,000 mg 1,000 mg, Oral, EVERY 6 HOURS SCHEDULED, First dose on Sun11/29/15 at 1800, Until Discontinued, For pain when taking by mouth , Routine Given 12/04/2015 6:39 AM EDT 1,000 mg Given 12/04/2015 12:02 AM EDT 1,000 mg Given 12/03/2015 5:19 PM EDT 1,000 mg acetaminophen (TYLENOL) tablet 650 mg 650 mg, Oral, EVERY 4 HOURS PRN, Starting on Shana 11/25/15 at 1520, Until Sun11/29/15 at 1358, Pain, Maximum dose of acetaminophen is 4000 mg from all sources in 24 hours., Routine Given 11/25/2015 3:53 PM EDT 650 mg albumin, human 5% 250 mL bottle Intravenous, ONCE, 1 dose, On Sun11/29/15 at 1445, PRN as needed for volume replacement to maintain cardiac index greater than or equal to 2.0 L/min/M2, Recovery (Recovery-Hospital Unit), STAT Given 11/29/2015 3:17 PM EDT 25 g albumin, human 5% 250 mL bottle Intravenous, ONCE, 1 dose, On Sun11/29/15 at 1800, STAT Given 11/29/2015 5:48 PM EDT 25 g aspirin chewable tablet 81 mg 81 mg, Oral, DAILY, First dose on Sun11/26/15 at 0900, Until Discontinued, Routine Given 11/29/2015 5:44 AM EDT 81 mg Given 11/28/2015 9:05 AM EDT 81 mg Given 11/27/2015 8:57 AM EDT 81 mg aspirin chewable tablet 81 mg 81 mg, Oral, DAILY, First dose on Sun11/30/15 at 0900, Until Discontinued, Start on post-op day 1 in the AM., Routine Given 12/04/2015 8:58 AM EDT 81 mg Given 12/03/2015 8:28 AM EDT 81 mg Given 12/02/2015 8:28 AM EDT 81 mg aspirin suppository 300 mg 300 mg, Rectal, DAILY, First dose on Sun11/30/15 at 0900, Until Discontinued, Start on post-op day 1 in the AM, Routine atorvastatin (LIPITOR) tablet 20 mg 20 mg, Oral, EVERY EVENING, First dose (after last modification) on Sun12/02/15 at 1700, Until Discontinued, Routine Given 12/03/2015 5:19 PM EDT 20 mg Given 12/02/2015 4:59 PM EDT 20 mg atorvastatin (LIPITOR) tablet 80 mg 80 mg, Oral, EVERY EVENING, First dose on Shana 11/25/15 at 1700, Until Discontinued, Routine Given 11/28/2015 5:00 PM EDT 80 mg Given 11/27/2015 5:43 PM EDT 80 mg Given 11/26/2015 5:49 PM EDT 80 mg atorvastatin (LIPITOR) tablet 80 mg 80 mg, Oral, EVERY EVENING, First dose (after last reorder) on Sun11/29/15 at 1700, Until Discontinued, Routine Given 12/01/2015 5:07 PM EDT 80 mg Given 11/30/2015 5:23 PM EDT 80 mg calcium gluconate 1g in sodium chloride 0.9% 100mL 1 g, Intravenous, ONCE, 1 dose, On Sun11/29/15 at 1800, Administer over 60 Minutes, Warning Vesicant/Irritant Medication Given 11/29/2015 5:37 PM EDT 1 g 100 mL/hr cefUROXime (ZINACEF) 750mg vial attach to sodium chloride 0.9% 100 mL Mini-Bag Plus 750 mg, Intravenous, EVERY 8 HOURS, 3 doses, First dose on Sun11/29/15 at 1600, Last dose on Sun11/30/15 at 1200, Administer over 30 Minutes, Attach to 100 mL sodium Chloride Mini-bag Plus. Give first dose at 8 hours after dose in operating room., Indication for (Active or Suspected): Prophylaxis Given 11/30/2015 12:23 PM EDT 750 mg 200 mL /hr Given 11/30/2015 3:25 AM EDT 750 mg 200 mL/hr Given 11/29/2015 8:06 PM EDT 750 mg 200 mL/hr chlorhexidine (PERIDEX) 0.12 % oral solution 15 mL 15 mL, Oral, EVERY 12 HOURS SCHEDULED (2 times per day), First dose on Sun11/29/15 at 1445, Until Discontinued, [place] teeth, Routine Given 11/29/2015 8:06 PM EDT 15 mLs Given 11/29/2015 4:43 PM EDT 15 mLs desmopressin (DDAVP) 23.04 mcg in sodium chloride 0.9% 55.76 mL 23.04 mcg (0.3 mcg/kg ? 76.8 kg), Intravenous, ONCE, 1 dose, On Sun11/29/15 at 1600, Administer over 30 Minutes Given 11/29/2015 3:37 PM EDT 23.04 mcg 111.5 mL/hr EPINEPHrine 2 mg in dextrose 5% 250 mL infusion 0-10 mcg/min (0-75 mL/hr), Intravenous, CONTINUOUS, Starting on Sun11/29/15 at 1445, Until Sun12/01/15 at 0945, Titrate to keep systolic blood pressure greater than 90 mmHg. Start at 1 mcg/min, adjust by 1 mcg/min every 3 minutes. Dose not to exceed 10 mcg/min. Use if phenylephrine or vasopressin or norepinephrine is ineffective. Call pager # [phone] if initiated. Rate/Dose Verify 11/29/2015 6:00 PM EDT 1 mcg/min 7.5 mL/hr Rate/Dose Verify 11/29/2015 5:00 PM EDT 1 mcg/min 7.5 mL/ hr Rate/Dose Verify 11/29/2015 4:00 PM EDT 1 mcg/min 7.5 mL/ hr fentaNYL 50 mcg/mL infusion 0-100 mcg/hr (0-2 mL/hr), Intravenous, CONTINUOUS, Starting on Sun11/29/15 at 1445, Until Sun12/01/15 at 0945, Titrate to patient comfort, pain scale 1-3. Start at 25 mcg/hr, adjust by 25 mcg/hr every 15 minutes. Dose not to exceed 100 mcg/hour. Rate/Dose Verify 11/30/2015 8:00 AM EDT 25 mcg/hr 0.5 mL/hr Rate/Dose Verify 11/30/2015 6:00 AM EDT 25 mcg/hr 0.5 mL/ hr Rate/Dose Verify 11/30/2015 4:00 AM EDT 25 mcg/hr 0.5 mL/ hr fentaNYL bolus from bag 25 mcg 25 mcg, Intravenous, EVERY 1 HOUR PRN, Starting on Sun11/29/15 at 1415, Until Sun12/01/15 at 0945, Pain, For breakthrough pain while extubated., For breakthrough pain while extubated., Routine Bolus from Bag 11/30/2015 10:18 AM EDT 25 mcg furosemide (LASIX) injection 20 mg 20 mg, Intravenous, 2 TIMES DAILY, First dose on Shana 12/02/15 at 0900, Until Discontinued Given 12/04/2015 8:59 AM EDT 20 mg Given 12/03/2015 5:19 PM EDT 20 mg Given 12/03/2015 8:30 AM EDT 20 mg heparin (porcine) subcutaneous injection 5,000 Units 5,000 Units, Subcutaneous, EVERY 8 HOURS SCHEDULED, First dose on Shana 11/25/15 at 1545, Until Discontinued, Routine Given 11/27/2015 5:36 AM EDT 5,000 Units Left Lower Quadrant Given 11/26/2015 9:03 PM EDT 5,000 Units L eft Lower Quadrant Given 11/26/2015 1:57 PM EDT 5,000 Units HYDROmorphone (DILAUDID) tablet 2-6 mg 2-6 mg, Oral, EVERY 3 HOURS PRN, Starting on 11/30/15 at 1313, Until 12/04/15 at 1530, Pain, 2 mg for pain 3-5/10; 4 mg for pain 6-7/10; 6 mg for pain 8-10/10, Routine Given 12/01/2015 7:57 AM EDT 4 mg Given 12/01/2015 4:27 AM EDT 4 mg Given 11/30/2015 11:34 PM EDT 4 mg insulin regular human (HumuLIN;NovoLIN) 1unit/mL 150 Units in sodium chloride 0.9% 150 mL infusion 0.5-16 Units/hr (0.5-16 mL/hr), Intravenous, CHANGE BAG EVERY EVENING, First dose on 11/29/15 at 1445, Until Discontinued, Type 2 diabetes. Current blood glucose 140 - 179 Titration- aim for target range of 140 - 180 mg/dL. Check BG every hour unless otherwise indicated. [[ No initial bolus. Begin continuous infusion at 2 units/hour. ]] Current BG less than 80 - Stop insulin. Re-check BG in 30 minutes and as soon as BG is greater than 80, restart with rate 50% of previous rate. If BG less than 70, treat per hypoglycemia protocol. If infusion stopped after previous rate had been 0.5 unit/hour, recheck every hour and when BG greater than 100 and higher than last test restart at 0.5 unit/hour. Current BG 80 - 139 - If BG dropped 10 mg/dL or more since last test, decrease rate by 50% and re-check in 30 minutes. Otherwise, decrease rate by 0.5 units/hour. Current BG 140 - 180 - If BG dropped 50 mg/dL or more since last test, decrease rate by 1 unit/hour. Otherwise, maintain same rate. Current BG 181 - 220 - If BG is lower than last test, maintain same rate. Otherwise, increase rate by 0.5 units/hour. Current BG 221 - 250 - If BG dropped 30 mg/dL or more since last test, maintain same rate. Otherwise, increase rate by 1 unit/hour. Current BG greater than 250 - Increase rate by 1 unit/hour AND bolus with Regular insulin IV as per IV Bolus Scale. Re-check BG in 30 minutes., Routine Rate/Dose Verify 11/29/2015 10:00 PM EDT 1 Units/hr 1 mL/hr Rate/Dose Change 11/29/2015 9:00 PM EDT 1 Units/hr 1 mL/hr Rate/Dose Verify 11/29/2015 8:00 PM EDT 2 Units/hr 2 mL/hr isosorbide mononitrate (IMDUR) CR tablet 30 mg 30 mg, Oral, EVERY MORNING, First dose on Sun11/26/15 at 0700, Until Discontinued, DO NOT CRUSH OR OPEN, Routine Given 11/26/2015 6:41 AM EDT 30 mg levothyroxine (SYNTHROID) tablet 100 mcg 100 mcg, Oral, EVERY MORNING, First dose on Sun12/01/15 at 0600, Until Discontinued, Routine Given 12/04/2015 6:39 AM EDT 100 mcg Given 12/03/2015 5:05 AM EDT 100 mcg Given 12/02/2015 6:27 AM EDT 100 mcg levothyroxine (SYNTHROID) tablet 75 mcg 75 mcg, Oral, EVERY MORNING, First dose on Sun11/26/15 at 0600, Until Discontinued, Routine Given 11/29/2015 5:44 AM EDT 75 mcg Given 11/28/2015 6:10 AM EDT 75 mcg Given 11/27/2015 5:35 AM EDT 75 mcg lisinopril (PRINIVIL;ZESTRIL) tablet 2.5 mg 2.5 mg, Oral, DAILY, First dose on Sun11/26/15 at 1600, Until Discontinued, Routine Given 11/28/2015 9:05 AM EDT 2.5 mg Given 11/27/2015 8:57 AM EDT 2.5 mg Given 11/26/2015 5:50 PM EDT 2.5 mg magnesium hydroxide (MILK OF MAGNESIA) oral suspension 10 mL 10 mL, Oral, DAILY, First dose on Sun12/01/15 at 0900, Until Discontinued, Post-op day 2. Do not use with renal insufficiency., Routine Given 12/03/2015 8:2 7 AM EDT 10 mLs Given 12/02/2015 8:28 AM EDT 10 mLs Given 12/01/2015 9:00 AM EDT 10 mLs meTOPROLOL (LOPRESSOR) tablet 12.5 mg 12.5 mg, Oral, ONCE, 1 dose, On Sun12/01/15 at 0945, Please hold for HR<55, or SBP<90, Routine Given 12/01/2015 11:26 AM EDT 12.5 mg meTOPROLOL (LOPRESSOR) tablet 12.5 mg 12.5 mg, Oral, EVERY 12 HOURS SCHEDULED (2 times per day), First dose (after last modification) on Sun12/01/15 at 1900, Until Discontinued, Hold for HR<55, SBP<90, Routine Given 12/02/2015 8:28 AM EDT 12.5 mg Given 12/01/2015 8:06 PM EDT 12.5 mg meTOPROLOL (LOPRESSOR) tablet 12.5 mg 12.5 mg, Oral, EVERY 8 HOURS SCHEDULED, First dose (after last modification) on Shana 12/02/15 at 1600, Until Discontinued, Hold for HR<55, SBP<90, Routine Given 12/04/2015 6:39 AM EDT 12.5 mg Given 12/03/2015 9:30 PM EDT 12.5 mg Given 12/03/2015 2:45 PM EDT 12.5 mg NORepinephrine 16 mcg/mL (standard ADULT and Nikki greater than 20 kg) infusion 0-30 mcg/min (0-112.5 mL/hr), Intravenous, CONTINUOUS, Starting on Sun11/29/15 at 1445, Until Sun12/01/15 at 0945, Titrate to keep systolic blood pressure greater than 90 mmHg. Start at 2 mcg/minute and adjust by 2 mcg/min every 3 minutes. Dose not to exceed 30 mcg/minute. Begin if phenyleprine and/or vasopressin ineffective.Call pager # [phone] if initiated., Routine Rate/Dose Verify 11/30/2015 4:00 PM EDT 1.013 mcg/min 3.8 mL/hr Rate/Dose Change 11/30/2015 3:22 PM EDT 1 mcg/min 3.8 mL/ hr Rate/Dose Change 11/30/2015 3:00 PM EDT 2 mcg/min 7.5 mL/ hr ondansetron (ZOFRAN) injection 4 mg 4 mg, Intravenous, EVERY 8 HOURS PRN, Starting on Sun11/29/15 at 1415, Until 12/04/15 at 1530, Nausea Given 12/02/2015 1:28 PM EDT 4 mg Given 12/02/2015 1:10 AM EDT 4 mg oxyCODONE (ROXICODONE) immediate release tablet 5-15 mg 5-15 mg, Oral, EVERY 4 HOURS PRN, Starting on Sun11/29/15 at 1415, Until 11/30/15 at 1313, Pain, Give 5 mg 1 tab PO Q 4 hours PRN for pain >/= to 3-5/10. Give 5 mg 2 tabs PO Q 4 hours PRN for pain >/= to 6-8/10. Give 5 mg 3 tabs PO Q 4 hours PRN for pain >/= to 9-10/10. Call provider for new pain management orders if pain not relieved after an appropriate amount of time or if regimen is not tolerated. Hold if patient appears over sedated. , Routine Given 11/30/2015 12:11 PM EDT 15 mg Given 11/30/2015 10:21 AM EDT 5 mg Given 11/30/2015 8:07 AM EDT 5 mg pantoprazole (PROTONIX) injection 40 mg 40 mg, Intravenous, DAILY, First dose on Sun11/29/15 at 1445, Until Discontinued, Reconstitute with 10 mL of normal saline to a concentration of 4 mg/mL and infuse slowly over 2 minutes., Routine Given 11/29/2015 4:00 PM EDT 40 mg pantoprazole (PROTONIX) tablet 40 mg 40 mg, Oral, DAILY, First dose on Sun11/29/15 at 1445, Until Discontinued, DO NOT CRUSH OR OPEN If unable to take PO, may give IV Given 12/04/2015 8:59 AM EDT 40 mg Given 12/03/2015 8:27 AM EDT 40 mg Given 12/02/2015 8:28 AM EDT 40 mg potassium chloride (K-DUR/KLOR-CON) extended release tablet 10 mEq 10 mEq, Oral, ONCE, 1 dose, On Shana 12/02/15 at 0830, Routine Given 12/02/2015 8:28 AM EDT 10 mEq potassium chloride (K-DUR/KLOR-CON) extended release tablet 20 mEq 20 mEq, Oral, 2 TIMES DAILY, 2 doses, First dose on Sun12/03/15 at 0900, Last dose on Sun12/03/15 at 2100, Routine Given 12/03/2015 8:47 PM EDT 20 mEq Given 12/03/2015 8:27 AM EDT 20 mEq propofol (DIPRIVAN) infusion 0-50 mcg/kg/min ? 76.8 kg (0-23.04 mL/hr, rounded to 0-23 mL/hr), Intravenous, CONTINUOUS, Starting on Sun11/29/15 at 1445, Until Sun12/01/15 at 0945, Titrate to sedation level of RASS Goal (-) 1. Start at 10 mcg/kg/min, adjust rate by 5 mcg/kg/min every 3 minutes. Dose not to exceed 50 mcg/kg/minute. Discontinue upon extubation., Routine Rate/Dose Change 11/29/2015 9:26 PM EDT 20 mcg/kg/min 9.2 mL/hr Rate/Dose Change 11/29/2015 9:00 PM EDT 40 mcg/kg/min 18.4 mL/hr Rate/Dose Verify 11/29/2015 8:00 PM EDT 49.913 mcg/kg/min 23 mL/hr senna-docusate (PERICOLACE) 8.6-50 mg per tablet 1 tablet 1 tablet, Oral, 2 TIMES DAILY, First dose on Sun11/26/15 at 2100, Until Discontinued, Routine Given 11/28/2015 8:35 PM EDT 1 tablet Given 11/28/2015 9:05 AM EDT 1 tablet Given 11/27/2015 8:03 PM EDT 1 tablet senna-docusate (PERICOLACE) 8.6-50 mg per tablet 2 tablet 2 tablet, Oral, DAILY, First dose on Sun11/30/15 at 2100, Until Discontinued, Post-op day 1, Routine Given 12/01/2015 8:07 PM EDT 2 tablets Given 11/30/2015 8:37 PM EDT 2 tablets senna-docusate (PERICOLACE) 8.6-50 mg per tablet 2 tablet 2 tablet, Oral, 2 TIMES DAILY, First dose (after last modification) on Shana 12/02/15 at 0900, Until Discontinued, Post-op day 1, Routine Given 12/04/2015 8:59 AM EDT 2 tablets Given 12/03/2015 8:47 PM EDT 2 tablets Given 12/03/2015 8:28 AM EDT 2 tablets sodium bicarbonate 1 mEq/mL (8.4 %) IV solution 100 mEq 100 mEq, Intravenous, ONCE, 1 dose, On Sun11/29/15 at 1800, Routine Given 11/29/2015 5:37 PM EDT 100 mEq sodium chloride 0.9 % flush 5 mL 5 mL, Intravenous, 2 TIMES DAILY, First dose on Shana 11/25/15 at 2100, Until Discontinued, Routine Given 11/28/2015 8:38 PM EDT 5 mLs Given 11/28/2015 9:06 AM EDT 5 mLs Given 11/27/2015 8:04 PM EDT 5 mLs sodium chloride 0.9 % flush 5 mL 5 mL, Intravenous, EVERY 8 HOURS, First dose on Sun12/01/15 at 1015, Until Discontinued, Routine Given 12/03/2015 5:19 PM EDT 5 mLs Given 12/03/2015 10:15 AM EDT 5 mLs Given 12/03/2015 5:06 AM EDT 5 mLs sodium chloride 0.9% infusion 100 mL/hr, Intravenous, CONTINUOUS, Starting on Shana 11/25/15 at 1030, Until Sun11/25/15 at 1534, Recovery (Recovery-Hospital Unit) New Bag 11/25/2015 10:30 AM EDT 100 mL/hr 100 mL/hr sodium chloride 0.9% infusion 0-500 mL/hr, Intravenous, CONTINUOUS, Starting on Sun11/29/15 at 1445, Until Sun12/01/15 at 0945, Bolus 250 mL every 5 minutes as needed for volume replacement to maintain cardiac index greater than or equal to 2.0 L/min/M2. Maximum volume 2 L. Call smokehouse operator for additional fluid orders: pager #[phone]. Rate/Dose Verify 11/30/2015 4:00 AM EDT 100 mL/hr 100 mL/hr Rate/Dose Verify 11/30/2015 2:00 AM EDT 100 mL/hr 100 mL/ hr Rate/Dose Change 11/30/2015 12:00 AM EDT 100 mL/hr 100 mL /hr sodium chloride 0.9% infusion 10-30 mL/hr, Intravenous, DAILY PRN, Starting on Sun11/29/15 at 1415, Until Sun12/01/15 at 0945, Side port TKO rate, per [facility] nursing protocol. Rate/Dose Verify 12/01/2015 10:00 AM EDT 20 mL/hr 20 mL/hr Rate/Dose Verify 12/01/2015 8:00 AM EDT 20 mL/hr 20 mL/h r Rate/Dose Verify 12/01/2015 6:00 AM EDT 20 mL/hr 20 mL/h r sodium chloride 0.9% infusion 10-30 mL/hr, Intravenous, DAILY PRN, Starting on Sun11/29/15 at 1415, Until Sun12/01/15 at 0945, Side port TKO rate, per [facility] nrusing protocol. Rate/Dose Verify 11/30/2015 6:00 AM EDT 30 mL/hr 30 mL/hr Rate/Dose Verify 11/30/2015 4:00 AM EDT 30 mL/hr 30 mL/h r Rate/Dose Verify 11/30/2015 2:00 AM EDT 30 mL/hr 30 mL/h r vasopressin (VASOSTRICT) 50 Units in sodium chloride 0.9% 100 mL infusion 0.04-0.1 Units/min (4.8-12 mL/hr), Intravenous, CONTINUOUS, Starting on Sun11/29/15 at 1900, Until Sun12/01/15 at 0945, Titrate to keep systolic blood pressure greater than 90 mmHg. start at 0.04 units/min. and adjust rate by 0.005 units/min every 10 minutes. Dose not to exceed 0.4 units/min. Rate/Dose Change 11/29/2015 9:55 PM EDT 0.02 Units/min 2.4 mL/hr Rate/Dose Verify 11/29/2015 9:00 PM EDT 0.04 Units/min 4.8 mL/hr Rate/Dose Verify 11/29/2015 8:00 PM EDT 0.04 Units/min 4.8 mL/hr documented in this encounter Active and Recently Administered Medications Times are shown in EDT. Scheduled Medication Order 12/02/2015 12/03/2015 12/04/2015 acetaminophen (TYLENOL) tablet 1,000 mg 1,000 mg, Oral, EVERY 6 HOURS SCHEDULED, First dose on Sun11/29/15 at 1800, Until Discontinued, For pain when taking by mouth , Routine 0110 (Not Given - Provider: Yamini Lutz RN - Reason: Patient/family refused)0627 (Given - Provider: Yamini Lutz RN)1151 (Given - Provider: Karin Godwin RN)1704 (Given - Provider: Karin Godwin RN) 0011 (Given - Provider: Yamini Lutz, RN)0505 (Given - Provider: Yamini Lutz RN)1116 (Given - Provider: Karin Godwin RN)1719 (Given - Provider: Karin Godwin RN) 0002 (Given - Provider: Lizbet Baker RN)0639 (Given - Provider: Lizbet Baker RN)1200 (Due) aspirin chewable tablet 81 mg(Linked Group 1) 81 mg, Oral, DAILY, First dose on Sun11/30/15 at 0900, Until Discontinued, Start on post-op day 1 in the AM., Routine 0828 (Given - Provider: Karin Godwin RN) 0828 (Given - Provider: Karin Godwin RN) 0858 (Given - Provider: Karin Godwin RN) aspirin suppository 300 mg(Linked Group 1) 300 mg, Rectal, DAILY, First dose on Sun11/30/15 at 0900, Until Discontinued, Start on post-op day 1 in the AM, Routine 0828 (See Alternative - Provider: Karin Godwin RN) 0828 (See Alternative - Provider: Karin Godwin RN) 0858 (See Alternative - Provider: Karin Godwin RN) atorvastatin (LIPITOR) tablet 20 mg 20 mg, Oral, EVERY EVENING, First dose (after last modification) on Sun12/02/15 at 1700, Until Discontinued, Routine 1659 (Given - Provider: Karin Godwin RN) 1719 (Given - Provider: Karin Godwin RN) furosemide (LASIX) injection 20 mg 20 mg, Intravenous, 2 TIMES DAILY, First dose on Sun12/02/15 at 0900, Until Discontinued 0828 (Given - Provider: Karin Godwin RN)1659 (Given - Provider: Karin Godwin RN) 0830 (Given - Provider: Karin Godwin RN)1719 (Given - Provider: Karin Godwin RN) 0859 (Given - Provider: Karin Godwin RN) levothyroxine (SYNTHROID) tablet 100 mcg 100 mcg, Oral, EVERY MORNING, First dose on Sun12/01/15 at 0600, Until Discontinued, Routine 06 (Given - Provider: Yamini Lutz RN) 0505 (Given - Provider: Yamini Lutz RN) 0639 (Given - Provider: Lizbet Baker RN) magnesium hydroxide (MILK OF MAGNESIA) oral suspension 10 mL 10 mL, Oral, DAILY, First dose on Sun12/01/15 at 0900, Until Discontinued, Post-op day 2. Do not use with renal insufficiency., Routine 0828 (Given - Provider: Karin Godwin RN) 0827 (Given - Provider: Karin Godwin RN) 0900 (Hold - Provider: Karin Godwin RN - Reason: See comment - Comment: Pt having Bms) meTOPROLOL (LOPRESSOR) tablet 12.5 mg (CANCELED) 12.5 mg, Oral, EVERY 12 HOURS SCHEDULED (2 times per day), First dose (after last modification) on Sun12/01/15 at 1900, Until Discontinued, Hold for HR<55, SBP<90, Routine 0828 (Given - Provider: Karin Godwin RN) meTOPROLOL (LOPRESSOR) tablet 12.5 mg 12.5 mg, Oral, EVERY 8 HOURS SCHEDULED, First dose (after last modification) on Sun12/02/15 at 1600, Until Discontinued, Hold for HR<55, SBP<90, Routine 1659 (Given - Provider: Karin Godwin RN)2134 (Given - Provider: Yamini Lutz RN) 0505 (Given - Provider: Yamini N Lutz, RN)1445 (Given - Provider: Karin Godwin RN)2130 (Given - Provider: Lizbet Baker RN) 0639 (Given - Provider: Lizbet Baker RN) pantoprazole (PROTONIX) injection 40 mg(Linked Group 2) 40 mg, Intravenous, DAILY, First dose on Sun11/29/15 at 1445, Until Discontinued, Reconstitute with 10 mL of normal saline to a concentration of 4 mg/mL and infuse slowly over 2 minutes., Routine 0828 (See Alternative - Provider: Karin Godwin RN) 08 (See Alternative - Provider: Karin Godwin RN) 0859 (See Alternative - Provider: Karin Godwin RN) pantoprazole (PROTONIX) tablet 40 mg(Linked Group 2) 40 mg, Oral, DAILY, First dose on Sun11/29/15 at 1445, Until Discontinued, DO NOT CRUSH OR OPEN If unable to take PO, may give IV 0828 (Given - Provider: Karin Godwin RN) 08 (Given - Provider: Karin Godwin RN) 08 (Given - Provider: Karin Godwin RN) potassium chloride (K-DUR/KLOR-CON) extended release tablet 10 mEq (COMPLETED) 10 mEq, Oral, ONCE, 1 dose, On Sun12/02/15 at 0830, Routine 08 (Given - Provider: Karin Godwin RN) potassium chloride (K-DUR/KLOR-CON) extended release tablet 20 mEq (COMPLETED) 20 mEq, Oral, 2 TIMES DAILY, 2 doses, First dose on Sun12/03/15 at 0900, Last dose on Sun12/03/15 at 2100, Routine 08 (Given - Provider: Karin Godwin RN)2046 (Given - Provider: Lizbet Baker RN) senna-docusate (PERICOLACE) 8.6-50 mg per tablet 2 tablet 2 tablet, Oral, 2 TIMES DAILY, First dose (after last modification) on Sun12/02/15 at 0900, Until Discontinued, Post-op day 1, Routine 0828 (Given - Provider: Karin Godwin RN)2133 (Given - Provider: Yamini Lutz RN) 827 (Given - Provider: Karin Godwin RN)2047 (Given - Provider: Lizbet Baker RN) 0859 (Given - Provider: Karin Godwin RN) sodium chloride 0.9 % flush 5 mL 5 mL, Intravenous, EVERY 8 HOURS, First dose on Sun12/01/15 at 1015, Until Discontinued, Routine 0125 (Given - Provider: Yamini Lutz RN)1015 (Given - Provider: Karin Godwin RN)1815 (Given - Provider: Karin Godwin RN) 0506 (Given - Provider: Yamini Lutz RN)1015 (Given - Provider: Karin Godwin RN)1719 (Given - Provider: Karin Godwin RN) 0215 (Not Given - Provider: Lizbet Baker RN - Reason: See comment - Comment: given earlier with previous medications. No difficulty with flush)1015 (Hold - Provider: Karin Godwin RN - Reason: See comment) PRN Medication Order 12/02/2015 12/03/2015 12/04/2015 bisacodyl (DULCOLAX) suppository 10 mg 10 mg, Rectal, DAILY PRN, Starting on Shana 12/02/15 at 0000, Until 12/04/15 at 1530, Constipation, Starting post-op day 3., Routine HYDROmorphone (DILAUDID) tablet 2-6 mg 2-6 mg, Oral, EVERY 3 HOURS PRN, Starting on Sun11/30/15 at 1313, Until 12/04/15 at 1530, Pain, 2 mg for pain 3-5/10; 4 mg for pain 6-7/10; 6 mg for pain 8-10/10, Routine ondansetron (ZOFRAN) injection 4 mg 4 mg, Intravenous, EVERY 8 HOURS PRN, Starting on Sun11/29/15 at 1415, Until 12/04/15 at 1530, Nausea 0110 (Given - Provider: Yamini Lutz RN)1328 (Given - Provider: Karin Godwin RN) Linked Groups Order Group 1: aspirin chewable tablet 81 mgJump to med 81 mg, Oral, DAILY, First dose on Sun11/30/15 at 0900, Until Discontinued, Start on post-op day 1 in the AM., Routine Or aspirin suppository 300 mgJump to med 300 mg, Rectal, DAILY, First dose on Sun11/30/15 at 0900, Until Discontinued, Start on post-op day 1 in the AM, Routine Group 2: pantoprazole (PROTONIX) tablet 40 mgJump to med 40 mg, Oral, DAILY, First dose on Sun11/29/15 at 1445, Until Discontinued, DO NOT CRUSH OR OPEN If unable to take PO, may give IV Or pantoprazole (PROTONIX) injection 40 mgJump to med 40 mg, Intravenous, DAILY, First dose on Sun11/29/15 at 1445, Until Discontinued, Reconstitute with 10 mL of normal saline to a concentration of 4 mg/mL and infuse slowly over 2 minutes., Routine documented in this encounter Care Teams Manager Paid Relationship Specialty Start Date End Date Mojgan Boateng DO [address] [place] [address] PCP - General 05/10/10 documented as of this encounter
--- OUTSIDE RECORDS SUMMARY | 2023-12-06 02:44 | XMS_ITS | Encounter Summary ---
Author Organization [facility] [place] [address] Care Team Providers Care Voice Systems Engineer Name Role Phone Noé Hung DO Primary Care Provider Encounter Details Date Type Department Care Team (Late st Contact Info) Description 11/25/2015 Notes Only Cardiology at [address] [place] [address] Xiomy Zarate MD [facility] [place] [address] Social History Tobacco Use Types Packs/Day Years Used Date Smoking Tobacco: Never Smokeless Tobacco: Never Alcohol Use Standard Drinks/Week Comments Yes 1 (1 standard drink = 0.6 oz pur e alcohol) 1 glass per day Sex and Gender Information Value Date Recorded Sex Assigned at Not on file Gender Identity Not on file Sexual Orientation Not on file documented as of this encounter Progress Notes * Masha Muir - 11/25/2015 11:01 AM EDT ABSORB IV CONSENT NOTE ABSORB IV RANDOMIZED CONTROLLED TRIAL A Clinical Evaluation of Absorb??? BVS, the Everolimus Eluting Bioresorbable Vascular Scaffold in the Treatment of Subjects with de aurelia [place] Coronary Artery Lesions PI: Dusty Bartlett MD Pager #:[phone] Consent: I met with Olman Rivera in company of his and reviewed the ABSORB IV trial. Following the determination this potential participant did not have any obvious evidence of clinical exclusion to the ABSORB IV Randomized Controlled Trial, the subject was provided with a written informed consent ([facility] date 11/19/2014) and was given adequate time for review of the consent. The purpose, procedures, risks, potential benefits of the study, as well as alternatives to participation were reviewed and questions were answered. The subject signed the informed consent agreeing to participate, providing angiographic inclusion criteria are satisfied. The subject was provided with a copy of the signed i nformed consent document. No study related activities were performed prior to completion of the consent process. After Informed Consent had been signed, Mr. Rivera was taken to the laboratory tech. In the lab it was determined that he did not have disease consistent with the criteria of the ABSORB IV Trial and he was not randomized into the study. documented in this encounter Plan of Treatment Not on file documented as of this encounter Visit Diagnoses Not on filedocumented in this encounter Care Teams Voice Systems Engineer Relationship Specialty Start Date End Date Noé Hung DO [address] [place] [address] PCP - General 05/10/10 documented as of this encounter
--- OUTSIDE RECORDS SUMMARY | 2023-12-06 02:44 | XMS_ITS | Encounter Summary ---
Author Organization [facility] [place] [address] Care Team Providers Care Coil Taper Name Role Phone Mojgan Boateng DO Primary Care Provider Reason for Visit * Auth/Cert Specialty Diagnoses / Procedures Referred By Mone t Referred To Contact Diagnoses Coronary artery disease CHEST PAIN CAD Procedures CARDIAC CATHETERIZATION @CABG; 4 VENOUS GRAFTS & ARTERIAL GRAFT ENDOSCOPIC HARVEST VEIN(S) FOR CABG Referral ID Status Reason Start Date Expiration Date Visits Re quested Visits Authorized [id number] 1 1 Encounter Details Date Type Department Care Team (Late st Contact Info) Description 11/29/2015 7:30 AM EDT - 11/29/2015 1:58 PM EDT Surgery [place] [address] Yash Benton MD [facility] [place] [address] ENDOSCOPIC HARVEST VEIN(S) FOR CABG (WRVU 0.31) Social History Tobacco Use Types Packs/Day Years [...] Patient Age: 59 y.o. Birthdate: 1955 Language: Citizen Of [place] Race: White Ethnicity: Not nor Admit Date: 11/25/2015 Discharge Date: 12/04/15 Attending Physician: Yash Benton MD Follow-up Recommendations for Providers: Please continue routine management of cardiovascular risk factors including blood pressure, lipids,glucose, etc. Please note any changes to medications. Patient to follow-up with PCP, MOJGAN BOATENG DO, in 1-2 weeks. Patient to follow-up with Verification Engineer, Julius Atkins MD, in two weeks. Patient to follow-up with Cardiac Surgery, Dr. Yash Benton, in ~ 4 weeks with CXR, EKG. Inpatient Provider Contact Information: [facility] Section of Cardiac Surgery [facility] [address] FAX [phone] Discharge Diagnoses (Hospital Problems) Primary Diagnoses: CAD: [...] CABG performed by Yash Benton MD at [facility] OR ??? Pro cabg, artery-vein, three N/A 11/29/2015 @CABG; 3 VENOUS GRAFTS & ARTERIAL GRAFT performed by Ysah Benton MD at [facility] OR Prior To Admission Medications Prescriptions [...] Hospital Course: Olman Rivera was admitted to [facility] on 11/25/2015 via the Cardiology Service. He [...] Yash Benton and/or the Cardiac Surgery Physician Drywall Finishing Foreman Team may be reached at . Weight: [...] with Dr. Jeffery. You may use a [place] Track or treadmill but avoid any pulling [...] friends, go to a movie, go to druze, etc. Heavy activities: No hunting, skiing, jogging, [...] should resume a low fat, low cholesterol, [employer] Heart Association Diet. Driving: No driving until [...] the outpatient Phase 2 Cardiac Rehabilitation at [facility] . The patient agrees to a referral to this program. The referral will be sent at discharge and the patient should be contacted by the ?? Program within 1- 2 weeks from discharge. ?? Future Appointments and Orders Future Orders Complete By Expires EKG 12 Lead [EKG1 Custom] 01/04/2016 12/03/2016 Process Instructions: Scheduling Instructions: Questions: Which DH location will this be performed?: [place] Is a rhythm strip needed?: No If EKG Reason is Pre-op Evaluation, indicate diagnosis for surgery.: Should this service/procedure be billed to the research sponsor?: XR Chest PA & Lateral (Generic) [[id number] Custom] 01/04/2016 12/03/2016 Process Instructions: Scheduling Instructions: Questions: Where will study be performed?: [facility] Portable exam?: Reason for exam and clinical history: s/p cabg Other pertinent information: Stat read required?: Date of injury if applicable: Requested Time: Referral to Cardiac Rehab [DDR096 Custom] As directed Process Instructions: If no progress note charted, please enter Clinical details in comments. Scheduling Instructions: Questions: My question or request is: s/p CABG; cardiac rehab @ [facility] Referral to Home Health - at DISCHARGE [WJC8272 CPT(R)] As directed Process Instructions: Scheduling Instructions: Comments: DOCUMENTATION FOR VNA SERVICES (INCLUDING THOSE PATIENTS WITH MEDICARE COVERAGE REQUIRING HOME VNA SERVICES AND/OR HOSPICE SERVICES) PATIENT'S LOCATION: Olman Stewart [address] [id number] (home) No relevant phone numbers on file. Solutions Consultant's Name: Self, Aziza In discussion with the attending physician, it is certified that this patient is under their care and that they, or a Nurse Practitioner, or Physician Drywall Finishing Foreman who is working directly with them, hada [...] for services as follows: HOME HEALTH AGENCY: [facility]. PHONE: [phone] FAX: [phone] RN orders: Cardiopulmonary assessment, incisional assessment, assess [...] issues please call the Cardiac SurgeryOffice at [phone] Home Health agencies which cover the area of patient's residence have been reviewed, either verbally or in writing, and patient/family have chosen the agency as noted. Questions: Agency name and contact information: [facility] Patient location post discharge: home What services are requested: Physical Therapy Registered Nurse Start date: 11/26/2015 Responsible MD post discharge contact info: PCP Arrangements for VNA/home care: As above. VN RN OR PCP TO PLEASE REMOVE CHEST TUBE SUTURES ON OR AFTER 12/09/2015 Signed: Srikanth Barnes PA-C [facility] Section of Cardiac Surgery [facility] [address] FAX [phone] Date: 12/04/2015 CC: DO Salo SMITH Michael G, MD [address] [place] [address],[facility] [address] [place] [address] documented in this encounter Discharge Instructions * [...] Yash Benton and/or the Cardiac Surgery Physician Drywall Finishing Foreman Team may be reached at . ?? [...] with Dr. Jeffery. You may use a [place] Track or treadmill but avoid any pulling [...] friends, go to a movie, go to druze, etc. ?? Heavy activities: No hunting, skiing, jogging, snow shoveling, snowmobiling, lawn mowing, swimming,golf or tennis until after your return appointment with the surgeon. Do not ride motorcycles, ATHeroes2u'stractors or horses. Avoid the use of a [...] should resume a low fat, low cholesterol, Belgian Heart Association Diet. ?? Driving: No driving [...] the outpatient Phase 2 Cardiac Rehabilitation at [facility] . ?? The patient agrees to a [...] Note Visit #: 3 Patient Dx: Olman Rivera is a 59 [...] minutes Total timed interventions: 24 minutes Pager: [phone] SVETLANA CURRY PTA Physical Therapy Rehabilitation Department * Inessa Benitez DT - 12/03/2015 3:02 PM EDT Nutrition Services - Initial Note Olman Stewart EmilyHaji : 1955 AGE: 59 y.o. Patient Active Problem List Diagnosis Date Noted ??? *Ulbedvop-9-efgmno CAD Priority: High ??? Hospital-Hypothyroidism 11/25/2015 Reason [...] in the interim. BIN Foote * Ashley Wall, POWER PRESS OPERATOR - 12/03/2015 8:59 AM EDT Cardiac Surgery [...] moving all four extremities spontaneously. Recent Labs 12/03/15 0418 12/02/15 0449 12/01/15 0420 WBC 5.4 5.8 5.6 HGB 8.6* 7.7* 8.0* HCT 26.1* 24.6* 24.8* PLATELET 141* 101* 100* Recent Labs 12/03/15 0418 12/02/15 0449 12/01/15 0420 11/30/15 1725 NA 138 135 [...] minutes Total timed interventions: 24 minutes Pager: [phone] SVETLANA CURRY PTA Physical Therapy Rehabilitation Department * Ashley Wall, POWER PRESS OPERATOR - 12/02/2015 8:14 AM EDT Cardiac Surgery [...] Lines/Drains: PIV Anderson PW Recent Labs 12/02/1544812/01/15 0420 11/30/15 0205 11/29/15 1425 11/29/15 1247 WBC 5.8 5.6 5.5 12.8* 11.4* HGB 7.7* 8.0* 8.7* 11.0* 8.2* HCT 24.6* 24.8* 26.7* 33.5* 25.8* PLATELET 101* 100* 129* 166 137* PT -- -- -- 17.0* 20.9* INR -- -- -- 1.4* 1.7* PTT -- -- -- 36* 38* Recent Labs 12/02/1544812/01/15 0420 11/30/15 1725 11/30/15 0205 11/29/15 1425 NA 135 [...] Gas) No results found for: PHART, PO2ART, XIW0RNN Intake/Output Summary (Last 24 hours) at 12/01/15 [...] 7.9* -- -- 7.2* 9.0 ASSESSMENT: Olman Terry Rivera is a 59 y.o. male 2 [...] 12/01/2015 PGY-2, General Surgery Cardiac Surgery Pager: [phone] * Julius Azul MD - 11/30/2015 10:46 [...] Imaging: TTE: no tamponade ASSESSMENT: Olman Stewart MeronLisyHaji is a 59 y.o. male 1 Day [...] PA cath, PW, Med CT, Pleura CT Justin DISPO: CVCC Code status: Full JOYCE TURNER MD 11/30/2015 PGY-2, General Surgery Cardiac Surgery Pager: [phone] * Olman Pickard RCP - 11/30/2015 12:43 AM EDT [address] CT ICU AMV Protocol: YES SBT: [...] E03.9 ??? 3-vessel CAD I25.10 * Nicolas Hernandez RN - 11/29/2015 7:08 AM EDT Tx to PACU for CABG. Denied pain on tx. Patient glasses with patient. Belongings with family. O2 and mepilex on patient. Wedding ring taped. * Philip Mckinney - 11/28/2015 2:37 PM EDT Material Dispatcher Encounter Note Patient Name: Olman Rivera : [id number] MR#: [id number] Admit Date: 11/25/2015 8:08 AM Hospital Day [...] Provided emotional, spiritual support and encouraging presence. Material Dispatcher services accepted.Conversation to build trusting relationship.Provided prayer.Provided pastoral presence.Provided hindu/sacramental rite. Follow-up: yes Time in Direct Care:10 Mins Philip Mckinney 11/28/2015 * Xiomy Zarate MD - 11/28/2015 9:11 AM EDT Images from the original note were not included. Inpatient Cardiology Progress Note Patient Name: Olman Stewart EstebanHaji Service: FARM REPORTER / PA Responsible Attending: Xiomy Zarate MD Reason for continued hospitalization: -Awaiting Cardiac surgery on Sunday, November Active Problems: Active Hospital Problems Diagnosis ??? 3-vessel CAD ?? 11/25/2015 cardiac catheterization: Three vessel coronary artery disease (LAD, LCX and RCA) ??? Hypothyroidism Resolved Hospital Problems Diagnosis Date Resolved No resolved problems to display. Interval History: -Pain free, no complaints. 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 Now is his Busy season with Review [...] Grade 0). Distal flow was via the barrow vessel, ?? collaterals from the LCX as [...] APRN Nurse Practitioner-Department of Cardiology [email or web address] Pager [phone] Phone number: [phone] Fax number [phone] CARYL YEAGER APRN 11/28/2015 I interviewed Mr. Rivera on 11/28/15. I agree with the history, physical exam findings and clinical plan as outlined above. No events overnight. He is on a good medical regimen and is optimized for CABG in AM. 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 He is Methodist, deeply committed to his donovan and family. His family are around to be with for support and encouragement. Assessment: He is scheduled for by-pass surgery for Sunday. He was scared with coming in for another procedure and the unexpected happened. Intervention and Outcome: Provided pastoral/supportive/counseling presence and prayers with the Sacrament of the Sick & Communion. Follow-up: Yes Time in Direct Care: 40 mins Lamont Velasco 11/27/2015 * Xiomy Zarate MD - 11/27/2015 8:33 AM EDT Images from the original note were not included. Inpatient Cardiology Progress Note Patient Name: Olman Rivera Service: FARM REPORTER / PA Responsible Attending: Xiomy Zarate MD [...] 11/27/15 0833 Last data filed at 11/27/15 0417 Gross per 24 hour Intake 800 ml [...] Grade 0). Distal flow was via the barrow vessel, ?? collaterals from the LCX as [...] APRN Nurse Practitioner-Department of Cardiology [email or web address] Pager [phone] Phone number: [phone] Fax number [phone] CARYL YEAGER APRN 11/27/2015 I did not visit with Mr. Rivera today. He remains stable and plan remains for CABG on Sunday. Xiomy Zarate MD Attending Staff Cardiology Pager [phone] * Philip Mckinney - 11/26/2015 4:25 PM EDT Material Dispatcher Encounter Note Patient Name: Olman Rivera : [id number] MR#: [id number] Admit Date: 11/25/2015 8:08 AM Hospital Day 1 day Narrative:Visited to introduce and assess acceptance of Material Dispatcher services. Pt was awake, alert, oriented and in bed and his was there. Pt asked for prayers and blessings. Assessment:Patient coping positively with stresses of illness/hospitalization at this time. Pt seems coping well and has family care and support. Pt has children and loves to be with family. Pt is very active in druze community and appreciative. Intervention and Outcome: provided emotional, spiritual support and encouraging presence. Material Dispatcher services accepted.Conversation to build trusting relationship.Provided prayer.Provided pastoral presence.Provided hindu/sacramental rite. Follow-up: yes Time in Direct Care:20 Mins Philip Mckinney 11/26/2015 * KarCampbell marcus D - 11/26/2015 1:55 PM EDT Office of Care Management (OCM) / Media Supervisor(CM)/ Initial Assessment Discussed patient with Provider Team [...] out AD at anytime. HEALTH /PRESCRIPTION COVERAGE: [facility]. Pt states he has no current concerns regarding the cost of his medicaitons. CURRENT HOME/COMMUNITY SERVICES/EQUIPMENT: Home Health Agency: Choices for home health services were provided to patient. Pt would like referral be submitted to [facility] for potential needs upon discharge. Slip Cover Estimator will be asked to facilitate request. DOCUMENTATION WRITER REFERRAL: not needed at this time PRIMARY CARE PHYSICIAN: MOJGAN BOATENG DO [address] / [place] [address] POTENTIAL DISCHARGE NEEDS: Pt may need home health services post discharge. Pt would like to use [facility]. ANTICIPATED BARRIERS TO DISCHARGE: None identified at this time. TRANSPORTATION @ D/C: Family to transport upon discharge. PLAN: CM will continue to monitor progress, follow for continuity of care and assist with dischargeplanning while hospitalized . * Aziza Castano, ONOFRE - 11/26/2015 7:15 AM EDT Inpatient Cardiology Progress Note Patient Name: Olman Rivera Service: FARM REPORTER / PA Responsible Attending: Xiomy Zarate MD [...] Full I have discussed with Dr. Xiomy Castano, ONOFRE 11/26/2015 Associated attestation - Xiomy Zarate MD - 11/26/2015 7:00 PM EDT ATTENDING ATTESTATION: Pt interviewed and examined on 11/26/2015. I agree with plan as outlined above. Plan for CABG for progressive symptoms of angina on 11/28/15. Continue optimal medical therapy rachel-operatively. Xiomy Zarate MD Interventional Cardiology * India Manuel RN - 11/25/2015 6:41 PM EDT Pt transferred to [facility] from [address] [place] [address]. VSS, no pain, no SOB. Pt went [...] Medications: Current Medications and Prescriptions Ordered in [facility] Current Facility-Administered Medications Ordered in [facility]?? Medication?? Dose?? Route?? Frequency?? Provider?? Last Rate?? Last Dose? sodium chloride 0.9% infusion?? 100 mL/hr?? Intravenous?? Continuous?? Hemal Bedolla MD?? 100 mL/hr at 11/25/15 1030?? 100 mL/hr at 11/25/15 1030? nitroGLYcerin (NITROSTAT) SL tablet 0.4 mg?? 0.4 mg?? Sublingual?? Q5 Min PRN?? Hemal Bedolla MD? No current Epic-ordered outpatient prescriptions on file.? Review of Systems: [...] with questions. ? Yash Benton MD, MS roll dough divider Section of Cardiac Surgery [facility] Office: [phone] Pager: [phone] There has been no interval change in [...] 58 yo man being admitted from the [facility] for consideration of CABG. 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 Over the past feel weeks he has developed fatigue and SOB while walking his dogs. Given a positive family history for CAD, he underwent stress test 11/18/2015 [facility] ch revealed EF 60% and inferoapical ischemia. Recommended cath as a result. Cardiac cath revealed 95% mid RCA lesion with right to left collaterals filling in the LAD branch of the LCA. Injection of the LCA revealed high grade DX disease, occluded LAD filling retrograde via right collaterals and collaterals from the CX to the distal RCA. Admitted to [facility] for consideration of CABG. Lab Comments: Multiple labs assessed. Problems Reviewed: 3VD Plan: CABG * Aziza Castano APRN - 11/25/2015 12:02 PM EDT Cardiology Admission H&P Patient Name: Olman Rivera Date of : 1955 Age: 59 y.o. 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 [...] Grade 0). Distal flow was via the barrow vessel, ?? collaterals from the LCX as [...] MD Provider: Aziza Castano APRN Provider #: [id number] 11/25/2015 * Xiomy Zarate MD - 11/25/2015 [...] coronary angiography. No upcoming surgeries, NPO since [place], no prior bleeding problems, compliant with meds. [...] Outcome: Ongoing (Interventions Implemented as Appropriate) 12/03/15 0717 12/03/15 0800 Coping/Psychosocial Response Interventions Plan of Care [...] Outcome: Ongoing (Interventions Implemented as Appropriate) 12/02/15199912/03/15 0812/03/15 1400 Safety Interventions Safety Precautions/Fall Reduction -- [...] Veras RN - 12/03/2015 11:39 AM EDT [facility] Olman Rivera was seen today regarding participation in the outpatient Phase 2 Cardiac Rehabilitation at [facility] . The patient agrees to a referral [...] CPG) Outcome: Ongoing (Interventions Implemented as Appropriate) 12/03/15 0717 Cardiac Surgery Problems Assessed (Cardiac Surgery) all [...] (CPG) Outcome: Ongoing (Interventions Implemented as Appropriate) 12/03/15 0717 Skin Integrity Impairment, Risk/Actual Personal Related Risk Factors (Skin Integrity Impairment, Risk/Actual) sleep deprivation;stress Physiological Related Risk Factors (Skin Integrity Impairment, Risk/Actual) edema Treatment Related Related Risk Factors (Skin Integrity Impairment, Risk/Actual) medication;surgery Signs and Symptoms (Skin Integrity Impairment, Risk/Actual) edema Goal: Skin Integrity/Wound Healing Patient will demonstrate the desired outcomes. Outcome: Ongoing (Interventions Implemented as Appropriate) 12/03/15 0717 Skin Integrity Impairment, Risk/Actual (Adult, Obstetrics) Skin [...] Ongoing (Interventions Implemented as Appropriate) 12/02/15 0324 Cardiac Surgery Problems Assessed (Cardiac Surgery) all Problems Present (Cardiac Surgery) fluid imbalance;situational response Problem: General Plan of Care Goal: Plan of Care Review Outcome: Ongoing (Interventions Implemented as Appropriate) 12/02/15 0324 Coping/Psychosocial Response Interventions Plan of Care Reviewed [...] Control Outcome: Ongoing (Interventions Implemented as Appropriate) 12/01/15 194 Safety Interventions Isolation Precautions standard precautions maintained [...] outcomes. Outcome: Ongoing (Interventions Implemented as Appropriate) 12/02/15323 Skin Integrity Impairment, Risk/Actual (Adult, Obstetrics) Skin [...] in place over night, and [facility] tomorrow. INDIVIDUALIZED FALL PREVENTION INTERVENTIONS: Patient-specific fall [...] EVALUATION: Progressing toward goal of moving to [facility] tomorrow. Goal: Individualization and Mutuality Outcome: Ongoing (Interventions Implemented as Appropriate) 11/25/15 1928 Mutuality/Individual Preferences What questions do you have about your health or care? none Goal: Fall Prevention-Safe Patient Handling Outcome: Ongoing (Interventions Implemented as Appropriate) 11/30/15 0634 11/30/15 0800 11/30/15 1200 Safety Interventions Safety Precautions/Fall Reduction -- [...] Control Outcome: Ongoing (Interventions Implemented as Appropriate) 11/30/15 0634 11/30/15 0800 11/30/15 1200 Safety Interventions Isolation Precautions -- -- standard precautions maintained Infection Prevention -- blood glucose management;environmental surveillance;promote handwashing;rest/sleep promoted -- Coping/Psychosocial Response Interventions Counseling emotional support provided;understanding of situation facilitated;verbalization of feelings encouraged -- -- * Initial Assessments - Lorena Zuniga, PT - 11/30/2015 4:40 PM EDT Physical [...] CABG performed by Yash Benton MD at [facility] OR ??? Pro cabg, artery-vein, three N/A 11/29/2015 @CABG; 3 VENOUS GRAFTS & ARTERIAL GRAFT performed by Yash Benton MD at [facility] Social History: Patient lives in [place], [place] with in 2 floor home with 1 flight of stairs and railing bilaterally. 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 [employer] Equipment at home: none Subjective: I was [...] Total timed interventions: 0 minutes Harman Fuchs, LUCILA 11/30/15 Physical Therapy Rehabilitation Department * Med [...] home dose of synthroid of 100mcg DISPO: CC Code status: Full Nancy Powers (Conner Ray Medical Student Year III Pager [phone] * Op Note - Yash Benton MD - 11/30/2015 10:14 AM EDT [facility] SECTION OF CARDIAC SURGERY OPERATIVE REPORT Case Date: 11/29/15 PATIENT NAME: Olman Rivera : 1955 MR#: [id number] REFERRING PHYSICIAN: Teddy Leong MD PRE-OPERATIVE DIAGNOSIS: Multi-vessel CAD POST-OPERATIVE DIAGNOSIS: Same PROCEDURE: 1. Coronary artery bypass grafting x 4 (MURRAY to LAD, RSVG to PDA, RSVG to OM1, RSVG to D1) TIMES: Cardiopulmonary bypass: 161 minutes Aortic cross-clamp: 132 minutes SURGEON: * Yash Benton MD - Primary * Tiffany Renteria PA - Physician Drywall Finishing Foreman ANESTHESIA: General endotracheal PRE-OPERATIVE EVALUATION: This is [...] and this was cannulated with a 18 yakut EOPA aortic cannula. Venous cannulation was accomplished [...] Ongoing (Interventions Implemented as Appropriate) 11/30/15 0634 Cardiac Surgery Problems Assessed (Cardiac Surgery) all Problems Present (Cardiac Surgery) acute pain;fluid imbalance;hemodynamic instability Problem: General Plan of Care Goal: Plan of Care Review Outcome: Ongoing (Interventions Implemented as Appropriate) 11/30/15 0634 Coping/Psychosocial Response Interventions Plan of Care Reviewed [...] Control Outcome: Ongoing (Interventions Implemented as Appropriate) 11/30/15633 Safety Interventions Isolation Precautions standard precautions maintained [...] outcomes. Outcome: Ongoing (Interventions Implemented as Appropriate) 07/12/16 0634 Skin Integrity Impairment, Risk/Actual (Adult, Obstetrics) Skin Integrity/Wound Healing making progress toward outcome * Brief Op Note - Yash Benton MD - 11/29/2015 3:15 PM EDT Brief Operative Note Patient Name: Olman Rivera : [id number] MR#: [id number] Case Date: 11/29/2015 Surgeon: Surgeon(s) and Role: * Yash Benton MD - Primary * Tiffany Renteria PA - Physician Drywall Finishing Foreman Preoperative diagnosis: CAD Postoperative diagnosis: CAD Procedure(s): [...] Outcome: Ongoing (Interventions Implemented as Appropriate) 11/27/15 0255 11/28/15 0700 Coping/Psychosocial Response Interventions Plan of Care [...] Review Outcome: Ongoing (Interventions Implemented as Appropriate) 11/26/15 0339 Coping/Psychosocial Response Interventions Plan of Care Reviewed [...] Outcome: Ongoing (Interventions Implemented as Appropriate) 11/25/15 19411/25/15200911/26/15 0800 Safety Interventions Safety Precautions/Fall Reduction -- [...] Assessment Outcome: Ongoing (Interventions Implemented as Appropriate) 11/25/15 1928 Living Environment Transportation Available car * Plan of Care - Tiffany Babcock RN - 11/26/2015 4:02 AM EDT Problem: General Plan of Care Goal: Plan of Care Review 11/26/15 0339 Coping/Psychosocial Response Interventions Plan of Care Reviewed [...] Current Medications: Current Facility-Administered Medications Ordered in [facility] Medication Dose Route Frequency Provider Last Rate Last Dose ??? sodium chloride 0.9% infusion 100 mL/hr Intravenous Continuous Hemal Bedolla MD 100 mL/hr at 11/25/15 1030 100 mL/hr at 11/25/15 1030 ??? nitroGLYcerin (NITROSTAT) SL tablet 0.4 mg 0.4 mg Sublingual Q5 Min PRN Hemal Bedolla MD No current [facility]-ordered outpatient prescriptions on file. Review of [...] to participate in the care of Olman ChanceRobertoy Please do not hesitate to call with questions. Yash Benton MD, MS roll dough divider Section of Cardiac Surgery [facility] Office: [phone] Pager: [phone] * Plan of Care - Erika Stout [...] Comments LAB SCAN 12/05/2015 12:00 AM EDT COLOR RECEIVER SCAN 12/05/2015 12:00 AM EDT COLOR RECEIVER SCAN 12/05/2015 12:00 AM EDT POTASSIUM Routine [...] Routine 11/30/2015 2:05 AM EDT CARDIAC EN[place] Routine 11/30/2015 2:05 AM EDT CREATININE Routine [...] 11/28/2015 5:52 AM EDT TYPE AND SCREEN ([facility]) Routine 11/28/2015 5:52 AM EDT EKG 12-LEAD Routine 11/27/2015 7:34 AM EDT ASCVD (arteriosclerotic cardiovascular disease) BMP W/FASTING GLUCOSE Routine 11/27/2015 5:32 AM EDT HEMOGRAM Routine 11/27/2015 5:32 AM EDT DIFFERENTIAL, AUTOMATED Routine 11/27/2015 5:32 AM EDT CARDIAC ENZYMES ([facility] Routine 11/27/2015 5:32 AM EDT CBC (WITH [...] (Bezet) 472 ms MUSE SYSTEM Calculated P Barry 67 degrees MUSE SYSTEM Calculated R Barry 48 degrees MUSE SYSTEM Calculated T Barry 56 degrees MUSE SYSTEM INTERPRETATION Normal sinus [...] SCAN EXT O RDR/RSLT * SCAN DOC: COLOR RECEIVER (12/05/2015 12:00 AM EDT) Anatomical Region Laterality Modality Other Scanning Provider MEDIA MGR SCAN EXT O RDR/RSLT * SCAN DOC: COLOR RECEIVER (12/05/2015 12:00 AM EDT) Anatomical Region Laterality Modality Other Scanning Provider MEDIA MGR SCAN EXT O RDR/RSLT * Potassium (12/04/2015 6:02 AM EDT) Potassium 3.9 3.5 - 5.0 mmol/L [facility] Comment: Please note: ??Patients with WBC [...] Lab Yash Benton MD CHEMISTRY ORDERABL ES [facility] [place] [address] * (ABNORMAL) Differential, Automated (12/03/2015 4:18 AM EDT) Neutrophils % 70.7 % [facility] Neutr Abs (ANC) 3.79 1.50 - 6.30 x10(3)/mc L [facility] Lymphocytes % 14.0 % [facility] Lymphocytes Abs 0.8(L) 1.0 - 3.6 x10(3)/mc L [facility] Monocytes % 10.6 % [facility] Monocyte Abs 0.6 0.2 - 1.0 x10(3)/[facility] Eosinophils % 4.1 % [facility] Eosinophils Abs 0.2 0.0 - 0.5 x10(3)/[facility] Basophils % 0.2 % [facility] Basophils Abs 0.0 0.0 - 0.2 x10(3)/[facility] Immature Gran % 0.40 % [facility] Comment: Immature granulocytes(IG's)percentage and absolute count will include metamyelocytes, myelocytes, and promyelocytes. Blood smears from CBCs yielding IG's will be scanned manually for concordance. If this scan disagrees with the automated IG or if promyelocytes are noted, a manual differential will be performed. Hemalatha Gran Abs 0.02 0.00 - 0.05 x10(3)/[facility] Blood specimen (specimen) 12/03/2015 4:18 AM EDT 12/03/2015 4:25 AM EDT Narrative Resulting Agency Comment Spec In Lab Yash Benton MD HEMATOLOGY ORDERAB LES [facility] [place] [address] * (ABNORMAL) Hemogram (12/03/2015 4:18 AM EDT) WBC 5.4 4.0 - 10.0 x10(3)/[facility] RBC 3.02(L) 4.63 - 6.08 x10(6)/[facility] Hemoglobin 8.6(L) 13.7 - 17.5 gm/dL [facility] Hematocrit 26.1(L) 40.0 - 51.0 % [facility] MCV 86.4 79.0 - 92.0 fL [facility] MCH 28.5 25.6 - 32.2 pg [facility] MCHC 33.0 32.0 - 36.5 gm/dL [facility] Platelets 141(L) 145 - 370 x10(3)/mcL [facility] RDWSD 46.5(H) 35.0 - 46.0 fL [facility] RDWCV 14.6(H) 10.9 - 14.4 % [facility] MPV 9.3 9.0 - 12.0 fL [facility] Blood specimen (specimen) 12/03/2015 4:18 AM EDT 12/03/2015 4:25 AM EDT Narrative Resulting Agency Comment Spec In Lab Yash Betnon MD HEMATOLOGY ORDERAB LES [facility] [place] [address] * (ABNORMAL) Basic Metabolic Panel (non-fasting) (12/03/2015 4:18 AM EDT) Glucose Lvl 96 65 - 199 mg/dL [facility] Comment:Diabetes: >=200 mg/d L plus symptoms BUN 11 10 - 20 mg/dL [facility] Creatinine 0.82 0.80 - 1.50 mg/dL [facility] Comment: Please note that the pediatric reference intervals supplied above were not validated [place] [facility] Results from pediatric patients should be interpreted in conjunction to the patient's age, height and muscle mass. Sodium 138 135 - 145 mmol/L [facility] Potassium 3.7 3.5 - 5.0 mmol/L [facility] Comment: Please note: ??Patients with WBC >100,000 may have falsely elevated Potassium levels. ??For accurate Potassium quantification in these patients send serum separator tube (gold top) for subsequent determinations. ??Contact the Clinical Chemistry Laboratory if there are any questions. Chloride 101 98 - 107 mmol/L [facility] CO2 28 22 - 31 mmol/L [facility] Anion Gap 9 5 - 15 mmol/L [facility] Calcium 8.0(L) 8.5 - 10.5 mg/dL [facility] Estimated GFR >60 >=60 [facility] Comment: This estimated GFR (eGFR) [...] the following links into your internet browser. [email or web address] Blood specimen (specimen) 12/03/2015 4:18 AM EDT 12/03/2015 4:25 AM EDT Narrative Resulting Agency Comment Spec In Lab Yash Benton MD CHEMISTRY ORDERABL ES [facility] [place] [address] * XR Chest PA & Lateral (Generic) [...] 11/29/2015 and 11/25/2015 FINDINGS: The endotracheal tube, Rimrock-Samuel catheter and vascular sheath, and chest tubes [...] 11/29/2015 and 11/25/2015 FINDINGS: The endotracheal tube, Rimrock-Samuel catheter and vascular sheath, and chesttubes have [...] 4:49 AM EDT) Neutrophils % 79.3 % [facility] Neutr Abs (ANC) 4.60 1.50 - 6.30 x10(3)/mc L [facility] Lymphocytes % 10.7 % [facility] Lymphocytes Abs 0.6(L) 1.0 - 3.6 x10(3)/mc L [facility] Monocytes % 8.4 % [facility] Monocyte Abs 0.5 0.2 - 1.0 x10(3)/mc L [facility] Eosinophils % 1.2 % [facility] Eosinophils Abs 0.1 0.0 - 0.5 x10(3)/mc L [facility] Basophils % 0.2 % [facility] Basophils Abs 0.0 0.0 - 0.2 x10(3)/[facility] Immature Gran % 0.20 % [facility] Comment: Immature granulocytes(IG's)percentage and absolute count will include metamyelocytes, myelocytes, and promyelocytes. Blood smears from CBCs yielding IG's will be scanned manually for concordance. If this scan disagrees with the automated IG or if promyelocytes are noted, a manual differential will be performed. Hemalatha Gran Abs 0.01 0.00 - 0.05 x10(3)/[facility] Blood specimen (specimen) 12/02/2015 4:49 AM EDT 12/02/2015 5:07 AM EDT Narrative Resulting Agency Comment Spec In Lab Yash Benton MD HEMATOLOGY ORDERAB LES [facility] [place] [address] * (ABNORMAL) Hemogram (12/02/2015 4:49 AM EDT) WBC 5.8 4.0 - 10.0 x10(3)/[facility] RBC 2.82(L) 4.63 - 6.08 x10(6)/[facility] Hemoglobin 7.7(L) 13.7 - 17.5 gm/dL [facility] Hematocrit 24.6(L) 40.0 - 51.0 % [facility] MCV 87.2 79.0 - 92.0 fL [facility] MCH 27.3 25.6 - 32.2 pg [facility] MCHC 31.3(L) 32.0 - 36.5 gm/dL [facility] Platelets 101(L) 145 - 370 x10(3)/[facility] RDWSD 45.9 35.0 - 46.0 fL [facility] RDWCV 14.3 10.9 - 14.4 % [facility] MPV 9.6 9.0 - 12.0 fL [facility] Blood specimen (specimen) 12/02/2015 4:49 AM EDT 12/02/2015 5:07 AM EDT Narrative Resulting Agency Comment Spec In Lab Yash Benton MD HEMATOLOGY ORDERAB LES [facility] [place] [address] * (ABNORMAL) Basic Metabolic Panel (non-fasting) (12/02/2015 4:49 AM EDT) Glucose Lvl 115 65 - 199 mg/dL [facility] Comment:Diabetes: >=200 mg/d L plus symptoms BUN 11 10 - 20 mg/dL [facility] Creatinine 0.71(L) 0.80 - 1.50 mg/dL [facility] Comment: Please note that the pediatric reference intervals supplied above were not validated [place] [facility] Results from pediatric patients should be interpreted in conjunction to the patient's age, height and muscle mass. Sodium 135 135 - 145 mmol/L [facility] Potassium 4.0 3.5 - 5.0 mmol/L [facility] Comment: Please note: ??Patients with WBC >100,000 may have falsely elevated Potassium levels. ??For accurate Potassium quantification in these patients send serum separator tube (gold top) for subsequent determinations. ??Contact the Clinical Chemistry Laboratory if there are any questions. Chloride 100 98 - 107 mmol/L [facility] CO2 28 22 - 31 mmol/L [facility] Anion Gap 7 5 - 15 mmol/L [facility] Calcium 8.0(L) 8.5 - 10.5 mg/dL [facility] Estimated GFR >60 >=60 [facility] Comment: This estimated GFR (eGFR) [...] the following links into your internet browser. [email or web address] Blood specimen (specimen) 12/02/2015 4:49 AM EDT 12/02/2015 5:07 AM EDT Narrative Resulting Agency Comment Spec In Lab Yash Benton MD CHEMISTRY ORDERABL ES Performing Organization Address [facility] Co de Phone Number [facility] [place] [address] * POCT Glucose (12/01/2015 11:56 AM EDT) POC Glucose 122 65 - 199 mg/dL [facility] Comment: Supplemental ranges: <140 mg/dL before meals <180 mg/dL all other times of the day Blood specimen (specimen) 12/01/2015 11:56 AM EDT 12/01/2015 11:56 AM EDT Yash Benton MD POINT OF CARE TEST ORDERABLES Performing Organization Address [facility] Co de Phone Number [facility] [place] [address] * POCT Glucose (12/01/2015 7:53 AM EDT) POC Glucose 117 65 - 199 mg/dL [facility] Comment: Supplemental ranges: <140 mg/dL before meals <180 mg/dL all other times of the day Blood specimen (specimen) 12/01/2015 7:53 AM EDT 12/01/2015 7:53 AM EDT Yash Benton MD POINT OF CARE TEST ORDERABLES Performing Organization Address [facility] Co de Phone Number [facility] [place] [address] * Scan, Peripheral Blood (12/01/2015 4:20 AM EDT) Pathologist [facility] Plat Estimate Decreased [facility] RBC Morphology Abnormal [facility] Ovalocytes 1-5 /HPF [facility] Ilia Cells 1-5 /HPF [facility] Giant Platelets Less than 1 /HPF [facility] Blood specimen (specimen) 12/01/2015 4:20 AM EDT 12/01/2015 4:34 AM EDT Narrative Resulting Agency Comment Spec In Lab Yash Benton MD HEMATOLOGY ORDERAB LES [facility] [place] [address] * (ABNORMAL) Differential, Automated (12/01/2015 4:20 AM EDT) [facility] Neutrophils % 73.9 % [facility] Neutr Abs (ANC) 4.14 1.50 - 6.30 x10(3)/mc L [facility] Lymphocytes % 12.9 % [facility] Lymphocytes Abs 0.7(L) 1.0 - 3.6 x10(3)/mc L [facility] Monocytes % 13.0 % [facility] Monocyte Abs 0.7 0.2 - 1.0 x10(3)/mc L [facility] Eosinophils % 0.2 % [facility] Eosinophils Abs 0.0 0.0 - 0.5 x10(3)/mc L [facility] Basophils % 0.0 % [facility] Basophils Abs 0.0 0.0 - 0.2 x10(3)/mc L [facility] Immature Gran % 0.00 % [facility] Comment: Immature granulocytes(IG's)percentage and absolute count will include metamyelocytes, myelocytes, and promyelocytes. Blood smears from CBCs yielding IG's will be scanned manually for concordance. If this scan disagrees with the automated IG or if promyelocytes are noted, a manual differential will be performed. Hemalatha Gran Abs 0.00 0.00 - 0.05 x10(3)/mc L [facility] Blood specimen (specimen) 12/01/2015 4:20 AM EDT 12/01/2015 4:34 AM EDT Narrative Resulting Agency Comment Spec In Lab Yash Benton MD HEMATOLOGY ORDERAB LES [facility] [place] [address] * (ABNORMAL) Hemogram (12/01/2015 4:20 AM EDT) WBC 5.6 4.0 - 10.0 x10(3)/[facility] RBC 2.85(L) 4.63 - 6.08 x10(6)/[facility] Hemoglobin 8.0(L) 13.7 - 17.5 gm/dL [facility] Hematocrit 24.8(L) 40.0 - 51.0 % [facility] MCV 87.0 79.0 - 92.0 fL [facility] MCH 28.1 25.6 - 32.2 pg [facility] MCHC 32.3 32.0 - 36.5 gm/dL [facility] Platelets 100(L) 145 - 370 x10(3)/[facility] RDWSD 46.2(H) 35.0 - 46.0 fL [facility] RDWCV 14.5(H) 10.9 - 14.4 % [facility] MPV 9.1 9.0 - 12.0 [facility] Blood specimen (specimen) 12/01/2015 4:20 AM EDT 12/01/2015 4:34 AM EDT Narrative Resulting Agency Comment Spec In Lab Yash Benton MD HEMATOLOGY ORDERAB LES [facility] [place] [address] * (ABNORMAL) Basic Metabolic Panel (non-fasting) (12/01/2015 4:20 AM EDT) Glucose Lvl 122 65 - 199 mg/dL [facility] Comment:Diabetes: >=200 mg/d L plus symptoms BUN 10 10 - 20 mg/dL [facility] Creatinine 0.67(L) 0.80 - 1.50 mg/dL [facility] Comment: Please note that the pediatric reference intervals supplied above were not validated [place] [facility] Results from pediatric patients should be interpreted in conjunction to the patient's age, height and muscle mass. Sodium 139 135 - 145 mmol/L [facility] Potassium 4.4 3.5 - 5.0 mmol/L [facility] Comment: Please note: ??Patients with WBC >100,000 may have falsely elevated Potassium levels. ??For accurate Potassium quantification in these patients send serum separator tube (gold top) for subsequent determinations. ??Contact the Clinical Chemistry Laboratory if there are any questions. Chloride 106 98 - 107 mmol/L [facility] CO2 25 22 - 31 mmol/L [facility] Anion Gap 8 5 - 15 mmol/L [facility] Calcium 7.9(L) 8.5 - 10.5 mg/dL [facility] Comment:result [id number] Estimated GFR >60 >=60 [facility] Comment: This estimated GFR (eGFR) [...] the following links into your internet browser. [email or web address] Blood specimen (specimen) 12/01/2015 4:20 AM EDT 12/01/2015 4:34 AM EDT Narrative Resulting Agency Comment Spec In Lab Yash Benton MD CHEMISTRY ORDERABL ES Performing Organization Address [facility] Co de Phone Number [facility] [place] [address] * POCT Glucose (12/01/2015 4:17 AM EDT) POC Glucose 106 65 - 199 mg/dL [facility] Comment: Supplemental ranges: <140 mg/dL before meals <180 mg/dL all other times of the day Blood specimen (specimen) 12/01/2015 4:17 AM EDT 12/01/2015 4:17 AM EDT Yash Benton MD POINT OF CARE TEST ORDERABLES Performing Organization Address [facility] Co de Phone Number [facility] [place] [address] * POCT Glucose (12/01/2015 12:18 AM EDT) POC Glucose 112 65 - 199 mg/dL [facility] Comment: Supplemental ranges: <140 mg/dL before meals <180 mg/dL all other times of the day Blood specimen (specimen) 12/01/2015 12:18 AM EDT 12/01/2015 12:18 AM EDT Yash Benton MD POINT OF CARE TEST ORDERABLES Performing Organization Address [facility] Co de Phone Number [facility] [place] [address] * POCT Glucose (11/30/2015 8:04 PM EDT) POC Glucose 105 65 - 199 mg/dL [facility] Comment: Supplemental ranges: <140 mg/dL before meals <180 mg/dL all other times of the day Blood specimen (specimen) 11/30/2015 8:04 PM EDT 11/30/2015 8:04 PM EDT Yash Benton MD POINT OF CARE TEST ORDERABLES Performing Organization Address [facility] Co de Phone Number [facility] [place] [address] * POCT Glucose (11/30/2015 6:26 PM EDT) POC Glucose 113 65 - 199 mg/dL [facility] Comment: Supplemental ranges: <140 mg/dL before meals <180 mg/dL all other times of the day Blood specimen (specimen) 11/30/2015 6:26 PM EDT 11/30/2015 6:26 PM EDT Yash Benton MD POINT OF CARE TEST ORDERABLES Performing Organization Address [facility] Phone Number [facility] [place] [address] * Potassium (11/30/2015 5:25 PM EDT) Potassium 4.4 3.5 - 5.0 mmol/L [facility] Comment: Please note: ??Patients with WBC [...] MD CHEMISTRY ORDERABL ES Performing Organization Address [facility] Co de Phone Number [facility] [place] [address] * POCT Glucose (11/30/2015 4:22 PM EDT) POC Glucose 92 65 - 199 mg/dL [facility] Comment: Supplemental ranges: <140 mg/dL before meals <180 mg/dL all other times of the day Blood specimen (specimen) 11/30/2015 4:22 PM EDT 11/30/2015 4:22 PM EDT Yash Benton MD POINT OF CARE TEST ORDERABLES [facility] [place] [place] [address] * POCT Glucose (11/30/2015 2:14 PM EDT) POC Glucose 105 65 - 199 mg/dL [facility] Comment: Supplemental ranges: <140 mg/dL before meals <180 mg/dL all other times of the day Blood specimen (specimen) 11/30/2015 2:14 PM EDT 11/30/2015 2:14 PM EDT Yash Benton MD POINT OF CARE TEST ORDERABLES Performing Organization Address City/[facility]/ZIP Co de Phone Number [facility] [place] [address] * POCT Glucose (11/30/2015 12:08 PM EDT) POC Glucose 122 65 - 199 mg/dL [facility] Comment: Supplemental ranges: <140 mg/dL before meals <180 mg/dL all other times of the day Blood specimen (specimen) 11/30/2015 12:08 PM EDT 11/30/2015 12:08 PM EDT Yash Benton MD POINT OF CARE TEST ORDERABLES [facility] [place] [address] * POCT Glucose (11/30/2015 10:02 AM EDT) POC Glucose 120 65 - 199 mg/dL [facility] Comment: Supplemental ranges: <140 mg/dL before meals <180 mg/dL all other times of the day Blood specimen (specimen) 11/30/2015 10:02 AM EDT 11/30/2015 10:02 AM EDT Yash Benton MD POINT OF CARE TEST ORDERABLES Performing Organization Address [facility] Co de Phone Number [facility] [place] [address] * POCT Glucose (11/30/2015 7:59 AM EDT) POC Glucose 115 65 - 199 mg/dL [facility] Comment: Supplemental ranges: <140 mg/dL before meals <180 mg/dL all other times of the day Blood specimen (specimen) 11/30/2015 7:59 AM EDT 11/30/2015 7:59 AM EDT Yash Benton MD POINT OF CARE TEST ORDERABLES Performing Organization Address [facility] Co de Phone Number [facility] [place] [address] * POCT Glucose (11/30/2015 4:46 AM EDT) POC Glucose 126 65 - 199 mg/dL [facility] Comment: Supplemental ranges: <140 mg/dL before meals <180 mg/dL all other times of the day Blood specimen (specimen) 11/30/2015 4:46 AM EDT 11/30/2015 4:46 AM EDT Yash Benton MD POINT OF CARE TEST ORDERABLES Performing Organization Address City/[facility] Co de Phone Number [facility] [place] [address] * (ABNORMAL) Electrolytes panel (11/30/2015 2:05 AM EDT) Sodium 141 135 - 145 mmol/L [facility] Potassium 4.5 3.5 - 5.0 mmol/L [facility] Comment: Please note: ??Patients with WBC >100,000 may have falsely elevated Potassium levels. ??For accurate Potassium quantification in these patients send serum separator tube (gold top) for subsequent determinations. ??Contact the Clinical Chemistry Laboratory if there are any questions. Chloride 107 98 - 107 mmol/L [facility] CO2 21(L) 22 - 31 mmol/L [facility] Anion Gap 13 5 - 15 mmol/L [facility] Blood specimen (specimen) Venous Draw / Unknown 11/30/2015 2:05 AM EDT 11/30/2015 2:47 AM EDT Narrative Resulting Agency Comment Spec In Lab Yash Benton MD CHEMISTRY ORDERABL ES [facility] [place] [address] * (ABNORMAL) Differential, Automated (11/30/2015 2:05 AM EDT) Neutrophils % 80.8 % [facility] Neutr Abs (ANC) 4.42 1.50 - 6.30 x10(3)/mc L [facility] Lymphocytes % 6.8 % [facility] Lymphocytes Abs 0.4(L) 1.0 - 3.6 x10(3)/mc L [facility] Monocytes % 12.4 % [facility] Monocyte Abs 0.7 0.2 - 1.0 x10(3)/mc L [facility] Eosinophils % 0.0 % [facility] Eosinophils Abs 0.0 0.0 - 0.5 x10(3)/mc L [facility] Basophils % 0.0 % [facility] Basophils Abs 0.0 0.0 - 0.2 x10(3)/mc L [facility] Immature Gran % 0.00 % [facility] Comment: Immature granulocytes(IG's)percentage and absolute count will include metamyelocytes, myelocytes, and promyelocytes. Blood smears from CBCs yielding IG's will be scanned manually for concordance. If this scan disagrees with the automated IG or if promyelocytes are noted, a manual differential will be performed. Hemalatha Gran Abs 0.00 0.00 - 0.05 x10(3)/ L [facility] Blood specimen (specimen) 11/30/2015 2:05 AM EDT 11/30/2015 2:47 AM EDT Narrative Resulting Agency Comment Spec In Lab Yash Benton MD HEMATOLOGY ORDERAB LES [facility] [place] [address] * (ABNORMAL) Hemogram (11/30/2015 2:05 AM EDT) WBC 5.5 4.0 - 10.0 x10(3)/[facility] LAB[facility]AT[facility] RBC 3.10(L) 4.63 - 6.08 x10(6)/[facility] Hemoglobin 8.7(L) 13.7 - 17.5 gm/dL [facility] Comment: This result has been called to JOSEPH FERNANDEZ by AURELIO MAGDALENO on 11 30 2015 at 0304, and has been read back. Hematocrit 26.7(L) 40.0 - 51.0 % [facility] MCV 86.1 79.0 - 92.0 fL [facility] MCH 28.1 25.6 - 32.2 pg [facility] MCHC 32.6 32.0 - 36.5 gm/dL [facility] Platelets 129(L) 145 - 370 x10(3[place] [place]DW[place] 46.2(H) 35.0 - 46.0 fL [facility] RDWCV 14.6(H) 10.9 - 14.4 % [facility] MPV 9.2 9.0 - 12.0 fL [facility] Blood specimen (specimen) 11/30/2015 2:05 AM EDT 11/30/2015 2:47 AM EDT Narrative Resulting Agency Comment Spec In Lab Yash Benton MD HEMATOLOGY ORDERAB LES [facility] [place] [address] * (ABNORMAL) Cardiac Enzymes (11/30/2015 2:05 AM EDT) Troponin-T 0.76(H) <=0.03 ng/mL [facility] Comment: 0.03 ng/mL: Represents the 99th percentile upper reference limit for normals. >0.03 ng/mL: Elevated cardiac troponin T level indicative of myocardial damage. Diagnosis of acute, evolving or recent VT requires a typical rise and gradual fall [...] consensus document of the Joint Society of Cardiology/[place] College of Cardiology Committee for the redefinition of myocardial infarction. ??Journal of the [place] College of [employer]iology 2000; 36: 959-969] CK, Total 356(H) 0 - 200 unit/L [facility] Comment:result rechecked-llu Blood specimen (specimen) 11/30/2015 2:05 AM EDT 11/30/2015 2:47 AM EDT Narrative Resulting Agency Comment Spec In Lab Yash Benton MD CHEMISTRY ORDERABL ES [facility] [place] [address] * (ABNORMAL) Glucose, fasting (11/30/2015 2:05 AM EDT) Glucose Fasting 134(H) 65 - 99 mg/dL [facility] Comment: ?Fasting* Glucose Interpretive Criteria Normal [...] of Diabetes Mellitus, Position Statement from the [place] Diabetes Association. ??Diabetes Care, Volume 33, Supplement 1, May 2009 Blood specimen (specimen) 11/30/2015 2:05 AM EDT 11/30/2015 2:47 AM EDT Narrative Resulting Agency Comment Spec In Lab Yash Benton MD CHEMISTRY ORDERABL ES [facility] [place] [place] [address] * (ABNORMAL) Creatinine (11/30/2015 2:05 AM EDT) Creatinine 0.70(L) 0.80 - 1.50 mg/dL [facility] Comment: Please note that the pediatric reference intervals supplied above were [place] validated [place] [facility] Results from pediatric patients should be interpreted in conjunction to the patient's age, height and muscle mass. Estimated GFR >60 >=60 [facility] Comment: This estimated GFR (eGFR) [...] the following links into your internet browser. [email or web address] Blood specimen (specimen) 11/30/2015 2:05 AM EDT 11/30/2015 2:47 AM EDT Narrative Resulting Agency Comment Spec In Lab Yash Benton MD CHEMISTRY ORDERABL ES Performing Organization Address [facility]/ZIP Co de Phone Number [facility] [place] [address] * (ABNORMAL) BUN (11/30/2015 2:05 AM EDT) BUN 8(L) 10 - 20 mg/dL [facility] Blood specimen (specimen) 11/30/2015 2:05 AM EDT 11/30/2015 2:47 AM EDT Narrative Resulting Agency Comment Spec In Lab Yash Benton MD CHEMISTRY ORDERABL ES Performing Organization Address [facility] Co de Phone Number [facility] [place] [address] * POCT Glucose (11/30/2015 2:04 AM EDT) POC Glucose 135 65 - 199 mg/dL [facility] Comment: Supplemental ranges: <140 mg/dL before meals <180 mg/dL all other times of the day Blood specimen (specimen) 11/30/2015 2:04 AM EDT 11/30/2015 2:04 AM EDT Yash Benton MD POINT OF CARE TEST ORDERABLES Performing Organization Address [facility] Co de Phone Number [facility] [place] [address] * (ABNORMAL) BLOOD GAS 2 ARTERIAL (11/30/2015 12:14 AM EDT) pH Art 7.36 7.35 - 7.45 [facility] pCO2 Art 41 35 - 45 mmHg [facility] pO2 Art 144(H) 85 - 104 mmHg [facility] HCO3 Art 22.4 20.0 - 26.0 mmol/L [facility] BE Art -2.8 -3.0 - 3.0 mmol/L [facility] Hgb Blood Gas 9.7(L) 13.7 - 17.5 gm/dL [facility] O2HB Art 97.0 94.0 - 97.0 % [facility] COHB Art 0.1 % [facility] Comment: Nonsmokers: 0.5-1.5% COHB Smokers: Variable, but usually less than 10% Toxic: 20-30% COHB Lethal: Greater than 60% COHB METHB Art 0.7 <=1.5 % [facility] Na Whole Blood 136 135 - 145 mmol/L [facility] K Whole Blood 4.8 3.5 - 5.0 mmol/L [facility] Comment: Please note: Patients with WBC >100,000 may have falsely elevated Potassium levels. Contact the Clinical Chemistry Laboratory if there are any questions. ICa Whole Blood 1.09(L) 1.15 - 1.33 mmol/L [facility] Comment: Note: ??Total bilirubin higher than 20 mg/dL may lead to falsely low ionized calcium. CL Whole Blood 105 98 - 107 mmol/L [facility] Gluc Whole Bld 149 65 - 199 mg/dL [facility] Comment:Diabetes: >=200 mg/d L plus symptoms. Lactate WB 1.1 0.5 - 2.2 mmol/L [facility] FIO2 Art 40 % [facility] PF Ratio Art 360 [facility] Temp Art 38.2 Celsius [facility] Blood specimen (specimen) 11/30/2015 12:14 AM EDT 11/30/2015 12:14 AM EDT Yash Benton MD CHEMISTRY ORDERABL ES [facility] [place] [address] * POCT Glucose (11/29/2015 10:03 PM EDT) POC Glucose 106 65 - 199 mg/dL [facility] Comment: Supplemental ranges: <140 mg/dL before meals <180 mg/dL all other times of the day Blood specimen (specimen) 11/29/2015 10:03 PM EDT 11/29/2015 10:03 PM EDT Yash Benton MD POINT OF CARE TEST ORDERABLES Performing Organization Address [facility] Co de Phone Number [facility] [place] [address] * POCT Glucose (11/29/2015 8:45 PM EDT) POC Glucose 123 65 - 199 mg/dL [facility] Comment: Supplemental ranges: <140 mg/dL before meals <180 mg/dL all other times of the day Blood specimen (specimen) 11/29/2015 8:45 PM EDT 11/29/2015 8:45 PM EDT Yash Benton MD POINT OF CARE TEST ORDERABLES Performing Organization Address [facility] de Phone Number [facility] [place] [address] * ECHO LMTD W/O CONTRAST (11/29/2015 6:33 PM EDT) Anatomical Region Laterality Modality Other 11/30/2015 Narrative 11/30/2015 9:01 AM EDT Procedure: ?Transthoracic Echocardiogram Patient: ?NIKHIL Stewart ?(Age): 1955(59y) Med Rec#: ? [id number] ?Sex: ?M ? [place] ? [facility] [place]Ht / Wt: ??178(cm)/77(kg) Pt. Loc: ?ICU ? BSA: ?1.7 Study Date: ?? 11/29/2015 ?Pt. Type: Inpatient Tape: ? 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 94/59 SUMMARY: 1. Limited study [...] 11/30/2015 09:01:08 Images reviewed and interpretation verified [facility] Procedure Note Ricky Hernandez MD - 11/30/2015 Procedure: Transthoracic Echocardiogram Patient: NIKHIL Stewart (Age): 1955(59y) Med Rec#: [id number] Sex: M [place] Loc: [facility] Ht / Wt: 178(cm)/77(kg) Pt. Loc: ICU BSA: 1.7 Study Date: 11/29/2015 Pt. Type: Inpatient Tape: Referring: Dario Payne Reading: Ricky Hernandez ([id number]) Camera Tuning Engineer: Joseline Zarate Diagnosis: *ICD-10-PCS Presence of aortocoronary bypass graft (Z95.1) CPT Codes: *Echo LTD ([id number]) BP: 94/59 SUMMARY: 1. Limited study of [...] 11/30/2015 09:01:08 Images reviewed and interpretation verified [facility] Dario Payne MD ECHO ORDERABLES * (ABNORMAL) Coox2 (11/29/2015 6:21 PM EDT) pO2 Coox 34 mmHg [facility] Hgb Blood Gas 10.6(L) 13.7 - 17.5 gm/dL [facility] O2HB Coox 66.9 % [facility] COHB Coox 0.7 % [facility] Comment: Nonsmokers: 0.5-1.5% COHB Smokers: Variable, but usually less than 10% Toxic: 20-30% COHB Lethal: Greater than 60% COHB METHB Coox 0.9 <=1.5 % [facility] Comment: Reference Interval: Methemoglobin: less than 1.5% Source Coox Mixed Venous [facility] Blood specimen (specimen) 11/29/2015 6:21 PM EDT 11/29/2015 6:21 PM EDT Yash Benton MD CHEMISTRY ORDERABL ES [facility] [place] [address] * (ABNORMAL) BLOOD GAS 2 ARTERIAL (11/29/2015 6:18 PM EDT) pH Art 7.36 7.35 - 7.45 [facility] pCO2 Art 41 35 - 45 mmHg [facility] pO2 Art 120(H) 85 - 104 mmHg [facility] HCO3 Art 22.6 20.0 - 26.0 mmol/L [facility] BE Art -2.8 -3.0 - 3.0 mmol/L [facility] Hgb Blood Gas 10.7(L) 13.7 - 17.5 gm/dL [facility] O2HB Art 96.6 94.0 - 97.0 % [facility] COHB Art 0.3 % [facility] Comment: Nonsmokers: 0.5-1.5% COHB Smokers: Variable, but usually less than 10% Toxic: 20-30% COHB Lethal: Greater than 60% COHB METHB Art 0.8 <=1.5 % [facility] Na Whole Blood 138 135 - 145 mmol/L [facility] K Whole Blood 4.5 3.5 - 5.0 mmol/L [facility] Comment: Please note: Patients with WBC >100,000 may have falsely elevated Potassium levels. Contact the Clinical Chemistry Laboratory if there are any questions. ICa Whole Blood 1.06(L) 1.15 - 1.33 mmol/L [facility] Comment: Note: ??Total bilirubin higher than 20 mg/dL may lead to falsely low ionized calcium. CL Whole Blood 106 98 - 107 mmol/L [facility] Gluc Whole Bld 181 65 - 199 mg/dL [facility] Comment:Diabetes: >=200 mg/d L plus symptoms. Lactate WB 2.8(H) 0.5 - 2.2 mmol/L [facility] FIO2 Art 40 % [facility] PF Ratio Art 300 [facility] Blood specimen (specimen) 11/29/2015 6:18 PM EDT 11/29/2015 6:18 PM EDT Yash Benton MD CHEMISTRY ORDERABL ES [facility] [place] [place] [address] * (ABNORMAL) BLOOD GAS 2 ARTERIAL (11/29/2015 5:14 PM EDT) pH Art 7.26(Criti ton) 7.35 - 7.45 [facility] Comment:Noted by instrumentation technologist. pCO2 Art 41 35 - 45 mmHg [facility] pO2 Art 113(H) 85 - 104 mmHg [facility] HCO3 Art 17.9(L) 20.0 - 26.0 mmol/L [facility] BE Art -9.2(L) -3.0 - 3.0 mmol/L [facility] Hgb Blood Gas 11.0(L) 13.7 - 17.5 gm/dL [facility] O2HB Art 95.9 94.0 - 97.0 % [facility] COHB Art 0.3 % [facility] Comment: Nonsmokers: 0.5-1.5% COHB Smokers: Variable, but usually less than 10% Toxic: 20-30% COHB Lethal: Greater than 60% COHB METHB Art 0.8 <=1.5 % [facility] Na Whole Blood 137 135 - 145 mmol/L [facility] K Whole Blood 4.3 3.5 - 5.0 mmol/L [facility] Comment: Please note: Patients with WBC >100,000 may have falsely elevated Potassium levels. Contact the Clinical Chemistry Laboratory if there are any questions. ICa Whole Blood 1.07(L) 1.15 - 1.33 mmol/L [facility] Comment: Note: ??Total bilirubin higher than 20 mg/dL may lead to falsely low ionized calcium. CL Whole Blood 107 98 - 107 mmol/L [facility] Gluc Whole Bld 172 65 - 199 mg/dL [facility] Comment:Diabetes: >=200 mg/d L plus symptoms. Lactate WB 2.3(H) 0.5 - 2.2 mmol/L [facility] FIO2 Art 40 % [facility] PF Ratio Art 282 [facility] Blood specimen (specimen) 11/29/2015 5:14 PM EDT 11/29/2015 5:14 PM EDT Yash Benton MD CHEMISTRY ORDERABL ES Performing Organization Address [facility] Co de Phone Number [facility] [place] [address] * POCT Glucose (11/29/2015 4:10 PM EDT) POC Glucose 125 65 - 199 mg/dL [facility] Comment: Supplemental ranges: <140 mg/dL before meals <180 mg/dL all other times of the day Blood specimen (specimen) 11/29/2015 4:10 PM EDT 11/29/2015 4:10 PM EDT Yash Benton MD POINT OF CARE TEST ORDERABLES Performing Organization Address [facility] Co de Phone Number [facility] [place] [address] * XR Chest Pa or AP- 1 [...] mid trachea, there is a right IJ Rimrock-Samuel catheter with the tip in the right [...] the mid trachea, there is a rightIJ Rimrock-Samuel catheter with the tip in the right [...] (Bezet) 453 ms MUSE SYSTEM Calculated P Barry 69 degrees MUSE SYSTEM Calculated R Barry 54 degrees MUSE SYSTEM Calculated T Barry 85 degrees MUSE SYSTEM INTERPRETATION Normal sinus [...] (ABNORMAL) Differential, Automated (11/29/2015 2:25 PM EDT) Pathologist [facility] Neutrophils % 79.7 % [facility] Neutr Abs (ANC) 10.17(H) 1.50 - 6.30 x10(3)/[facility] Lymphocytes % 12.5 % [facility] Lymphocytes Abs 1.6 1.0 - 3.6 x10(3)/[facility] Monocytes % 7.1 % [facility] Monocyte Abs 0.9 0.2 - 1.0 x10(3)/[facility] Eosinophils % 0.4 % [facility] Eosinophils Abs 0.0 0.0 - 0.5 x10(3)/[facility] Basophils % 0.1 % [facility] Basophils Abs 0.0 0.0 - 0.2 x10(3)/[facility] Immature Gran % 0.20 % [facility] Comment: Immature granulocytes(IG's)percentage and absolute count will include metamyelocytes, myelocytes, and promyelocytes. Blood smears from CBCs yielding IG's will be scanned manually for concordance. If this scan disagrees with the automated IG or if promyelocytes are noted, a manual differential will be performed. Hemalatha Gran Abs 0.02 0.00 - 0.05 x10(3)/[facility] Blood specimen (specimen) 11/29/2015 2:25 PM EDT 11/29/2015 2:30 PM EDT Narrative Resulting Agency Comment Spec In Lab Yash Benton MD HEMATOLOGY ORDERAB LES [facility] [place] [address] * (ABNORMAL) Hemogram (11/29/2015 2:25 PM EDT) WBC 12.8(H) 4.0 - 10.0 x10(3)/[facility] RBC 3.89(L) 4.63 - 6.08 x10(6)/[facility] Hemoglobin 11.0(L) 13.7 - 17.5 gm/dL [facility] Hematocrit 33.5(L) 40.0 - 51.0 % [facility] MCV 86.1 79.0 - 92.0 fL [facility] MCH 28.3 25.6 - 32.2 pg [facility] MCHC 32.8 32.0 - 36.5 gm/dL [facility] Platelets 166 145 - 370 x10(3)/mcL [facility] RDWSD 44.8 35.0 - 46.0 fL [facility] RDWCV 14.2 10.9 - 14.4 % [facility] MPV 9.2 9.0 - 12.0 fL [facility] Blood specimen (specimen) 11/29/2015 2:25 PM EDT 11/29/2015 2:30 PM EDT Narrative Resulting Agency Comment Spec In Lab Yash Benton MD HEMATOLOGY ORDERAB LES [facility] [place] [place] [address] * (ABNORMAL) Basic Metabolic Panel (non-fasting) (11/29/2015 2:25 PM EDT) Glucose Lvl 161 65 - 199 mg/dL [facility] Comment:Diabetes: >=200 mg/d L plus symptoms BUN 10 10 - 20 mg/dL [facility] Creatinine 0.72(L) 0.80 - 1.50 mg/dL [facility] Comment: Please note that the pediatric reference intervals supplied above were not validated [place] [facility] Results from pediatric patients should be interpreted in conjunction to the patient's age, height and muscle mass. Sodium 140 135 - 145 mmol/L [facility] Potassium 3.9 3.5 - 5.0 mmol/L [facility] Comment: Please note: ??Patients with WBC >100,000 may have falsely elevated Potassium levels. ??For accurate Potassium quantification in these patients send serum separator tube (gold top) for subsequent determinations. ??Contact the Clinical Chemistry Laboratory if there are any questions. Chloride 108(H) 98 - 107 mmol/L [facility] CO2 18(L) 22 - 31 mmol/L [facility] Anion Gap 14 5 - 15 mmol/L [facility] Calcium 7.2(L) 8.5 - 10.5 mg/dL [facility] Estimated GFR >60 >=60 [facility] Comment: This estimated GFR (eGFR) [...] the following links into your internet browser. [email or web address] Blood specimen (specimen) 11/29/2015 2:25 PM EDT 11/29/2015 2:30 PM EDT Narrative Resulting Agency Comment Spec In Lab Yash Benton MD CHEMISTRY ORDERABL ES Performing Organization Address [facility] Co de Phone Number [facility] [place] [address] * Fibrinogen (11/29/2015 2:25 PM EDT) Fibrinogen 270 175 - 450 mg/dL [facility] Comment: A fibrinogen level >100 mg/dL is adequate for hemostasis in most patients without underlying bleeding disorders. Blood specimen (specimen) 11/29/2015 2:25 PM EDT 11/29/2015 2:30 PM EDT Narrative Resulting Agency Comment Spec In Lab Yash Benton MD HEMATOLOGY ORDERAB LES Performing Organization Address City/[facility]/ZIP Co de Phone Number [facility] [place] [address] * (ABNORMAL) APTT (11/29/2015 2:25 PM EDT) PTT 36(H) 25 - 35 sec [facility] Comment: The recommended therapeutic range for full dose, unfractionated heparin at [facility] is 80 ? 114 seconds. The use of the anti-Xa (heparin) level rather than the PTT is recommended for monitoring anticoagulation intensity in critically ill patients receiving unfractionated heparin by continuous IV infusion. Blood specimen (specimen) 11/29/2015 2:25 PM EDT 11/29/2015 2:30 PM EDT Narrative Resulting Agency Comment Spec In Lab Yash Benton MD HEMATOLOGY ORDERAB LES Performing Organization Address [facility] Co de Phone Number [facility] [place] [address] * (ABNORMAL) Prothrombin Time (11/29/2015 2:25 PM EDT) PT 17.0(H) 12.0 - 15.0 sec [facility] Comment: An INR <2.0 indicates adequate [...] clinical circumstances. INR 1.4(H) 0.9 - 1.1 [facility] Blood specimen (specimen) 11/29/2015 2:25 PM EDT 11/29/2015 2:30 PM EDT Narrative Resulting Agency Comment Spec In Lab Yash Benton MD HEMATOLOGY ORDERAB LES Performing Organization Address City/[facility] Co de Phone Number [facility] [place] [address] * (ABNORMAL) BLOOD GAS 2 ARTERIAL (11/29/2015 2:22 PM EDT) pH Art 7.31(L) 7.35 - 7.45 [facility] pCO2 Art 37 35 - 45 mmHg [facility] pO2 Art 241(H) 85 - 104 mmHg [facility] HCO3 Art 18.0(L) 20.0 - 26.0 mmol/L [facility] BE Art -8.3(L) -3.0 - 3.0 mmol/L [facility] Hgb Blood Gas 11.9(L) 13.7 - 17.5 gm/dL [facility] O2HB Art 97.8(H) 94.0 - 97.0 % [facility] COHB Art 0.1 % [facility] Comment: Nonsmokers: 0.5-1.5% COHB Smokers: Variable, but usually less than 10% Toxic: 20-30% COHB Lethal: Greater than 60% COHB METHB Art 0.9 <=1.5 % [facility] Na Whole Blood 135 135 - 145 mmol/L [facility] K Whole Blood 3.9 3.5 - 5.0 mmol/L [facility] Comment: Please note: Patients with WBC >100,000 may have falsely elevated Potassium levels. Contact the Clinical Chemistry Laboratory if there are any questions. ICa Whole Blood 1.19 1.15 - 1.33 mmol/L [facility] Comment: Note: ??Total bilirubin higher than 20 mg/dL may lead to falsely low ionized calcium. CL Whole Blood 106 98 - 107 mmol/L [facility] Gluc Whole Bld 155 65 - 199 mg/dL [facility] Comment:Diabetes: >=200 mg/d L plus symptoms. Lactate WB 2.6(H) 0.5 - 2.2 mmol/L [facility] FIO2 Art 100 % [facility] PF Ratio Art 241 [facility] Blood specimen (specimen) 11/29/2015 2:22 PM EDT 11/29/2015 2:22 PM EDT Yash Benton MD CHEMISTRY ORDERABL ES [facility] [place] [address] * (ABNORMAL) BLOOD GAS 2 ARTERIAL (11/29/2015 12:51 PM EDT) pH Art 7.32(L) 7.35 - 7.45 [facility] pCO2 Art 41 35 - 45 mmHg [facility] pO2 Art 288(H) 85 - 104 mmHg [facility] HCO3 Art 20.9 20.0 - 26.0 mmol/L [facility] BE Art -5.2(L) -3.0 - 3.0 mmol/L [facility] Hgb Blood Gas 8.9(L) 13.7 - 17.5 gm/dL [facility] O2HB Art 98.5(H) 94.0 - 97.0 % [facility] COHB Art 0.7 % [facility] Comment: Nonsmokers: 0.5-1.5% COHB Smokers: Variable, but usually less than 10% Toxic: 20-30% COHB Lethal: Greater than 60% COHB METHB Art 0.3 <=1.5 % [facility] Na Whole Blood 131(L) 135 - 145 mmol/L [facility] K Whole Blood 3.8 3.5 - 5.0 mmol/L [facility] Comment: Please note: Patients with WBC >100,000 may have falsely elevated Potassium levels. Contact the Clinical Chemistry Laboratory if there are any questions. ICa Whole Blood 1.11(L) 1.15 - 1.33 mmol/L [facility] Comment: Note: ??Total bilirubin higher than 20 mg/dL may lead to falsely low ionized calcium. CL Whole Blood 106 98 - 107 mmol/L [facility] Gluc Whole Bld 172 65 - 199 mg/dL [facility] Comment:Diabetes: >=200 mg/d L plus symptoms. Blood specimen (specimen) 11/29/2015 12:51 PM EDT 11/29/2015 12:51 PM EDT Xiomy Zarate MD CHEMISTRY ORDERABLES Performing Organization Address [facility] Co de Phone Number [facility] [place] [address] * Thrombin time (11/29/2015 12:47 PM EDT) Pathologist [facility] [place] Thrombin Time 17 15 - 20 sec [facility] Comment: A prolongation in the thrombin [...] MD HEMATOLOGY ORDERABLE S Performing Organization Address [facility] Co de Phone Number [facility] [place] [address] * Fibrinogen (11/29/2015 12:47 PM EDT) [facility] Fibrinogen 208 175 - 450 mg/dL [facility] Comment: Called by: SHIREEN, Read back by: Milagro Spencer, Date/Time:11/29/15 13:07. A fibrinogen level >100 mg/dL is adequate for hemostasis in most patients without underlying bleeding disorders. Blood specimen (specimen) 11/29/2015 12:47 PM EDT 11/29/2015 12:53 PM EDT Narrative Resulting Agency Comment Spec In Lab Xiomy Zarate MD HEMATOLOGY ORDERABLE S Performing Organization Address [facility] Co de Phone Number [facility] [place] [address] * (ABNORMAL) APTT (11/29/2015 12:47 PM EDT) Pathologist [facility] [place] PTT 38(H) 25 - 35 sec [facility] Comment: The recommended therapeutic range for full dose, unfractionated heparin at [facility] is 80 ? 114 seconds. The use of the anti-Xa (heparin) level rather than the PTT is recommended for monitoring anticoagulation intensity in critically ill patients receiving unfractionated heparin by continuous IV infusion. Blood specimen (specimen) 11/29/2015 12:47 PM EDT 11/29/2015 12:53 PM EDT Narrative Resulting Agency Comment Spec In Lab Xiomy Zarate MD HEMATOLOGY ORDERABLE S Performing Organization Address [facility] Co de Phone Number [facility] [place] [address] * (ABNORMAL) Prothrombin Time (11/29/2015 12:47 PM EDT) PT 20.9(H) 12.0 - 15.0 sec [facility] Comment: An INR <2.0 indicates adequate [...] clinical circumstances. INR 1.7(H) 0.9 - 1.1 [facility] Blood specimen (specimen) 11/29/2015 12:47 PM EDT 11/29/2015 12:53 PM EDT Narrative Resulting Agency Comment Spec In Lab Xiomy Zarate MD HEMATOLOGY ORDERABLE S Performing Organization Address [facility]/ZIP Co de Phone Number [facility] [place] [address] * (ABNORMAL) Hemogram (11/29/2015 12:47 PM EDT) WBC 11.4(H) 4.0 - 10.0 x10(3)/mcL [facility] Comment: Called by: Shelby Marvin, Read back by: Sierra Naqvi, Date-Time: 11 29 2015 1257 RBC 2.99(L) 4.63 - 6.08 x10(6)/[facility] Hemoglobin 8.2(L) 13.7 - 17.5 gm/dL [facility] Comment: This result has been called to SIERRA NAQVI by Shelby Marvin on 11 29 2015 at 1257, and has been read back. Hematocrit 25.8(L) 40.0 - 51.0 % [facility] MCV 86.3 79.0 - 92.0 fL [facility] MCH 27.4 25.6 - 32.2 pg [facility] MCHC 31.8(L) 32.0 - 36.5 gm/dL [facility] Platelets 137(L) 145 - 370 x10(3)/[facility] RDWSD 45.1 35.0 - 46.0 fL [facility] RDWCV 14.3 10.9 - 14.4 % [facility] MPV 9.1 9.0 - 12.0 fL [facility] Blood specimen (specimen) 11/29/2015 12:47 PM EDT 11/29/2015 12:53 PM EDT Narrative Resulting Agency Comment Spec In Lab Xiomy Zarate MD HEMATOLOGY ORDERABLE S [facility] [place] [place] [address] * (ABNORMAL) BLOOD GAS 2 ARTERIAL (11/29/2015 12:15 PM EDT) pH Art 7.37 7.35 - 7.45 [facility] pCO2 Art 39 35 - 45 mmHg [facility] pO2 Art 292(H) 85 - 104 mmHg [facility] HCO3 Art 21.8 20.0 - 26.0 mmol/L [facility] BE Art -3.5(L) -3.0 - 3.0 mmol/L [facility] Hgb Blood Gas 9.4(L) 13.7 - 17.5 gm/dL [facility] O2HB Art 98.5(H) 94.0 - 97.0 % [facility] COHB Art 0.6 % [facility] Comment: Nonsmokers: 0.5-1.5% COHB Smokers: Variable, but usually less than 10% Toxic: 20-30% COHB Lethal: Greater than 60% COHB METHB Art 0.3 <=1.5 % [facility] Na Whole Blood 128(L) 135 - 145 mmol/L [facility] K Whole Blood 5.5(H) 3.5 - 5.0 mmol/L [facility] Comment: Please note: Patients with WBC >100,000 may have falsely elevated Potassium levels. Contact the Clinical Chemistry Laboratory if there are any questions. ICa Whole Blood 0.87(Criti ton) 1.15 - 1.33 mmol/L [facility] Comment: Noted by instrumentation technologist. Note: ??Total bilirubin higher than 20 mg/dL may lead to falsely low ionized calcium. CL Whole Blood 102 98 - 107 mmol/L [facility] Gluc Whole Bld 193 65 - 199 mg/dL [facility] Comment:Diabetes: >=200 mg/d L plus symptoms. Blood specimen (specimen) 11/29/2015 12:15 PM EDT 11/29/2015 12:15 PM EDT Xiomy Zarate MD CHEMISTRY ORDERABLES [facility] [place] [address] * (ABNORMAL) BLOOD GAS 2 ARTERIAL (11/29/2015 11:48 AM EDT) pH Art 7.34(L) 7.35 - 7.45 [facility] pCO2 Art 45 35 - 45 mmHg [facility] pO2 Art 273(H) 85 - 104 mmHg [facility] HCO3 Art 23.8 20.0 - 26.0 mmol/L [facility] BE Art -1.9 -3.0 - 3.0 mmol/L [facility] Hgb Blood Gas 10.1(L) 13.7 - 17.5 gm/dL [facility] O2HB Art 98.8(H) 94.0 - 97.0 % [facility] COHB Art 0.2 % [facility] Comment: Nonsmokers: 0.5-1.5% COHB Smokers: Variable, but usually less than 10% Toxic: 20-30% COHB Lethal: Greater than 60% COHB METHB Art 0.3 <=1.5 % [facility] Na Whole Blood 128(L) 135 - 145 mmol/L [facility] K Whole Blood 6.0(H) 3.5 - 5.0 mmol/L [facility] Comment: Please note: Patients with WBC >100,000 may have falsely elevated Potassium levels. Contact the Clinical Chemistry Laboratory if there are any questions. ICa Whole Blood 0.87(Criti ton) 1.15 - 1.33 mmol/L [facility] Comment: Noted by instrumentation technologist. Note: ??Total bilirubin higher than 20 mg/dL may lead to falsely low ionized calcium. CL Whole Blood 103 98 - 107 mmol/L [facility] Gluc Whole Bld 200(H) 65 - 199 mg/dL [facility] Comment:Diabetes: >=200 mg/d L plus symptoms. Blood specimen (specimen) 11/29/2015 11:48 AM EDT 11/29/2015 11:48 AM EDT Xiomy Zarate MD CHEMISTRY ORDERABLES [facility] [place] [place] [address] * Fibrinogen (11/29/2015 11:45 AM EDT) Fibrinogen 247 175 - 450 mg/dL [facility] Comment: Called by: SHIREEN, Read back by: Sierra Naqvi, Date/Time:11/29/15 12:09. A fibrinogen level >100 mg/dL is adequate for hemostasis in most patients without underlying bleeding disorders. Blood specimen (specimen) 11/29/2015 11:45 AM EDT 11/29/2015 11:53 AM EDT Narrative Resulting Agency Comment Spec In Lab Xiomy Zarate MD HEMATOLOGY ORDERABLE S Performing Organization Address City/[facility]/ZIP Co de Phone Number [facility] [place] [address] * Platelet count (11/29/2015 11:45 AM EDT) Platelets 146 145 - 370 x10(3)/mcL [facility] Comment: Called by: Shelby Marvin, Read back by: Sierra Naqvi, Date-Time: 11 29 2015 1201 Blood specimen (specimen) 11/29/2015 11:45 AM EDT 11/29/2015 11:53 AM EDT Narrative Resulting Agency Comment Spec In Lab Xiomy Zarate MD HEMATOLOGY ORDERABLE S Performing Organization Address City/[facility] Co de Phone Number [facility] [place] [address] * (ABNORMAL) BLOOD GAS 2 ARTERIAL (11/29/2015 11:16 AM EDT) pH Art 7.33(L) 7.35 - 7.45 [facility] pCO2 Art 44 35 - 45 mmHg [facility] pO2 Art 278(H) 85 - 104 mmHg [facility] HCO3 Art 22.8 20.0 - 26.0 mmol/L [facility] BE Art -3.2(L) -3.0 - 3.0 mmol/L [facility] Hgb Blood Gas 10.5(L) 13.7 - 17.5 gm/dL [facility] O2HB Art 99.0(H) 94.0 - 97.0 % [facility] COHB Art 0.2 % [facility] Comment: Nonsmokers: 0.5-1.5% COHB Smokers: Variable, but usually less than 10% Toxic: 20-30% COHB Lethal: Greater than 60% COHB METHB Art 0.2 <=1.5 % [facility] Na Whole Blood 128(L) 135 - 145 mmol/L [facility] K Whole Blood 6.5(Critic al) 3.5 - 5.0 mmol/L [facility] Comment: Noted by instrumentation technologist. Please note: Patients with WBC >100,000 may have falsely elevated Potassium levels. Contact the Clinical Chemistry Laboratory if there are any questions. ICa Whole Blood 0.90(Criti ton) 1.15 - 1.33 mmol/L [facility] Comment: Noted by instrumentation technologist. Note: ??Total bilirubin higher than 20 mg/dL may lead to falsely low ionized calcium. CL Whole Blood 102 98 - 107 mmol/L [facility] Gluc Whole Bld 206(H) 65 - 199 mg/dL [facility] Comment:Diabetes: >=200 mg/d L plus symptoms. Blood specimen (specimen) 11/29/2015 11:16 AM EDT 11/29/2015 11:16 AM EDT Xiomy Zarate MD CHEMISTRY ORDERABLES [facility] [place] [place] [address] * (ABNORMAL) BLOOD GAS 2 ARTERIAL (11/29/2015 10:51 AM EDT) pH Art 7.32(L) 7.35 - 7.45 [facility] pCO2 Art 46(H) 35 - 45 mmHg [facility] pO2 Art 263(H) 85 - 104 mmHg [facility] HCO3 Art 23.0 20.0 - 26.0 mmol/L [facility] BE Art -3.2(L) -3.0 - 3.0 mmol/L [facility] Hgb Blood Gas 10.2(L) 13.7 - 17.5 gm/dL [facility] O2HB Art 98.7(H) 94.0 - 97.0 % [facility] COHB Art 0.3 % [facility] Comment: Nonsmokers: 0.5-1.5% COHB Smokers: Variable, but usually less than 10% Toxic: 20-30% COHB Lethal: Greater than 60% COHB METHB Art 0.3 <=1.5 % [facility] Na Whole Blood 128(L) 135 - 145 mmol/L [facility] K Whole Blood 6.7(Critic al) 3.5 - 5.0 mmol/L [facility] Comment: Noted by instrumentation technologist. Please note: Patients with WBC >100,000 may have falsely elevated Potassium levels. Contact the Clinical Chemistry Laboratory if there are any questions. ICa Whole Blood 0.88(Criti ton) 1.15 - 1.33 mmol/L [facility] Comment: Noted by instrumentation technologist. Note: ??Total bilirubin higher than 20 mg/dL may lead to falsely low ionized calcium. CL Whole Blood 102 98 - 107 mmol/L [facility] Gluc Whole Bld 204(H) 65 - 199 mg/dL [facility] Comment:Diabetes: >=200 mg/d L plus symptoms. Blood specimen (specimen) 11/29/2015 10:51 AM EDT 11/29/2015 10:51 AM EDT Xiomy Zarate MD CHEMISTRY ORDERABLES [facility] [place] [place] [address] * (ABNORMAL) BLOOD GAS 2 ARTERIAL (11/29/2015 10:20 AM EDT) pH Art 7.38 7.35 - 7.45 [facility] pCO2 Art 40 35 - 45 mmHg [facility] pO2 Art 322(H) 85 - 104 mmHg [facility] HCO3 Art 22.9 20.0 - 26.0 mmol/L [facility] BE Art -2.3 -3.0 - 3.0 mmol/L [facility] Hgb Blood Gas 9.8(L) 13.7 - 17.5 gm/dL [facility] O2HB Art 98.9(H) 94.0 - 97.0 % [facility] COHB Art 0.3 % [facility] Comment: Nonsmokers: 0.5-1.5% COHB Smokers: Variable, but usually less than 10% Toxic: 20-30% COHB Lethal: Greater than 60% COHB METHB Art 0.2 <=1.5 % [facility] Na Whole Blood 130(L) 135 - 145 mmol/L [facility] K Whole Blood 5.8(H) 3.5 - 5.0 mmol/L [facility] Comment: Please note: Patients with WBC >100,000 may have falsely elevated Potassium levels. Contact the Clinical Chemistry Laboratory if there are any questions. ICa Whole Blood 0.83(Criti ton) 1.15 - 1.33 mmol/L [facility] Comment: Noted by instrumentation technologist. Note: ??Total bilirubin higher than 20 mg/dL may lead to falsely low ionized calcium. CL Whole Blood 103 98 - 107 mmol/L [facility] Gluc Whole Bld 179 65 - 199 mg/dL [facility] Comment:Diabetes: >=200 mg/d L plus symptoms. Blood specimen (specimen) 11/29/2015 10:20 AM EDT 11/29/2015 10:20 AM EDT Xiomy Zarate MD CHEMISTRY ORDERABLES [facility] [place] [place] [address] * (ABNORMAL) BLOOD GAS 2 ARTERIAL (11/29/2015 8:19 AM EDT) pH Art 7.45 7.35 - 7.45 [facility] pCO2 Art 28(L) 35 - 45 mmHg [facility] pO2 Art 413(H) 85 - 104 mmHg [facility] HCO3 Art 19.3(L) 20.0 - 26.0 mmol/L [facility] BE Art -4.7(L) -3.0 - 3.0 mmol/L [facility] Hgb Blood Gas 14.3 13.7 - 17.5 gm/dL [facility] O2HB Art 98.8(H) 94.0 - 97.0 % [facility] COHB Art 0.7 % [facility] Comment: Nonsmokers: 0.5-1.5% COHB Smokers: Variable, but usually less than 10% Toxic: 20-30% COHB Lethal: Greater than 60% COHB METHB Art 0.2 <=1.5 % [facility] Na Whole Blood 142 135 - 145 mmol/L [facility] K Whole Blood 4.3 3.5 - 5.0 mmol/L [facility] Comment: Please note: Patients with WBC >100,000 may have falsely elevated Potassium levels. Contact the Clinical Chemistry Laboratory if there are any questions. ICa Whole Blood 1.14(L) 1.15 - 1.33 mmol/L [facility] Comment: Note: ??Total bilirubin higher than 20 mg/dL may lead to falsely low ionized calcium. CL Whole Blood 106 98 - 107 mmol/L [facility] Gluc Whole Bld 97 65 - 199 mg/dL [facility] Comment:Diabetes: >=200 mg/d L plus symptoms. Blood specimen (specimen) 11/29/2015 8:19 AM EDT 11/29/2015 8:19 AM EDT Xiomy Zartae MD CHEMISTRY ORDERABLES [facility] [place] [address] * Prepare Coag Factors (Non-Hemophilia) (11/29/2015 6:30 AM EDT) Dispensed? Yes [facility] Blood specimen (specimen) 11/29/2015 6:30 AM EDT 11/29/2015 6:29 AM EDT Narrative Resulting Agency Comment Spec In Lab Xiomy Zarate MD BLOOD BANK PRODUCT O RDERABLES Performing Organization Address [facility] Co de Phone Number [facility] [place] [address] * Prepare RBC (11/29/2015 6:30 AM EDT) Dispensed? Yes [facility] Blood specimen (specimen) 11/29/2015 6:30 AM EDT 11/29/2015 6:29 AM EDT Narrative Resulting Agency Comment Spec In Lab Xiomy Zarate MD BLOOD BANK PRODUCT O RDERABLES Performing Organization Address [facility] de Phone Number [facility] [place] [address] * POCT Glucose (11/29/2015 5:36 AM EDT) Pathologist [facility] [place] POC Glucose 88 65 - 199 mg/dL [facility] Comment: Supplemental ranges: <140 mg/dL before meals <180 mg/dL all other times of the day Blood specimen (specimen) 11/29/2015 5:36 AM EDT 11/29/2015 5:36 AM EDT Xiomy Zarate MD POINT OF CARE TEST O RDERABLES Performing Organization Address [facility] Co de Phone Number [facility] [place] [address] * Differential, Automated (11/29/2015 4:40 AM EDT) Pathologist [facility] Neutrophils % 64.0 % [facility] Neutr Abs (ANC) 3.90 1.50 - 6.30 x10(3)/mcL [facility] Lymphocytes % 21.7 % [facility] Lymphocytes Abs 1.3 1.0 - 3.6 x10(3)/[facility] Monocytes % 9.2 % [facility] Monocyte Abs 0.6 0.2 - 1.0 x10(3)/[facility] Eosinophils % 4.6 % [facility] Eosinophils Abs 0.3 0.0 - 0.5 x10(3)/[facility] Basophils % 0.3 % [facility] Basophils Abs 0.0 0.0 - 0.2 x10(3)/[facility] Immature Gran % 0.20 % [facility] Comment: Immature granulocytes(IG's)percentage and absolute count will include metamyelocytes, myelocytes, and promyelocytes. Blood smears from CBCs yielding IG's will be scanned manually for concordance. If this scan disagrees with the automated IG or if promyelocytes are noted, a manual differential will be performed. [place] Gran Abs 0.01 0.00 - 0.05 x10(3)/[facility] Blood specimen (specimen) 11/29/2015 4:40 AM EDT 11/29/2015 4:47 AM EDT Narrative Resulting Agency Comment Spec In Lab Julius Atkins MD HEMATOLOGY ORDERABLE S [facility] [place] [address] * (ABNORMAL) Hemogram (11/29/2015 4:40 AM EDT) WBC 6.1 4.0 - 10.0 x10(3)/[facility] RBC 5.12 4.63 - 6.08 x10(6)/[facility] Hemoglobin 14.5 13.7 - 17.5 gm/dL [facility] Hematocrit 43.7 40.0 - 51.0 % [facility] MCV 85.4 79.0 - 92.0 fL [facility] MCH 28.3 25.6 - 32.2 pg [facility] MCHC 33.2 32.0 - 36.5 gm/dL [facility] Platelets 165 145 - 370 x10(3)/mcL [facility] RDWSD 45.3 35.0 - 46.0 fL [facility] RDWCV 14.5(H) 10.9 - 14.4 % [facility] MPV 9.5 9.0 - 12.0 fL [facility] Blood specimen (specimen) 11/29/2015 4:40 AM EDT 11/29/2015 4:47 AM EDT Narrative Resulting Agency Comment Spec In Lab Julius Atkins MD HEMATOLOGY ORDERABLE S [facility] [place] [address] * BMP w/fasting Glucose (11/29/2015 4:40 AM EDT) Glucose Fasting 97 65 - 99 mg/dL [facility] Comment: ?Fasting* Glucose Interpretive Criteria Normal [...] of Diabetes Mellitus, Position Statement from the [place] [employer]. ??Diabetes Care, Volume 33, Supplement 1, May 2009 BUN 14 10 - 20 mg/dL [facility] Creatinine 0.99 0.80 - 1.50 mg/dL [facility] Comment: Please note that the pediatric reference intervals supplied above were not validated at [facility]. Results from pediatric patients should be interpreted in conjunction to the patient's age, height and muscle mass. Sodium 139 135 - 145 mmol/L [facility] Potassium 3.9 3.5 - 5.0 mmol/L [facility] Comment: Please note: ??Patients with WBC >100,000 may have falsely elevated Potassium levels. ??For accurate Potassium quantification in these patients send serum separator tube (gold top) for subsequent determinations. ??Contact the Clinical Chemistry Laboratory if there are any questions. Chloride 103 98 - 107 mmol/L [facility] CO2 23 22 - 31 mmol/L [facility] Anion Gap 13 5 - 15 mmol/L [facility] Calcium 9.0 8.5 - 10.5 mg/dL [facility] Estimated GFR >60 >=60 [facility] Comment: This estimated GFR (eGFR) [...] the following links into your internet browser. [email or web address] Blood specimen (specimen) 11/29/2015 4:40 AM EDT 11/29/2015 4:47 AM EDT Narrative Resulting Agency Comment Spec In Lab Julius Atkins MD CHEMISTRY ORDERABLES [facility] [place] [address] * EKG 12 Lead (11/28/2015 7:44 AM EDT) Ventricular rate 67 BPM MUSE SYSTEM Atrial Rate 67 BPM MUSE SYSTEM P-R Interval 140 ms MUSE SYSTEM QRS Duration 92 ms MUSE SYSTEM Q-T Interval 416 ms MUSE SYSTEM QTC Calculated (Bezet) 439 ms MUSE SYSTEM Calculated P Barry 61 degrees MUSE SYSTEM Calculated R Barry 0 degrees MUSE SYSTEM Calculated T Barry 20 degrees MUSE SYSTEM INTERPRETATION Normal sinus rhythm Normal ECG When compared with ECG of 27-NOV-2015 07:34, No significant change was found Confirmed by MD TIAGO, DILAN ([id number]) on 11/28/2015 11:32:01 AM MUSE SYSTEM 11/28/2015 7:44 AM EDT 11/28/2015 11:32 AM EDT Julius Atkins MD ECG ORDERABLES MUSE SYSTEM * Differential, Automated (11/28/2015 5:52 AM EDT) Neutrophils % 64.2 % [facility] Neutr Abs (ANC) 3.36 1.50 - 6.30 x10(3)/[facility] Lymphocytes % 19.3 % [facility] Lymphocytes Abs 1.0 1.0 - 3.6 x10(3)/[facility] Monocytes % 10.7 % [facility] Monocyte Abs 0.6 0.2 - 1.0 x10(3)/[facility] Eosinophils % 4.8 % [facility] Eosinophils Abs 0.2 0.0 - 0.5 x10(3)/[facility] Basophils % 0.8 % [facility] Basophils Abs 0.0 0.0 - 0.2 x10(3)/[facility] Immature Gran % 0.20 % [facility] Comment: Immature granulocytes(IG's)percentage and absolute count will include metamyelocytes, myelocytes, and promyelocytes. Blood smears from CBCs yielding IG's will be scanned manually for concordance. If this scan disagrees with the automated IG or if promyelocytes are noted, a manual differential will be performed. Hemalatha Gran Abs 0.01 0.00 - 0.05 x10(3)/[facility] Blood specimen (specimen) 11/28/2015 5:52 AM EDT 11/28/2015 6:17 AM EDT Narrative Resulting Agency Comment Spec In Lab Julius Atkins MD HEMATOLOGY ORDERABLE S [facility] [place] [address] * Hemogram (11/28/2015 5:52 AM EDT) WBC 5.2 4.0 - 10.0 x10(3)/[facility] RBC 5.03 4.63 - 6.08 x10(6)/[facility] Hemoglobin 14.6 13.7 - 17.5 gm/dL [facility] Hematocrit 43.1 40.0 - 51.0 % [facility] MCV 85.7 79.0 - 92.0 fL [facility] MCH 29.0 25.6 - 32.2 pg [facility] MCHC 33.9 32.0 - 36.5 gm/dL [facility] Platelets 163 145 - 370 x10(3)/[facility] RDWSD 44.5 35.0 - 46.0 fL [facility] RDWCV 14.4 10.9 - 14.4 % [facility] MPV 9.7 9.0 - 12.0 [facility] Blood specimen (specimen) 11/28/2015 5:52 AM EDT 11/28/2015 6:17 AM EDT Narrative Resulting Agency Comment Spec In Lab Julius Atkins MD HEMATOLOGY ORDERABLE S [facility] [place] [address] * Antibody screen (11/28/2015 5:52 AM EDT) Ab Screen Interp Negative [facility] Expires at [id number] on: 12/01/2015 [facility] Blood specimen (specimen) 11/28/2015 5:52 AM EDT 11/28/2015 6:01 AM EDT Narrative Resulting Agency Comment Spec In Lab Yash Benton MD BLOOD BANK LAB ORD ERABLES [facility] [place] [address] * ABO/Rh Typing (11/28/2015 5:52 AM EDT) Pathologist [facility] ABORH Type B Pos [facility] Blood specimen (specimen) 11/28/2015 5:52 AM EDT 11/28/2015 6:01 AM EDT Narrative Resulting Agency Comment Spec In Lab Yash Benton MD BLOOD BANK LAB ORD ERABLES Performing Organization Address City/[facility] Co de Phone Number [facility] [place] [address] * (ABNORMAL) BMP w/fasting Glucose (11/28/2015 5:52 AM EDT) [facility] Glucose Fasting 102(H) 65 - 99 mg/dL [facility] Comment: ?Fasting* Glucose Interpretive Criteria Normal [...] of Diabetes Mellitus, Position Statement from the [place] Diabetes Association. ??Diabetes Care, Volume 33, Supplement 1, May 2009 BUN 13 10 - 20 mg/dL [facility] Creatinine 0.90 0.80 - 1.50 mg/dL [facility] Comment: Please note that the pediatric reference intervals supplied above were [place] validated [place] [facility] Results from pediatric patients should be interpreted in conjunction to the patient's age, height and muscle mass. Sodium 139 135 - 145 mmol/L [facility] Potassium 4.1 3.5 - 5.0 mmol/L [facility] Comment: Please note: ??Patients with WBC >100,000 may have falsely elevated Potassium levels. ??For accurate Potassium quantification in these patients send serum separator tube (gold top) for subsequent determinations. ??Contact the Clinical Chemistry Laboratory if there are any questions. Chloride 104 98 - 107 mmol/L [facility] CO2 20(L) 22 - 31 mmol/L [facility] Anion Gap 15 5 - 15 mmol/L [facility] Calcium 8.8 8.5 - 10.5 mg/dL [facility] Estimated GFR >60 >=60 [facility] Comment: This estimated GFR (eGFR) [...] the following links into your internet browser. [email or web address] Blood specimen (specimen) 11/28/2015 5:52 AM EDT 11/28/2015 6:17 AM EDT Narrative Resulting Agency Comment Spec In Lab Julius Atkins MD CHEMISTRY ORDERABLES [facility] [place] [address] * EKG 12 Lead (11/27/2015 7:34 AM EDT) Ventricular rate 75 BPM MUSE SYSTEM Atrial Rate 75 BPM MUSE SYSTEM P-R Interval 132 ms MUSE SYSTEM QRS Duration 90 ms MUSE SYSTEM Q-T Interval 404 ms MUSE SYSTEM QTC Calculated (Bezet) 451 ms MUSE SYSTEM Calculated P Barry 56 degrees MUSE SYSTEM Calculated R Barry -3 degrees MUSE SYSTEM Calculated T Barry 17 degrees MUSE SYSTEM INTERPRETATION Normal sinus rhythm with sinus arrhythmia Normal ECG When compared with ECG of 26-NOV-2015 14:09, No significant change was found Confirmed by MD Thurman Douglas ([id number]) on 11/27/2015 8:55:09 AM MUSE SYSTEM 11/27/2015 7:34 AM EDT 11/27/2015 8:55 AM EDT Julius Atkins MD ECG ORDERABLES MUSE SYSTEM * Cardiac Enzymes (11/27/2015 5:32 AM EDT) Troponin-T <0.03 <=0.03 ng/mL [facility] Comment: 0.03 ng/mL: Represents the 99th percentile upper reference limit for normals. >0.03 ng/mL: Elevated cardiac troponin T level indicative of myocardial damage. Diagnosis of acute, evolving or recent VT requires a typical rise and gradual fall [...] consensus document of the Joint Society of Cardiology/[place] College of Cardiology Committee for the redefinition of myocardial infarction. ??Journal of the [place] College of Cardiology 2000; 36: 959-969] CK, Total 57 0 - 200 unit/L [facility] Blood specimen (specimen) Venous Draw / Unknown 11/27/2015 5:32 AM EDT 11/27/2015 5:55 AM EDT Narrative Resulting Agency Comment Spec In Lab Julius Atkins MD CHEMISTRY ORDERABLES Performing Organization Address City/[facility]/ZIP Co de Phone Number [facility] [place] [address] * Differential, Automated (11/27/2015 5:32 AM EDT) Neutrophils % 64.8 % [facility] Neutr Abs (ANC) 2.93 1.50 - 6.30 x10(3)/[facility] Lymphocytes % 21.2 % [facility] Lymphocytes Abs 1.0 1.0 - 3.6 x10(3)/[facility] Monocytes % 8.8 % [facility] Monocyte Abs 0.4 0.2 - 1.0 x10(3)/[facility] Eosinophils % 4.6 % [facility] Eosinophils Abs 0.2 0.0 - 0.5 x10(3)/[facility] Basophils % 0.4 % [facility] Basophils Abs 0.0 0.0 - 0.2 x10(3)/[facility] Immature Gran % 0.20 % [facility] Comment: Immature granulocytes(IG's)percentage and absolute count will include metamyelocytes, myelocytes, and promyelocytes. Blood smears from CBCs yielding IG's will be scanned manually for concordance. If this scan disagrees with the automated IG or if promyelocytes are noted, a manual differential will be performed. Hemalatha Gran Abs 0.01 0.00 - 0.05 x10(3)/[facility] Blood specimen (specimen) 11/27/2015 5:32 AM EDT 11/27/2015 5:53 AM EDT Narrative Resulting Agency Comment Spec In Lab Julius Atkins MD HEMATOLOGY ORDERABLE S [facility] [place] [address] * Hemogram (11/27/2015 5:32 AM EDT) WBC 4.5 4.0 - 10.0 x10(3)/[facility] RBC 4.87 4.63 - 6.08 x10(6)/[facility] Hemoglobin 13.9 13.7 - 17.5 gm/dL [facility] Hematocrit 41.4 40.0 - 51.0 % [facility] MCV 85.0 79.0 - 92.0 fL [facility] MCH 28.5 25.6 - 32.2 pg [facility] MCHC 33.6 32.0 - 36.5 gm/dL [facility] Platelets 154 145 - 370 x10(3)/[facility] RDWSD 44.2 35.0 - 46.0 fL [facility] RDWCV 14.1 10.9 - 14.4 % [facility] MPV 9.6 9.0 - 12.0 fL [facility] Blood specimen (specimen) 11/27/2015 5:32 AM EDT 11/27/2015 5:53 AM EDT Narrative Resulting Agency Comment Spec In Lab Julius Aktins MD HEMATOLOGY ORDERABLE S [facility] [place] [place] [address] * (ABNORMAL) BMP w/fasting Glucose (11/27/2015 5:32 AM EDT) Glucose Fasting 108(H) 65 - 99 mg/dL [facility] Comment: ?Fasting* Glucose Interpretive Criteria Normal [...] of Diabetes Mellitus, Position Statement from the [place] Diabetes [employer]. ??Diabetes Care, Volume 33, Supplement 1, May 2009 BUN 12 10 - 20 mg/dL [facility] Creatinine 0.90 0.80 - 1.50 mg/dL [facility] Comment: Please note that the pediatric reference intervals supplied above were not validated [place] [facility] Results from pediatric patients should be interpreted in conjunction to the patient's age, height and muscle mass. Sodium 140 135 - 145 mmol/L [facility] Potassium 4.0 3.5 - 5.0 mmol/L [facility] Comment: Please note: ??Patients with WBC >100,000 may have falsely elevated Potassium levels. ??For accurate Potassium quantification in these patients send serum separator tube (gold top) for subsequent determinations. ??Contact the Clinical Chemistry Laboratory if there are any questions. Chloride 105 98 - 107 mmol/L [facility] CO2 22 22 - 31 mmol/L [facility] Anion Gap 13 5 - 15 mmol/L [facility] Calcium 8.7 8.5 - 10.5 mg/dL [facility] Estimated GFR >60 >=60 [facility] Comment: This estimated GFR (eGFR) [...] the following links into your internet browser. [email or web address] Blood specimen (specimen) 11/27/2015 5:32 AM EDT 11/27/2015 5:53 AM EDT Narrative Resulting Agency Comment Spec In Lab Julius Atkins MD CHEMISTRY ORDERABLES [facility] [place] [address] * EKG 12 Lead (11/26/2015 2:09 PM EDT) Ventricular rate 77 BPM MUSE SYSTEM Atrial Rate 77 BPM MUSE SYSTEM P-R Interval 136 ms MUSE SYSTEM QRS Duration 92 ms MUSE SYSTEM Q-T Interval 382 ms MUSE SYSTEM QTC Calculated (Bezet) 432 ms MUSE SYSTEM Calculated P Barry 66 degrees MUSE SYSTEM Calculated R Barry 6 degrees MUSE SYSTEM Calculated T Barry 34 degrees MUSE SYSTEM INTERPRETATION Normal sinus rhythm Normal ECG When compared with ECG of 26-NOV-2015 07:21, No significant change was found Confirmed by MD Olman, Nando (57) on 11/26/2015 5:23:45 PM MUSE SYSTEM 11/26/2015 2:09 PM EDT 11/26/2015 5:23 PM EDT Xiomy Zarate MD ECG ORDERABLES Performing Organization Address [facility] Co de Phone Number MUSE SYSTEM * EKG 12 Lead (11/26/2015 7:21 AM EDT) Ventricular rate 76 BPM MUSE SYSTEM Atrial Rate 76 BPM MUSE SYSTEM P-R Interval 140 ms MUSE SYSTEM QRS Duration 94 ms MUSE SYSTEM Q-T Interval 396 ms MUSE SYSTEM QTC Calculated (Bezet) 445 ms MUSE SYSTEM Calculated P Barry 60 degrees MUSE SYSTEM Calculated R Barry -10 degrees MUSE SYSTEM Calculated T Barry 21 degrees MUSE SYSTEM INTERPRETATION Normal sinus rhythm Normal ECG When compared with ECG of 25-NOV-2015 08:38, No significant change was found Confirmed by MD Ben, Van ([id number]) on 11/26/2015 8:41:00 AM MUSE SYSTEM 11/26/2015 7:21 AM EDT 11/26/2015 8:41 AM EDT Julius Atkins MD ECG ORDERABLES Performing Organization Address City/[facility] Co de Phone Number MUSE SYSTEM * (ABNORMAL) Differential, Automated (11/26/2015 3:51 AM EDT) Neutrophils % 72.1 % [facility] Neutr Abs (ANC) 3.44 1.50 - 6.30 x10(3)/mc L [facility] Lymphocytes % 15.5 % [facility] Lymphocytes Abs 0.7(L) 1.0 - 3.6 x10(3)/[facility] Monocytes % 8.6 % [facility] Monocyte Abs 0.4 0.2 - 1.0 x10(3)/[facility] Eosinophils % 3.4 % [facility] Eosinophils Abs 0.2 0.0 - 0.5 x10(3)/[facility] Basophils % 0.2 % [facility] Basophils Abs 0.0 0.0 - 0.2 x10(3)/[facility] Immature Gran % 0.20 % [facility] Comment: Immature granulocytes(IG's)percentage and absolute count will include metamyelocytes, myelocytes, and promyelocytes. Blood smears from CBCs yielding IG's will be scanned manually for concordance. If this scan disagrees with the automated IG or if promyelocytes are noted, a manual differential will be performed. Hemalatha Gran Abs 0.01 0.00 - 0.05 x10(3)/[facility] Blood specimen (specimen) 11/26/2015 3:51 AM EDT 11/26/2015 3:58 AM EDT Narrative Resulting Agency Comment Spec In Lab Julius Atkins MD HEMATOLOGY ORDERABLE S Performing Organization Address City/State/[facility] Co de Phone Number [facility] [place] [address] * (ABNORMAL) Hemogram (11/26/2015 3:51 AM EDT) WBC 4.8 4.0 - 10.0 x10(3)/[facility] RBC 4.80 4.63 - 6.08 x10(6)/[facility] Hemoglobin 13.5(L) 13.7 - 17.5 gm/dL [facility] Hematocrit 41.1 40.0 - 51.0 % [facility] MCV 85.6 79.0 - 92.0 fL [facility] MCH 28.1 25.6 - 32.2 pg [facility] MCHC 32.8 32.0 - 36.5 gm/dL [facility] Platelets 129(L) 145 - 370 x10(3)/mcL [facility] RDWSD 44.9 35.0 - 46.0 fL [facility] RDWCV 14.4 10.9 - 14.4 % [facility] MPV 9.2 9.0 - 12.0 fL [facility] Blood specimen (specimen) 11/26/2015 3:51 AM EDT 11/26/2015 3:58 AM EDT Narrative Resulting Agency Comment Spec In Lab Julius Atkins MD HEMATOLOGY ORDERABLE S Performing Organization Address City/State/[facility] Co de Phone Number [facility] [place] [address] * (ABNORMAL) BMP w/fasting Glucose (11/26/2015 3:51 AM EDT) Glucose Fasting 105(H) 65 - 99 mg/dL [facility] Comment: ?Fasting* Glucose Interpretive Criteria Normal [...] of Diabetes Mellitus, Position Statement from the [place] Diabetes [employer]. ??Diabetes Care, Volume 33, Supplement 1, May 2009 BUN 15 10 - 20 mg/dL [facility] Creatinine 0.95 0.80 - 1.50 mg/dL [facility] Comment: Please note that the pediatric reference intervals supplied above were not validated [place] [facility] Results from pediatric patients should be interpreted in conjunction to the patient's age, height and muscle mass. Sodium 139 135 - 145 mmol/L [facility] Potassium 3.9 3.5 - 5.0 mmol/L [facility] Comment: Please note: ??Patients with WBC >100,000 may have falsely elevated Potassium levels. ??For accurate Potassium quantification in these patients send serum separator tube (gold top) for subsequent determinations. ??Contact the Clinical Chemistry Laboratory if there are any questions. Chloride 105 98 - 107 mmol/L [facility] CO2 21(L) 22 - 31 mmol/L [facility] Anion Gap 13 5 - 15 mmol/L [facility] Calcium 8.4(L) 8.5 - 10.5 mg/dL [facility] Estimated GFR >60 >=60 [facility] Comment: This estimated GFR (eGFR) [...] the following links into your internet browser. [email or web address] Blood specimen (specimen) 11/26/2015 3:51 AM EDT 11/26/2015 3:58 AM EDT Narrative Resulting Agency Comment Spec In Lab Julius Atkins MD CHEMISTRY ORDERABLES [facility] [place] [address] * Triglyceride (11/26/2015 3:51 AM EDT) Triglycerides 105 <=149 mg/dL [facility] Comment: Reference Range: Normal triglycerides: ??<150 mg/dL Borderline high: ??150-199 mg/dL High: ??200-499 mg/dL Very high: ??>cs=279 mg/dL AMARA 2001; 285(19):8216-6607 Blood specimen (specimen) 11/26/2015 3:51 AM EDT 11/26/2015 3:58 AM EDT Narrative Resulting Agency Comment Spec In Lab Julius Atkins MD CHEMISTRY ORDERABLES Performing Organization Address [facility] de Phone Number [facility] [place] [address] * HDL/Cholesterol Profile (11/26/2015 3:51 AM EDT) Chol, Total 176 <=199 mg/dL [facility] Comment: Recommendations of the NCEP Adult Treatment Panel for the following risk cutoff thresholds for the [place] population: Desirable: <200 mg/dL Borderline High: 200-239 mg/dL High: > or = 240 mg/dL HDL 44 >=40 mg/dL [facility] Comment: Reference range: ??Low HDL: ?? < 40 mg/dL ??Normal: ?40-60 mg/dL ??Desirable: > 60 mg/dL AMARA 2001; 285(19):9925-0436 Chol/HDL Ratio 4.0 ratio [facility] Comment: A Cholesterol to HDL ratio below 4:1 is desirable. ??Studies suggest that increased CAD risk occurs at ratios above 5 for females and above 6 for men. ? [place] Heart Association ??(http://www.americanheart.org) ? Bita Int Med, 1994; 121:641 ? AM J Med, 1998; 105(1A):48S Blood specimen (specimen) 11/26/2015 3:51 AM EDT 11/26/2015 3:58 AM EDT Narrative Resulting Agency Comment Spec In Lab Julius Atkins MD CHEMISTRY ORDERABLES Performing Organization Address [facility]/ZIP Co de Phone Number [facility] [place] [address] * (ABNORMAL) LDL Cholesterol, Direct (11/26/2015 3:51 AM EDT) LDL Chol Direct 128(H) <=99 mg/dL [facility] Comment: The National Cholesterol Education Program (NCEP) has set the following guidelines for LDL Cholesterol: Reference range: ?? Optimal: ?<100 mg/dL ?? Near Optimal/Above Optimal: ?? 100-129 mg/dL ?? Borderline high: ?130-159 mg/dL ?? High: ? 160-189 mg/dL ?? Very high: ?>zs=187 mg/dL AMARA 2001: 285(19):4455-1048 Blood specimen (specimen) 11/26/2015 3:51 AM EDT 11/26/2015 3:58 AM EDT Narrative Resulting Agency Comment Spec In Lab Julius Atkins MD CHEMISTRY ORDERABLES [facility] [place] [address] * (ABNORMAL) Hemoglobin A1c (11/26/2015 3:51 AM EDT) [facility] Hemoglobin A1C 5.7(H) 4.3 - 5.6 % [facility] Comment: Reference Range: 4.3 - 5.6% [...] Mellitus, Diabetes Care 2013; 36: Suppl. 1, S67-74 Est Avg Gluc 117 mg/dL [facility] Comment: eAG equivalents for HbA1c percentages: HbA1c(%) ?eAG(mg/dL) 6.0 ?126 6.5 ?140 7.0 ?154 7.5 ?169 8.0 ?183 8.5 ?197 9.0 ?212 9.5 ?226 10.0 ? 240 Limitations: The eAG calculation has not been validated on women, individuals below 18 years old and above 70 years old, and individuals with hemoglobinopathies. Additional resources are available on the ADA website: http://cafegive.com/DHMCadacalc Amaury ESPARZA, Betty J, [place] R, et al. ??Translating the A1C assay into estimated average glucose values. ??Diabetes Care 2008:31(8):6889-8554. Blood specimen (specimen) 11/26/2015 3:51 AM EDT 11/26/2015 3:59 AM EDT Narrative Resulting Agency Comment Spec In Lab Julius Atkins MD CHEMISTRY ORDERABLES [facility] [place] [address] * XR Chest PA & Lateral (Generic) [...] 4:07 PM EDT) Neutrophils % 74.4 % [facility] Neutr Abs (ANC) 3.74 1.50 - 6.30 x10(3)/mc L [facility] Lymphocytes % 14.5 % [facility] Lymphocytes Abs 0.7(L) 1.0 - 3.6 x10(3)/mc L [facility] Monocytes % 8.5 % [facility] Monocyte Abs 0.4 0.2 - 1.0 x10(3)/mc L [facility] Eosinophils % 2.4 % [facility] Eosinophils Abs 0.1 0.0 - 0.5 x10(3)/mc L [facility] Basophils % 0.2 % [facility] Basophils Abs 0.0 0.0 - 0.2 x10(3)/mc L [facility] Immature Gran % 0.00 % [facility] Comment: Immature granulocytes(IG's)percentage and absolute count will include metamyelocytes, myelocytes, and promyelocytes. Blood smears from CBCs yielding IG's will be scanned manually for concordance. If this scan disagrees with the automated IG or if promyelocytes are noted, a manual differential will be performed. [place] Gran Abs 0.00 0.00 - 0.05 x10(3)/[facility] Blood specimen (specimen) 11/25/2015 4:07 PM EDT 11/25/2015 4:15 PM EDT Narrative Resulting Agency Comment Spec In Lab Julius Atkins MD HEMATOLOGY ORDERABLE S [facility] [place] [place] [address] * (ABNORMAL) Hemogram (11/25/2015 4:07 PM EDT) WBC 5.0 4.0 - 10.0 x10(3)/[facility] RBC 4.64 4.63 - 6.08 x10(6)/[facility] Hemoglobin 13.3(L) 13.7 - 17.5 gm/dL [facility] Hematocrit 39.8(L) 40.0 - 51.0 % [facility] MCV 85.8 79.0 - 92.0 fL [facility] MCH 28.7 25.6 - 32.2 pg [facility] MCHC 33.4 32.0 - 36.5 gm/dL [facility] Platelets 159 145 - 370 x10(3)/[facility] RDWSD 45.9 35.0 - 46.0 fL [facility] RDWCV 14.7(H) 10.9 - 14.4 % [facility] MPV 9.2 9.0 - 12.0 fL [facility] Blood specimen (specimen) 11/25/2015 4:07 PM EDT 11/25/2015 4:15 PM EDT Narrative Resulting Agency Comment Spec In Lab Julius Atkins MD HEMATOLOGY ORDERABLE S [facility] [place] [address] * Hepatic Function Panel (11/25/2015 4:07 PM EDT) Total Protein 6.5 6.1 - 8.0 gm/dL [facility] Albumin 4.1 3.2 - 5.2 gm/dL [facility] AST 15 0 - 39 unit/L [facility] ALT 14 0 - 55 unit/L [facility] Alk Phos 62 40 - 120 unit/L [facility] Total Bilirubin 0.4 0.2 - 1.3 mg/dL [facility] Bili, Direct 0.1 0.0 - 0.3 mg/dL [facility] Blood specimen (specimen) 11/25/2015 4:07 PM EDT 11/25/2015 4:15 PM EDT Narrative Resulting Agency Comment Spec In Lab Julius Atkins MD CHEMISTRY ORDERABLES Performing Organization Address [facility] Co de Phone Number [facility] [place] [address] * TSH (11/25/2015 4:07 PM EDT) TSH 1.48 0.27 - 4.20 mcIU/mL [facility] Blood specimen (specimen) 11/25/2015 4:07 PM EDT 11/25/2015 4:15 PM EDT Narrative Resulting Agency Comment Spec In Lab Julius Atkins MD CHEMISTRY ORDERABLES Performing Organization Address City/[facility]/ZIP Co de Phone Number [facility] [place] [address] * Prothrombin Time (11/25/2015 4:07 PM EDT) PT 12.7 12.0 - 15.0 sec [facility] Comment: An INR <2.0 indicates adequate [...] clinical circumstances. INR 0.9 0.9 - 1.1 [facility] Blood specimen (specimen) 11/25/2015 4:07 PM EDT 11/25/2015 4:15 PM EDT Narrative Resulting Agency Comment Spec In Lab Julius Atkins MD HEMATOLOGY ORDERABLE S [facility] [place] [address] * Basic Metabolic Panel (non-fasting) (11/25/2015 4:07 PM EDT) Glucose Lvl 87 65 - 199 mg/dL [facility] Comment:Diabetes: >=200 mg/d L plus symptoms BUN 14 10 - 20 mg/dL [facility] Creatinine 0.97 0.80 - 1.50 mg/dL [facility] Comment: Please note that the pediatric reference intervals supplied above were not validated [place] [facility] Results from pediatric patients should be interpreted in conjunction to the patient's age, height and muscle mass. Sodium 139 135 - 145 mmol/L [facility] Potassium 3.8 3.5 - 5.0 mmol/L [facility] Comment: Please note: ??Patients with WBC >100,000 may have falsely elevated Potassium levels. ??For accurate Potassium quantification in these patients send serum separator tube (gold top) for subsequent determinations. ??Contact the Clinical Chemistry Laboratory if there are any questions. Chloride 102 98 - 107 mmol/L [facility] CO2 23 22 - 31 mmol/L [facility] Anion Gap 14 5 - 15 mmol/L [facility] Calcium 8.6 8.5 - 10.5 mg/dL [facility] Estimated GFR >60 >=60 [facility] Comment: This estimated GFR (eGFR) [...] the following links into your internet browser. [email or web address] Blood specimen (specimen) 11/25/2015 4:07 PM EDT 11/25/2015 4:15 PM EDT Narrative Resulting Agency Comment Spec In Lab Julius Atkins MD CHEMISTRY ORDERABLES [facility] [place] [place] [address] * EKG 12 Lead (11/25/2015 8:38 AM EDT) Ventricular rate 57 BPM MUSE SYSTEM Atrial Rate 57 BPM MUSE SYSTEM P-R Interval 140 ms MUSE SYSTEM QRS Duration 92 ms MUSE SYSTEM Q-T Interval 426 ms MUSE SYSTEM QTC Calculated (Bezet) 414 ms MUSE SYSTEM Calculated P Barry 62 degrees MUSE SYSTEM Calculated R Barry -2 degrees MUSE SYSTEM Calculated T Barry 11 degrees MUSE SYSTEM INTERPRETATION Sinus bradycardia Otherwise normal ECG No previous ECGs available Confirmed by MD Ben, Van ([id number]) on 11/25/2015 4:05:55 PM MUSE SYSTEM 11/25/2015 8:38 AM EDT 11/25/2015 4:05 PM EDT Xiomy Zarate MD ECG ORDERABLES Performing Organization Address City/[facility]/ZIP Co de Phone Number MUSE SYSTEM documented in this encounter Visit Diagnoses Not on filedocumented in this encounter Admitting Diagnoses Diagnosis Coronary artery disease Coronary atherosclerosis of unspecified type of vessel, barrow or graft documented in this encounter Administered Medications Inactive Administered Medications - up to 3 most recent administrations Medication Order MAR Action Action Date Dose Rate Site acetaminophen (TYLENOL) tablet 1,000 mg 1,000 mg, Oral, EVERY 6 HOURS SCHEDULED, First dose on Sun11/29/15 at 1800, Until Discontinued, For pain when taking by mouth , Routine Given 12/04/2015 6:39 AM EDT 1,000 mg Given 12/04/2015 12:02 AM EDT 1,000 mg Given 12/03/2015 5:19 PM EDT 1,000 mg aspirin chewable tablet 81 mg 81 [...] Given 12/02/2015 4:59 PM EDT 20 mg calcium chloride injection ONCE PRN, Starting on Sun11/29/15 at 1219, Until 12/04/15 at 1530, Intra-Operative (Intra-Procedure) Given 11/29/2015 12:19 PM EDT 1 g cardioplegic solution (PLEGISOL) induction solution ONCE PRN, Starting on Sun11/29/15 at 1014, Until 12/04/15 at 1530, Intra-Operative (Intra-Procedure) Given 11/29/2015 10:14 AM EDT 260 mLs cardioplegic solution (PLEGISOL) maintenance solution ONCE PRN, Starting on Sun11/29/15 at 1202, Until 12/04/15 at 1530, Intra-Operative (Intra-Procedure) Given 11/29/2015 12:02 PM EDT 480 mLs cefUROXime (ZINACEF) injection 1.5 g Administer over 60 Minutes, ONCE PRN, Starting on Sun11/29/15 at 0957, Until 12/04/15 at 1530, Intra-Operative (Intra-Procedure), Routine Given 11/29/2015 9:57 AM EDT 1 g electrolyte (pH 7.4) (NORMOSOL-R; PLASMALYTE-A) injection CONTINUOUS PRN, Starting on Sun11/29/15 at 1248, Until Sun11/29/15 at 1358, Intra-Operative (Intra-Procedure) New Bag 11/29/2015 12:48 PM EDT 3.8 L furosemide (LASIX) injection 20 mg 20 mg, Intravenous, 2 TIMES DAILY, First dose on Shana 12/02/15 at 0900, Until Discontinued Given 12/04/2015 8:59 AM EDT 20 mg Given 12/03/2015 5:19 PM EDT 20 mg Given 12/03/2015 8:30 AM EDT 20 mg heparin (porcine) injection ONCE PRN, Starting on Sun11/29/15 at 0957, Until 12/04/15 at 1530, Intra-Operative (Intra-Procedure), Routine Given 11/29/2015 11:25 AM EDT 10,000 Units Given 11/29/2015 9:57 AM EDT 5,000 Units HYDROmorphone (DILAUDID) tablet 2-6 mg 2-6 mg, Oral, EVERY 3 HOURS PRN, Starting on Sun11/30/15 at 1313, Until 12/04/15 at 1530, Pain, 2 mg for pain 3-5/10; 4 mg for pain 6-7/10; 6 mg for pain 8-10/10, Routine Given 12/01/2015 7:57 AM EDT 4 mg Given 12/01/2015 4:27 AM EDT 4 mg Given 11/30/2015 11:34 PM EDT 4 mg levothyroxine (SYNTHROID) tablet 100 mcg 100 mcg, Oral, EVERY MORNING, First dose on Sun12/01/15 at 0600, Until Discontinued, Routine Given 12/04/2015 6:39 AM EDT 100 mcg Given 12/03/2015 5:05 AM EDT 100 mcg Given 12/02/2015 6:27 AM EDT 100 mcg lidocaine (PF) (XYLOCAINE) 100 mg/5 mL (2 %) injection ONCE PRN, Starting on Sun11/29/15 at 1219, Until 12/04/15 at 1530, Intra-Operative (Intra-Procedure), Routine Given 11/29/2015 12:19 PM EDT 200 mg magnesium hydroxide (MILK OF MAGNESIA) oral suspension 10 mL 10 mL, Oral, DAILY, First dose on Sun12/01/15 at 0900, Until Discontinued, Post-op day 2. Do not use with renal insufficiency., Routine Given 12/03/2015 8:27 AM EDT 10 mLs Given 12/02/2015 8:28 AM EDT 10 mLs Given 12/01/2015 9:00 AM EDT 10 mLs magnesium sulfate 4 mEq/mL (50 %) injection ONCE PRN, Starting on Sun11/29/15 at 1219, Until 12/04/15 at 1530, Intra-Operative (Intra-Procedure), Routine Given 11/29/2015 12:19 PM EDT 2 g mannitol (50 grams and over) 100 g/500 mL (20%) infusion CONTINUOUS PRN, Starting on Sun11/29/15 at 1229, Until Sun11/29/15 at 1358, Intra-Operative (Intra-Procedure) New Bag 11/29/2015 12:29 PM EDT 60 g meTOPROLOL (LOPRESSOR) tablet 12.5 mg 12.5 mg, Oral, EVERY 8 HOURS SCHEDULED, First dose (after last modification) on Shana 12/02/15 at 1600, Until Discontinued, Hold for HR<55, SBP<90, Routine Given 12/04/2015 6:39 AM EDT 12.5 mg Given 12/03/2015 9:30 PM EDT 12.5 mg Given 12/03/2015 2:45 PM EDT 12.5 mg ondansetron (ZOFRAN) injection 4 mg 4 mg, Intravenous, EVERY 8 HOURS PRN, Starting on Sun11/29/15 at 1415, Until 12/04/15 at 1530, Nausea Given 12/02/2015 1:28 PM EDT 4 mg Given 12/02/2015 1:10 AM EDT 4 mg pantoprazole (PROTONIX) injection 40 mg 40 [...] Given 12/02/2015 8:28 AM EDT 40 mg senna-docusate (PERICOLACE) 8.6-50 mg per tablet 2 tablet 2 tablet, Oral, 2 TIMES DAILY, First dose (after last modification) on Shana 12/02/15 at 0900, Until Discontinued, Post-op day 1, Routine Given 12/04/2015 8:59 AM EDT 2 tablets Given 12/03/2015 8:47 PM EDT 2 tablets Given 12/03/2015 8:28 AM EDT 2 tablets sodium chloride 0.9 % flush 5 mL 5 mL, Intravenous, EVERY 8 HOURS, First dose on Sun12/01/15 at 1015, Until Discontinued, Routine Given 12/03/2015 5:19 PM EDT 5 mLs Given 12/03/2015 10:15 AM EDT 5 mLs Given 12/03/2015 5:06 AM EDT 5 mLs vancomycin (VANCOCIN) injection ONCE PRN, Starting on Sun11/29/15 at 0904, Until Tu11/30/15 at 0631, Intra-Operative (Intra-Procedure), Routine Given 11/29/2015 9:04 AM EDT 4 g 19- Surgical Site verapamil (ISOPTIN) injection ONCE PRN, Starting on 11/29/15 at 0904, Until 12/04/15 at 1530, Administer over 2 Minutes, Intra-Operative (Intra-Procedure) Given 11/29/2015 9:04 AM EDT 5 mg 19- Surgical Site documented in this encounter Active and Recently [...] Godwin RN) 0011 (Given - Provider: Yamini Lutz RN)0505 (Given - Provider: Yamini Lutz RN)1116 [...] on Sun12/02/15 at 1700, Until Discontinued, Routine 165 (Given - Provider: Karin Godwin RN) 171 (Given - Provider: Karin Godwin RN) furosemide (LASIX) injection 20 mg 20 mg, Intravenous, 2 TIMES DAILY, First dose on Sun12/02/15 at 0900, Until Discontinued 0828 (Given - Provider: Karin Godwin RN)165 (Given - Provider: Karin Godwin RN) 0830 (Given - Provider: Karin Godwin RN)1719 (Given - Provider: Karin Godwin RN) 0859 (Given - Provider: Karin Godwin RN) levothyroxine (SYNTHROID) tablet 100 mcg 100 mcg, Oral, EVERY MORNING, First dose on Sun12/01/15 at 0600, Until Discontinued, Routine 0627 (Given - Provider: Yamini Lutz RN) 0505 [...] RN) 0505 (Given - Provider: Yamini Lutz RN)1445 (Given - Provider: Karin Godwin RN)2130 [...] 0830, Routine 08 (Given - Provider: Karin Gowdin RN) potassium chloride (K-DUR/KLOR-CON) extended release tablet [...] Karin Godwin RN)2133 (Given - Provider: Yamini Lutz, ANDRE) 08 (Given - Provider: Karin Godwin RN)2046 (Given - Provider: Lizbet Baker RN) 08 (Given - Provider: Karin Godwin RN) sodium [...] Routine documented in this encounter Care Teams Coil Taper Relationship Specialty Start Date End Date Mojgan Boateng DO [address] [place] [address] [address] [place] [address] PCP - General 05/10/10 documented as of this encounter
--- OUTSIDE RECORDS SUMMARY | 2023-12-06 02:44 | XMS_ITS | Encounter Summary ---
[facility] [place] [address] Care Team Providers Care Chief Marketing Officer Name Role Phone Noé Hung DO Primary Care Provider Reason for Visit * Auth/Cert Specialty Diagnoses / Procedures Referred By Contac t Referred To Contact Diagnoses Coronary artery disease CHEST PAIN CAD Procedures CARDIAC CATHETERIZATION @CABG; 4 VENOUS GRAFTS & ARTERIAL GRAFT ENDOSCOPIC HARVEST VEIN(S) FOR CABG Referral ID Status Reason Start Date Expiration Date Visits Re quested Visits Authorized [id number] 1 1 Encounter Details Date Type Department Care Team (Late st Contact Info) Description 11/29/2015 7:25 AM EDT Anesthesia [place] [address] Dusty Palacio MD [facility] [place] [address] Romulo Dobson MD [facility] [place] [address] Anesthesia Record Procedure Summary Procedure Name Responsible Anesthesiologist Anesthesia Start Time Anesthesia Stop Time ENDOSCOPIC HARVEST VEIN(S) FOR CABG (WRVU 0.31) (Leg) Dusty Palacio MD 11/29/15 0725 11/29/15 1401 Events Date Time Event Comment 11/29/2015 0724 0725 AN Verify 0725 Start 0733 An Start Data 0746 An Induction 0752 An Intubation 0759 FABRICE PROBE ONLY 0810 Anesthesia Ready 0819 ABG Data Arterial Blood Gas result: pH 7.451 pCO2 28.3 pO2 412.9 FiO2 94 %O2 Sat 98.8 HCO3 19.3 BE -4.7 Hb 14.3 Glucose 97 K 4.26 0826 Procedure Start 0833 Sternotomy 0912 Heparin 0947 AN AORTIC CANNULA 0952 AN Venous Cannula 0957 Retrograde Cannula 0958 CV Bypass init 1009 An Clamp start 1156 Rewarming 1220 An Clamp Remove 1238 CP Bypass Ended 1241 Protamine 1251 ABG Data Arterial Blood Gas result: pH 7.323 pCO2 41.2 pO2 288.2 FiO2 93 %O2 Sat 98.5 HCO3 20.9 BE -5.2 Hb 8.9 Glucose 172 K 3.75 1320 Chest Closed 1351 an stop data 1401 Recovery or ICU Handoff Marjorie ent care was transferred to the destination unit staff after review of the patient's medical history, current anesthetic/surgical status and plan, according to the Provider Handoff Checklist. 1401 Stop Meds Name Total Midazolam 5 mg fentaNYL 1,000 mcg Propofol 150 mg Propofol INF 85.25 mg PHENYLephrine 160 mcg PHENYLephrine INF 500 mcg Vecuronium 30 mg Heparin 23,000 Units Protamine 200 mg Tranexamic Acid 770 mg Tranexamic Acid INF 387.84 mg Insulin Regular INF 9 Units ceFURoxime 3 g EPINEPHrine INF 128 mcg NORepinephrine INF 562 mcg Calcium Chloride 500 mg Sodium Chloride 0.9% 500 mL Sodium Chloride 0.9% 1,500 mL Lactated Ringers 200 mL * Agents Name O2 Air Isoflurane (et) * Blood No blood administrations on file. Lines, Drains, and Airways Type Details Placement Removal Incision 11/25/15; wrist; laparoscopic punctures (specify); 01/16/22 (LDA cleanup utility RA#[id number]); 1715 (LDA cleanup utility RA#[id number]) 11/25/15 0000 by Tiffany Babcock RN 01/16/22 1715 by Rodrick Reddy (RETIRED) Peripheral IV Line - Single Lumen 11/27/15; 2148; metacarpal vein left (top of hand); [id number] catheter system; 22 gauge; pardeep mckeon RN; intradermal injection, tolerated well, appears comfortable; 12/04/15; 1200 11/27/152148 by Niecy Mckeon RN 12/04/15 1200 by Karin Godwin RN Urethral Catheter 11/29/15; Need for intraoperative urine output monitoring; Close urine output monitoring: critically ill patient; indwelling catheter with core temperature probe; silver hydrogel antimicrobial coated; 14; inserted at this facility; 1 (inserted without difficulty, urine note din catheter); 10; 10; none (inserted after induction); drainage bag to dependent drainage; 12/02/15; 1011 11/29/15 0000 by Sierra Jones RN 12/02/15 1011 by Karni Godwin RN Incision 11/29/15; sternal; 01/16/22 (LDA cleanup utility RA#[id number]); 1715 (LDA cleanup utility RA#[id number]) 11/29/15 0000 by Sierra Jones RN 01/16/22 1715 by Rodrick Reddy Incision 11/29/15; knee; Site for endoscopic vein harvest; 01/16/22 (LDA cleanup utility RA#[id number]); 1715 (LDA cleanup utility RA#[id number]) 11/29/15 0000 by Sierra Jones RN 01/16/22 1715 by Rodrick Reddy Chest Tube 11/29/15; Left; posterior; mediastinal; 28FR Angled chest tube to oasis suction; 11/30/15; 1522 11/29/15 0000 by Sierra Jones RN 11/30/15 1522 by Irene Sorto RN Chest Tube 11/29/15; Right; anterior; mediastinal; 28FR Straight chest tube to oasis suction; 11/30/15; 1523 11/29/15 0000 by Sierra Jones RN 11/30/15 1523 by Irene Sorto RN Chest Tube 11/29/15; Left; pleu ral; 24FR Ajit chest tube to oasis suction; 12/01/15; 0959 11/29/15 0000 by Sierra Jones RN 12/01/15 0959 by Tiffany Clarke RN Drain/Device Site 11/29/15; Right; med ial; knee; collapsible closed device; 7MM drain to bulb suction; 11/30/15; 0600 11/29/15 0000 by Sierra Jones RN 11/30/15 0600 by Sai Moyer RN Arterial Line 11/29/15; 0725; radi al artery; 20 gauge; yanelis; Sterile Prep, Sterile Gloves; 12/01/15; 1100 11/29/15 0725 by Austin Rod MD 12/01/15 1100 by Tiffany Clarke RN (RETIRED) Percutaneous Central Line - Single Lumen 11/29/15; 0725; internal jugular vein, right; Ultrasound Guidance; Yes; 9 Fr; yanelis; FABRICE; CVC Protocol Performed; 12/01/15; 1130 11/29/15 0725 by Austin Rod MD 12/01/15 1130 by Tiffany Clarke RN (RETIRED) Pulmonary Artery Catheter - Triple Lumen 11/29/15; 0725; Right; internal jugular vein; VIP; 8 Fr; CVC Protocol Performed; yanelis; 11/30/15; 0530 11/29/15 0725 by Austin Rod MD 11/30/15 0530 by Sai Moyer RN ETT Mask Ventilation: Ad junct (2); ETT Type: Cuffed, Oral; ETT Size: 7.5 mm; Mac Blade: 4; Notes: Asleep, Pre-O2, RSI, Stylette; Attempts: 1; Laryngoscopy Grade: 2; ETT Placement Verified By: Auscultation; Secured at Teeth: 23 cm; Inserted by: yanelis; Removal Date: 11/30/15; Removal Time: 2411/29/15 0752 by Austin Rod MD 11/30/15 0025 by Olman Pickard RCP documented in this encounter Social History Tobacco Use Types Packs/Day Years Used Date Smoking Tobacco: Never Smokeless Tobacco: Never Alcohol Use Standard Drinks/Week Comments Yes 1 (1 standard drink = 0.6 oz pur e alcohol) 1 glass per day Sex and Gender Information Value Date Recorded Sex Assigned at Not on file Gender Identity Not on file Sexual Orientation Not on file documented as of this encounter OR Notes * Anesthesia Postprocedure Evaluation - Austin Rod - 11/30/2015 2:24 PM EDT [facility] Department of Anesthesiology Post-procedure Note Patient: Olman Rivera Procedure Summary Date Anesthesia Start Anesthesia Stop Room / Location 11/29/15 0725 1401 [facility] OR 18 / [facility] MA[facility] OR Procedure Diagnosis Surgeon Responsible Provider ENDOSCOPIC HARVEST VEIN(S) FOR CABG (N/A Leg); @CABG; 3 VENOUS GRAFTS & ARTERIAL GRAFT (N/A Chest) (CAD) Yash Benton MD Mancuso, Aaron J, MD All Anesthesia Providers: Anesthesiologist: Dusty Palacio MD Noodle Catalyst Maker: Austin Rod MD Last (1hr) Vitals: BP Temp Pulse 96 (11/30/15 1400) Resp 19 (11/30/15 1400) SpO2 99 % (11/30/15 1400) Patient Location: [facility] Level of Consciousness: Awake and Alert Pain Management: Pain Being Addressed PONV: None Cardiovascular Status: Hypotension (received treatment) Respiratory Status: At Baseline and Room Air Postoperative Fluid Status: Intravascular EUvolemia Possible Anesthetic Complications: NONE apparent at time of evaluation Final Primary Anesthesia Type: General (The anesthetic type performed was the same as planned.) Comments: Initial concerns with high chest tube output, tamponade ruled out with echo. Extubated late yesterday evening. Pressor requirements decreasing. Sternotomy pain being addressed. * Anesthesia Preprocedure Evaluation - Genny Desai - 11/26/2015 8:33 AM EDT Pre-Anesthesia Evaluation for: Olman Rivera a 59 y.o. male. Procedure(s): @CABG; 4 VENOUS GRAFTS & ARTERIAL GRAFT ENDOSCOPIC HARVEST VEIN(S) FOR CABG Patient Active Problem List Diagnosis ??? Hypothyroidism ??? ASCVD (arteriosclerotic cardiovascular disease) 11/25/2015 cardiac catheterization: Three vessel coronary artery disease (LAD, LCX and RCA) Past Medical History Diagnosis Date ??? Hypothyroidism Past Surgical History Procedure Laterality Date ??? Tonsillectomy N/A Social History Substance Use Topics ??? Smoking status: Never Smoker ??? Smokeless tobacco: Never Used ??? Alcohol use 0.6 oz/week 1 Glasses of wine per week Comment: 1 glass per day History Drug Use No No Known Allergies Medications: MAR and/or home medications have been reviewed. Physical Exam: Vitals: 11/26/15 0625 BP: 122/76 Pulse: 73 Resp: Temp: Body mass index is 24.36 kg/(m^2). Height: 177.8 cm (5' 10) Weight - Scale: 77 kg (169 lb 12.1 oz) Airway Assessment: Mallampati: II TM distance: >3 FB Neck ROM: full Cardiovascular Assessment: cardiovascular exam normal Pulmonary Assessment: pulmonary exam normal Dental Assessment: - normal exam Misc Assessment: IV access: Peripheral line Other exam findings: Cardiac Cath 11/25/15: Conclusions: * Three vessel coronary artery disease (LAD, LCX and RCA) ? Comments: Patient presented with progressive symptoms of exertional angina. Stress test performed at the outside hospital showed inferoapical ischemia. Anesthesia Plan: ASA 3 general, with a(n) intravenous induction This is a PRELIMINARY NOTE for procedure scheduled on 11/29/15. Pt has not been seen by an assigned anesthesia provider nor is the anesthetic plan listed below final. This is a 59 y.o. male with a history of 3-vessel coronary artery disease, here for the following Procedure(s): @CABG; 4 VENOUS GRAFTS & ARTERIAL GRAFT ENDOSCOPIC HARVEST VEIN(S) FOR CABG The patient's past medical history, past surgical history, medications, and allergies were reviewedand notable for hypothyroidism, and a family history for CAD. Pt underwent stress test 11/18/2015 which revealed EF 60% and inferoapical ischemia. ??Cardiac cath revealed 95% mid RCA lesion with right to left collaterals filling in the LAD branchof the LCA. Injection of the LCA revealed high grade DX disease, occluded LAD filling retrograde via right collaterals and collaterals from the CX to the distal RCA. Patient's documented history was negative for seizures, CVA, hepatic/renal disease or coagulopathy.There is no evidence of any recent URI or UTI symptoms, fevers/chills, or other indication of onging infection. LABS: Lab Results Component Value Date HGB 13.5 (L) 11/26/2015 PLATELET 129 (L) 11/26/2015 INR 0.9 11/25/2015 NA 139 11/26/2015 K 3.9 11/26/2015 CREATININE 0.95 11/26/2015 TYPE AND SCREEN: No results found for: ABORH ALLERGIES: No Known Allergies ANESTHETIC HISTORY: No prior anesthetic documentation. ANESTHETIC PLAN: General anesthesia with ETT Pre-induction arterial line placement for invasive monitoring and labs. CVC, PAC, FABRICE in addition to standard ASA monitors. Adequate IV access The patient was informed of the risks, benefits and alternatives of anesthesia. These risks include, but are not limited to, post-operative nausea and vomiting, pain, sore throat, and other rare but serious complications such as major organ damage, allergies, blood transfusions, and dental/lip trauma. All questions sought and answered. Consent was signed and placed in chart. GENNY DESAI MD 11/26/2015 Region - Intrathoracic Cardiac Informed Consent: Anesthetic plan and risks discussed with patient. Use of blood products discussed with patient who consented to blood products. Plan discussed with attending and resident. PAT Staff Note documented in this encounter Plan of Treatment Not on file documented as of this encounter Visit Diagnoses Not on filedocumented in this encounter Administered Medications Inactive Administered Medications - up to 3 most recent administrations Medication Order MAR Action Action Date Dose Rate Site calcium chloride injection PRN, Starting on Sun11/29/15 at 1317, Until Sun11/29/15 at 1408, Anesthesia Intra-op Given 11/29/2015 1:18 PM EDT 250 mg Given 11/29/2015 1:17 PM EDT 250 mg cefUROXime (ZINACEF) injection 1.5 g Administer over 60 Minutes, PRN, Starting on Sun11/29/15 at 0810, Until Sun11/29/15 at 1408, Anesthesia Intra-op, Routine Given 11/29/2015 12:45 PM EDT 1.5 g Given 11/29/2015 8:10 AM EDT 1.5 g EPINEPHrine 2 mg in dextrose 5% 250 mL infusion CONTINUOUS PRN, Starting on Sun11/29/15 at 1220, Until Sun11/29/15 at 1408, Anesthesia Intra-op Rate/Dose Change 11/29/2015 12:47 PM EDT 1 mcg/min 7.5 mL/hr New Bag 11/29/2015 12:20 PM EDT 2 mcg/min 15 mL/hr fentaNYL 50 mcg/mL multi-dose injection PRN, Starting on Sun11/29/15 at 0828, Until Sun11/29/15 at 1408, Pain, Anesthesia Intra-op, Routine Given 11/29/2015 9:31 AM EDT 250 mcg Given 11/29/2015 8:28 AM EDT 250 mcg Given 11/29/2015 7:46 AM EDT 500 mcg heparin (porcine) injection PRN, Starting on Sun11/29/15 at 0912, Until Sun11/29/15 at 1408, Anesthesia Intra-op, Routine Given 11/29/2015 9:12 AM EDT 23,000 Units insulin regular human (HumuLIN;NovoLIN) 1unit/mL 150 Units in sodium chloride 0.9% 150 mL infusion CONTINUOUS PRN, Starting on Sun11/29/15 at 1107, Until Sun11/29/15 at 1408, Anesthesia Intra-op, Routine New Bag 11/29/2015 11:07 AM EDT 5 Units/hr 5 mL/hr lactated ringers infusion CONTINUOUS PRN, Starting on Sun11/29/15 at 0725, Until Sun11/29/15 at 1408, Anesthesia Intra-op New Bag 11/29/2015 7:25 AM EDT midazolam (PF) (VERSED) 1 mg/mL multi-dose injection PRN, Starting on Sun11/29/15 at 0746, Until Sun11/29/15 at 1408, Sleep, Anesthesia Intra-op, Routine Given 11/29/2015 12:21 PM EDT 1 mg Given 11/29/2015 9:58 AM EDT 1 mg Given 11/29/2015 7:46 AM EDT 1 mg NORepinephrine 16 mcg/mL (standard ADULT and Nikki greater than 20 kg) infusion CONTINUOUS PRN, Starting on Sun11/29/15 at 1220, Until Sun11/29/15 at 1408, Anesthesia Intra-op, Routine Rate/Dose Change 11/29/2015 1:33 PM EDT 4 mcg/min 15 mL/hr Rate/Dose Change 11/29/2015 12:50 PM EDT 6 mcg/min 22.5 m L/hr Rate/Dose Change 11/29/2015 12:35 PM EDT 8 mcg/min 30 mL/ hr PHENYLephrine (BARBER-SYNEPHRINE) 20 mg in sodium chloride 250 mL (standard ADULT & Nikki greater than 20kg) infusion CONTINUOUS PRN, Starting on Sun11/29/15 at 0801, Until Sun11/29/15 at 1408, Anesthesia Intra-op, Routine New Bag 11/29/2015 8:01 AM EDT 20 mcg/min 15 mL/hr PHENYLephrine HCl in NS (PF) (BARBER-SYNEPHRINE) 0.8 mg/10 mL (80 mcg/mL) multi-dose injection Syrg PRN, Starting on Sun11/29/15 at 0950, Until Sun11/29/15 at 1408, Anesthesia Intra-op, Routine Given 11/29/2015 9:50 AM EDT 80 mcg Given 11/29/2015 8:16 AM EDT 80 mcg propofol (DIPRIVAN) 10 mg/mL bolus injection (Anesthesia) PRN, Starting on Sun11/29/15 at 0746, Until Sun11/29/15 at 1408, Anesthesia Intra-op Given 11/29/2015 10:03 AM EDT 90 mg Given 11/29/2015 7:46 AM EDT 60 mg propofol (DIPRIVAN) infusion CONTINUOUS PRN, Starting on Sun11/29/15 at 1324, Until Sun11/29/15 at 1408, Anesthesia Intra-op, Routine New Bag 11/29/2015 1:24 PM EDT 30 mcg/kg/min 13.8 mL/hr protamine injection PRN, Starting on Sun11/29/15 at 1241, Until Sun11/29/15 at 1408, Anesthesia Intra-op, Routine Given 11/29/2015 12:41 PM EDT 200 mg sodium chloride 0.9% infusion CONTINUOUS PRN, Starting on Sun11/29/15 at 0810, Until Sun11/29/15 at 1408, Anesthesia Intra-op New Bag 11/29/2015 8:10 AM EDT sodium chloride 0.9% infusion CONTINUOUS PRN, Starting on Sun11/29/15 at 0810, Until Sun11/29/15 at 1408, Anesthesia Intra-op New Bag 11/29/2015 8:10 AM EDT tranexamic acid (CYKLOKAPRON) 100 mg/mL bolus injection (Anesthesia) PRN, Starting on 7/11/16 at 0810, Until Sun11/29/15 at 1408, Anesthesia Intra-op, Routine Given 11/29/2015 8:10 AM EDT 770 mg tranexamic acid (CYKLOKAPRON) injection CONTINUOUS PRN, Starting on Sun11/29/15 at 0840, Until Sun11/29/15 at 1408, Anesthesia Intra-op, Routine New Bag 11/29/2015 8:40 AM EDT 1 mg/kg/hr 0.8 mL/hr vecuronium (NORCURON) injection PRN, Starting on Sun11/29/15 at 0828, Until Sun11/29/15 at 1408, Anesthesia Intra-op, Routine Given 11/29/2015 12:03 PM EDT 5 mg Given 11/29/2015 10:57 AM EDT 5 mg Given 11/29/2015 9:33 AM EDT 5 mg documented in this encounter Care Teams Chief Marketing Officer Relationship Specialty Start Date End Date Noé Hung DO [address] [place] [address] PCP - General 05/10/10 documented as of this encounter
--- OUTSIDE RECORDS SUMMARY | 2023-12-06 02:45 | XMS_ITS | Encounter Summary ---
Author Organization [facility] Address [address] [place] [address] Care Team Providers Care Recovery Manager Name Role Phone Unknown, Provider Primary Care Provider Encounter Details Date Type Department Care Team (Late st Contact Info) Description 11/18/2015 Historical Results Only [facility] Radiology Results [address] [place], [place] [address] Noé Hung, DO [address] [place], [place] [id number] Social History Tobacco Use Types Packs/Day Years Used Date Smoking Tobacco: Never Assessed Sex and Gender Information Value Date Recorded Sex Assigned at Not on file Gender Identity Not on file Sexual Orientation Not on file documented as of this encounter Plan of Treatment Not on file documented as of this encounter Procedures Procedure Name Priority Date/Time Associated Diagnosis Comments NM CARD SPECT NUCLEAR STRESS 11/18/2015 10:01 EDT documented in this encounter Results * NM CARD SPECT NUCLEAR STRESS (11/18/2015 10:01 EDT) Anatomical Region Laterality Modality Chest Nuclear Stress 11/18/2015 10:0 1 EDT Narrative 11/26/2015 9:01 EDT ? EXAM: NUCLEAR MEDICINE/NUCLEAR STRESS DAMARI EX. D/ (1001) ? CLINICAL INFORMATION: ? CHEST PAIN ? *[facility]* ? *[facility]* ? [address] ? [place] [address] ? Myocardial Perfusion Imaging - SPECT ? Yvon protocol ? Date of study: ??11/18/2015 ? *PATIENT PRESENTATION* ? Height: ? 177.8cm ((70in) ) ? Blood Pressure: ? Weight: ? 78.6kg ((173lb) ) ? BSA: ?1.98m S 2 ? Ordering physician: Noé Hung ? Impressions: ?? Abnormal study after maximal exercise. ? Summary: ? 1. Myocardial perfusion imaging: There is a moderate - large sized, ?predominantly reversible defect. This suggests moderate - large ?ischemia in the distribution of the right coronary artery. ? 2. The calculated left ventricular ejection fraction after stress: ?60%. No left ventricular regional motion abnormality. ? Indication: ?? 786.50 Chest Pain, Unspecified. ? History: ??PAST 3-4 WEEKS, SUBSTERNAL, NON-RADIATING CHEST PAIN NOTED ? WHEN OUT WALKING THE DOGS. NO C/O SOB, NAUSEA OR DIAPHORESIS. CHEST ? PAIN DESCRIBED A PRESSURE AND IS RELIEVED AFTER A FEW MINUTES OF ? REST. ? NO PREVIOUS CARDIAC HISTORY. ? STRONG FAMILY HISTORY OF EARLY CAD. ? Allergies: ??No known allergies. ? MEDS: SYNTHROID. ? Imaging Technique: ? Protocol: ??Yvon protocol. ? Acquisition: ?? Gated SPECT; 1 day - rest/stress. ?The patient was ? imaged in the supine position. Attenuation correction used. ? Isotope administration: ? - Rest. Tc[99m]-sestamibi. Injection to stress time: 00:45. ? - Stress. Tc[99m]-sestamibi. 1-2 min before end of exercise ? PAGE 1 ? Signed Report ? (CONTINUED) ? Baseline ECG: ??SINUSBRADY- 57 BPM. ? Stress protocol: ? + +---+ + ? !Stage ?!HR !BP (mmHg) ??! ? + +---+ + ? !Baseline supine ?!57 !116/85 (95)! ? + +---+ + ? !Baseline standing ?!63 !120/82 (95)! ? + +---+ + ? !Stage I; 1.7mph, 10degrees; 3 min ??!94 !127/75 (92)! ? + +---+ + ? !Stage II; 2.5mph, 12degrees; 3 min !117!124/73 (90)! ? + +---+ + ? !Stage III; 3.4mph, 14degrees; 3 min!131!141/73 (96)! ? + +---+ + ? !Stage IV; 4.2mph, 16degrees; 3 min !146! ! ? + +---+ + ? !Peak stress ?!147! ! ? + +---+ + ? !Recovery; 1 min ?!114!134/73 (93)! ? + +---+ + ? !Recovery; 3 min ?!91 !146/75 (99)! ? + +---+ + ? !Recovery; 6 min ?!89 !133/77 (96)! ? + +---+ + ? !Recovery; 9 min ?!85 ! ! ? + +---+ + ? * ? Stress results: ?? Maximal heart rate during stress was 147bpm (92% of ? maximal predicted heart rate). The maximal predicted heart rate was ? 159bpm. The rate-pressure product for the peak heart rate and blood ? pressure was 61486sa Hg/min. ? Stress ECG: ??GOOD EXERCISE JEY- 11 METS( 10 MINUTES 15 SECONDS IN ? YVON PROTOCOL) ? ABOVE AVERAGE FUNCTIONAL CAPACITY ? MAX HR- 147 BPM ? NORMAL BP RESPONSE ? 3/10 CHEST PAIN, RELIEVED AFTER 2 MINUTES OF REST ? A FEW PAC'S ? 1-[address] HORIZONTAL DEPRESSION/DOWNSLOPING IN 1,2,3,AVF,V4,V5,V6. ? Myocardial perfusion: ?? Imaging information: gated. There is a ? moderate - large sized, predominantly reversible defect. This suggests ? moderate - large ischemia in the distribution of the right coronary ? artery. ? Ventricular Function (Wall Motion): ?? The calculated left ventricular ? ejection fraction after stress: 60%. ?? No left ventricular regional ? motion abnormality. ? Study data: ??Teddy Leong MD supervised and was readily available ? during the procedure. This study was interpreted by [facility]. ? PAGE 2 ? Signed Report ? (CONTINUED) ? Study status: Routine. ? Consent: ??The risks, benefits, and alternatives to the procedure were ? explained to the patient and informed consent was obtained. ? Procedure: ??Initial setup. A baseline ECG was recorded. Surface ECG ? leads and manual cuff blood pressure measurements were monitored. ? Heart sounds: Normal. ? Lung sounds: Normal. ? Treadmill exercise testing was performed using the Yvon protocol. The ? patient exercised for 10 min 15 sec, to protocol stage 4. ? Study completion: All catheters inserted during the procedure were ? removed. The patient tolerated the procedure well and was discharged ? from the lab. ? Discharge: ??The patient left the laboratory in stable condition. ? Birthdate: ??Patient birthdate: 1955. ? Sex: ??Gender: male. ? Study date: ??Study date: 11/18/2015. ? Study time: 10:00 AM. ? Electronically signed by ? Teddy Leong MD ? 11/25/2015 12:11 ?Reported By: TEDDY LEONG M.D. ? CC: ? Transcribed Date/Time: 11/26/2015 (0901) ? Shaker Plate Operator: MADELINE ? Printed Date/Time: 11/01/2018 (0109) ? PAGE 3 ? Signed Report ? Procedure Note Teddy Leong - 03/26/2019 EXAM: NUCLEAR MEDICINE/NUCLEAR STRESS DAMARI EX. D/ (1001) CLINICAL INFORMATION: CHEST PAIN *[facility]* *[facility]* [address] [place] [address] Myocardial Perfusion Imaging - SPECT Yvon protocol Date of study: 11/18/2015 *PATIENT PRESENTATION* Height: 177.8cm ((70in) ) Blood Pressure: Weight: 78.6kg ((173lb) ) BSA: 1.98m S 2 Ordering physician: Noé Hung Impressions: Abnormal study after maximal exercise. Summary: 1. Myocardial perfusion imaging: There is a moderate - large sized, predominantly reversible defect. This suggests moderate - large ischemia in the distribution of the right coronary artery. 2. The calculated left ventricular ejection fraction after stress: 60%. No left ventricular regional motion abnormality. Indication: 786.50 Chest Pain, Unspecified. History: PAST 3-4 WEEKS, SUBSTERNAL, NON-RADIATING CHEST PAINNOTED WHEN OUT WALKING THE DOGS. NO C/O SOB, NAUSEA OR DIAPHORESIS. CHEST PAIN DESCRIBED A PRESSURE AND IS RELIEVED AFTER A FEW MINUTES OF REST. NO PREVIOUS CARDIAC HISTORY. STRONG FAMILY HISTORY OF EARLY CAD. Allergies: No known allergies. MEDS: SYNTHROID. Imaging Technique: Protocol: Yvon protocol. Acquisition: Gated SPECT; 1 day - rest/stress. The patient was imaged in the supine position. Attenuation correction used. Isotope administration: - Rest. Tc[99m]-sestamibi. Injection to stress time: 00:45. - Stress. Tc[99m]-sestamibi. 1-2 min before end of exercise PAGE 1 Signed Report (CONTINUED) Baseline ECG: SINUSBRADY- 57 BPM. Stress protocol: + +---+ + !Stage !HR !BP (mmHg) ! + +---+ + !Baseline supine !57 !116/85 (95)! + +---+ + !Baseline standing !63 !120/82 (95)! + +---+ + !Stage I; 1.7mph, 10degrees; 3 min !94 !127/75 (92)! + +---+ + !Stage II; 2.5mph, 12degrees; 3 min !117!124/73 (90)! + +---+ + !Stage III; 3.4mph, 14degrees; 3 min!131!141/73 (96)! + +---+ + !Stage IV; 4.2mph, 16degrees; 3 min !146! ! + +---+ + !Peak stress !147! ! + +---+ + !Recovery; 1 min !114!134/73 (93)! + +---+ + !Recovery; 3 min !91 !146/75 (99)! + +---+ + !Recovery; 6 min !89 !133/77 (96)! + +---+ + !Recovery; 9 min !85 ! ! + +---+ + * Stress results: Maximal heart rate during stress was 147bpm (92%of maximal predicted heart rate). The maximal predicted heart rate was 159bpm. The rate-pressure product for the peak heart rate and blood pressure was 90191aj Hg/min. Stress ECG: GOOD EXERCISE JEY- 11 METS( 10 MINUTES 15 SECONDS IN YVON PROTOCOL) ABOVE AVERAGE FUNCTIONAL CAPACITY MAX HR- 147 BPM NORMAL BP RESPONSE 3/10 CHEST PAIN, RELIEVED AFTER 2 MINUTES OF REST A FEW PAC'S 1-[address] HORIZONTAL DEPRESSION/DOWNSLOPING IN 1,2,3,AVF,V4,V5,V6. Myocardial perfusion: Imaging information: gated. There is a moderate - large sized, predominantly reversible defect. Thissuggests moderate - large ischemia in the distribution of the right coronary artery. Ventricular Function (Wall Motion): The calculated leftventricular ejection fraction after stress: 60%. No left ventricular regional motion abnormality. Study data: Teddy Leong MD supervised and was readily available during the procedure. This study was interpreted by [facility]. PAGE 2 Signed Report (CONTINUED) Study status: Routine. Consent: The risks, benefits, and alternatives to the procedurewere explained to the patient and informed consent was obtained. Procedure: Initial setup. A baseline ECG was recorded. Surface ECG leads and manual cuff blood pressure measurements were monitored. Heart sounds: Normal. Lung sounds: Normal. Treadmill exercise testing was performed using the Yvon protocol.The patient exercised for 10 min 15 sec, to protocol stage 4. Study completion: All catheters inserted during the procedure were removed. The patient tolerated the procedure well and wasdischarged from the lab. Discharge: The patient left the laboratory in stable condition. Birthdate: Patient birthdate: 1955. Sex: Gender: male. Study date: Study date: 11/18/2015. Study time: 10:00 AM. Electronically signed by Teddy Leong MD 11/25/2015 12:11 Reported By: TEDDY LEONG M.D. CC: Transcribed Date/Time: 11/26/2015 (0901) Shaker Plate Operator: MADELINE Printed Date/Time: 11/01/2018 (010) PAGE 3 Signed Report Noé Hung DO CARDIAC NM ORDERAB LES documented in this encounter Visit Diagnoses Not on filedocumented in this encounter Care Teams Recovery Manager Relationship Specialty Start Date End Date Unknown, Provider, PCP - General 04/26/10 08/18/21 documented as of this encounter
--- OUTSIDE RECORDS SUMMARY | 2023-12-06 02:45 | XMS_ITS | Encounter Summary ---
Author Organization [facility] Address [address] [place] [address] Care Team Providers Care Field Specialist Name Role Phone Unknown, Provider Primary Care Provider [phone] Encounter Details Date Type Department Care Team (Latest Contact Info) Description 11/18/2015 17:01 EDT - 11/18/2015 23:59 EDT Hospital Encounter [facility] [address] [place] [address] Unknown, Provider, Discharge Disposition: Home or Self Care Social History Tobacco Use Types Packs/Day Years Used Date Smoking Tobacco: Never Assessed Sex and Gender Information Value Date Recorded Sex Assigned at Not on file Gender Identity Not on file Sexual Orientation Not on file documented as of this encounter Discharge Disposition Disposition Code Departure Means Destination Home or Self Prison documented in this encounter Plan of Treatment Not on file documented as of this encounter Visit Diagnoses Not on filedocumented in this encounter Care Teams Field Specialist Relationship Specialty Start Date End Date Unknown, Provider, PCP - General 04/26/10 08/18/21 documented as of this encounter
--- OUTSIDE RECORDS SUMMARY | 2023-12-06 02:45 | XMS_ITS | Encounter Summary ---
Author Organization [facility] Address [address] [place] [address] Care Team Providers Care Cashier Name Role Phone Huang Vines MD Primary Care Provider Encounter Details Date Type Department Care Team (Late st Contact Info) Description 09/21/2021 Lab Requisition [facility] Pathology & Laboratory Medicine - [facility] [address] [place] [address] Nadya Vega MD [address] [place] [address] [address] [place], [place] [id number] Dysphagia, unspecified Social History Tobacco Use Types Packs/Day Years Used Date Smoking Tobacco: Never Assessed Interpersonal Safety Answer Date Record ed Physically Hurt Never 12/21/2019 Verbally Threaten Not on file 12/21/2019 Sex and Gender Information Value Date Recorded Sex Assigned at Not on file Gender Identity Not on file Sexual Orientation Not on file documented as of this encounter Plan of Treatment Not on file documented as of this encounter Procedures Procedure Name Priority Date/Time Associated Diagnosis Comments SURGICAL PATHOLOGY Today 09/21/2021 10 :11 EDT Dysphagia, unspecified documented in this encounter Results * SURGICAL PATHOLOGY (09/21/2021 10:11 EDT) Note to Patient The following pathology results have been interpreted by your pathologist and may be available to you before your health provider has had the opportunity to review them. Please allow time for your provider to receive these results and explore management options, if applicable. 09/23/2021 14:35 EDT [facility] Final Diagnosis A. STOMACH, ANTRUM, BIOPSY: - Gastric antral gland mucosa with reactive/chemical gastropathy. - No H.pylori identified on H& E stain. B. GE JUNCTION, BIOPSY: - Squamous esophageal mucosa with reflux esophagitis. - Columnar mucosa with foveolar hyperplasia, negative for intestinal metaplasia. C. COLON, ASCENDING, POLYP BIOPSY/POLYPECTOM Y: - Tubular adenoma(s). 09/23/2021 14:35 [facility] Attestation By the signature below, the attending physician certifies that they have 1) personally conducted a gross and/or microscopic examination of the described specimen(s), and/or personally interpreted the results of laboratory testing of the described specimen(s), and 2) personally rendered or confirmed the above diagnosis. 09/23/2021 14:35 [facility] at 1435 Clinical History Dysphagia; clinical diagnosis code: R13.10 09/23/2021 14:35 [facility] Gross Description A. Received in formalin labelled with proper patient identification (initials O, J) and antrum are two duke-brown tissues, 0.3 x 0.3 x 0.2 cm and 0.4 x 0.3 x 0.2 cm. Entirely submitted in A1. B. Received in formalin labelled with proper patient identification (initials O, J) and GE junction are two duke valladares tissues averaging 0.3 x 0.2 x 0.1 cm. Entirely submitted in B1. C. Received in formalin labelled with proper patient identification (initials O, J) and ascending polyp are duke tissue fragments aggregating 0.5 x 0.5 x 0.2 cm. Entirely submitted in C1. NEPTALI LIEBERMAN(ASCP) 09/22/2021 7:58 09/23/2021 14:35 [facility] Performing Lab [facility] 09/23/2021 14:35 [facility] Scanned Images 09/23/2021 14:35 [facility] Tissue ASCENDING COLON STRUCTURE / Unknown 09/21/2021 10:11 EDT 09/21/2021 18:15 EDT Tissue specimen (specimen) CARDIOESOPHAGEAL JUNCTION STRUCTURE / Unknown 09/21/2021 10:11 EDT 09/21/2021 18:15 EDT Tissue specimen (specimen) ASCENDING COLON STRUCTURE / Unknown 09/21/2021 10:11 EDT 09/21/2021 18:15 EDT Nadya Vega MD PATHOLOGY ORDERA BLES [facility] [address] [place] [address] documented in this encounter Visit Diagnoses Diagnosis Dysphagia, unspecified documented in this encounter Care Teams Cashier Relationship Specialty Start Date End Date Huang Vines MD [address] [place] [id number] PCP - General Family Medicine - Primary Care 08/19/21 02/19/22 documented as of this encounter
--- OUTSIDE RECORDS SUMMARY | 2023-12-06 02:45 | XMS_ITS | Encounter Summary ---
Author Organization [facility] [place] [address] Care Team Providers Care Electronics Department Manager Name Role Phone Noé Hung DO Primary Care Provider [phone] Encounter Details Date Type Department Care Team (Late st Contact Info) Description 11/24/2015 Orders Only Cardiology at [address] [id number] Laurie Horner PA [facility] [place] [address] ASCVD (arteriosclerotic cardiovascular disease) Social History Tobacco Use Types Packs/Day Years Used Date Smoking Tobacco: Never Assessed Sex and Gender Information Value Date Recorded Sex Assigned at Not on file Gender Identity Not on file Sexual Orientation Not on file documented as of this encounter Plan of Treatment Not on file documented as of this encounter Procedures Procedure Name Priority Date/Time Associated Diagnosis Comments TRANSESOPHAGEAL ECHOCARDIOGRAM (FABRICE) Routine 12/01/2015 CARDIAC CATHETERIZATION Routine 11/25/2015 10:05 AM EDT ASCVD (arteriosclerotic cardiovascular disease) documented in this encounter Results * Transesophageal Echocardiogram (FABRICE) (12/01/2015) Anatomical Region Laterality Modality Other 12/01/2015 Narrative 12/01/2015 9:50 AM EDT Procedure: ?Transesophageal Echocardiogram Patient: ?GUTIERREZ Stewart ? (Age): 1955(59y) Med Rec#: ? [id number] ?Sex: ?M ? Site Loc: ? Ht / Wt: ??(cm)/ (kg) ? Pt. Loc: ? Study Date: ?? 11/29/2015 ?Pt. Type: Tape: ? Reading: Dusty Palacio ??([id number]) Nurse Practitioner Home Assessments: CHAD Diagnosis: SUMMARY: 1. Intraoperative FABRICE performed at the request of for the diagnosis and evaluation of hemodynamics, overall cardiac function, and valvular pathologies as indicated. FABRICE probe was passed atraumatically after induction and removed in a similar fashion before emergence. 2. Pre-Bypass: LV function is normal. LVEF 60%. RV function is normal. There are no hemodynamically significant valvular abnormalities present. 3. Post-Bypass: Global LV and RV function is preserved. LVEF is 58% by Escobedo's biplane. There is no change in valvular pathologies. There is no evidence of aortic dissection post decannulation. Remainder of the exam is unchanged from prior. Findings ? : Left Ventricle: ? The left ventricular chamber size is normal. ?Left ventricular wall thickness is normal. ?There is no 2-D evidence of a dilated or hypertrophic cardiomyopathy. ?The quantitative left ventricular ejection fraction by biplane Escobedo's method is 58%. ?There are no left ventricular segmental wall motion abnormalities. Left Atrium: ? There is no evidence of spontaneous echo contrast. ?The left atrial appendage velocity is normal. ?There is no evidence of a patent foramen ovale by color Doppler. Right Ventricle: ? Right ventricular global systolic function is normal. ?There are no right ventricular segmental wall motion abnormalities. Aortic Valve: ? The aortic valve is tricuspid. ?There is no evidence of aortic valve thickening. ?Systolic excursion of the aortic valve is normal. ?There is no evidence of aortic valve stenosis. ?There is no evidence of aortic regurgitation. Mitral Valve: ? The mitral valve leaflets appear normal. ?There is no evidence of mitral stenosis. ?There is trace mitral regurgitation present. ?The mitral regurgitant jet is centrally directed. Tricuspid Valve: ? The tricuspid valve is probably normal. ?There is trace tricuspid regurgitation present. Pulmonic Valve: ? The pulmonic valve is probably normal. ?There is trace pulmonic regurgitation present. Aorta: ? There is evidence of grade 2 (extensive intimal thickening) atheromatous disease of the ascending aorta. ?There is evidence of grade 2 (extensive intimal thickening) atheromatous disease of the aortic arch. ?There is evidence of grade 2 (extensive intimal thickening) atheromatous disease of the descending thoracic aorta. This report has been electronically signed by: Dusty Palacio MD ? 12/01/2015 09:50:20 Images reviewed and interpretation verified [facility] Cardiac Ultrasound Laboratory Procedure Note Dusty Palacio MD - 12/01/2015 Procedure: Transesophageal Echocardiogram Patient: GUTIERREZ MAS(Age): 1955(59y) Med Rec#: [id number] Sex: M Site Loc: Ht / Wt: (cm)/ (kg) Pt. Loc: Study Date: 11/29/2015 Pt. Type: Tape: Reading: Dusty Palacio ([id number]) Nurse Practitioner Home Assessments: CHAD Diagnosis: SUMMARY: 1. Intraoperative FABRICE performed at the request of for the diagnosis and evaluation of hemodynamics, overall cardiac function, and valvular pathologies as indicated. FABRICE probe was passed atraumatically after induction and removed in a similar fashion before emergence. 2. Pre-Bypass: LV function is normal. LVEF 60%. RV function is normal. There are no hemodynamically significant valvular abnormalities present. 3. Post-Bypass: Global LV and RV function is preserved. LVEF is 58% by Escobedo's biplane. There is no change in valvular pathologies. There is no evidence of aortic dissection post decannulation. Remainder of the exam is unchanged from prior. Findings : Left Ventricle: The left ventricular chamber size is normal. Left ventricular wall thickness is normal. There is no 2-D evidence of a dilated or hypertrophic cardiomyopathy. The quantitative left ventricular ejection fraction by biplane Escobedo's method is 58%. There are no left ventricular segmental wall motion abnormalities. Left Atrium: There is no evidence of spontaneous echo contrast. The left atrial appendage velocity is normal. There is no evidence of a patent foramen ovale by color Doppler. Right Ventricle: Right ventricular global systolic function is normal. There are no right ventricular segmental wall motion abnormalities. Aortic Valve: The aortic valve is tricuspid. There is no evidence of aortic valve thickening. Systolic excursion of the aortic valve is normal. There is no evidence of aortic valve stenosis. There is no evidence of aortic regurgitation. Mitral Valve: The mitral valve leaflets appear normal. There is no evidence of mitral stenosis. There is trace mitral regurgitation present. The mitral regurgitant jet is centrally directed. Tricuspid Valve: The tricuspid valve is probably normal. There is trace tricuspid regurgitation present. Pulmonic Valve: The pulmonic valve is probably normal. There is trace pulmonic regurgitation present. Aorta: There is evidence of grade 2 (extensive intimal thickening) atheromatous disease of the ascending aorta. There is evidence of grade 2 (extensive intimal thickening) atheromatous disease of the aortic arch. There is evidence of grade 2 (extensive intimal thickening) atheromatous disease of the descending thoracic aorta. This report has been electronically signed by: Dusty Palacio MD 12/01/2015 09:50:20 Images reviewed and interpretation verified [facility] Cardiac Ultrasound Laboratory Unknown ECHO ORDERABLES * CARDIAC CATHETERIZATION (11/25/2015 10:05 AM EDT) Anatomical Region Laterality Modality Other Narrative 11/25/2015 10:53 AM EDT ?[facility] ? Cardiac Catheterization/Intervention Report ? Patient Name: Olman Rivera. ? Procedure Date: 11/25/2015 ? A #: [id number] ? Primary Physician: Xiomy Zarate ? Case #: [id number] ? File Name: [id number] ? Catheterization Order Number: [id number] ? [facility] ? Final Report [place], [place] ? Patient Name: ? Olman P. Ofausto ?ID#: ?[id number] ? : ?1955 ? Procedure Date: ? November 25, 2015 ? Case #: ? [id number] ? Room: ? 5 ? Case Physician: ? Xiomy Zarate M.D. ? Start: ?09:38 ?Fellow: ? Hemal Jones Chioma ? Admission: ??11/25/2015 ? Discharge: ??12/04/2015 ? Referring ? Teddy Leong M.D. ? Physicians: ?Noé Hung M.D. ? Procedures: ?* Coronary Angiography ?* Left Heart Catheterization ? History ?Olman Rivera is a 59 year old man. He has a family history of ?coronary artery disease. The patient has stable angina and a history of ?chest pain. He also has a history of an abnormal stress test. Prior to ?the initiation of this procedure, the patient was designated as ASA Class ?III. ? Patient Status at Catheterization: ?The patient presented with: stable angina (w/i 42 days). [place] ?Cardiovascular Society angina class was III. This patient was on nitrates ?prior to the procedure. A SPECT stress test was performed and results ?were Positive and High Risk ischemia assessment. ? Technique: ?A 6 SLFr sheath was inserted in the right radial artery utilizing the ?Seldinger technique. The left coronary artery was injected utilizing a ?5Fr JL 3.5 catheter. A 5Fr JR 4 catheter was used to inject the right ?coronary artery. Left ventricular pressure was performed with a 5Fr JR 4 ?catheter. 5,000 units of heparin were administered. A total of 100cc of ?Omnipaque were opened, 41cc of Omnipaque were administered and 59cc of ?Omnipaque were wasted. Radiation: Fluoro time was 3.0 minutes, dose area ?product was 30,502 mGYcm2 and air kerma was 465 mGY. ?The patient received the following medications prior to and during the ?procedure: Aspirin (any), Clopidogrel and Unfractionated Heparin (any). ? Hemodynamics: ?Left Heart Pressures ? Resting: ? Syst Diast ? EDP ?a ?v ? m ?Ao 86 ?61 ?73 ?LV 88 ?5 ? Coronary Angiography: ?Dominance: Right ?Left Main ? There was mild diffuse disease of the entire vessel segment of the ? left main artery. ?Left Anterior Descending ? There was a single discrete total occlusion of the mid segment of ? the left anterior descending artery (LAD). ??There was no antegrade ? distal flow (SEE Grade 0). ??Distal flow was via the [place] vessel, ? collaterals from the LCX as well as collaterals from the RCA. ? There was an 80% single discrete stenosis of the proximal segment of ? the first diagonal branch (Diagonal 1) of the LAD. ??Distal flow was ? normal. ?Left Circumflex ? There was a 50% long segmental stenosis of the proximal segment of ? the left circumflex artery (LCX). ??The LCX was moderate in size. ? Distal flow was normal. ?Right Coronary Artery ? There was a 95% ectatic single discrete stenosis of the mid segment ? of the right coronary artery (RCA). ??The RCA was large. ??Distal flow ? was decreased (SEE Grade 2). ? There was mild diffuse disease of the entire vessel segment of the ? right posterior descending branch (RPDA) of the RCA. ??Distal flow ? was decreased (SEE Grade 2). ? Vascular Access: ?Vascular Access Management: ? Mechanical Compression of the right radial artery access site was ? performed. ? Conclusions: ?* Three vessel coronary artery disease (LAD, LCX and RCA) ? Complications/Events: ?The patient had no complications during these procedures. ? Comments: ?Patient presented with progressive symptoms of exertional angina. ??Stress ?test performed at the outside hospital showed inferoapical ischemia. ?Based on anatomic disease and slow flow in the RCA, we will plan on ?admitting to the hospital and plan for CABG. ?The attending physician was present for the entire procedure. ?Dr. Xiomy Zarate M.D. performed the coronary angiography and left heart ?catheterization. ? Xiomy Zarate M.D. ? Electronically Signed by: Xiomy Zarate M.D. ? Report Finalized: 11/25/2015 ??10:44 ? Report Last Ammended: 03/24/2016 ??16:00 ? Procedure Note Xiomy Zarate MD - 03/24/2016 [facility] Cardiac Catheterization/Intervention Report Patient Name: Olman Rivera Procedure Date: 11/25/2015 A #: [id number] Primary Physician: Xiomy Zarate Case #: [id number] File Name: [id number] Catheterization Order Number: [id number] [facility] FinalReport [place], [place] Patient Name: Olman Rivera ID#:[id number] :1955 Procedure Date: November 25, 2015 Case #: [id number] Room: 5 Case Physician: Xiomy Zarate M.D. Start: 09:38 Fellow: Hemal Bedolla Admission:11/25/2015 Discharge:12/04/2015 Referring Teddy Leong M.D. Physicians: Noé Hung M.D. Procedures: * Coronary Angiography * Left Heart Catheterization History Olman Rivera is a 59 year old man. He has a family history of coronary artery disease. The patient has stable angina and a historyof chest pain. He also has a history of an abnormal stress test. Priorto the initiation of this procedure, the patient was designated as ASAClass III. Patient Status at Catheterization: The patient presented with: stable angina (w/i 42 days). [place] Cardiovascular Society angina class was III. This patient was onnitrates prior to the procedure. A SPECT stress test was performed andresults were Positive and High Risk ischemia assessment. Technique: A 6 SLFr sheath was inserted in the right radial artery utilizingthe Seldinger technique. The left coronary artery was injected utilizinga 5Fr JL 3.5 catheter. A 5Fr JR 4 catheter was used to inject theright coronary artery. Left ventricular pressure was performed with a 5FrJR 4 catheter. 5,000 units of heparin were administered. A total of 100ccof Omnipaque were opened, 41cc of Omnipaque were administered and 59ccof Omnipaque were wasted. Radiation: Fluoro time was 3.0 minutes, dosearea product was 30,502 mGYcm2 and air kerma was 465 mGY. The patient received the following medications prior to and duringthe procedure: Aspirin (any), Clopidogrel and Unfractionated Heparin(any). Hemodynamics: Left Heart Pressures Resting: Syst Diast EDP a v m Ao 86 61 73 LV 88 5 Coronary Angiography: Dominance: Right Left Main There was mild diffuse disease of the entire vessel segment ofthe left main artery. Left Anterior Descending There was a single discrete total occlusion of the mid segmentof the left anterior descending artery (LAD). There was noantegrade distal flow (SEE Grade 0). Distal flow was via the nativevessel, collaterals from the LCX as well as collaterals from the RCA. There was an 80% single discrete stenosis of the proximalsegment of the first diagonal branch (Diagonal 1) of the LAD. Distal flowwas normal. Left Circumflex There was a 50% long segmental stenosis of the proximal segmentof the left circumflex artery (LCX). The LCX was moderate insize. Distal flow was normal. Right Coronary Artery There was a 95% ectatic single discrete stenosis of the midsegment of the right coronary artery (RCA). The RCA was large. Distalflow was decreased (SEE Grade 2). There was mild diffuse disease of the entire vessel segment ofthe right posterior descending branch (RPDA) of the RCA. Distalflow was decreased (SEE Grade 2). Vascular Access: Vascular Access Management: Mechanical Compression of the right radial artery access sitewas performed. Conclusions: * Three vessel coronary artery disease (LAD, LCX and RCA) Complications/Events: The patient had no complications during these procedures. Comments: Patient presented with progressive symptoms of exertional angina.Stress test performed at the outside hospital showed inferoapical ischemia. Based on anatomic disease and slow flow in the RCA, we will plan on admitting to the hospital and plan for CABG. The attending physician was present for the entire procedure. Dr. Xiomy Zarate M.D. performed the coronary angiography and left heart catheterization. Xiomy Zarate M.D. Electronically Signed by: Xiomy Zarate M.D. Report Finalized: 11/25/2015 10:44 Report Last Ammended: 03/24/2016 16:00 Xiomy Zarate MD CARDIAC CATH ORDERAB LES documented in this encounter Visit Diagnoses Diagnosis ASCVD (arteriosclerotic cardiovascular disease) Unspecified cardiovascular disease ASCVD (arteriosclerotic cardiovascular disease) Unspecified cardiovascular disease documented in this encounter Care Teams Electronics Department Manager Relationship Specialty Start Date End Date Noé Hung DO [address] [place] [address] PCP - General 05/10/10 documented as of this encounter
--- OUTSIDE RECORDS SUMMARY | 2023-12-06 02:45 | XMS_ITS | Encounter Summary ---
Author Organization [facility] Address [address] [place] [address] Care Team Providers Care Instructional Aide Name Role Phone Unknown, Provider Primary Care Provider Huang Vines MD Primary Care Provider Encounter Details Date Type Department Care Team (Late st Contact Info) Description 08/12/2021 Lab Requisition [facility] Pathology & Laboratory Medicine - [address] [address] Outr Resulting Lab, Provider Social History Tobacco Use Types Packs/Day Years [...] Procedure Name Priority Date/Time Associated Diagnosis Comments PSA TOTAL, DIAGNOSTIC Routine 08/12/2021 11:19 EDT documented in this encounter Results * PSA TOTAL, DIAGNOSTIC (08/12/2021 11:19 EDT) PSA 1.0 0.0 - 4.5 ng/mL 08/12/2021 21:05 EDT [facility] Blood VENOUS BLOOD / Unknown 08/12/2021 11:19 EDT 08/12/2021 18:58 EDT Narrative [facility] - 08/12/2021 21:05 EDT NOTE: Serum PSA concentration should not be interpreted as absolute evidence for the presence or absence of malignant disease. Assayed on Siemens ADVIA Centaur XPT using chemiluminescent technology.??Values obtained by using different assay methods cannot be used interchangeably. Provider Outr Resulting Lab CHEMISTRY & BLOOD GAS ORDERABLES [facility] [address] [place] [address] documented in this encounter Visit Diagnoses Not on filedocumented in this encounter Care Teams Instructional Aide Relationship Specialty Start Date End Date Unknown, Provider, PCP - General 04/26/10 08/18/21 Huang Vines MD [address] [place] [id number] PCP - General Family Medicine - Primary Care 08/19/21 02/19/22 documented as of this encounter
--- OUTSIDE RECORDS SUMMARY | 2023-12-06 02:45 | XMS_ITS | Encounter Summary ---
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 Phone Unknown, Provider Primary Care Provider [phone] Huang Vines MD Primary Care Provider Encounter Details Date Type Department Care Team (Late st Contact Info) Description 04/29/2020 Lab Requisition [facility] Pathology & Laboratory Medicine - [facility] [address] [place] [address] Outr Resulting Lab, Provider Social History Tobacco [...] Procedure Name Priority Date/Time Associated Diagnosis Comments DO NOT ORDER STANDALONE - BROAD COVID TEST Today 04/29/2020 10:04 EST COVID-19 TESTING Routine 04/29/2020 10:0 4 EST documented in this encounter Results * DO NOT ORDER STANDALONE - BROAD COVID TEST (04/29/2020 10:04 EST) COVID-19 rt-PCR Result NEGATIVE Negative 05/01/2020 8:37 EST [facility] Comment: 2019-novel Coronavirus (2019-nCoV) not detected by the qRT-PCR assay. Consider testing for other respiratory viruses or re-collecting for 2019-nCoV testing. Note: Optimum timing for peak viral levels during infections caused by 2019-nCoV have not been determined. Collection of multiple specimens from the same patient may be necessary to detect the virus. Limitations Positive results are indicative of active infection with SARS-CoV-2 but do not rule out bacterial infection or co-infection with other viruses. The agent detected may not be the definite cause of disease. In addition, detection of viral RNA may not indicate the presence of infectious virus or that SARS-CoV-2 is the causative agent for clinical symptoms. Negative results do not preclude SARS-CoV-2 infection and should not be used as the sole basis for patient management decisions. Negative results must be combined with clinical observations, patient history, and epidemiological information. False negative results may also occur if amplification inhibitors are present in the specimen or if inadequate numbers of organisms are present in the specimen. Optimum specimen types and timing for peak viral levels during infections caused by SARS-CoV-2 have not been fully determined. Collection of multiple specimens (types and time points) from the same patient may be necessary to detect the virus. The test was validated for use with upper respiratory specimens obtained via nasopharyngeal or oropharyngeal swabs in VTM, UTM, M4, M5, M6, saline, and MTM media. The performance of this test has not been established for other specimens. Specimens collected using other FDA recommended Specimen Collection Materials listed in the FDA [employer] communication (August 14, 2019) are processed with the caveat that they were not all validated for use with this test and the result must be interpreted in this context. Furthermore, a false negative results may occur if a specimen is improperly collected, transported or handled. If the virus mutates in the RT-PCR target region, SARS-CoV-2 may not be detected or may be detected less predictably. Inhibitors or other types of interference may produce a false negative result. An interference study evaluating the effect of common cold medications was not performed. This test is not FDA-cleared but its performance characteristics were established by our CLIA-certified, CAP-accredited, high complexity laboratory in accordance with CLIA regulations, [employer] (CAP) guidelines (Aug 07, 2019), and FDA guidance (Jul 19, 2019). This test is only for use under the Food and Drug Administration's Emergency Use Authorization. Swab ENTIRE NASOPHARYNX / Unknown 04/29/2020 10:04 EST 04/29/2020 15:59 EST Provider Outr Resulting Lab MICROBIOLOGY - GENERAL ORDERABLES [facility] [place], [place] * COVID-19 TESTING (04/29/2020 10:04 EST) COVID-19 rt-PCR Result NEGATIVE Negative 05/01/2020 10:01 EST [facility] Comment: 2019-novel Coronavirus (2019-nCoV) not detected by the qRT-PCR assay. Consider testing for other respiratory viruses or re-collecting for 2019-nCoV testing. Note: Optimum timing for peak viral levels during infections caused by 2019-nCoV have not been determined. Collection of multiple specimens from the same patient may be necessary to detect the virus. Limitations Positive results are indicative of active infection with SARS-CoV-2 but do not rule out bacterial infection or co-infection with other viruses. The agent detected may not be the definite cause of disease. In addition, detection of viral RNA may not indicate the presence of infectious virus or that SARS-CoV-2 is the causative agent for clinical symptoms. Negative results do not preclude SARS-CoV-2 infection and should not be used as the sole basis for patient management decisions. Negative results must be combined with clinical observations, patient history, and epidemiological information. False negative results may also occur if amplification inhibitors are present in the specimen or if inadequate numbers of organisms are present in the specimen. Optimum specimen types and timing for peak viral levels during infections caused by SARS-CoV-2 have not been fully determined. Collection of multiple specimens (types and time points) from the same patient may be necessary to detect the virus. The test was validated for use with upper respiratory specimens obtained via nasopharyngeal or oropharyngeal swabs in VTM, UTM, M4, M5, M6, saline, and MTM media. The performance of this test has not been established for other specimens. Specimens collected using other FDA recommended Specimen Collection Materials listed in the FDA [employer] communication (August 14, 2019) are processed with the caveat that they were not all validated for use with this test and the result must be interpreted in this context. Furthermore, a false negative results may occur if a specimen is improperly collected, transported or handled. If the virus mutates in the RT-PCR target region, SARS-CoV-2 may not be detected or may be detected less predictably. Inhibitors or other types of interference may produce a false negative result. An interference study evaluating the effect of common cold medications was not performed. This test is not FDA-cleared but its performance characteristics were established by our CLIA-certified, CAP-accredited, high complexity laboratory in accordance with CLIA regulations, [employer] (CAP) guidelines (Aug 07, 2019), and FDA guidance (Jul 19, 2019). This test is only for use under the Food and Drug Administration's Emergency Use Authorization. Performing Lab [facility] 05/01/2020 10:01 EST [facility] Swab 04/29/2020 10:0 4 EST 04/29/2020 15:59 EST Provider Outr Resulting Lab MICROBIOLOGY - GENERAL ORDERABLES Performing Organization Address City/State/[facility] Co de Phone Number [facility] [address] [place] [address] [facility] [place], [place] documented in this encounter Visit Diagnoses Not on filedocumented in this encounter Care Teams [employer] Relationship Specialty Start Date End Date Unknown, Provider, PCP - General 04/26/10 08/18/21 Huang Vines MD [address] [place] [id number] PCP - General Family Medicine - Primary Care 08/19/21 02/19/22 documented as of this encounter
--- OUTSIDE RECORDS SUMMARY | 2023-12-06 02:45 | XMS_ITS | Encounter Summary ---
Author Organization [facility] [place] [address] Care Team Providers Care Sap Basis Administrator Name Role Phone Mojgan Boateng DO Primary Care Provider [phone] Reason for Visit * Auth/Cert Specialty Diagnoses / Procedures Referred By Mone t Referred To Contact Diagnoses Coronary artery disease CHEST PAIN CAD Procedures CARDIAC CATHETERIZATION @CABG; 4 VENOUS GRAFTS & ARTERIAL GRAFT ENDOSCOPIC HARVEST VEIN(S) FOR CABG Referral ID Status Reason Start Date Expiration Date Visits Re quested Visits Authorized [id number] 1 1 Encounter Details Date Type Department Care Team (Late st Contact Info) Description 11/25/2015 9:00 AM EDT - 11/25/2015 10:00 AM EDT [place] [address] Xiomy Zarate MD [facility] [place] [address] CARDIAC CATHETERIZATION Social History Tobacco Use Types Packs/Day Years [...] Patient Age: 59 y.o. Birthdate: 1955 Language: Albanian Race: White Ethnicity: Not nor Admit Date: 11/25/2015 Discharge Date: 12/04/15 Attending Physician: Yash Benton MD Follow-up Recommendations for Providers: Please continue routine management of cardiovascular risk factors including blood pressure, lipids,glucose, etc. Please note any changes to medications. Patient to follow-up with PCP, MOJGAN BOATENG DO, in 1-2 weeks. Patient to follow-up with Structures Technician, Julius Atknis MD, in two weeks. Patient to follow-up with Cardiac Surgery, Dr. Yash Benton, in ~ 4 weeks with CXR, EKG. Inpatient Provider Contact Information: [facility] Section of Cardiac Surgery [facility] [address] FAX [phone] Discharge Diagnoses (Hospital Problems) Primary Diagnoses: CAD: [...] CABG performed by Yash Benton MD at [facility] OR ??? Pro cabg, artery-vein, three N/A 11/29/2015 @CABG; 3 VENOUS GRAFTS & ARTERIAL GRAFT performed by Yash Benton MD at [facility] OR Prior To Admission Medications [...] Hospital Course: Olman Rivera was admitted to [facility] on 11/25/2015 via the Cardiology Service. He [...] Yash Benton and/or the Cardiac Surgery Physician Pmo Consultant Team may be reached at . Weight: [...] with Dr. Jeffery. You may use a Wellman Track or treadmill but avoid any pulling [...] friends, go to a movie, go to baptism, etc. Heavy activities: No hunting, skiing, jogging, [...] should resume a low fat, low cholesterol, [employer] Diet. Driving: No driving until [...] the outpatient Phase 2 Cardiac Rehabilitation at [facility] . The patient agrees to a referral to this program. The referral will be sent at discharge and the patient should be contacted by the ?? Program within 1- 2 weeks from discharge. ?? Future Appointments and Orders Future Orders Complete By Expires EKG 12 Lead [EKG1 Custom] 01/04/2016 12/03/2016 Process Instructions: Scheduling Instructions: Questions: Which DH location will this be performed?: [place] Is a rhythm strip needed?: No If EKG Reason is Pre-op Evaluation, indicate diagnosis for surgery.: Should this service/procedure be billed to the research sponsor?: XR Chest PA & Lateral (Generic) [64025 [id number] Custom] 01/04/2016 12/03/2016 Process Instructions: Scheduling Instructions: Questions: Where will study be performed?: [facility] Portable exam?: Reason for exam and clinical history: s/p cabg Other pertinent information: Stat read required?: Date of injury if applicable: Requested Time: Referral to Cardiac Rehab [[id number] Custom] As directed Process Instructions: If no progress note charted, please enter Clinical details in comments. Scheduling Instructions: Questions: My question or request is: s/p CABG; cardiac rehab @ [facility] Referral to Home Health - at DISCHARGE [BNA7348 CPT(R)] As directed Process Instructions: Scheduling Instructions: Comments: DOCUMENTATION FOR VNA SERVICES (INCLUDING THOSE PATIENTS WITH MEDICARE COVERAGE REQUIRING HOME VNA SERVICES AND/OR HOSPICE SERVICES) PATIENT'S LOCATION: Olman Rivera [address] [place] [phone] (home) No relevant phone numbers on file. Biometrics Consultant's Name: Self, Aziza In discussion with the attending physician, it is certified that this patient is under their care and that they, or a Nurse Practitioner, or Physician Pmo Consultant who is working directly with them, hada [...] for services as follows: HOME HEALTH AGENCY: [facility]. PHONE: [phone] FAX: [phone] RN orders: Cardiopulmonary assessment, incisional assessment, assess [...] issues please call the Cardiac SurgeryOffice at [phone] Home Health agencies which cover the area of patient's residence have been reviewed, either verbally or in writing, and patient/family have chosen the agency as noted. Questions: Agency name and contact information: [facility] Patient location post discharge: home What services are requested: Physical Therapy Registered Nurse Start date: 11/26/2015 Responsible MD post discharge contact info: PCP Arrangements for VNA/home care: As above. VN RN OR PCP TO PLEASE REMOVE CHEST TUBE SUTURES ON OR AFTER 12/09/2015 Signed: Srikanth Barnes PA-C [facility] Section of Cardiac Surgery [facility] [address] FAX [phone] Date: 12/04/2015 CC: DO Salo SMITH Michael G, MD [address] [place] [address],[facility] [address] [address] documented in this encounter Discharge Instructions * [...] Yash Benton and/or the Cardiac Surgery Physician Pmo Consultant Team may be reached at . ?? [...] with Dr. Jeffery. You may use a Wellman Track or treadmill but avoid any pulling [...] friends, go to a movie, go to baptism, etc. ?? Heavy activities: No hunting, skiing, [...] should resume a low fat, low cholesterol, [employer] Diet. ?? Driving: No driving [...] the outpatient Phase 2 Cardiac Rehabilitation at [facility] . ?? The patient agrees to a [...] GOAL OUTCOME EVALUATION: Ongoing. * Svetlana Curry SUPERVISOR WINDING DEPARTMENT - 12/03/2015 3:09 PM EDT Physical Therapy [...] at home. ?? All needs met. Pain: 10 Education: Pt/family education ongoing for precautions, safety [...] minutes Total timed interventions: 24 minutes Pager: [phone] SVETLANA CURRY PTA Physical Therapy Rehabilitation Department * Inessa Benitez DT - 12/03/2015 3:02 PM EDT Nutrition Services - Initial Note Olman Rivera : 1955 AGE: 59 y.o. Patient Active Problem List Diagnosis Date Noted ??? *[id number]-corjon CAD Priority: High ??? Hospital-Hypothyroidism 11/25/2015 Reason [...] the interim. BIN Foote * Ashley Wall, CRANE FOLLOWER - 12/03/2015 8:59 AM EDT Cardiac Surgery [...] moving all four extremities spontaneously. Recent Labs 07/8 12/02/15 0449 12/01/15 0420 WBC 5.4 5.8 [...] minutes Total timed interventions: 24 minutes Pager: [phone] SVETLANA CURRY PTA Physical Therapy Rehabilitation Department * Ashley Wall, CRANE FOLLOWER - 12/02/2015 8:14 AM EDT Cardiac Surgery [...] spontaneously. Lines/Drains: PIV Anderson PW Recent Labs 12/02/15 0449 12/01/15 0420 11/30/15 0205 11/29/15 1425 11/29/15 1247 WBC 5.8 5.6 5.5 12.8* 11.4* HGB 7.7* 8.0* 8.7* 11.0* 8.2* HCT 24.6* 24.8* 26.7* 33.5* 25.8* PLATELET 101* 100* 129* 166 137* PT -- -- -- 17.0* 20.9* INR -- -- -- 1.4* 1.7* PTT -- -- -- 36* 38* Recent Labs 12/02/15 0449 12/01/15 0420 11/30/15 1725 11/30/15 0205 11/29/15 [...] Gas) No results found for: PHART, PO2ART, RON4PQO Intake/Output Summary (Last 24 hours) at 12/01/15 [...] 12/01/2015 PGY-2, General Surgery Cardiac Surgery Pager: [phone] * Julius Azul MD - 11/30/2015 10:46 [...] Anderson DISPO: CVCC Code status: Full JOYCE TURENR MD 11/30/2015 PGY-2, General Surgery Cardiac Surgery Pager: [phone] * Olman Pickard, [facility] - 11/30/2015 12:43 AM EDT Olman Rivera [...] Philip Mckinney - 11/28/2015 2:37 PM EDT Seismograph Chief Encounter Note Patient Name: Olman Rivera : [id number] MR#: [id number] Admit Date: 11/25/2015 8:08 AM Hospital Day [...] Provided emotional, spiritual support and encouraging presence. Seismograph Chief services accepted.Conversation to build trusting relationship.Provided prayer.Provided pastoral presence.Provided church/sacramental rite. Follow-up: yes Time in Direct Care:10 Mins Philip Mckinney 11/28/2015 * Xiomy Zarate MD - 11/28/2015 9:11 AM EDT Images from the original note were not included. Inpatient Cardiology Progress Note Patient Name: Olman Stewart EstebanHjai Service: THERAPEUTIC RECREATION LEADER / PA Responsible Attending: Xiomy Zarate MD Reason for continued hospitalization: -Awaiting Cardiac surgery on Sunday, November Active Problems: Active Hospital Problems Diagnosis ??? 3-vessel CAD ?? 11/25/2015 cardiac catheterization: Three vessel coronary artery disease (LAD, LCX and RCA) ??? Hypothyroidism Resolved Hospital Problems Diagnosis Date Resolved No resolved problems to display. Interval History: -Pain free, no complaints. 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 Now is his Busy season with Review [...] Grade 0). Distal flow was via the point lay ira vessel, ?? collaterals from the LCX as [...] APRN Nurse Practitioner-Department of Cardiology [email or web address] Pager [phone] Phone number: [phone] Fax number [phone] CARYL YEAGER APRN 11/28/2015 I interviewed Mr. Rivera on 11/28/15. I agree with the history, physical exam findings and clinical plan as outlined above. No events overnight. He is on a good medical regimen and is optimized for CABG in AM. 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 He is [place], deeply committed to his donovan and family. [...] Progress Note Patient Name: Olman Rivera Service: THERAPEUTIC RECREATION LEADER / PA Responsible Attending: Xiomy Zarate MD [...] Grade 0). Distal flow was via the point lay ira vessel, ?? collaterals from the LCX as [...] APRN Nurse Practitioner-Department of Cardiology [email or web address] Pager [phone] Phone number: [phone] Fax number [phone] CARYL YEAGER APRN 11/27/2015 I did not visit with Mr. Rivera today. He remains stable and plan remains for CABG on Sunday. Xiomy Zarate MD Attending Staff Cardiology Pager [phone] * Faye Philip - 11/26/2015 4:25 PM EDT Seismograph Chief Encounter Note Patient Name: Olman Rivera : [id number] MR#: [id number] Admit Date: 11/25/2015 8:08 AM Hospital Day 1 day Narrative:Visited to introduce and assess acceptance of Seismograph Chief services. Pt was awake, alert, oriented and in bed and his was there. Pt asked for prayers and blessings. Assessment:Patient coping positively with stresses of illness/hospitalization at this time. Pt seems coping well and has family care and support. Pt has children and loves to be with family. Pt is very active in baptism community and appreciative. Intervention and Outcome: provided emotional, spiritual support and encouraging presence. Seismograph Chief services accepted.Conversation to build trusting relationship.Provided prayer.Provided pastoral presence.Provided church/sacramental rite. Follow-up: yes Time in Direct Care:20 Mins Philip Mckinney 11/26/2015 * Campbell Ramirez D - 11/26/2015 1:55 PM EDT Office of Care Management (OCM) / Lapel Padder(CM)/ Initial Assessment Discussed patient with Provider Team [...] out AD at anytime. HEALTH /PRESCRIPTION COVERAGE: [facility]. Pt states he has no current concerns regarding the cost of his medicaitons. CURRENT HOME/COMMUNITY SERVICES/EQUIPMENT: Home Health Agency: Choices for home health services were provided to patient. Pt would like referral be submitted to [facility] for potential needs upon discharge. Electrical Line Splicer will be asked to facilitate request. FEED WEIGHER REFERRAL: not needed at this time PRIMARY CARE PHYSICIAN: MOJGAN BOATENG DO [address] / [place] [id number] POTENTIAL DISCHARGE NEEDS: Pt may need home health services post discharge. Pt would like to use [facility]. ANTICIPATED BARRIERS TO DISCHARGE: None identified at this time. TRANSPORTATION @ D/C: Family to transport upon discharge. PLAN: CM will continue to monitor progress, follow for continuity of care and assist with dischargeplanning while hospitalized . * [place] Aziza Álvaro, ONOFRE - 11/26/2015 7:15 AM EDT Inpatient Cardiology Progress Note Patient Name: Olman Rivera Service: THERAPEUTIC RECREATION LEADER / PA Responsible Attending: Xoimy Zarate MD Reason for continued hospitalization: Awaiting [...] 11/25/2015 6:41 PM EDT Pt [facility] from [address] [place] [address]. VSS, no pain, no SOB. Pt went [...] Medications: Current Medications and Prescriptions Ordered in [facility] Current Facility-Administered Medications Ordered in [facility]?? Medication?? Dose?? Route?? Frequency?? Provider?? Last Rate?? [...] with questions. ? Yash Benton MD, MS floor helper Section of Cardiac Surgery [facility] Office: [phone] Pager: [phone] There has been no interval change in [...] 58 yo man being admitted from the [facility] for consideration of CABG. 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 Over the past feel weeks he has developed fatigue and SOB while walking his dogs. Given a positive family history for CAD, he underwent stress test 11/18/2015 [facility] ch revealed EF 60% and inferoapical ischemia. Recommended cath as a result. Cardiac cath revealed 95% mid RCA lesion with right to left collaterals filling in the LAD branch of the LCA. Injection of the LCA revealed high grade DX disease, occluded LAD filling retrograde via right collaterals and collaterals from the CX to the distal RCA. Admitted to [facility] for consideration of CABG. 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 [...] Grade 0). Distal flow was via the point lay ira vessel, ?? collaterals from the LCX as [...] MD Provider: Aziza Castano APRN Provider #: [id number] 11/25/2015 * Xiomy Zarate MD - 11/25/2015 [...] Veras RN - 12/03/2015 11:39 AM EDT [facility]ATION Olman Rivera was seen today regarding participation in the outpatient Phase 2 Cardiac Rehabilitation at [facility] . The patient agrees to a referral [...] Outcome: Ongoing (Interventions Implemented as Appropriate) 12/02/15 1214 Living Environment Transportation Available family or friend [...] CPG) Outcome: Ongoing (Interventions Implemented as Appropriate) 12/02/154 Cardiac Surgery Problems Assessed (Cardiac Surgery) all Problems Present (Cardiac Surgery) fluid imbalance;situational response Problem: General Plan of Care Goal: Plan of Care Review Outcome: Ongoing (Interventions Implemented as Appropriate) 12/02/15323 Coping/Psychosocial Response Interventions Plan of Care Reviewed with patient Plan of Care Review Plan of Care Outcome Status ongoing (interventions implemented as appropriate) Progress improving Goal: Fall Prevention-Safe Patient Handling Outcome: Ongoing (Interventions Implemented as Appropriate) 12/01/15 1304 12/01/15194712/01/152199 Safety Interventions Safety Precautions/Fall Reduction -- commode/urinal/bedpan [...] descriptor of episode. VSS, Neurologically intact. NEPTALI Ricketts liza notified. Otherwise rested this afternoon. Ambulated around [...] in place over night, and [facility]. INDIVIDUALIZED FALL PREVENTION INTERVENTIONS: Patient-specific fall [...] EVALUATION: Progressing toward goal of moving [facility] tomorrow. Goal: Individualization and Mutuality Outcome: Ongoing [...] CABG performed by Yash Benton MD at [facility] ??? Pro cabg, artery-vein, three N/A 11/29/2015 @CABG; 3 VENOUS GRAFTS & ARTERIAL GRAFT performed by Yash Benton MD at [facility] Social History: Patient lives in [place], [place] with in 2 floor home with 1 flight of stairs and railing bilaterally. 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 Coronary artery bypass grafting x 4 (MURRAY to LAD, RSVG to PDA, RSVG to OM1, RSVG to D1) TIMES: Cardiopulmonary bypass: 161 minutes Aortic cross-clamp: 132 minutes SURGEON: * Yash Benton MD - Primary * Tiffany Renteria PA - Physician Pmo Consultant ANESTHESIA: General endotracheal PRE-OPERATIVE EVALUATION: This is [...] and this was cannulated with a 18 liberian EOPA aortic cannula. Venous cannulation was accomplished [...] Operative Note Patient Name: Olman Rivera : [id number] MR#: [id number] Case Date: 11/29/2015 Surgeon: Surgeon(s) and Role: * Yash Benton MD - Primary * Tiffany Renteria PA - Physician Pmo Consultant Preoperative diagnosis: CAD Postoperative diagnosis: CAD Procedure(s): [...] Care Goal: Plan of Care Review 11/27/15 025 Coping/Psychosocial Response Interventions Plan of Care Reviewed [...] Outcome: Ongoing (Interventions Implemented as Appropriate) 11/25/15 1940 11/25/15200911/26/15 0800 Safety Interventions Safety Precautions/Fall Reduction -- [...] Current Medications: Current Facility-Administered Medications Ordered in [facility] Medication Dose Route Frequency Provider Last Rate Last Dose ??? sodium chloride 0.9% infusion 100 mL/hr Intravenous Continuous Hemal Bedolla MD 100 mL/hr at 11/25/15 1030 100 mL/hr at 11/25/15 1030 ??? nitroGLYcerin (NITROSTAT) SL tablet 0.4 mg 0.4 mg Sublingual Q5 Min PRN Hemal Bedolla MD No current [facility]-ordered outpatient prescriptions on file. Review of Systems: [...] call with questions. Yash Benton MD, MS floor helper Section of Cardiac Surgery [facility] Office: [phone] Pager: [phone] * Plan of Care - Erika Stout [...] Comments LAB SCAN 12/05/2015 12:00 AM EDT READING ASSISTANT SCAN 12/05/2015 12:00 AM EDT READING ASSISTANT SCAN 12/05/2015 12:00 AM EDT POTASSIUM Routine [...] Routine 11/30/2015 2:05 AM EDT CARDIAC ENZYMES ([facility]) Routine 11/30/2015 2:05 AM EDT CREATININE Routine [...] 2 ARTERIAL Routine 11/29/2015 8:19 AM EDT PREPARE COAG FACTORS (NON-HEMOPHILIA) STAT 11/29/2015 6:30 [...] 11/28/2015 5:52 AM EDT TYPE AND SCREEN ([facility]/MRANI) Routine 11/28/2015 5:52 AM EDT EKG 12-LEAD Routine 11/27/2015 7:34 AM EDT ASCVD (arteriosclerotic cardiovascular disease) BMP W/FASTING GLUCOSE Routine 11/27/2015 5:32 AM EDT HEMOGRAM Routine 11/27/2015 5:32 AM EDT DIFFERENTIAL, AUTOMATED Routine 11/27/2015 5:32 AM EDT CARDIAC ENZYMES ([facility]) Routine 11/27/2015 5:32 AM EDT CBC (WITH [...] (Bezet) 472 ms MUSE SYSTEM Calculated P Troy 67 degrees MUSE SYSTEM Calculated R Troy 48 degrees MUSE SYSTEM Calculated T Troy 56 degrees MUSE SYSTEM INTERPRETATION Normal sinus rhythm Nonspecific T wave abnormality Prolonged QT Abnormal ECG Confirmed by MD Burns Douglas ([id number]) on 01/01/2016 5:25:59 PM MUSE [...] SCAN EXT O RDR/RSLT * SCAN DOC: READING ASSISTANT (12/05/2015 12:00 AM EDT) Anatomical Region Laterality Modality Other Scanning Provider MEDIA MGR SCAN EXT O RDR/RSLT * SCAN DOC: READING ASSISTANT (12/05/2015 12:00 AM EDT) Anatomical Region Laterality Modality Other Scanning Provider MEDIA MGR SCAN EXT O RDR/RSLT * Potassium (12/04/2015 6:02 AM EDT) Potassium 3.9 3.5 - 5.0 mmol/L [facility] Comment: Please note: ??Patients with [...] Lab Yash Benton MD CHEMISTRY ORDERABL ES [facility] [place] [address] * (ABNORMAL) Differential, Automated (12/03/2015 4:18 AM EDT) Neutrophils % 70.7 % [facility] Neutr Abs (ANC) 3.79 1.50 - 6.30 x10(3)/mc L [facility] Lymphocytes % 14.0 % [facility] Lymphocytes Abs 0.8(L) 1.0 - 3.6 x10(3)/mc L [facility] Monocytes % 10.6 % [facility] Monocyte Abs 0.6 0.2 - 1.0 x10(3)/mc L [facility] Eosinophils % 4.1 % [facility] Eosinophils Abs 0.2 0.0 - 0.5 x10(3)/mc L [facility] Basophils % 0.2 % [facility] Basophils Abs 0.0 0.0 - 0.2 x10(3)/mc L [facility] Immature Gran % 0.40 % [facility] Comment: Immature granulocytes(IG's)percentage and absolute count will include metamyelocytes, myelocytes, and promyelocytes. Blood smears from CBCs yielding IG's will be scanned manually for concordance. If this scan disagrees with the automated IG or if promyelocytes are noted, a manual differential will be performed. Hemalatha Gran Abs 0.02 0.00 - 0.05 x10(3)/ L [facility] Blood specimen (specimen) 12/03/2015 4:18 AM EDT 12/03/2015 4:25 AM EDT Narrative Resulting Agency Comment Spec In Lab Yash Benton MD HEMATOLOGY ORDERAB LES Performing Organization Address City/State/[facility] Co de Phone Number [facility] [place] [address] * (ABNORMAL) Hemogram (12/03/2015 4:18 AM EDT) WBC 5.4 4.0 - 10.0 x10(3)/[facility] RBC 3.02(L) 4.63 - 6.08 x10(6)/[facility] Hemoglobin 8.6(L) 13.7 - 17.5 gm/dL [facility] Hematocrit 26.1(L) 40.0 - 51.0 % [facility] MCV 86.4 79.0 - 92.0 fL [facility] MCH 28.5 25.6 - 32.2 pg [facility] MCHC 33.0 32.0 - 36.5 gm/dL [facility] Platelets 141(L) 145 - 370 x10(3)/[facility] RDWSD 46.5(H) 35.0 - 46.0 fL [facility] RDWCV 14.6(H) 10.9 - 14.4 % [facility] MPV 9.3 9.0 - 12.0 fL [facility] Blood specimen (specimen) 12/03/2015 4:18 AM EDT 12/03/2015 4:25 AM EDT Narrative Resulting Agency Comment Spec In Lab Yash Benton MD HEMATOLOGY ORDERAB LES [facility] [place] [address] * (ABNORMAL) Basic Metabolic Panel (non-fasting) (12/03/2015 4:18 AM EDT) Glucose Lvl 96 65 - 199 mg/dL [facility] Comment:Diabetes: >=200 mg/d L plus symptoms BUN 11 10 - 20 mg/dL [facility] Creatinine 0.82 0.80 - 1.50 mg/dL [facility] Comment: Please note that the pediatric reference intervals supplied above were not validated at [facility]. Results from pediatric patients should be interpreted in conjunction to the patient's age, height and muscle mass. Sodium 138 135 - 145 mmol/L [facility] Potassium 3.7 3.5 - 5.0 mmol/L [facility] Comment: Please note: ??Patients with WBC >100,000 may have falsely elevated Potassium levels. ??For accurate Potassium quantification in these patients send serum separator tube (gold top) for subsequent determinations. ??Contact the Clinical Chemistry Laboratory if there are any questions. Chloride 101 98 - 107 mmol/L [facility] CO2 28 22 - 31 mmol/L [facility] Anion Gap 9 5 - 15 mmol/L [facility] Calcium 8.0(L) 8.5 - 10.5 mg/dL [facility] Estimated GFR >60 >=60 [facility] Comment: This estimated GFR (eGFR) value [...] the following links into your internet browser. [email or web address] Blood specimen (specimen) 12/03/2015 4:18 AM EDT 12/03/2015 4:25 AM EDT Narrative Resulting Agency Comment Spec In Lab Yash Benton MD CHEMISTRY ORDERABL ES [facility] [place] [address] * XR Chest PA & Lateral (Generic) [...] 11/29/2015 and 11/25/2015 FINDINGS: The endotracheal tube, [place]-Samuel catheter and vascular sheath, and chest tubes [...] 11/29/2015 and 11/25/2015 FINDINGS: The endotracheal tube, [place]uel catheter and vascular sheath, and chesttubes have [...] 4:49 AM EDT) Neutrophils % 79.3 % [facility] Neutr Abs (ANC) 4.60 1.50 - 6.30 x10(3)/mc L [facility] Lymphocytes % 10.7 % [facility] Lymphocytes Abs 0.6(L) 1.0 - 3.6 x10(3)/ L [facility] Monocytes % 8.4 % [facility] Monocyte Abs 0.5 0.2 - 1.0 x10(3)/mc L [facility] Eosinophils % 1.2 % [facility] Eosinophils Abs 0.1 0.0 - 0.5 x10(3)/[facility] LABORATORY Basophils % 0.2 % [facility] Basophils Abs 0.0 0.0 - 0.2 x10(3)/ L [facility] Immature Gran % 0.20 % [facility] Comment: Immature granulocytes(IG's)percentage and absolute count will include metamyelocytes, myelocytes, and promyelocytes. Blood smears from CBCs yielding IG's will be scanned manually for concordance. If this scan disagrees with the automated IG or if promyelocytes are noted, a manual differential will be performed. Hemalatha Gran Abs 0.01 0.00 - 0.05 x10(3)/mc L [facility] Blood specimen (specimen) 12/02/2015 4:49 AM EDT 12/02/2015 5:07 AM EDT Narrative Resulting Agency Comment Spec In Lab Yash Benton MD HEMATOLOGY ORDERAB LES [facility] [place] [address] * (ABNORMAL) Hemogram (12/02/2015 4:49 AM EDT) WBC 5.8 4.0 - 10.0 x10(3)/[facility] LABORATORY RBC 2.82(L) 4.63 - 6.08 x10(6)/[facility] Hemoglobin 7.7(L) 13.7 - 17.5 gm/dL [facility] Hematocrit 24.6(L) 40.0 - 51.0 % [facility] MCV 87.2 79.0 - 92.0 fL [facility] MCH 27.3 25.6 - 32.2 pg [facility] MCHC 31.3(L) 32.0 - 36.5 gm/dL [facility] Platelets 101(L) 145 - 370 x10(3)/[facility] LABORATORY RDWSD 45.9 35.0 - 46.0 fL [facility] RDWCV 14.3 10.9 - 14.4 % [facility] MPV 9.6 9.0 - 12.0 fL [facility] Blood specimen (specimen) 12/02/2015 4:49 AM EDT 12/02/2015 5:07 AM EDT Narrative Resulting Agency Comment Spec In Lab Yash Benton MD HEMATOLOGY ORDERAB LES [facility] [place] [address] * (ABNORMAL) Basic Metabolic Panel (non-fasting) (12/02/2015 4:49 AM EDT) Glucose Lvl 115 65 - 199 mg/dL [facility] Comment:Diabetes: >=200 mg/d L plus symptoms BUN 11 10 - 20 mg/dL [facility] Creatinine 0.71(L) 0.80 - 1.50 mg/dL [facility] Comment: Please note that the pediatric reference intervals supplied above were not validated at [facility]. Results from pediatric patients should be interpreted in conjunction to the patient's age, height and muscle mass. Sodium 135 135 - 145 mmol/L [facility] Potassium 4.0 3.5 - 5.0 mmol/L [facility] Comment: Please note: ??Patients with WBC >100,000 may have falsely elevated Potassium levels. ??For accurate Potassium quantification in these patients send serum separator tube (gold top) for subsequent determinations. ??Contact the Clinical Chemistry Laboratory if there are any questions. Chloride 100 98 - 107 mmol/L [facility] CO2 28 22 - 31 mmol/L [facility] Anion Gap 7 5 - 15 mmol/L [facility] Calcium 8.0(L) 8.5 - 10.5 mg/dL [facility] Estimated GFR >60 >=60 [facility] Comment: This estimated GFR (eGFR) value [...] the following links into your internet browser. [email or web address] Blood specimen (specimen) 12/02/2015 4:49 AM EDT 12/02/2015 5:07 AM EDT Narrative Resulting Agency Comment Spec In Lab Yash Benton MD CHEMISTRY ORDERABL ES Performing Organization Address [facility] Co de Phone Number [facility] [place] [address] * POCT Glucose (12/01/2015 11:56 AM EDT) POC Glucose 122 65 - 199 mg/dL [facility] Comment: Supplemental ranges: <140 mg/dL before meals <180 mg/dL all other times of the day Blood specimen (specimen) 12/01/2015 11:56 AM EDT 12/01/2015 11:56 AM EDT Yash Benton MD POINT OF CARE TEST ORDERABLES Performing Organization Address [facility] Co de Phone Number [facility] [place] [address] * POCT Glucose (12/01/2015 7:53 AM EDT) POC Glucose 117 65 - 199 mg/dL [facility] Comment: Supplemental ranges: <140 mg/dL before meals <180 mg/dL all other times of the day Blood specimen (specimen) 12/01/2015 7:53 AM EDT 12/01/2015 7:53 AM EDT Yash Benton MD POINT OF CARE TEST ORDERABLES Performing Organization Address [facility] Co de Phone Number [facility] [place] [address] * Scan, Peripheral Blood (12/01/2015 4:20 AM EDT) Plat Estimate Decreased [facility] RBC Morphology Abnormal [facility] Ovalocytes 1-5 /HPF [facility] Tarrs Cells 1-5 /HPF [facility] Giant Platelets Less than 1 /HPF [facility] Blood specimen (specimen) 12/01/2015 4:20 AM EDT 12/01/2015 4:34 AM EDT Narrative Resulting Agency Comment Spec In Lab Yash Benton MD HEMATOLOGY ORDERAB LES [facility] [place] [address] * (ABNORMAL) Differential, Automated (12/01/2015 4:20 AM EDT) Neutrophils % 73.9 % [facility] Neutr Abs (ANC) 4.14 1.50 - 6.30 x10(3)/[facility] Lymphocytes % 12.9 % [facility] Lymphocytes Abs 0.7(L) 1.0 - 3.6 x10(3)/[facility] Monocytes % 13.0 % [facility] Monocyte Abs 0.7 0.2 - 1.0 x10(3)/[facility] Eosinophils % 0.2 % [facility] Eosinophils Abs 0.0 0.0 - 0.5 x10(3)/[facility] Basophils % 0.0 % [facility] Basophils Abs 0.0 0.0 - 0.2 x10(3)/[facility] Immature Gran % 0.00 % [facility] Comment: Immature granulocytes(IG's)percentage and absolute count will include metamyelocytes, myelocytes, and promyelocytes. Blood smears from CBCs yielding IG's will be scanned manually for concordance. If this scan disagrees with the automated IG or if promyelocytes are noted, a manual differential will be performed. Hemalatha Gran Abs 0.00 0.00 - 0.05 x10(3)/[facility] Blood specimen (specimen) 12/01/2015 4:20 AM EDT 12/01/2015 4:34 AM EDT Narrative Resulting Agency Comment Spec In Lab Yash Benton MD HEMATOLOGY ORDERAB LES Performing Organization Address City/[facility]/ZIP Co de Phone Number [facility] [place] [address] * (ABNORMAL) Hemogram (12/01/2015 4:20 AM EDT) WBC 5.6 4.0 - 10.0 x10(3)/[facility] RBC 2.85(L) 4.63 - 6.08 x10(6)/[facility] Hemoglobin 8.0(L) 13.7 - 17.5 gm/dL [facility] Hematocrit 24.8(L) 40.0 - 51.0 % [facility] MCV 87.0 79.0 - 92.0 fL [facility] MCH 28.1 25.6 - 32.2 pg [facility] MCHC 32.3 32.0 - 36.5 gm/dL [facility] Platelets 100(L) 145 - 370 x10(3)/[facility] RDWSD 46.2(H) 35.0 - 46.0 fL [facility] RDWCV 14.5(H) 10.9 - 14.4 % [facility] MPV 9.1 9.0 - 12.0 fL [facility] Blood specimen (specimen) 12/01/2015 4:20 AM EDT 12/01/2015 4:34 AM EDT Narrative Resulting Agency Comment Spec In Lab Yash Benton MD HEMATOLOGY ORDERAB LES Performing Organization Address City/[facility]/ZIP Co de Phone Number [facility] [place] [address] * (ABNORMAL) Basic Metabolic Panel (non-fasting) (12/01/2015 4:20 AM EDT) Glucose Lvl 122 65 - 199 mg/dL [facility] Comment:Diabetes: >=200 mg/d L plus symptoms BUN 10 10 - 20 mg/dL [facility] Creatinine 0.67(L) 0.80 - 1.50 mg/dL [facility] Comment: Please note that the pediatric reference intervals supplied above were not validated at [facility]. Results from pediatric patients should be interpreted in conjunction to the patient's age, height and muscle mass. Sodium 139 135 - 145 mmol/L [facility] Potassium 4.4 3.5 - 5.0 mmol/L [facility] Comment: Please note: ??Patients with WBC >100,000 may have falsely elevated Potassium levels. ??For accurate Potassium quantification in these patients send serum separator tube (gold top) for subsequent determinations. ??Contact the Clinical Chemistry Laboratory if there are any questions. Chloride 106 98 - 107 mmol/L [facility] CO2 25 22 - 31 mmol/L [facility] Anion Gap 8 5 - 15 mmol/L [facility] Calcium 7.9(L) 8.5 - 10.5 mg/dL [facility] Comment:result rechecked-llu Estimated GFR >60 >=60 [facility] Comment: This estimated GFR (eGFR) value [...] the following links into your internet browser. [email or web address] Blood specimen (specimen) 12/01/2015 4:20 AM EDT 12/01/2015 4:34 AM EDT Narrative Resulting Agency Comment Spec In Lab Yash Benton MD CHEMISTRY ORDERABL ES Performing Organization Address [facility]/ZIP Co de Phone Number [facility] [place] [address] * POCT Glucose (12/01/2015 4:17 AM EDT) POC Glucose 106 65 - 199 mg/dL [facility] Comment: Supplemental ranges: <140 mg/dL before meals <180 mg/dL all other times of the day Blood specimen (specimen) 12/01/2015 4:17 AM EDT 12/01/2015 4:17 AM EDT Yash Benton MD POINT OF CARE TEST ORDERABLES Performing Organization Address [facility] [place] [place] [address] * POCT Glucose (12/01/2015 12:18 AM EDT) POC Glucose 112 65 - 199 mg/dL [facility] Comment: Supplemental ranges: <140 mg/dL before meals <180 mg/dL all other times of the day Blood specimen (specimen) 12/01/2015 12:18 AM EDT 12/01/2015 12:18 AM EDT Yash Benton MD POINT OF CARE TEST ORDERABLES Performing Organization Address [facility] [place] [address] * POCT Glucose (11/30/2015 8:04 PM EDT) POC Glucose 105 65 - 199 mg/dL [facility] Comment: Supplemental ranges: <140 mg/dL before meals <180 mg/dL all other times of the day Blood specimen (specimen) 11/30/2015 8:04 PM EDT 11/30/2015 8:04 PM EDT Yash Benton MD POINT OF CARE TEST ORDERABLES Performing Organization Address City/[facility]/ZIP Co de Phone Number [facility] [place] [address] * POCT Glucose (11/30/2015 6:26 PM EDT) POC Glucose 113 65 - 199 mg/dL [facility] Comment: Supplemental ranges: <140 mg/dL before meals <180 mg/dL all other times of the day Blood specimen (specimen) 11/30/2015 6:26 PM EDT 11/30/2015 6:26 PM EDT Yash Benton MD POINT OF CARE TEST ORDERABLES Performing Organization Address City/[facility]/ZIP Co de Phone Number [facility] [place] [address] * Potassium (11/30/2015 5:25 PM EDT) Potassium 4.4 3.5 - 5.0 mmol/L [facility] Comment: Please note: ??Patients with [...] MD CHEMISTRY ORDERABL ES Performing Organization Address City/[facility]/ZIP Co de Phone Number [facility] [place] [address] * POCT Glucose (11/30/2015 4:22 PM EDT) POC Glucose 92 65 - 199 mg/dL [facility] Comment: Supplemental ranges: <140 mg/dL before meals <180 mg/dL all other times of the day Blood specimen (specimen) 11/30/2015 4:22 PM EDT 11/30/2015 4:22 PM EDT Yash Benton MD POINT OF CARE TEST ORDERABLES Performing Organization Address City/[facility]/ZIP Co de Phone Number [facility] [place] [address] * POCT Glucose (11/30/2015 2:14 PM EDT) POC Glucose 105 65 - 199 mg/dL [facility] Comment: Supplemental ranges: <140 mg/dL before meals <180 mg/dL all other times of the day Blood specimen (specimen) 11/30/2015 2:14 PM EDT 11/30/2015 2:14 PM EDT Yash Benton MD POINT OF CARE TEST ORDERABLES Performing Organization Address [facility] Co de Phone Number [facility] [place] [address] * POCT Glucose (11/30/2015 12:08 PM EDT) POC Glucose 122 65 - 199 mg/dL [facility] Comment: Supplemental ranges: <140 mg/dL before meals <180 mg/dL all other times of the day Blood specimen (specimen) 11/30/2015 12:08 PM EDT 11/30/2015 12:08 PM EDT Yash Benton MD POINT OF CARE TEST ORDERABLES Performing Organization Address [facility] Co de Phone Number [facility] [place] [address] * POCT Glucose (11/30/2015 10:02 AM EDT) POC Glucose 120 65 - 199 mg/dL [facility] Comment: Supplemental ranges: <140 mg/dL before meals <180 mg/dL all other times of the day Blood specimen (specimen) 11/30/2015 10:02 AM EDT 11/30/2015 10:02 AM EDT Yash Benton MD POINT OF CARE TEST ORDERABLES [facility] [place] [address] * POCT Glucose (11/30/2015 7:59 AM EDT) POC Glucose 115 65 - 199 mg/dL [facility] Comment: Supplemental ranges: <140 mg/dL before meals <180 mg/dL all other times of the day Blood specimen (specimen) 11/30/2015 7:59 AM EDT 11/30/2015 7:59 AM EDT Yash Benton MD POINT OF CARE TEST ORDERABLES [facility] [place] [address] * POCT Glucose (11/30/2015 4:46 AM EDT) Pathologist [facility] POC Glucose 126 65 - 199 mg/dL [facility] Comment: Supplemental ranges: <140 mg/dL before meals <180 mg/dL all other times of the day Blood specimen (specimen) 11/30/2015 4:46 AM EDT 11/30/2015 4:46 AM EDT Yash Benton MD POINT OF CARE TEST ORDERABLES [facility] [place] [address] * (ABNORMAL) Electrolytes panel (11/30/2015 2:05 AM EDT) Pathologist [facility] Sodium 141 135 - 145 mmol/L [facility] Potassium 4.5 3.5 - 5.0 mmol/L [facility] Comment: Please note: ??Patients with WBC >100,000 may have falsely elevated Potassium levels. ??For accurate Potassium quantification in these patients send serum separator tube (gold top) for subsequent determinations. ??Contact the Clinical Chemistry Laboratory if there are any questions. Chloride 107 98 - 107 mmol/L [facility] CO2 21(L) 22 - 31 mmol/L [facility] Anion Gap 13 5 - 15 mmol/L [facility] Blood specimen (specimen) Venous Draw / Unknown 11/30/2015 2:05 AM EDT 11/30/2015 2:47 AM EDT Narrative Resulting Agency Comment Spec In Lab Yash Benton MD CHEMISTRY ORDERABL ES [facility] [place] [address] * (ABNORMAL) Differential, Automated (11/30/2015 2:05 AM EDT) Neutrophils % 80.8 % [facility] Neutr Abs (ANC) 4.42 1.50 - 6.30 x10(3)/ L [facility] Lymphocytes % 6.8 % [facility] Lymphocytes Abs 0.4(L) 1.0 - 3.6 x10(3)/[facility] Monocytes % 12.4 % [facility] Monocyte Abs 0.7 0.2 - 1.0 x10(3)/ L [facility] Eosinophils % 0.0 % [facility] Eosinophils Abs 0.0 0.0 - 0.5 x10(3)/[facility] Basophils % 0.0 % [facility] Basophils Abs 0.0 0.0 - 0.2 x10(3)/ L [facility] Immature Gran % 0.00 % [facility] Comment: Immature granulocytes(IG's)percentage and absolute count will include metamyelocytes, myelocytes, and promyelocytes. Blood smears from CBCs yielding IG's will be scanned manually for concordance. If this scan disagrees with the automated IG or if promyelocytes are noted, a manual differential will be performed. Hemalatha Gran Abs 0.00 0.00 - 0.05 x10(3)/mc L [facility] Blood specimen (specimen) 11/30/2015 2:05 AM EDT 11/30/2015 2:47 AM EDT Narrative Resulting Agency Comment Spec In Lab Yash Benton MD HEMATOLOGY ORDERAB LES Performing Organization Address City/[facility]/ZIP Co de Phone Number [facility] [place] [address] * (ABNORMAL) Hemogram (11/30/2015 2:05 AM EDT) WBC 5.5 4.0 - 10.0 x10(3)/[facility] RBC 3.10(L) 4.63 - 6.08 x10(6)/[facility] Hemoglobin 8.7(L) 13.7 - 17.5 gm/dL [facility] Comment: This result has been called to JOSEPH FERNANDEZ by AURELIO MAGDALENO on 11 30 2015 at 0304, and has been read back. Hematocrit 26.7(L) 40.0 - 51.0 % [facility] MCV 86.1 79.0 - 92.0 fL [facility] MCH 28.1 25.6 - 32.2 pg [facility] MCHC 32.6 32.0 - 36.5 gm/dL [facility] Platelets 129(L) 145 - 370 x10(3)/[facility] RDWSD 46.2(H) 35.0 - 46.0 fL [facility] RDWCV 14.6(H) 10.9 - 14.4 % [facility] MPV 9.2 9.0 - 12.0 fL [facility] Blood specimen (specimen) 11/30/2015 2:05 AM EDT 11/30/2015 2:47 AM EDT Narrative Resulting Agency Comment Spec In Lab Yash Benton MD HEMATOLOGY ORDERAB LES Performing Organization Address City/[facility]/ZIP Co de Phone Number [facility] [place] [address] * (ABNORMAL) Cardiac Enzymes (11/30/2015 2:05 AM EDT) [facility] Troponin-T 0.76(H) <=0.03 ng/mL [facility] Comment: 0.03 ng/mL: Represents the 99th percentile upper reference limit for normals. >0.03 ng/mL: Elevated cardiac troponin T level indicative of myocardial damage. Diagnosis of acute, evolving or recent [place] requires a typical rise and gradual fall [...] consensus document of the Joint Society of Cardiology/[employer] Committee for the redefinition of myocardial infarction. ??Journal of the [employer] 2000; 36: 959-969] CK, Total 356(H) 0 - 200 unit/L [facility] Comment:result rechecked-llu Blood specimen (specimen) 11/30/2015 2:05 AM EDT 11/30/2015 2:47 AM EDT Narrative Resulting Agency Comment Spec In Lab Yash Benton MD CHEMISTRY ORDERABL ES [facility] [place] [address] * (ABNORMAL) Glucose, fasting (11/30/2015 2:05 AM EDT) [facility] Glucose Fasting 134(H) 65 - 99 mg/dL [facility] Comment: ?Fasting* Glucose Interpretive Criteria [...] of Diabetes Mellitus, Position Statement from the [employer]. ??Diabetes Care, Volume 33, Supplement 1, May 2009 Blood specimen (specimen) 11/30/2015 2:05 AM EDT 11/30/2015 2:47 AM EDT Narrative Resulting Agency Comment Spec In Lab Yash Benton MD CHEMISTRY ORDERABL ES Performing Organization Address [facility] Co de Phone Number [facility] [place] [address] * (ABNORMAL) Creatinine (11/30/2015 2:05 AM EDT) Creatinine 0.70(L) 0.80 - 1.50 mg/dL [facility] Comment: Please note that the pediatric reference intervals supplied above were not validated at [facility]. Results from pediatric patients should be interpreted in conjunction to the patient's age, height and muscle mass. Estimated GFR >60 >=60 [facility] Comment: This estimated GFR (eGFR) value [...] the following links into your internet browser. [email or web address] Blood specimen (specimen) 11/30/2015 2:05 AM EDT 11/30/2015 2:47 AM EDT Narrative Resulting Agency Comment Spec In Lab Yash Benton MD CHEMISTRY ORDERABL ES Performing Organization Address [facility] Co de Phone Number [facility] [place] [address] * (ABNORMAL) BUN (11/30/2015 2:05 AM EDT) BUN 8(L) 10 - 20 mg/dL [facility] Blood specimen (specimen) 11/30/2015 2:05 AM EDT 11/30/2015 2:47 AM EDT Narrative Resulting Agency Comment Spec In Lab Yash Benton MD CHEMISTRY ORDERABL ES Performing Organization Address City/[facility]/ZIP Co de Phone Number [facility] [place] [address] * POCT Glucose (11/30/2015 2:04 AM EDT) Pathologist [facility] POC Glucose 135 65 - 199 mg/dL [facility] Comment: Supplemental ranges: <140 mg/dL before meals <180 mg/dL all other times of the day Blood specimen (specimen) 11/30/2015 2:04 AM EDT 11/30/2015 2:04 AM EDT Yash Benton MD POINT OF CARE TEST ORDERABLES Performing Organization Address City/[facility]/ZIP Co de Phone Number [facility] [place] [address] * (ABNORMAL) BLOOD GAS 2 ARTERIAL (11/30/2015 12:14 AM EDT) pH Art 7.36 7.35 - 7.45 [facility] pCO2 Art 41 35 - 45 mmHg [facility] pO2 Art 144(H) 85 - 104 mmHg [facility] HCO3 Art 22.4 20.0 - 26.0 mmol/L [facility] BE Art -2.8 -3.0 - 3.0 mmol/L [facility] Hgb Blood Gas 9.7(L) 13.7 - 17.5 gm/dL [facility] O2HB Art 97.0 94.0 - 97.0 % [facility] COHB Art 0.1 % [facility] Comment: Nonsmokers: 0.5-1.5% COHB Smokers: Variable, but usually less than 10% Toxic: 20-30% COHB Lethal: Greater than 60% COHB METHB Art 0.7 <=1.5 % [facility] Na Whole Blood 136 135 - 145 mmol/L [facility] K Whole Blood 4.8 3.5 - 5.0 mmol/L [facility] Comment: Please note: Patients with WBC >100,000 may have falsely elevated Potassium levels. Contact the Clinical Chemistry Laboratory if there are any questions. ICa Whole Blood 1.09(L) 1.15 - 1.33 mmol/L [facility] Comment: Note: ??Total bilirubin higher than 20 mg/dL may lead to falsely low ionized calcium. CL Whole Blood 105 98 - 107 mmol/L [facility] Gluc Whole Bld 149 65 - 199 mg/dL [facility] Comment:Diabetes: >=200 mg/d L plus symptoms. Lactate WB 1.1 0.5 - 2.2 mmol/L [facility] FIO2 Art 40 % [facility] PF Ratio Art 360 [facility] Temp Art 38.2 Celsius [facility] Blood specimen (specimen) 11/30/2015 12:14 AM EDT 11/30/2015 12:14 AM EDT Yash Benton MD CHEMISTRY ORDERABL ES [facility] [place] [address] * POCT Glucose (11/29/2015 10:03 PM EDT) POC Glucose 106 65 - 199 mg/dL [facility] Comment: Supplemental ranges: <140 mg/dL before meals <180 mg/dL all other times of the day Blood specimen (specimen) 11/29/2015 10:03 PM EDT 11/29/2015 10:03 PM EDT Yash Benton MD POINT OF CARE TEST ORDERABLES Performing Organization Address [facility] de Phone Number [facility] [place] [address] * POCT Glucose (11/29/2015 8:45 PM EDT) POC Glucose 123 65 - 199 mg/dL [facility] Comment: Supplemental ranges: <140 mg/dL before meals <180 mg/dL all other times of the day Blood specimen (specimen) 11/29/2015 8:45 PM EDT 11/29/2015 8:45 PM EDT Yash Benton MD POINT OF CARE TEST ORDERABLES Performing Organization Address [facility] de Phone Number [facility] [place] [address] * ECHO LMTD W/O CONTRAST (11/29/2015 6:33 PM EDT) Anatomical Region Laterality Modality Other 11/30/2015 Narrative 11/30/2015 9:01 AM EDT Procedure: ?Transthoracic Echocardiogram Patient: ?NIKHIL BURNS P ?(Age): 1955(59y) Med Rec#: ? [id number] ?Sex: ?M ? Site Loc: ? [facility] ?Ht / Wt: ??178(cm)/77(kg) Pt. Loc: ?ICU ? BSA: ?1.7 Study Date: ?? 11/29/2015 ?Pt. Type: Inpatient Tape: ? 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 SUMMARY: 1. Limited study of only 4 [...] 11/30/2015 09:01:08 Images reviewed and interpretation verified [facility] Cardiac Ultrasound [facility] Procedure Note Ricky Hernandez MD - 11/30/2015 Procedure: Transthoracic Echocardiogram Patient: NIKHIL Stewart DOB(Age): 1955(59y) Med Rec#: [id number] Sex: M Site Loc: [facility] Ht / Wt: 178(cm)/77(kg) Pt. Loc: ICU BSA: 1.7 Study Date: 11/29/2015 Pt. 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 Limited study of only 4 [...] 11/30/2015 09:01:08 Images reviewed and interpretation verified [facility]ound [facility] Dario Payne MD ECHO ORDERABLES * (ABNORMAL) Coox2 (11/29/2015 6:21 PM EDT) pO2 Coox 34 mmHg [facility] Hgb Blood Gas 10.6(L) 13.7 - 17.5 gm/dL [facility] O2HB Coox 66.9 % [facility] COHB Coox 0.7 % [facility] Comment: Nonsmokers: 0.5-1.5% COHB Smokers: Variable, but usually less than 10% Toxic: 20-30% COHB Lethal: Greater than 60% COHB METHB Coox 0.9 <=1.5 % [facility] Comment: Reference Interval: Methemoglobin: less than 1.5% Source Coox Mixed Venous [facility] Blood specimen (specimen) 11/29/2015 6:21 PM EDT 11/29/2015 6:21 PM EDT Yash Benton MD CHEMISTRY ORDERABL ES [facility] [place] [address] * (ABNORMAL) BLOOD GAS 2 ARTERIAL (11/29/2015 6:18 PM EDT) pH Art 7.36 7.35 - 7.45 [facility] pCO2 Art 41 35 - 45 mmHg [facility] pO2 Art 120(H) 85 - 104 mmHg [facility] HCO3 Art 22.6 20.0 - 26.0 mmol/L [facility] BE Art -2.8 -3.0 - 3.0 mmol/L [facility] Hgb Blood Gas 10.7(L) 13.7 - 17.5 gm/dL [facility] O2HB Art 96.6 94.0 - 97.0 % [facility] COHB Art 0.3 % [facility] Comment: Nonsmokers: 0.5-1.5% COHB Smokers: Variable, but usually less than 10% Toxic: 20-30% COHB Lethal: Greater than 60% COHB METHB Art 0.8 <=1.5 % [facility] Na Whole Blood 138 135 - 145 mmol/L [facility] K Whole Blood 4.5 3.5 - 5.0 mmol/L [facility] Comment: Please note: Patients with WBC >100,000 may have falsely elevated Potassium levels. Contact the Clinical Chemistry Laboratory if there are any questions. ICa Whole Blood 1.06(L) 1.15 - 1.33 mmol/L [facility] Comment: Note: ??Total bilirubin higher than 20 mg/dL may lead to falsely low ionized calcium. CL Whole Blood 106 98 - 107 mmol/L [facility] Gluc Whole Bld 181 65 - 199 mg/dL [facility] Comment:Diabetes: >=200 mg/d L plus symptoms. Lactate WB 2.8(H) 0.5 - 2.2 mmol/L [facility] FIO2 Art 40 % [facility] PF Ratio Art 300 [facility] Blood specimen (specimen) 11/29/2015 6:18 PM EDT 11/29/2015 6:18 PM EDT Yash Benton MD CHEMISTRY ORDERABL ES [facility] [place] [address] * (ABNORMAL) BLOOD GAS 2 ARTERIAL (11/29/2015 5:14 PM EDT) pH Art 7.26(Criti ton) 7.35 - 7.45 [facility] Comment:Noted by instrumentation designer. pCO2 Art 41 35 - 45 mmHg [facility] pO2 Art 113(H) 85 - 104 mmHg [facility] HCO3 Art 17.9(L) 20.0 - 26.0 mmol/L [facility] BE Art -9.2(L) -3.0 - 3.0 mmol/L [facility] Hgb Blood Gas 11.0(L) 13.7 - 17.5 gm/dL [facility] O2HB Art 95.9 94.0 - 97.0 % [facility] COHB Art 0.3 % [facility] Comment: Nonsmokers: 0.5-1.5% COHB Smokers: Variable, but usually less than 10% Toxic: 20-30% COHB Lethal: Greater than 60% COHB METHB Art 0.8 <=1.5 % [facility] Na Whole Blood 137 135 - 145 mmol/L [facility] K Whole Blood 4.3 3.5 - 5.0 mmol/L [facility] Comment: Please note: Patients with WBC >100,000 may have falsely elevated Potassium levels. Contact the Clinical Chemistry Laboratory if there are any questions. ICa Whole Blood 1.07(L) 1.15 - 1.33 mmol/L [facility] Comment: Note: ??Total bilirubin higher than 20 mg/dL may lead to falsely low ionized calcium. CL Whole Blood 107 98 - 107 mmol/L [facility] Gluc Whole Bld 172 65 - 199 mg/dL [facility] Comment:Diabetes: >=200 mg/d L plus symptoms. Lactate WB 2.3(H) 0.5 - 2.2 mmol/L [facility] FIO2 Art 40 % [facility] PF Ratio Art 282 [facility] Blood specimen (specimen) 11/29/2015 5:14 PM EDT 11/29/2015 5:14 PM EDT Yash Benton MD CHEMISTRY ORDERABL ES Performing Organization Address City/[facility]/ZIP Co de Phone Number [facility] [place] [address] * POCT Glucose (11/29/2015 4:10 PM EDT) POC Glucose 125 65 - 199 mg/dL [facility] Comment: Supplemental ranges: <140 mg/dL before meals <180 mg/dL all other times of the day Blood specimen (specimen) 11/29/2015 4:10 PM EDT 11/29/2015 4:10 PM EDT Yash Benton MD POINT OF CARE TEST ORDERABLES Performing Organization Address [facility] Co de Phone Number [facility] [place] [address] * XR Chest Pa or AP- 1 [...] mid trachea, there is a right IJ [place]-Samuel catheter with the tip in the right [...] the mid trachea, there is a rightIJ [place]Samuel catheter with the tip in the right [...] EKG 12 Lead (11/29/2015 2:37 PM EDT) Pathologist [facility] Ventricular rate 82 BPM MUSE SYSTEM Atrial Rate 82 BPM MUSE SYSTEM P-R Interval 140 ms MUSE SYSTEM QRS Duration 96 ms MUSE SYSTEM Q-T Interval 388 ms MUSE SYSTEM QTC Calculated (Bezet) 453 ms MUSE SYSTEM Calculated P [place] 69 degrees MUSE SYSTEM Calculated R [place] 54 degrees MUSE SYSTEM Calculated T [place] 85 degrees MUSE SYSTEM INTERPRETATION Normal sinus [...] Differential, Automated (11/29/2015 2:25 PM EDT) Pathologist [facility] Neutrophils % 79.7 % [facility] Neutr Abs (ANC) 10.17(H) 1.50 - 6.30 x10(3)/mc L [facility] Lymphocytes % 12.5 % [facility] Lymphocytes Abs 1.6 1.0 - 3.6 x10(3)/mc L [facility] Monocytes % 7.1 % [facility] Monocyte Abs 0.9 0.2 - 1.0 x10(3)/[facility] Eosinophils % 0.4 % [facility] Eosinophils Abs 0.0 0.0 - 0.5 x10(3)/[facility] Basophils % 0.1 % [facility] Basophils Abs 0.0 0.0 - 0.2 x10(3)/[facility] Immature Gran % 0.20 % [facility] Comment: Immature granulocytes(IG's)percentage and absolute count will include metamyelocytes, myelocytes, and promyelocytes. Blood smears from CBCs yielding IG's will be scanned manually for concordance. If this scan disagrees with the automated IG or if promyelocytes are noted, a manual differential will be performed. [place] Gran Abs 0.02 0.00 - 0.05 x10(3)/[facility] Blood specimen (specimen) 11/29/2015 2:25 PM EDT 11/29/2015 2:30 PM EDT Narrative Resulting Agency Comment Spec In Lab Yash Benton MD HEMATOLOGY ORDERAB LES [facility] [place] [address] * (ABNORMAL) Hemogram (11/29/2015 2:25 PM EDT) WBC 12.8(H) 4.0 - 10.0 x10(3)/[facility] RBC 3.89(L) 4.63 - 6.08 x10(6)/[facility] Hemoglobin 11.0(L) 13.7 - 17.5 gm/dL [facility] Hematocrit 33.5(L) 40.0 - 51.0 % [facility] MCV 86.1 79.0 - 92.0 fL [facility] MCH 28.3 25.6 - 32.2 pg [facility] MCHC 32.8 32.0 - 36.5 gm/dL [facility] Platelets 166 145 - 370 x10(3)/mcL [facility] RDWSD 44.8 35.0 - 46.0 fL [facility] RDWCV 14.2 10.9 - 14.4 % [facility] MPV 9.2 9.0 - 12.0 fL [facility] Blood specimen (specimen) 11/29/2015 2:25 PM EDT 11/29/2015 2:30 PM EDT Narrative Resulting Agency Comment Spec In Lab Yash Benton MD HEMATOLOGY ORDERAB LES [facility] [place] [address] * (ABNORMAL) Basic Metabolic Panel (non-fasting) (11/29/2015 2:25 PM EDT) Glucose Lvl 161 65 - 199 mg/dL [facility] Comment:Diabetes: >=200 mg/d L plus symptoms BUN 10 10 - 20 mg/dL [facility] Creatinine 0.72(L) 0.80 - 1.50 mg/dL [facility] Comment: Please note that the pediatric reference intervals supplied above were not validated at [facility]. Results from pediatric patients should be interpreted in conjunction to the patient's age, height and muscle mass. Sodium 140 135 - 145 mmol/L [facility] Potassium 3.9 3.5 - 5.0 mmol/L [facility] Comment: Please note: ??Patients with WBC >100,000 may have falsely elevated Potassium levels. ??For accurate Potassium quantification in these patients send serum separator tube (gold top) for subsequent determinations. ??Contact the Clinical Chemistry Laboratory if there are any questions. Chloride 108(H) 98 - 107 mmol/L [facility] CO2 18(L) 22 - 31 mmol/L [facility] Anion Gap 14 5 - 15 mmol/L [facility] Calcium 7.2(L) 8.5 - 10.5 mg/dL [facility] Estimated GFR >60 >=60 [facility] Comment: This estimated GFR (eGFR) value [...] the following links into your internet browser. [email or web address] Blood specimen (specimen) 11/29/2015 2:25 PM EDT 11/29/2015 2:30 PM EDT Narrative Resulting Agency Comment Spec In Lab Yash Benton MD CHEMISTRY ORDERABL ES Performing Organization Address [facility]/ZIP Co de Phone Number [facility] [place] [address] * Fibrinogen (11/29/2015 2:25 PM EDT) Fibrinogen 270 175 - 450 mg/dL [facility] Comment: A fibrinogen level >100 mg/dL is adequate for hemostasis in most patients without underlying bleeding disorders. Blood specimen (specimen) 11/29/2015 2:25 PM EDT 11/29/2015 2:30 PM EDT Narrative Resulting Agency Comment Spec In Lab Yash Benton MD HEMATOLOGY ORDERAB LES Performing Organization Address [facility]/ZIP Co de Phone Number [facility] [place] [address] * (ABNORMAL) APTT (11/29/2015 2:25 PM EDT) PTT 36(H) 25 - 35 sec [facility] Comment: The recommended therapeutic range for full dose, unfractionated heparin at [facility] is 80 ? 114 seconds. The use of the anti-Xa (heparin) level rather than the PTT is recommended for monitoring anticoagulation intensity in critically ill patients receiving unfractionated heparin by continuous IV infusion. Blood specimen (specimen) 11/29/2015 2:25 PM EDT 11/29/2015 2:30 PM EDT Narrative Resulting Agency Comment Spec In Lab Yash Benton MD HEMATOLOGY ORDERAB LES Performing Organization Address [facility] de Phone Number [facility] [place] [address] * (ABNORMAL) Prothrombin Time (11/29/2015 2:25 PM EDT) PT 17.0(H) 12.0 - 15.0 sec [facility] Comment: An INR <2.0 indicates [...] clinical circumstances. INR 1.4(H) 0.9 - 1.1 [facility] Blood specimen (specimen) 11/29/2015 2:25 PM EDT 11/29/2015 2:30 PM EDT Narrative Resulting Agency Comment Spec In Lab Yash Benton MD HEMATOLOGY ORDERAB LES Performing Organization Address [facility] Co de Phone Number [facility] [place] [address] * (ABNORMAL) BLOOD GAS 2 ARTERIAL (11/29/2015 2:22 PM EDT) pH Art 7.31(L) 7.35 - 7.45 [facility] pCO2 Art 37 35 - 45 mmHg [facility] pO2 Art 241(H) 85 - 104 mmHg [facility] HCO3 Art 18.0(L) 20.0 - 26.0 mmol/L [facility] BE Art -8.3(L) -3.0 - 3.0 mmol/L [facility] Hgb Blood Gas 11.9(L) 13.7 - 17.5 gm/dL [facility] O2HB Art 97.8(H) 94.0 - 97.0 % [facility] COHB Art 0.1 % [facility] Comment: Nonsmokers: 0.5-1.5% COHB Smokers: Variable, but usually less than 10% Toxic: 20-30% COHB Lethal: Greater than 60% COHB METHB Art 0.9 <=1.5 % [facility] Na Whole Blood 135 135 - 145 mmol/L [facility] K Whole Blood 3.9 3.5 - 5.0 mmol/L [facility] Comment: Please note: Patients with WBC >100,000 may have falsely elevated Potassium levels. Contact the Clinical Chemistry Laboratory if there are any questions. ICa Whole Blood 1.19 1.15 - 1.33 mmol/L [facility] Comment: Note: ??Total bilirubin higher than 20 mg/dL may lead to falsely low ionized calcium. CL Whole Blood 106 98 - 107 mmol/L [facility] Gluc Whole Bld 155 65 - 199 mg/dL [facility] Comment:Diabetes: >=200 mg/d L plus symptoms. Lactate WB 2.6(H) 0.5 - 2.2 mmol/L [facility] FIO2 Art 100 % [facility] PF Ratio Art 241 [facility] Blood specimen (specimen) 11/29/2015 2:22 PM EDT 11/29/2015 2:22 PM EDT Yash Benton MD CHEMISTRY ORDERABL ES [facility] [place] [address] * (ABNORMAL) BLOOD GAS 2 ARTERIAL (11/29/2015 12:51 PM EDT) pH Art 7.32(L) 7.35 - 7.45 [facility] pCO2 Art 41 35 - 45 mmHg [facility] pO2 Art 288(H) 85 - 104 mmHg [facility] HCO3 Art 20.9 20.0 - 26.0 mmol/L [facility] BE Art -5.2(L) -3.0 - 3.0 mmol/L [facility] Hgb Blood Gas 8.9(L) 13.7 - 17.5 gm/dL [facility] O2HB Art 98.5(H) 94.0 - 97.0 % [facility] COHB Art 0.7 % [facility] Comment: Nonsmokers: 0.5-1.5% COHB Smokers: Variable, but usually less than 10% Toxic: 20-30% COHB Lethal: Greater than 60% COHB METHB Art 0.3 <=1.5 % [facility] Na Whole Blood 131(L) 135 - 145 mmol/L [facility] K Whole Blood 3.8 3.5 - 5.0 mmol/L [facility] Comment: Please note: Patients with WBC >100,000 may have falsely elevated Potassium levels. Contact the Clinical Chemistry Laboratory if there are any questions. ICa Whole Blood 1.11(L) 1.15 - 1.33 mmol/L [facility] Comment: Note: ??Total bilirubin higher than 20 mg/dL may lead to falsely low ionized calcium. CL Whole Blood 106 98 - 107 mmol/L [facility] Gluc Whole Bld 172 65 - 199 mg/dL [facility] Comment:Diabetes: >=200 mg/d L plus symptoms. Blood specimen (specimen) 11/29/2015 12:51 PM EDT 11/29/2015 12:51 PM EDT Xiomy Zarate MD CHEMISTRY ORDERABLES [facility] [place] [address] * Thrombin time (11/29/2015 12:47 PM EDT) Pathologist [facility] Thrombin Time 17 15 - 20 sec [facility] Comment: A prolongation in the [...] MD HEMATOLOGY ORDERABLE S Performing Organization Address [facility] Co de Phone Number [facility] [place] [address] * Fibrinogen (11/29/2015 12:47 PM EDT) Pathologist [facility] Fibrinogen 208 175 - 450 mg/dL [facility] Comment: Called by: SHIREEN, Read back by: Milagro Spencer, Date/Time:11/29/15 13:07. A fibrinogen level >100 mg/dL is adequate for hemostasis in most patients without underlying bleeding disorders. Blood specimen (specimen) 11/29/2015 12:47 PM EDT 11/29/2015 12:53 PM EDT Narrative Resulting Agency Comment Spec In Lab Xiomy Zarate MD HEMATOLOGY ORDERABLE S Performing Organization Address City/[facility]/ZIP Co de Phone Number [facility] [place] [address] * (ABNORMAL) APTT (11/29/2015 12:47 PM EDT) Pathologist [facility] PTT 38(H) 25 - 35 sec [facility] Comment: The recommended therapeutic range for full dose, unfractionated heparin at [facility] is 80 ? 114 seconds. The use of the anti-Xa (heparin) level rather than the PTT is recommended for monitoring anticoagulation intensity in critically ill patients receiving unfractionated heparin by continuous IV infusion. Blood specimen (specimen) 11/29/2015 12:47 PM EDT 11/29/2015 12:53 PM EDT Narrative Resulting Agency Comment Spec In Lab Xiomy Zarate MD HEMATOLOGY ORDERABLE S [facility] [place] [address] * (ABNORMAL) Prothrombin Time (11/29/2015 12:47 PM EDT) PT 20.9(H) 12.0 - 15.0 sec [facility] Comment: An INR <2.0 indicates [...] clinical circumstances. INR 1.7(H) 0.9 - 1.1 [facility] Blood specimen (specimen) 11/29/2015 12:47 PM EDT 11/29/2015 12:53 PM EDT Narrative Resulting Agency Comment Spec In Lab Xiomy Zarate MD HEMATOLOGY ORDERABLE S [facility] [place] [address] * (ABNORMAL) Hemogram (11/29/2015 12:47 PM EDT) WBC 11.4(H) 4.0 - 10.0 x10(3)/[facility] Comment: Called by: Shelby Marvin, Read back by: Sierra Naqvi, Date-Time: 11 29 2015 1257 RBC 2.99(L) 4.63 - 6.08 x10(6)/[facility] Hemoglobin 8.2(L) 13.7 - 17.5 gm/dL [facility] Comment: This result has been called to SIERRA NAQVI by hSelby Marvin on 11 29 2015 at 1257, and has been read back. Hematocrit 25.8(L) 40.0 - 51.0 % [facility] MCV 86.3 79.0 - 92.0 fL [facility] MCH 27.4 25.6 - 32.2 pg [facility] MCHC 31.8(L) 32.0 - 36.5 gm/dL [facility] Platelets 137(L) 145 - 370 x10(3)/mcL [facility] RDWSD 45.1 35.0 - 46.0 fL [facility] RDWCV 14.3 10.9 - 14.4 % [facility] MPV 9.1 9.0 - 12.0 fL [facility] Blood specimen (specimen) 11/29/2015 12:47 PM EDT 11/29/2015 12:53 PM EDT Narrative Resulting Agency Comment Spec In Lab Xiomy Zarate MD HEMATOLOGY ORDERABLE S [facility] [place] [address] * (ABNORMAL) BLOOD GAS 2 ARTERIAL (11/29/2015 12:15 PM EDT) pH Art 7.37 7.35 - 7.45 [facility] pCO2 Art 39 35 - 45 mmHg [facility] pO2 Art 292(H) 85 - 104 mmHg [facility] HCO3 Art 21.8 20.0 - 26.0 mmol/L [facility] BE Art -3.5(L) -3.0 - 3.0 mmol/L [facility] Hgb Blood Gas 9.4(L) 13.7 - 17.5 gm/dL [facility] O2HB Art 98.5(H) 94.0 - 97.0 % [facility] COHB Art 0.6 % [facility] Comment: Nonsmokers: 0.5-1.5% COHB Smokers: Variable, but usually less than 10% Toxic: 20-30% COHB Lethal: Greater than 60% COHB METHB Art 0.3 <=1.5 % [facility] Na Whole Blood 128(L) 135 - 145 mmol/L [facility] K Whole Blood 5.5(H) 3.5 - 5.0 mmol/L [facility] Comment: Please note: Patients with WBC >100,000 may have falsely elevated Potassium levels. Contact the Clinical Chemistry Laboratory if there are any questions. ICa Whole Blood 0.87(Criti ton) 1.15 - 1.33 mmol/L [facility] Comment: Noted by instrumentation designer. Note: ??Total bilirubin higher than 20 mg/dL may lead to falsely low ionized calcium. CL Whole Blood 102 98 - 107 mmol/L [facility] Gluc Whole Bld 193 65 - 199 mg/dL [facility] Comment:Diabetes: >=200 mg/d L plus symptoms. Blood specimen (specimen) 11/29/2015 12:15 PM EDT 11/29/2015 12:15 PM EDT Xiomy Zarate MD CHEMISTRY ORDERABLES [facility] [place] [address] * (ABNORMAL) BLOOD GAS 2 ARTERIAL (11/29/2015 11:48 AM EDT) pH Art 7.34(L) 7.35 - 7.45 [facility] pCO2 Art 45 35 - 45 mmHg [facility] pO2 Art 273(H) 85 - 104 mmHg [facility] HCO3 Art 23.8 20.0 - 26.0 mmol/L [facility] BE Art -1.9 -3.0 - 3.0 mmol/L [facility] Hgb Blood Gas 10.1(L) 13.7 - 17.5 gm/dL [facility] O2HB Art 98.8(H) 94.0 - 97.0 % [facility] COHB Art 0.2 % [facility] Comment: Nonsmokers: 0.5-1.5% COHB Smokers: Variable, but usually less than 10% Toxic: 20-30% COHB Lethal: Greater than 60% COHB METHB Art 0.3 <=1.5 % [facility] Na Whole Blood 128(L) 135 - 145 mmol/L [facility] K Whole Blood 6.0(H) 3.5 - 5.0 mmol/L [facility] Comment: Please note: Patients with WBC >100,000 may have falsely elevated Potassium levels. Contact the Clinical Chemistry Laboratory if there are any questions. ICa Whole Blood 0.87(Criti ton) 1.15 - 1.33 mmol/L [facility] Comment: Noted by instrumentation designer. Note: ??Total bilirubin higher than 20 mg/dL may lead to falsely low ionized calcium. CL Whole Blood 103 98 - 107 mmol/L [facility] Gluc Whole Bld 200(H) 65 - 199 mg/dL [facility] Comment:Diabetes: >=200 mg/d L plus symptoms. Blood specimen (specimen) 11/29/2015 11:48 AM EDT 11/29/2015 11:48 AM EDT Xiomy Zarate MD CHEMISTRY ORDERABLES [facility] [place] [address] * Fibrinogen (11/29/2015 11:45 AM EDT) Fibrinogen 247 175 - 450 mg/dL [facility] Comment: Called by: SHIREEN, Read back by: Sierra Naqvi, Date/Time:11/29/15 12:09. A fibrinogen level >100 mg/dL is adequate for hemostasis in most patients without underlying bleeding disorders. Blood specimen (specimen) 11/29/2015 11:45 AM EDT 11/29/2015 11:53 AM EDT Narrative Resulting Agency Comment Spec In Lab Xiomy Zarate MD HEMATOLOGY ORDERABLE S [facility] [place] [address] * Platelet count (11/29/2015 11:45 AM EDT) Platelets 146 145 - 370 x10(3)/mcL [facility] Comment: Called by: Shelby Marvin, Read back by: Sierra Naqvi, Date-Time: 11 29 2015 1201 Blood specimen (specimen) 11/29/2015 11:45 AM EDT 11/29/2015 11:53 AM EDT Narrative Resulting Agency Comment Spec In Lab Xiomy Zarate MD HEMATOLOGY ORDERABLE S Performing Organization Address [facility] Co de Phone Number [facility] [place] [address] * (ABNORMAL) BLOOD GAS 2 ARTERIAL (11/29/2015 11:16 AM EDT) pH Art 7.33(L) 7.35 - 7.45 [facility] pCO2 Art 44 35 - 45 mmHg [facility] pO2 Art 278(H) 85 - 104 mmHg [facility] HCO3 Art 22.8 20.0 - 26.0 mmol/L [facility] BE Art -3.2(L) -3.0 - 3.0 mmol/L [facility] Hgb Blood Gas 10.5(L) 13.7 - 17.5 gm/dL [facility] O2HB Art 99.0(H) 94.0 - 97.0 % [facility] COHB Art 0.2 % [facility] Comment: Nonsmokers: 0.5-1.5% COHB Smokers: Variable, but usually less than 10% Toxic: 20-30% COHB Lethal: Greater than 60% COHB METHB Art 0.2 <=1.5 % [facility] Na Whole Blood 128(L) 135 - 145 mmol/L [facility] K Whole Blood 6.5(Critic al) 3.5 - 5.0 mmol/L [facility] Comment: Noted by instrumentation designer. Please note: Patients with WBC >100,000 may have falsely elevated Potassium levels. Contact the Clinical Chemistry Laboratory if there are any questions. ICa Whole Blood 0.90(Criti ton) 1.15 - 1.33 mmol/L [facility] Comment: Noted by instrumentation designer. Note: ??Total bilirubin higher than 20 mg/dL may lead to falsely low ionized calcium. CL Whole Blood 102 98 - 107 mmol/L [facility] Gluc Whole Bld 206(H) 65 - 199 mg/dL [facility] Comment:Diabetes: >=200 mg/d L plus symptoms. Blood specimen (specimen) 11/29/2015 11:16 AM EDT 11/29/2015 11:16 AM EDT Xiomy Zarate MD CHEMISTRY ORDERABLES [facility] [place] [address] * (ABNORMAL) BLOOD GAS 2 ARTERIAL (11/29/2015 10:51 AM EDT) pH Art 7.32(L) 7.35 - 7.45 [facility] pCO2 Art 46(H) 35 - 45 mmHg [facility] pO2 Art 263(H) 85 - 104 mmHg [facility] HCO3 Art 23.0 20.0 - 26.0 mmol/L [facility] BE Art -3.2(L) -3.0 - 3.0 mmol/L [facility] Hgb Blood Gas 10.2(L) 13.7 - 17.5 gm/dL [facility] O2HB Art 98.7(H) 94.0 - 97.0 % [facility] COHB Art 0.3 % [facility] Comment: Nonsmokers: 0.5-1.5% COHB Smokers: Variable, but usually less than 10% Toxic: 20-30% COHB Lethal: Greater than 60% COHB METHB Art 0.3 <=1.5 % [facility] Na Whole Blood 128(L) 135 - 145 mmol/L [facility] K Whole Blood 6.7(Critic al) 3.5 - 5.0 mmol/L [facility] Comment: Noted by instrumentation designer. Please note: Patients with WBC >100,000 may have falsely elevated Potassium levels. Contact the Clinical Chemistry Laboratory if there are any questions. ICa Whole Blood 0.88(Criti ton) 1.15 - 1.33 mmol/L [facility] Comment: Noted by instrumentation designer. Note: ??Total bilirubin higher than 20 mg/dL may lead to falsely low ionized calcium. CL Whole Blood 102 98 - 107 mmol/L [facility] Gluc Whole Bld 204(H) 65 - 199 mg/dL [facility] Comment:Diabetes: >=200 mg/d L plus symptoms. Blood specimen (specimen) 11/29/2015 10:51 AM EDT 11/29/2015 10:51 AM EDT Xiomy Zarate MD CHEMISTRY ORDERABLES [facility] [place] [address] * (ABNORMAL) BLOOD GAS 2 ARTERIAL (11/29/2015 10:20 AM EDT) pH Art 7.38 7.35 - 7.45 [facility] pCO2 Art 40 35 - 45 mmHg [facility] pO2 Art 322(H) 85 - 104 mmHg [facility] HCO3 Art 22.9 20.0 - 26.0 mmol/L [facility] BE Art -2.3 -3.0 - 3.0 mmol/L [facility] Hgb Blood Gas 9.8(L) 13.7 - 17.5 gm/dL [facility] O2HB Art 98.9(H) 94.0 - 97.0 % [facility] COHB Art 0.3 % [facility] Comment: Nonsmokers: 0.5-1.5% COHB Smokers: Variable, but usually less than 10% Toxic: 20-30% COHB Lethal: Greater than 60% COHB METHB Art 0.2 <=1.5 % [facility] Na Whole Blood 130(L) 135 - 145 mmol/L [facility] K Whole Blood 5.8(H) 3.5 - 5.0 mmol/L [facility] Comment: Please note: Patients with WBC >100,000 may have falsely elevated Potassium levels. Contact the Clinical Chemistry Laboratory if there are any questions. ICa Whole Blood 0.83(Criti ton) 1.15 - 1.33 mmol/L [facility] Comment: Noted by instrumentation designer. Note: ??Total bilirubin higher than 20 mg/dL may lead to falsely low ionized calcium. CL Whole Blood 103 98 - 107 mmol/L [facility] Gluc Whole Bld 179 65 - 199 mg/dL [facility] Comment:Diabetes: >=200 mg/d L plus symptoms. Blood specimen (specimen) 11/29/2015 10:20 AM EDT 11/29/2015 10:20 AM EDT Xiomy Zarate MD CHEMISTRY ORDERABLES [facility] [place] [address] * (ABNORMAL) BLOOD GAS 2 ARTERIAL (11/29/2015 8:19 AM EDT) pH Art 7.45 7.35 - 7.45 [facility] pCO2 Art 28(L) 35 - 45 mmHg [facility] pO2 Art 413(H) 85 - 104 mmHg [facility] HCO3 Art 19.3(L) 20.0 - 26.0 mmol/L [facility] BE Art -4.7(L) -3.0 - 3.0 mmol/L [facility] Hgb Blood Gas 14.3 13.7 - 17.5 gm/dL [facility] O2HB Art 98.8(H) 94.0 - 97.0 % [facility] COHB Art 0.7 % [facility] Comment: Nonsmokers: 0.5-1.5% COHB Smokers: Variable, but usually less than 10% Toxic: 20-30% COHB Lethal: Greater than 60% COHB METHB Art 0.2 <=1.5 % [facility] Na Whole Blood 142 135 - 145 mmol/L [facility] K Whole Blood 4.3 3.5 - 5.0 mmol/L [facility] Comment: Please note: Patients with WBC >100,000 may have falsely elevated Potassium levels. Contact the Clinical Chemistry Laboratory if there are any questions. ICa Whole Blood 1.14(L) 1.15 - 1.33 mmol/L [facility] Comment: Note: ??Total bilirubin higher than 20 mg/dL may lead to falsely low ionized calcium. CL Whole Blood 106 98 - 107 mmol/L [facility] Gluc Whole Bld 97 65 - 199 mg/dL [facility] Comment:Diabetes: >=200 mg/d L plus symptoms. Blood specimen (specimen) 11/29/2015 8:19 AM EDT 11/29/2015 8:19 AM EDT Xiomy Zarate MD CHEMISTRY ORDERABLES [facility] [place] [address] * Prepare Coag Factors (Non-Hemophilia) (11/29/2015 6:30 AM EDT) Dispensed? Yes [facility] Blood specimen (specimen) 11/29/2015 6:30 AM EDT 11/29/2015 6:29 AM EDT Narrative Resulting Agency Comment Spec In Lab Xiomy Zarate MD BLOOD BANK PRODUCT O RDERABLES Performing Organization Address City/[facility]/ZIP Co de Phone Number [facility] [place] [address] * Prepare RBC (11/29/2015 6:30 AM EDT) Pathologist [facility] Dispensed? Yes [facility] Blood specimen (specimen) 11/29/2015 6:30 AM EDT 11/29/2015 6:29 AM EDT Narrative Resulting Agency Comment Spec In Lab Xiomy Zarate MD BLOOD BANK PRODUCT O RDERABLES Performing Organization Address [facility] Co de Phone Number [facility] [place] [address] * POCT Glucose (11/29/2015 5:36 AM EDT) [facility] POC Glucose 88 65 - 199 mg/dL [facility] Comment: Supplemental ranges: <140 mg/dL before meals <180 mg/dL all other times of the day Blood specimen (specimen) 11/29/2015 5:36 AM EDT 11/29/2015 5:36 AM EDT Xiomy Zarate MD POINT OF CARE TEST O RDERABLES Performing Organization Address [facility] Co de Phone Number [facility] [place] [address] * Differential, Automated (11/29/2015 4:40 AM EDT) [facility] Neutrophils % 64.0 % [facility] Neutr Abs (ANC) 3.90 1.50 - 6.30 x10(3)/[facility] Lymphocytes % 21.7 % [facility] Lymphocytes Abs 1.3 1.0 - 3.6 x10(3)/[facility] Monocytes % 9.2 % [facility] Monocyte Abs 0.6 0.2 - 1.0 x10(3)/[facility] Eosinophils % 4.6 % [facility] Eosinophils Abs 0.3 0.0 - 0.5 x10(3)/[facility] Basophils % 0.3 % [facility] Basophils Abs 0.0 0.0 - 0.2 x10(3)/[facility] Immature Gran % 0.20 % [facility] Comment: Immature granulocytes(IG's)percentage and absolute count will include metamyelocytes, myelocytes, and promyelocytes. Blood smears from CBCs yielding IG's will be scanned manually for concordance. If this scan disagrees with the automated IG or if promyelocytes are noted, a manual differential will be performed. Hemalatha Gran Abs 0.01 0.00 - 0.05 x10(3)/[facility] Blood specimen (specimen) 11/29/2015 4:40 AM EDT 11/29/2015 4:47 AM EDT Narrative Resulting Agency Comment Spec In Lab Julius Atkins MD HEMATOLOGY ORDERABLE S [facility] [place] [address] * (ABNORMAL) Hemogram (11/29/2015 4:40 AM EDT) WBC 6.1 4.0 - 10.0 x10(3)/[facility] RBC 5.12 4.63 - 6.08 x10(6)/[facility] Hemoglobin 14.5 13.7 - 17.5 gm/dL [facility] Hematocrit 43.7 40.0 - 51.0 % [facility] MCV 85.4 79.0 - 92.0 fL [facility] MCH 28.3 25.6 - 32.2 pg [facility] MCHC 33.2 32.0 - 36.5 gm/dL [facility] Platelets 165 145 - 370 x10(3)/[facility] RDWSD 45.3 35.0 - 46.0 fL [facility] RDWCV 14.5(H) 10.9 - 14.4 % [facility] MPV 9.5 9.0 - 12.0 fL [facility] Blood specimen (specimen) 11/29/2015 4:40 AM EDT 11/29/2015 4:47 AM EDT Narrative Resulting Agency Comment Spec In Lab Julius Atkins MD HEMATOLOGY ORDERABLE S [facility] [place] [address] * BMP w/fasting Glucose (11/29/2015 4:40 AM EDT) Glucose Fasting 97 65 - 99 mg/dL [facility] Comment: ?Fasting* Glucose Interpretive Criteria [...] of Diabetes Mellitus, Position Statement from the [employer]. ??Diabetes Care, Volume 33, Supplement 1, May 2009 BUN 14 10 - 20 mg/dL [facility] Creatinine 0.99 0.80 - 1.50 mg/dL [facility] Comment: Please note that the pediatric reference intervals supplied above were not validated at [facility]. Results from pediatric patients should be interpreted in conjunction to the patient's age, height and muscle mass. Sodium 139 135 - 145 mmol/L [facility] Potassium 3.9 3.5 - 5.0 mmol/L [facility] Comment: Please note: ??Patients with WBC >100,000 may have falsely elevated Potassium levels. ??For accurate Potassium quantification in these patients send serum separator tube (gold top) for subsequent determinations. ??Contact the Clinical Chemistry Laboratory if there are any questions. Chloride 103 98 - 107 mmol/L [facility] CO2 23 22 - 31 mmol/L [facility] Anion Gap 13 5 - 15 mmol/L [facility] Calcium 9.0 8.5 - 10.5 mg/dL [facility] Estimated GFR >60 >=60 [facility] Comment: This estimated GFR (eGFR) value [...] the following links into your internet browser. [email or web address] Blood specimen (specimen) 11/29/2015 4:40 AM EDT 11/29/2015 4:47 AM EDT Narrative Resulting Agency Comment Spec In Lab Julius Atkins MD CHEMISTRY ORDERABLES [facility] [place] [address] * EKG 12 Lead (11/28/2015 7:44 AM EDT) Ventricular rate 67 BPM MUSE SYSTEM Atrial Rate 67 BPM MUSE SYSTEM P-R Interval 140 ms MUSE SYSTEM QRS Duration 92 ms MUSE SYSTEM Q-T Interval 416 ms MUSE SYSTEM QTC Calculated (Bezet) 439 ms MUSE SYSTEM Calculated P Troy 61 degrees MUSE SYSTEM Calculated R Troy 0 degrees MUSE SYSTEM Calculated T Troy 20 degrees MUSE SYSTEM INTERPRETATION Normal sinus rhythm Normal ECG When compared with ECG of 27-NOV-2015 07:34, No significant change was found Confirmed by MD TIAGO, DILAN ([id number]) on 11/28/2015 11:32:01 AM MUSE SYSTEM 11/28/2015 7:44 AM EDT 11/28/2015 11:32 AM EDT Julius Atkins MD ECG ORDERABLES MUSE SYSTEM * Differential, Automated (11/28/2015 5:52 AM EDT) Neutrophils % 64.2 % [facility] Neutr Abs (ANC) 3.36 1.50 - 6.30 x10(3)/[facility] Lymphocytes % 19.3 % [facility] Lymphocytes Abs 1.0 1.0 - 3.6 x10(3)/[facility] Monocytes % 10.7 % [facility] Monocyte Abs 0.6 0.2 - 1.0 x10(3)/[facility] Eosinophils % 4.8 % [facility] Eosinophils Abs 0.2 0.0 - 0.5 x10(3)/[facility] Basophils % 0.8 % [facility] Basophils Abs 0.0 0.0 - 0.2 x10(3)/[facility] Immature Gran % 0.20 % [facility] Comment: Immature granulocytes(IG's)percentage and absolute count will include metamyelocytes, myelocytes, and promyelocytes. Blood smears from CBCs yielding IG's will be scanned manually for concordance. If this scan disagrees with the automated IG or if promyelocytes are noted, a manual differential will be performed. Hemalatha Gran Abs 0.01 0.00 - 0.05 x10(3)/[facility] Blood specimen (specimen) 11/28/2015 5:52 AM EDT 11/28/2015 6:17 AM EDT Narrative Resulting Agency Comment Spec In Lab Julius Atkins MD HEMATOLOGY ORDERABLE S [facility] [place] [address] * Hemogram (11/28/2015 5:52 AM EDT) [facility] Signature WBC 5.2 4.0 - 10.0 x10(3)/[facility] RBC 5.03 4.63 - 6.08 x10(6)/[facility] Hemoglobin 14.6 13.7 - 17.5 gm/dL [facility] Hematocrit 43.1 40.0 - 51.0 % [facility] MCV 85.7 79.0 - 92.0 fL [facility] MCH 29.0 25.6 - 32.2 pg [facility] MCHC 33.9 32.0 - 36.5 gm/dL [facility] Platelets 163 145 - 370 x10(3)/[facility] RDWSD 44.5 35.0 - 46.0 [facility] RDWCV 14.4 10.9 - 14.4 % [facility] MPV 9.7 9.0 - 12.0 fL [facility] Blood specimen (specimen) 11/28/2015 5:52 AM EDT 11/28/2015 6:17 AM EDT Narrative Resulting Agency Comment Spec In Lab Julius Atkins MD [place] [address] * Antibody screen (11/28/2015 5:52 AM EDT) Ab Screen Interp Negative [facility] Expires at [id number] on: 12/01/2015 [facility] Blood specimen (specimen) 11/28/2015 5:52 AM EDT 11/28/2015 6:01 AM EDT Narrative Resulting Agency Comment Spec In Lab Yash Benton MD BLOOD BANK LAB ORD ERABLES [facility] [place] [address] * ABO/Rh Typing (11/28/2015 5:52 AM EDT) ABORH Type B Pos [facility] Blood specimen (specimen) 11/28/2015 5:52 AM EDT 11/28/2015 6:01 AM EDT Narrative Resulting Agency Comment Spec In Lab Yash Benton MD BLOOD BANK LAB ORD ERABLES [facility] [place] [address] * (ABNORMAL) BMP w/fasting Glucose (11/28/2015 5:52 AM EDT) Glucose Fasting 102(H) 65 - 99 mg/dL [facility] Comment: ?Fasting* Glucose Interpretive Criteria [...] of Diabetes Mellitus, Position Statement from the [employer]. ??Diabetes Care, Volume 33, Supplement 1, May 2009 BUN 13 10 - 20 mg/dL [facility] Creatinine 0.90 0.80 - 1.50 mg/dL [facility] Comment: Please note that the pediatric reference intervals supplied above were not validated at [facility]. Results from pediatric patients should be interpreted in conjunction to the patient's age, height and muscle mass. Sodium 139 135 - 145 mmol/L [facility] Potassium 4.1 3.5 - 5.0 mmol/L [facility] Comment: Please note: ??Patients with WBC >100,000 may have falsely elevated Potassium levels. ??For accurate Potassium quantification in these patients send serum separator tube (gold top) for subsequent determinations. ??Contact the Clinical Chemistry Laboratory if there are any questions. Chloride 104 98 - 107 mmol/L [facility] CO2 20(L) 22 - 31 mmol/L [facility] Anion Gap 15 5 - 15 mmol/L [facility] Calcium 8.8 8.5 - 10.5 mg/dL [facility] Estimated GFR >60 >=60 [facility] Comment: This estimated GFR (eGFR) value [...] the following links into your internet browser. [email or web address] Blood specimen (specimen) 11/28/2015 5:52 AM EDT 11/28/2015 6:17 AM EDT Narrative Resulting Agency Comment Spec In Lab Julius Atkins MD CHEMISTRY ORDERABLES Performing Organization Address City/State/[facility] Co de Phone Number [facility] [place] [address] * EKG 12 Lead (11/27/2015 7:34 AM EDT) Ventricular rate 75 BPM MUSE SYSTEM Atrial Rate 75 BPM MUSE SYSTEM P-R Interval 132 ms MUSE SYSTEM QRS Duration 90 ms MUSE SYSTEM Q-T Interval 404 ms MUSE SYSTEM QTC Calculated (Bezet) 451 ms MUSE SYSTEM Calculated P Troy 56 degrees MUSE SYSTEM Calculated R Troy -3 degrees MUSE SYSTEM Calculated T Troy 17 degrees MUSE SYSTEM INTERPRETATION Normal sinus rhythm with sinus arrhythmia Normal ECG When compared with ECG of 26-NOV-2015 14:09, No significant change was found Confirmed by MD Olman, Nando ([id number]) on 11/27/2015 8:55:09 AM MUSE SYSTEM 11/27/2015 7:34 AM EDT 11/27/2015 8:55 AM EDT Julius Atkins MD ECG ORDERABLES MUSE SYSTEM * Cardiac Enzymes (11/27/2015 5:32 AM EDT) Pathologist [facility] Troponin-T <0.03 <=0.03 ng/mL [facility] Comment: 0.03 ng/mL: Represents the 99th percentile upper reference limit for normals. >0.03 ng/mL: Elevated cardiac troponin T level indicative of myocardial damage. Diagnosis of acute, evolving or recent [place] requires a typical rise and gradual fall [...] consensus document of the [employer] Society of Cardiology/[employer] Committee for the redefinition of myocardial infarction. ??Journal of the [employer] 2000; 36: 959-969] CK, Total 57 0 - 200 unit/L [facility] Blood specimen (specimen) Venous Draw / Unknown 11/27/2015 5:32 AM EDT 11/27/2015 5:55 AM EDT Narrative Resulting Agency Comment Spec In Lab Julius Atkins MD CHEMISTRY ORDERABLES Performing Organization Address City/[facility]/ZIP Co de Phone Number [facility] [place] [address] * Differential, Automated (11/27/2015 5:32 AM EDT) Pathologist [facility] Neutrophils % 64.8 % [facility] Neutr Abs (ANC) 2.93 1.50 - 6.30 x10(3)/mcL [facility] Lymphocytes % 21.2 % [facility] Lymphocytes Abs 1.0 1.0 - 3.6 x10(3)/[facility] Monocytes % 8.8 % [facility] Monocyte Abs 0.4 0.2 - 1.0 x10(3)/[facility] Eosinophils % 4.6 % [facility] Eosinophils Abs 0.2 0.0 - 0.5 x10(3)/[facility] Basophils % 0.4 % [facility] Basophils Abs 0.0 0.0 - 0.2 x10(3)/[facility] Immature Gran % 0.20 % [facility] Comment: Immature granulocytes(IG's)percentage and absolute count will include metamyelocytes, myelocytes, and promyelocytes. Blood smears from CBCs yielding IG's will be scanned manually for concordance. If this scan disagrees with the automated IG or if promyelocytes are noted, a manual differential will be performed. Hemalatha Gran Abs 0.01 0.00 - 0.05 x10(3)/[facility] Blood specimen (specimen) 11/27/2015 5:32 AM EDT 11/27/2015 5:53 AM EDT Narrative Resulting Agency Comment Spec In Lab Julius Atkins MD HEMATOLOGY ORDERABLE S [facility] [place] [address] * Hemogram (11/27/2015 5:32 AM EDT) WBC 4.5 4.0 - 10.0 x10(3)/[facility] RBC 4.87 4.63 - 6.08 x10(6)/[facility] [facility] Hemoglobin 13.9 13.7 - 17.5 gm/dL [facility] Hematocrit 41.4 40.0 - 51.0 % [facility] MCV 85.0 79.0 - 92.0 fL [facility] MCH 28.5 25.6 - 32.2 pg [facility] MCHC 33.6 32.0 - 36.5 gm/dL [facility] Platelets 154 145 - 370 x10(3)/mcL [facility] RDWSD 44.2 35.0 - 46.0 fL [facility] RDWCV 14.1 10.9 - 14.4 % [facility] MPV 9.6 9.0 - 12.0 fL [facility] Blood specimen (specimen) 11/27/2015 5:32 AM EDT 11/27/2015 5:53 AM EDT Narrative Resulting Agency Comment Spec In Lab Julius Atkins MD HEMATOLOGY ORDERABLE S Performing Organization Address City/State/[facility] Co de Phone Number [facility] [place] [address] * (ABNORMAL) BMP w/fasting Glucose (11/27/2015 5:32 AM EDT) Glucose Fasting 108(H) 65 - 99 mg/dL [facility] Comment: ?Fasting* Glucose Interpretive Criteria [...] of Diabetes Mellitus, Position Statement from the [employer]. ??Diabetes Care, Volume 33, Supplement 1, May 2009 BUN 12 10 - 20 mg/dL [facility] Creatinine 0.90 0.80 - 1.50 mg/dL [facility] Comment: Please note that the pediatric reference intervals supplied above were not validated at [facility]. Results from pediatric patients should be interpreted in conjunction to the patient's age, height and muscle mass. Sodium 140 135 - 145 mmol/L [facility] Potassium 4.0 3.5 - 5.0 mmol/L [facility] Comment: Please note: ??Patients with WBC >100,000 may have falsely elevated Potassium levels. ??For accurate Potassium quantification in these patients send serum separator tube (gold top) for subsequent determinations. ??Contact the Clinical Chemistry Laboratory if there are any questions. Chloride 105 98 - 107 mmol/L [facility] CO2 22 22 - 31 mmol/L [facility] Anion Gap 13 5 - 15 mmol/L [facility] Calcium 8.7 8.5 - 10.5 mg/dL [facility] Estimated GFR >60 >=60 [facility] Comment: This estimated GFR (eGFR) value [...] the following links into your internet browser. [email or web address] Blood specimen (specimen) 11/27/2015 5:32 AM EDT 11/27/2015 5:53 AM EDT Narrative Resulting Agency Comment Spec In Lab Julius Atkins MD CHEMISTRY ORDERABLES [facility] [place] [address] * EKG 12 Lead (11/26/2015 2:09 PM EDT) Ventricular rate 77 BPM MUSE SYSTEM Atrial Rate 77 BPM MUSE SYSTEM P-R Interval 136 ms MUSE SYSTEM QRS Duration 92 ms MUSE SYSTEM Q-T Interval 382 ms MUSE SYSTEM QTC Calculated (Bezet) 432 ms MUSE SYSTEM Calculated P Troy 66 degrees MUSE SYSTEM Calculated R Troy 6 degrees MUSE SYSTEM Calculated T Troy 34 degrees MUSE SYSTEM INTERPRETATION Normal sinus rhythm Normal ECG When compared with ECG of 26-NOV-2015 07:21, No significant change was found Confirmed by MD Olman, Nando ([id number]) on 11/26/2015 5:23:45 PM MUSE SYSTEM 11/26/2015 2:09 PM EDT 11/26/2015 5:23 PM EDT Xiomy Zarate MD ECG ORDERABLES Performing Organization Address [facility] de Phone Number MUSE SYSTEM * EKG 12 Lead (11/26/2015 7:21 AM EDT) Ventricular rate 76 BPM MUSE SYSTEM Atrial Rate 76 BPM MUSE SYSTEM P-R Interval 140 ms MUSE SYSTEM QRS Duration 94 ms MUSE SYSTEM Q-T Interval 396 ms MUSE SYSTEM QTC Calculated (Bezet) 445 ms MUSE SYSTEM Calculated P Troy 60 degrees MUSE SYSTEM Calculated R Troy -10 degrees MUSE SYSTEM Calculated T Troy 21 degrees MUSE SYSTEM INTERPRETATION Normal sinus rhythm Normal ECG When compared with ECG of 25-NOV-2015 08:38, No significant change was found Confirmed by MD Ben, Van ([id number]) on 11/26/2015 8:41:00 AM MUSE SYSTEM 11/26/2015 7:21 AM EDT 11/26/2015 8:41 AM EDT Julius Atkins MD ECG ORDERABLES Performing Organization Address [facility] de Phone Number MUSE SYSTEM * (ABNORMAL) Differential, Automated (11/26/2015 3:51 AM EDT) Neutrophils % 72.1 % [facility] Neutr Abs (ANC) 3.44 1.50 - 6.30 x10(3)/mc L [facility] Lymphocytes % 15.5 % [facility] Lymphocytes Abs 0.7(L) 1.0 - 3.6 x10(3)/mc L [facility] Monocytes % 8.6 % [facility] Monocyte Abs 0.4 0.2 - 1.0 x10(3)/[facility] LABORATORY Eosinophils % 3.4 % [facility] Eosinophils Abs 0.2 0.0 - 0.5 x10(3)/[facility] LABORATORY Basophils % 0.2 % [facility] Basophils Abs 0.0 0.0 - 0.2 x10(3)/[facility] LABORATORY Immature Gran % 0.20 % [facility] Comment: Immature granulocytes(IG's)percentage and absolute count will include metamyelocytes, myelocytes, and promyelocytes. Blood smears from CBCs yielding IG's will be scanned manually for concordance. If this scan disagrees with the automated IG or if promyelocytes are noted, a manual differential will be performed. Hemalatha Gran Abs 0.01 0.00 - 0.05 x10(3)/[facility] LABORATORY Blood specimen (specimen) 11/26/2015 3:51 AM EDT 11/26/2015 3:58 AM EDT Narrative Resulting Agency Comment Spec In Lab Julius Atkins MD HEMATOLOGY ORDERABLE S [facility] [place] [address] * (ABNORMAL) Hemogram (11/26/2015 3:51 AM EDT) WBC 4.8 4.0 - 10.0 x10(3)/[facility] LABORATORY RBC 4.80 4.63 - 6.08 x10(6)/[facility]ORATORY Hemoglobin 13.5(L) 13.7 - 17.5 gm/dL [facility] Hematocrit 41.1 40.0 - 51.0 % [facility] MCV 85.6 79.0 - 92.0 fL [facility] MCH 28.1 25.6 - 32.2 pg [facility] MCHC 32.8 32.0 - 36.5 gm/dL [facility] Platelets 129(L) 145 - 370 x10(3)/mcL [facility] RDWSD 44.9 35.0 - 46.0 fL [facility] RDWCV 14.4 10.9 - 14.4 % [facility] MPV 9.2 9.0 - 12.0 fL [facility] Blood specimen (specimen) 11/26/2015 3:51 AM EDT 11/26/2015 3:58 AM EDT Narrative Resulting Agency Comment Spec In Lab Julius Atkins MD HEMATOLOGY ORDERABLE S [facility] [place] [address] * (ABNORMAL) BMP w/fasting Glucose (11/26/2015 3:51 AM EDT) Glucose Fasting 105(H) 65 - 99 mg/dL [facility] Comment: ?Fasting* Glucose Interpretive Criteria [...] of Diabetes Mellitus, Position Statement from the [employer]. ??Diabetes Care, Volume 33, Supplement 1, May 2009 BUN 15 10 - 20 mg/dL [facility] Creatinine 0.95 0.80 - 1.50 mg/dL [facility] Comment: Please note that the pediatric reference intervals supplied above were not validated at [facility]. Results from pediatric patients should be interpreted in conjunction to the patient's age, height and muscle mass. Sodium 139 135 - 145 mmol/L [facility] Potassium 3.9 3.5 - 5.0 mmol/L [facility] Comment: Please note: ??Patients with WBC >100,000 may have falsely elevated Potassium levels. ??For accurate Potassium quantification in these patients send serum separator tube (gold top) for subsequent determinations. ??Contact the Clinical Chemistry Laboratory if there are any questions. Chloride 105 98 - 107 mmol/L [facility] CO2 21(L) 22 - 31 mmol/L [facility] Anion Gap 13 5 - 15 mmol/L [facility] Calcium 8.4(L) 8.5 - 10.5 mg/dL [facility] Estimated GFR >60 >=60 [facility] Comment: This estimated GFR (eGFR) value [...] the following links into your internet browser. [email or web address] Blood specimen (specimen) 11/26/2015 3:51 AM EDT 11/26/2015 3:58 AM EDT Narrative Resulting Agency Comment Spec In Lab Julius Atkins MD CHEMISTRY ORDERABLES [facility] [place] [address] * Triglyceride (11/26/2015 3:51 AM EDT) Triglycerides 105 <=149 mg/dL [facility] Comment: Reference Range: Normal triglycerides: ??<150 mg/dL Borderline high: ??150-199 mg/dL High: ??200-499 mg/dL Very high: ??>ab=359 mg/dL AMARA 2001; 285(19):2063-8116 Blood specimen (specimen) 11/26/2015 3:51 AM EDT 11/26/2015 3:58 AM EDT Narrative Resulting Agency Comment Spec In Lab Julius Atkins MD CHEMISTRY ORDERABLES Performing Organization Address [facility] de Phone Number [facility] [place] [address] * HDL/Cholesterol Profile (11/26/2015 3:51 AM EDT) Chol, Total 176 <=199 mg/dL [facility] Comment: Recommendations of the NCEP Adult Treatment Panel for the following risk cutoff thresholds for the [place] population: Desirable: <200 mg/dL Borderline High: 200-239 mg/dL High: > or = 240 mg/dL HDL 44 >=40 mg/dL [facility] Comment: Reference range: ??Low HDL: ?? < 40 mg/dL ??Normal: ?40-60 mg/dL ??Desirable: > 60 mg/dL AMARA 2001; 285(19):4957-6717 Chol/HDL Ratio 4.0 ratio [facility] Comment: A Cholesterol to HDL ratio below 4:1 is desirable. ??Studies suggest that increased CAD risk occurs at ratios above 5 for females and above 6 for men. ? [employer] Association ??(http://www.americanheart.org) ? Bita Int Med, 1994; 121:641 ? AM J Med, 1998; 105(1A):48S Blood specimen (specimen) 11/26/2015 3:51 AM EDT 11/26/2015 3:58 AM EDT Narrative Resulting Agency Comment Spec In Lab Julius Atkins MD CHEMISTRY ORDERABLES Performing Organization Address [facility] Co de Phone Number [facility] [place] [address] * (ABNORMAL) LDL Cholesterol, Direct (11/26/2015 3:51 AM EDT) LDL Chol Direct 128(H) <=99 mg/dL [facility] Comment: The National Cholesterol Education Program (NCEP) has set the following guidelines for LDL Cholesterol: Reference range: ?? Optimal: ?<100 mg/dL ?? Near Optimal/Above Optimal: ?? 100-129 mg/dL ?? Borderline high: ?130-159 mg/dL ?? High: ? 160-189 mg/dL ?? Very high: ?>th=988 mg/dL AMARA 2001: 285(81):4516-6663 Blood specimen (specimen) 11/26/2015 3:51 AM EDT 11/26/2015 3:58 AM EDT Narrative Resulting Agency Comment Spec In Lab Julius Atkins MD CHEMISTRY ORDERABLES [facility] [place] [address] * (ABNORMAL) Hemoglobin A1c (11/26/2015 3:51 AM EDT) Hemoglobin A1C 5.7(H) 4.3 - 5.6 % [facility] Comment: Reference Range: 4.3 - [...] 1, S67-74 Est Avg Gluc 117 mg/dL [facility] Comment: eAG equivalents for HbA1c percentages: HbA1c(%) ?eAG(mg/dL) 6.0 ?126 6.5 ?140 7.0 ?154 7.5 ?169 8.0 ?183 8.5 ?197 9.0 ?212 9.5 ?226 10.0 ? 240 Limitations: The eAG calculation has not been validated on women, individuals below 18 years old and above 70 years old, and individuals with hemoglobinopathies. Additional resources are available on the ADA website: [email or web address]/[email or web address] Amaury ESPARZA, Betty J, [place] R, et al. ??Translating the A1C assay into estimated average glucose values. ??Diabetes Care 2008:31(8):0933-8045. Blood specimen (specimen) 11/26/2015 3:51 AM EDT 11/26/2015 3:59 AM EDT Narrative Resulting Agency Comment Spec In Lab Julius Atkins MD CHEMISTRY ORDERABLES Performing Organization Address City/State/[facility] Co de Phone Number [facility] [place] [phone] * XR Chest PA & Lateral (Generic) [...] 4:07 PM EDT) Neutrophils % 74.4 % [facility] Neutr Abs (ANC) 3.74 1.50 - 6.30 x10(3)/mc L [facility] Lymphocytes % 14.5 % [facility] Lymphocytes Abs 0.7(L) 1.0 - 3.6 x10(3)/mc L [facility] Monocytes % 8.5 % [facility] Monocyte Abs 0.4 0.2 - 1.0 x10(3)/mc L [facility] Eosinophils % 2.4 % [facility] Eosinophils Abs 0.1 0.0 - 0.5 x10(3)/mc L [facility] Basophils % 0.2 % [facility] Basophils Abs 0.0 0.0 - 0.2 x10(3)/mc L [facility] Immature Gran % 0.00 % [facility] Comment: Immature granulocytes(IG's)percentage and absolute count will include metamyelocytes, myelocytes, and promyelocytes. Blood smears from CBCs yielding IG's will be scanned manually for concordance. If this scan disagrees with the automated IG or if promyelocytes are noted, a manual differential will be performed. Hemalatha Gran Abs 0.00 0.00 - 0.05 x10(3)/ L [facility] Blood specimen (specimen) 11/25/2015 4:07 PM EDT 11/25/2015 4:15 PM EDT Narrative Resulting Agency Comment Spec In Lab Julius Atkins MD HEMATOLOGY ORDERABLE S Performing Organization Address City/[facility]/ZIP Co de Phone Number [facility] [place] [address] * (ABNORMAL) Hemogram (11/25/2015 4:07 PM EDT) WBC 5.0 4.0 - 10.0 x10(3)/[facility] LABORATORY RBC 4.64 4.63 - 6.08 x10(6)/[facility] Hemoglobin 13.3(L) 13.7 - 17.5 gm/dL [facility] Hematocrit 39.8(L) 40.0 - 51.0 % [facility] MCV 85.8 79.0 - 92.0 fL [facility] MCH 28.7 25.6 - 32.2 pg [facility] MCHC 33.4 32.0 - 36.5 gm/dL [facility] Platelets 159 145 - 370 x10(3)/[facility] LABORATORY RDWSD 45.9 35.0 - 46.0 [facility] RDWCV 14.7(H) 10.9 - 14.4 % [facility] MPV 9.2 9.0 - 12.0 [facility] Blood specimen (specimen) 11/25/2015 4:07 PM EDT 11/25/2015 4:15 PM EDT Narrative Resulting Agency Comment Spec In Lab Julius Atkins MD HEMATOLOGY ORDERABLE S Performing Organization Address City/[facility]/ZIP Co de Phone Number [facility] [place] [address] * Hepatic Function Panel (11/25/2015 4:07 PM EDT) [facility] Total Protein 6.5 6.1 - 8.0 gm/dL [facility] Albumin 4.1 3.2 - 5.2 gm/dL [facility] AST 15 0 - 39 unit/L [facility] ALT 14 0 - 55 unit/L [facility] Alk Phos 62 40 - 120 unit/L [facility] Total Bilirubin 0.4 0.2 - 1.3 mg/dL [facility] Bili, Direct 0.1 0.0 - 0.3 mg/dL [facility] Blood specimen (specimen) 11/25/2015 4:07 PM EDT 11/25/2015 4:15 PM EDT Narrative Resulting Agency Comment Spec In Lab Julius Atkins MD CHEMISTRY ORDERABLES Performing Organization Address City/[facility]/ZIP Co de Phone Number [facility] [place] [address] * TSH (11/25/2015 4:07 PM EDT) [facility] TSH 1.48 0.27 - 4.20 mcIU/mL [facility] Blood specimen (specimen) 11/25/2015 4:07 PM EDT 11/25/2015 4:15 PM EDT Narrative Resulting Agency Comment Spec In Lab Julius Atkins MD CHEMISTRY ORDERABLES [facility] [place] [address] * Prothrombin Time (11/25/2015 4:07 PM EDT) [facility] PT 12.7 12.0 - 15.0 sec [facility] Comment: An INR <2.0 indicates [...] clinical circumstances. INR 0.9 0.9 - 1.1 [facility] Blood specimen (specimen) 11/25/2015 4:07 PM EDT 11/25/2015 4:15 PM EDT Narrative Resulting Agency Comment Spec In Lab Julius Atkins MD HEMATOLOGY ORDERABLE S [facility] [place] [address] * Basic Metabolic Panel (non-fasting) (11/25/2015 4:07 PM EDT) Glucose Lvl 87 65 - 199 mg/dL [facility] Comment:Diabetes: >=200 mg/d L plus symptoms BUN 14 10 - 20 mg/dL [facility] Creatinine 0.97 0.80 - 1.50 mg/dL [facility] Comment: Please note that the pediatric reference intervals supplied above were not validated at [facility]. Results from pediatric patients should be interpreted in conjunction to the patient's age, height and muscle mass. Sodium 139 135 - 145 mmol/L [facility] Potassium 3.8 3.5 - 5.0 mmol/L [facility] Comment: Please note: ??Patients with WBC >100,000 may have falsely elevated Potassium levels. ??For accurate Potassium quantification in these patients send serum separator tube (gold top) for subsequent determinations. ??Contact the Clinical Chemistry Laboratory if there are any questions. Chloride 102 98 - 107 mmol/L [facility] CO2 23 22 - 31 mmol/L [facility] Anion Gap 14 5 - 15 mmol/L [facility] Calcium 8.6 8.5 - 10.5 mg/dL [facility] Estimated GFR >60 >=60 [facility] Comment: This estimated GFR (eGFR) value [...] the following links into your internet browser. [email or web address] Blood specimen (specimen) 11/25/2015 4:07 PM EDT 11/25/2015 4:15 PM EDT Narrative Resulting Agency Comment Spec In Lab Julius Atkins MD CHEMISTRY ORDERABLES Performing Organization Address City/[facility] Co de Phone Number [facility] [place] [phone] * EKG 12 Lead (11/25/2015 8:38 AM EDT) Ventricular rate 57 BPM MUSE SYSTEM Atrial Rate 57 BPM MUSE SYSTEM P-R Interval 140 ms MUSE SYSTEM QRS Duration 92 ms MUSE SYSTEM Q-T Interval 426 ms MUSE SYSTEM QTC Calculated (Bezet) 414 ms MUSE SYSTEM Calculated P Troy 62 degrees MUSE SYSTEM Calculated R Troy -2 degrees MUSE SYSTEM Calculated T Troy 11 degrees MUSE SYSTEM INTERPRETATION Sinus bradycardia Otherwise normal ECG No previous ECGs available Confirmed by MD Ben, Van ([id number]) on 11/25/2015 4:05:55 PM MUSE SYSTEM 11/25/2015 8:38 AM EDT 11/25/2015 4:05 PM EDT Xiomy Zarate MD ECG ORDERABLES Performing Organization Address City/[facility]/ZIP Co de Phone Number MUSE SYSTEM documented in this encounter Visit Diagnoses Diagnosis 3-vessel CAD- Primary Unspecified cardiovascular disease ASCVD (arteriosclerotic cardiovascular disease) Unspecified cardiovascular disease S/P CABG x 4 Postsurgical aortocoronary bypass status Hypothyroidism Unspecified hypothyroidism ASCVD (arteriosclerotic cardiovascular disease) Unspecified cardiovascular disease S/P CABG x 4 Postsurgical aortocoronary bypass status documented in this encounter Admitting Diagnoses Diagnosis Coronary artery disease Coronary atherosclerosis of unspecified type of vessel, point lay ira or graft documented in this encounter Administered [...] 12/02/2015 8:28 AM EDT 81 mg aspirin chewable tablet ONCE PRN, Starting on Sun11/25/15 at 0943, Until Sun11/25/15 at 1002, Cath (Intra-Procedure), Routine Given 11/25/2015 9:43 AM EDT 243 mg aspirin suppository 300 mg 300 mg, Rectal, DAILY, First dose on Sun11/30/15 at 0900, Until Discontinued, Start on post-op day 1 in the AM, Routine atorvastatin (LIPITOR) tablet 20 mg 20 mg, Oral, EVERY EVENING, First dose (after last modification) on Sun12/02/15 at 1700, Until Discontinued, Routine Given 12/03/2015 5:19 PM EDT 20 mg Given 12/02/2015 4:59 PM EDT 20 mg fentaNYL 50 mcg/mL multi-dose injection ONCE PRN, Starting on Sun11/25/15 at 0942, Until Sun11/25/15 at 1002, Intra-Operative (Intra-Procedure), Routine Given 11/25/2015 9:42 AM EDT 25 mcg furosemide (LASIX) injection 20 mg 20 mg, Intravenous, 2 TIMES DAILY, First dose on Sun12/02/15 at 0900, Until Discontinued Given 12/04/2015 8:59 AM EDT 2 0 mg Given 12/03/2015 5:19 PM EDT 20 mg Given 12/03/2015 8:30 AM EDT 20 mg heparin (porcine) injection ONCE PRN, Starting on Sun11/25/15 at 0945, Until Sun11/25/15 at 1002, Cath (Intra-Procedure), Routine Given 11/25/2015 9:45 AM EDT 5,000 Units HYDROmorphone (DILAUDID) tablet 2-6 mg 2-6 mg, Oral, EVERY 3 HOURS PRN, Starting on Tu11/30/15 at 1313, Until 12/04/15 at 1530, Pain, 2 mg for pain 3-5/10; 4 mg for pain 6-7/10; 6 mg for pain 8-10/10, Routine Given 12/01/2015 7:57 AM EDT 4 mg Given 12/01/2015 4:27 AM EDT 4 mg Given 11/30/2015 11:34 PM EDT 4 mg iohexol (OMNIPAQUE) 350 mg/mL solution ONCE PRN, Starting on Sun11/25/15 at 1001, Until Sun11/25/15 at 1002, Cath (Intra-Procedure), Routine Given 11/25/2015 10:01 AM EDT 41 mLs levothyroxine (SYNTHROID) tablet 100 mcg 100 mcg, Oral, EVERY MORNING, First dose on Sun12/01/15 at 0600, Until Discontinued, Routine Given 12/04/2015 6:39 AM EDT 100 mcg Given 12/03/2015 5:05 AM EDT 100 mcg Given 12/02/2015 6:27 AM EDT 100 mcg magnesium hydroxide (MILK OF MAGNESIA) oral suspension [...] Given 12/03/2015 2:45 PM EDT 12.5 mg midazolam (PF) (VERSED) 1 mg/mL multi-dose injection ONCE PRN, Starting on Sun11/25/15 at 0942, Until Sun11/25/15 at 1002, Cath (Intra-Procedure), Routine Given 11/25/2015 9:42 AM EDT 1 mg nitroGLYcerin 100 mcg/mL intracoronary dilution ONCE PRN, Starting on Sun11/25/15 at 0945, Until Sun11/25/15 at 1002, Cath (Intra-Procedure), Routine Given 11/25/2015 9:45 AM EDT 200 mcg ondansetron (ZOFRAN) injection 4 mg 4 mg, Intravenous, EVERY 8 HOURS PRN, Starting on Sun11/29/15 at 1415, Until [facility] 12/04/15 at 1530, Nausea Given 12/02/2015 1:28 [...] EDT 5 mLs sodium chloride 0.9% infusion CONTINUOUS PRN, Starting on Sun11/25/15 at 0956, Until Sun11/25/15 at 1002, Cath (Intra-Procedure) New Bag 11/25/2015 9:56 AM EDT 250 mLs documented in this encounter Active and Recently [...] RN) 0830 (Given - Provider: Karin Godwin RN)171 (Given - Provider: Karin Godwin RN) 0859 (Given - Provider: Karin Godwin RN) levothyroxine (SYNTHROID) tablet 100 mcg 100 mcg, Oral, EVERY MORNING, First dose on Sun12/01/15 at 0600, Until Discontinued, Routine 06 (Given - Provider: Yamini Lutz RN) 0505 (Given - Provider: Yamini Lutz, ANDRE) 0639 (Given - Provider: Lizbet Baker RN) [...] Karin Godwin RN)2134 (Given - Provider: Yamini Lutz, ANDRE) 0505 (Given - Provider: Yamini Lutz RN)1445 [...] (See Alternative - Provider: Karin Godwin RN) 0827 (See Alternative - Provider: Karin Godwin RN) 0859 (See Alternative - Provider: Karin Godwin RN) pantoprazole (PROTONIX) tablet 40 mg(Linked Group 2) 40 mg, Oral, DAILY, First dose on Sun11/29/15 at 1445, Until Discontinued, DO NOT CRUSH OR OPEN If unable to take PO, may give IV 0828 (Given - Provider: Karin Godwin RN) 0827 (Given - Provider: Karin Godwin RN) 0859 (Given - Provider: Karin Godwin RN) potassium chloride (K-DUR/KLOR-CON) extended release tablet 10 mEq (COMPLETED) 10 mEq, Oral, ONCE, 1 dose, On Shana 12/02/15 at 0830, Routine 0828 (Given - Provider: Karin Godwin RN) potassium chloride (K-DUR/KLOR-CON) extended release tablet 20 mEq (COMPLETED) 20 mEq, Oral, 2 TIMES DAILY, 2 doses, First dose on Sun12/03/15 at 0900, Last dose on Sun12/03/15 at 2100, Routine 0827 (Given - Provider: Karin Godwin RN)204 (Given - Provider: Lizbet Baker RN) senna-docusate (PERICOLACE) 8.6-50 mg per tablet 2 tablet 2 tablet, Oral, 2 TIMES DAILY, First dose (after last modification) on Sun12/02/15 at 0900, Until Discontinued, Post-op day 1, Routine 0828 (Given - Provider: Karin Godwin RN)2134 (Given - Provider: Yamini Lutz RN) 0828 (Given - Provider: Karin Godwin RN)2047 (Given [...] 10 mg, Rectal, DAILY PRN, Starting on Sun12/02/15 at 0000, Until 12/04/15 at 1530, Constipation, [...] 1530, Nausea 0110 (Given - Provider: Yamini Lutz, RN)1328 (Given - Provider: Karin Godwin, ANDRE) Linked Groups Order Group 1: aspirin chewable [...] Routine documented in this encounter Care Teams Sap Basis Administrator Relationship Specialty Start Date End Date Mojgan Boateng DO [address] [place] [address] PCP - General 05/10/10 documented as of this encounter
--- OUTSIDE RECORDS SUMMARY | 2023-12-06 02:45 | XMS_ITS | Encounter Summary ---
Author Organization [facility] [place] [address] Care Team Providers Care Retail Advisor Name Role Phone Noé Hung DO Primary Care Provider [phone] Encounter Details Date Type Department Care Team (Late st Contact Info) Description 05/10/2010 8:30 AM EST Office [place] [address] Lamont Vaughn MD [facility] [address] GASTROENTER[place] [address] Discharge Disposition: Home Social History Tobacco Use [...] on filedocumented in this encounter Care Teams Retail Advisor Relationship Specialty Start Date End Date Noé Hung DO [address] [place] [address] PCP - General 05/10/10 documented as of this encounter
--- OUTSIDE RECORDS SUMMARY | 2023-12-06 02:45 | XMS_ITS | Clinical Summary ---
Author Organization [facility] Address [address] [place] [address] Care Team Providers Care Accounts Receivable Bookkeeper Name Role Phone Unavailable Primary Care Provider Unavailabl e Social History Tobacco Use Types Packs/Day Years Used Date Smoking Tobacco: Never Assessed Interpersonal Safety Answer Date Record ed Physically Hurt Never 12/21/2019 Verbally Threaten Not on file 12/21/2019 Sex and Gender Information Value Date Recorded Sex Assigned at Not on file Gender Identity Not on file Sexual Orientation Not on file Plan of Treatment Health Maintenance Due Date Last Done Comments Hepatitis C Screen 1955 RSV Immunization ( o r 60+ Years) (1 - 1-dose 60+ series) 2013 Fall Risk Screening 2018 COVID-19 Vaccine (2022-24 season) 2023
--- OUTSIDE RECORDS SUMMARY | 2023-12-06 02:45 | XMS_ITS | Encounter Summary ---
Author Organization [facility] Address [address] [place] [address] Care Team Providers Care Code Inspector Name Role Phone Unknown, Provider Primary Care Provider [phone] Encounter Details Date Type Department Care Team (Late st Contact Info) Description 04/26/2010 Results Only [facility] [phone] Bettye Hayes, DO [address] [place] [address] Social History Tobacco Use Types Packs/Day Years Used Date Smoking Tobacco: Never Assessed Sex and Gender Information Value Date Recorded Sex Assigned at Not on file Gender Identity Not on file Sexual Orientation Not on file documented as of this encounter Plan of Treatment Not on file documented as of this encounter Procedures Procedure Name Priority Date/Time Associated Diagnosis Comments SURGICAL PATHOLOGY Routine 04/26/2010 0:00 EST documented in this encounter Results * SURGICAL PATHOLOGY (04/26/2010 0:00 EST) Pathology Report: SURGICAL PATHOLOGY REPORT ? Reports generated via electronic interface contain original data; ? however they are lacking the format of the original report. ? Caution should be taken when reading/interpreting unformatted reports. ? Name: ? O'NORWOOD, KATY ? Accession #: ? [id number] ? : ? 1955 (Age: 54) ??M ? Collect Date: ? 04/26/2010 ? Location: ? [facility] ? Receive Date: ? 04/26/2010 ? Provider: BETTYE HAYES DO ? Copy to: MOJGAN F TASNEEM DO ? Final Pathologic Diagnosis: ? A. ?Stomach, antrum, biopsy: ? 1. ?Antral and body-type mucosa with no specific pathologic features. ?? B. ?Stomach, body, biopsy: ? 1. ?Body-type mucosa with mild chronic gastritis. ??See comment. ? C. ?Small intestine, terminal ileum, biopsy: ? 1. ?Small intestinal mucosa with prominent lymphoid aggregate. ? D. ?Colon, right, biopsy: ? 1. ?No specific pathologic features. ? E. ?Colon, transverse, biopsy: ? 1. ?Active colitis, mild. See comment. ? F. ?Colon, left/descending, biopsy: ? 1. ?Ischemic colitis, with ulceration. ??See comment. ? G. ?Colon, rectum, biopsy: ? 1. ?No specific pathologic features. ? Comment: ? Histologic sections of the gastric biopsy (specimen B) shows very minimal ?? inflammation composed mostly of few plasma cells and lymphocytes. ??The features may present a very mild form of chronic gastritis. ??No Helicobacter pylori ? organisms is identified. ? The colon biopsies show an area (specimen F) with a discrete ulcer and acute and chronic inflammation. These features represent an acute colitis secondary to ? ischemic type injury. This case has been reviewed at the intradepartmental ? consultation conference. (Dr. Joya)/mpl ? Document reviewed and electronically signed by: ? CHANTAL JOYA MD ? Report ??Date: 04/28/2010 14:40 ? By the signature above, the attending physician certifies that he/she has ? personally conducted a gross and/or microscopic examination of the described ? specimens and rendered or confirmed the above diagnosis. ? Specimen(s) Received: ? A. ?Bx gastric antrum ? B. ? Bx gastric body ? C. ? Bx terminal ileum ? D. ? Bx Rt colon ? E. ? Bx transverse colon ? F. ? Bx Lt colon/descending ? G. ? Bx rectum ? Clinical History: ? GI bleed; gross colitis on colonoscopy; A-C ??EGD; D-G ??colonoscopy ? Gross Description: ? Received in Alexander's fixative labelled [place] and #1 bx ? gastric antrum are two biopsies measuring 0.4 x 0.3 x 0.1 cm and 0.4 x 0.4 x ?? 0.3 cm. ??The specimens are submitted intact as (A). ? Received in [employer]'s fixative labelled [place] and #2 bx gastric ? body are two biopsies measuring 0.3 x 0.2 x 0.1 cm and 0.4 x 0.2 x 0.2 cm. ??The specimens are submitted intact as (B). ? [facility] in [facility] fixative labelled [place] and #3 bx terminal ?? ileum is a 0.3 x 0.2 x 0.1 cm biopsy. ??The specimen is submitted intact as (C). ? Received in [employer]'s fixative labelled Agustín [place] and #4 bx Rt colon ?? are two biopsies measuring 0.3 x 0.3 x 0.2 cm and 0.5 x 0.3 x 0.2 cm. ??The ? specimens are submitted intact as (D). ? Received in [employer]'s fixative labelled [place] and #5 bx transverse colon are two biopsies, each measuring 0.3 x 0.3 x 0.3 cm. ??The specimens are ?? submitted intact as (E). ? Received in [facility] fixative labelled Agustín [place] and #6 bx Lt ? colon/descending are three biopsies which vary in size from 0.3 x 0.2 x 0.2 cm up to 0.4 x 0.3 x 0.1 cm. ??The specimens are submitted intact as (F). ? Received in [facility] fix[facility] labelled [place] and #7 bx rectum are two biopsies, each measuring 0.2 x 0.2 x 0.2 cm. ??The specimens are submitted ?? intact as (G). ??(ELIDA [employer])/ljn ? End of Report ? MARIAN MORENO 04/26/2010 04/26/2010 9:0 0 EST Bettye Hayes DO PATHOLOGY ORDERABLES Performing Organization Address City/State/[facility] Co de Phone Number [facility] [address] [place] [address] documented in this encounter Visit Diagnoses Not on filedocumented in this encounter Care Teams Code Inspector Relationship Specialty Start Date End Date Unknown, Provider, PCP - General 04/26/10 08/18/21 documented as of this encounter
--- OUTSIDE RECORDS SUMMARY | 2023-12-06 02:45 | XMS_ITS | Encounter Summary ---
Author Organization [facility] Address [address] [place] [address] Care Team Providers Care Fitter / Welder Name Role Phone Unknown, Provider Primary Care Provider [phone] Encounter Details Date Type Department Care Team (Latest Contact Info) Description 01/01/2019 10:46 EDT - 01/01/2019 23:59 EDT Hospital Encounter [address] [address] Unknown, Provider, Discharge Disposition: Home or Self Care Social History Tobacco Use Types Packs/Day Years Used Date Smoking Tobacco: Never Assessed Sex and Gender Information Value Date Recorded Sex Assigned at Not on file Gender Identity Not on file Sexual Orientation Not on file documented as of this encounter Discharge Disposition Disposition Code Departure Means Destination Home or Self Intermediate documented in this encounter Plan of Treatment Not on file documented as of this encounter Visit Diagnoses Not on filedocumented in this encounter Care Teams Fitter / Welder Relationship Specialty Start Date End Date Unknown, Provider, PCP - General 04/26/10 08/18/21 documented as of this encounter
--- OUTSIDE RECORDS SUMMARY | 2023-12-06 02:45 | XMS_ITS | Encounter Summary ---
Author Organization [facility] Address [address] [place] [address] Care Team Providers Care Banquet Chef Name Role Phone Unknown, Provider Primary Care Provider [phone] Encounter Details Date Type Department Care Team (Late st Contact Info) Description 01/01/2019 Results Only [facility] [phone] Franky Lewis, DO [address] [place], [place] [id number] Social History Tobacco Use Types Packs/Day Years Used Date Smoking Tobacco: Never Assessed Sex and Gender Information Value Date Recorded Sex Assigned at Not on file Gender Identity Not on file Sexual Orientation Not on file documented as of this encounter Plan of Treatment Not on file documented as of this encounter Procedures Procedure Name Priority Date/Time Associated Diagnosis Comments SURGICAL PATHOLOGY Routine 01/01/2019 15 :38 EDT documented in this encounter Results * SURGICAL PATHOLOGY (01/01/2019 15:38 EDT) Pathology Report: SURGICAL PATHOLOGY REPORT Reports generated via electronic interface contain original data; however they are lacking the format of the original report. Caution should be taken when reading/interpreting unformatted reports. Name: ? KATY WHITLEY ? Accession #: ? [id number] ? : ? 1955 (Age: 63) ??M ? Collect Date: ? 01/01/2019 ? Location: ? [facility] ? Receive Date: ? 01/01/2019 ? Provider: FRANKY LEWIS DO Copy to: MOJGAN BOATENG DO ? Final Pathologic Diagnosis: A. ??DUODENUM, BULB, BIOPSY: - Histologic features of duodenal bulb; negative for significant diagnostic features. B. ??STOMACH, ANTRUM, BIOPSY: - Gastric antral mucosa with reactive changes and prominent eosinophilic infiltrate within the lamina propria. - Immunohistochemical stain for Helicobacter pylori is negative. C. ??STOMACH, GREATER CURVE, BIOPSY: - Gastric body mucosa with no specific pathologic features. D. ??GASTRO-ESOPHAGEAL JUNCTION, BIOPSY: - Intestinal metaplasia in a background of reflux esophagitis. - Negative for dysplasia. ?? Microscopic Description: ANTIBODY(CLONE)(BLOCK) :RESULT H. pylori (Rabbit Monoclonal (SP48), [place])(block B1): ??Negative. NOTE: ??One or more of the reagents used in immunoperoxidase testing in this case may not have been cleared or approved by the U.S. Food and Drug Administration (FDA). ??The FDA has determined that such clearance or approval is not necessary. ??These tests are used for clinical purposes. ??They should not be regarded as investigational or for research. ??These reagents' performance characteristics have been determined by the [facility] and/or by the referring laboratory. ??The positive and negative controls worked appropriately. ??If immunoperoxidase staining has been performed on alcohol fixed cytology specimens, which has not been fully validated, the assays should be interpreted with caution and correlated with clinical data. ??This laboratory is certified under the Clinical Laboratory Improvement Amendments of 1988 (CLIA-88) as qualified to perform high complexity clinical laboratory testing. ?? Document reviewed and electronically signed by: MARINA AC MD Report ??Date: 01/03/2019 17:38 By the signature above, the attending physician certifies that he/she has personally conducted a gross and/or microscopic examination of the described specimens and rendered or confirmed the above diagnosis. Specimen(s) Received: A. ??Duodenal bulb bx B. ??Antrum bx C. ??Greater curve bx D. ??GE junction bx Clinical History: GI bleed Gross Description: A. ?Received in formalin labelled with proper patient identification (initials O, J) and 1. Duodenal bulb BX is a duke-pink tissue (0.3 x 0.3 x 0.2 cm). Submitted in toto in A1. B. ?Received in formalin labelled with proper patient identification (initials O, J) and 2. Antrum BX are two duke-white tissues (averaging 0.3 x 0.2 x 0.1 cm). Submitted in toto in B1. C. ?Received in formalin labelled with proper patient identification (initials O, J) and 3. Greater curve BX is a dkue tissue (0.4 x 0.3 x 0.2 cm). Submitted in toto in C1. D. ?Received in formalin labelled with proper patient identification (initials O, J) and 4. GE junction BX is a duke-white tissue (0.6 x 0.2 x 0.2 cm). Submitted in toto in D1. [facility] ([facility]) 01/01/2019 5:34 PM End of Report [facility] 01/01/2019 15:3 8 EDT 01/01/2019 15:38 EDT Franky Lewis DO PATHOLOGY ORDERABLES [facility] [address] [place] [address] documented in this encounter Visit Diagnoses Not on filedocumented in this encounter Care Teams Banquet Chef Relationship Specialty Start Date End Date Unknown, Provider, PCP - General 04/26/10 08/18/21 documented as of this encounter
--- OUTSIDE RECORDS SUMMARY | 2023-12-06 02:45 | XMS_ITS | Encounter Summary ---
Author Organization [facility] Address [address] [place] [address] Care Team Providers Care Turpentine Distiller Name Role Phone Unknown, Provider Primary Care Provider [phone] Huang Vines MD Primary Care Provider Encounter Details Date Type Department Care Team (Late st Contact Info) Description 04/04/2019 Lab Requisition [facility] Pathology & Laboratory Medicine - [address] [address] Unknown, Provider, Social History Tobacco Use Types Packs/Day Years [...] Associated Diagnosis Comments PSA TOTAL, DIAGNOSTIC Routine 04/04/2019 9:31 EST documented in this encounter Results * PSA TOTAL, DIAGNOSTIC (04/04/2019 9:31 EST) PSA 1.1 0.0 - 4.5 ng/mL 04/07/2019 11:13 EST [facility] Comment: NOTE: Serum PSA concentration should not be interpreted as absolute evidence for the presence or absence of malignant disease. Assayed on Siemens ADVIA Centaur XPT using chemiluminescent technology. ??Values obtained by using different assay methods cannot be used interchangeably. Blood VENOUS BLOOD / Unknown Non-Lab Collect / Unknown 04/04/2019 9:31 EST 04/04/2019 23:03 EST Provider Unknown CHEMISTRY & BLOOD GA S ORDERABLES [facility] [address] [place] [address] documented in this encounter Visit Diagnoses Not on filedocumented in this encounter Care Teams Turpentine Distiller Relationship Specialty Start Date End Date Unknown, Provider, PCP - General 04/26/10 08/18/21 Huang Vines MD [address] [place] [id number] PCP - General Family Medicine - Primary Care 08/19/21 02/19/22 documented as of this encounter
--- OUTSIDE RECORDS SUMMARY | 2023-12-06 02:45 | XMS_ITS | Referral Summary ---
Author Organization [facility] Address [address] [place] [address] Care Team Providers Care Turntable Operator Name Role Phone Unavailable Primary Care Provider [...] Orientation Not on file Plan of Treatment Not on file
[2023-12-06 08:30] LABS: Calculated LDL 193 mg/dL (<100); Cholesterol 273 mg/dL (<200); HDL Cholesterol 59 mg/dL (40-60); TSH (W/Ref FT4) 28.45 uIU/mL (0.36-3.74); Triglyceride 106 mg/dL (<150)
[2023-12-06 08:48] LABS: FREE T4 0.72 ng/dL (0.76-1.46)
== END 2023-12-06 02:42 | disposition home or self-care (01) ==
PROVIDERS: PCP Family Medicine; Visit Provider Family Medicine
DX: E03.9 Hypothyroidism, unspecified (principal); E78.5 Hyperlipidemia, unspecified
CPT/HCPCS: 36415; 80061; 84439; 84443

== ENCOUNTER 2024-02-20 02:20 | Outpatient (CLI) | payer MEDICARE, SELFPAY ==
[2024-02-20 12:05] LABS: Calculated LDL 144 mg/dL (<100); Cholesterol 219 mg/dL (<200); HDL Cholesterol 55 mg/dL (40-60); TSH (W/Ref FT4) 0.37 uIU/mL (0.36-3.74); Triglyceride 101 mg/dL (<150)
== END 2024-02-20 02:21 | disposition home or self-care (01) ==
PROVIDERS: PCP Family Medicine; Referring Provider Family Medicine; Visit Provider Family Medicine
DX: E03.9 Hypothyroidism, unspecified (principal); E78.5 Hyperlipidemia, unspecified
CPT/HCPCS: 36415; 80061; 84443

== ENCOUNTER 2024-04-16 01:11 | Outpatient (CLI) | payer MEDICARE, SELFPAY ==
--- NOTE | 2024-04-16 13:57 | DI.RAD_ITS ---
Exam(s) XR KNEE LT 3V AP,LAT,PAOLA EXAM: XR KNEE LT 3V AP,LAT,PAOLA CLINICAL HISTORY: lateral aspect, worse when hiking downhill, lt knee pain, M25.562. TECHNIQUE: 2D digital imaging was performed of the left knee. Three images were obtained. AP, late ral and PA tunnel views were obtained. COMPARISON: No priors for comparison. FINDINGS: BONES: No acute fracture is present. No bony destructive lesion is seen. There is an enthesophyte at the anterior patella. JOINTS: The knee is normally aligned. No joint effusion is seen. No loose body. SOFT TISSUE: Normal. IMPRESSION: No acute abnormality. DATA REPOSITORY: RADIATION DOSE DELIVERED:
== END 2024-04-16 01:31 ==
LOC: DI 01:11
PROVIDERS: PCP Family Medicine; Visit Provider Nurse Practitioner Family
DX: M25.562 Pain in left knee (principal)
CPT/HCPCS: 73562

== ENCOUNTER 2024-08-14 10:12 | Outpatient (CLI) | payer MEDICARE, SELFPAY ==
[2024-08-14 12:24] LABS: ESR 1 mm/hr (0-20)
[2024-08-14 12:25] LABS: Abs Immature Grans 0.01 10^3/uL (0.0-0.06); Absolute Basophil Count 0.05 10^3/uL (0.0-0.2); Absolute Eosinophil Count 0.17 10^3/uL (0.0-0.7); Absolute Lymphocyte Count 0.86 10^3/uL (1.2-3.4); Absolute Neutrophil Count 3.31 10^3/uL (1.2-6.7); Eosinophils % 3.5 %; HCT 45.9 % (40.0-50.0); HGB 14.7 g/dL (13.5-17.5); Immature Grans % 0.2 %; Lymphocytes % 17.9 %; MCH 28.2 pg (27.0-33.0); MCV 88 fL (80-95); MPV 9.3 fL (8.0-11.0); Monocytes % 8.3 %; Neutrophils % 69.1 %; Platelet Count 202 10^3/uL (130-400); RBC 5.21 10^6/uL (4.36-5.78); RDW 14.6 % (11.8-14.1); RDW-SD 47.3 fL
[2024-08-14 12:55] LABS: ALT 32 U/L (16-63); AST 24 U/L (15-37); Albumin 4.1 g/dL (3.4-5.0); Alkaline Phosphatase 83 U/L (46-116); Anion Gap 8.3 mmol/L (3-11); BUN 15 mg/dL (7-18); Bilirubin, Total 0.6 mg/dL (0.2-1.0); CO2 26.7 mmol/L (21.0-32.0); CREATININE 0.9 mg/dL (0.70-1.30); Calcium 9.3 mg/dL (8.5-10.1); Chloride 106 mmol/L (98-107); Estimated GFR 91.88 (mL/min/1.73m2); Glucose 90 mg/dL (74-106); Potassium 4.4 mmol/L (3.5-5.1); Sodium 141 mmol/L (136-145)
[2024-08-14 12:56] LABS: C-Reactive Protein < 0.50 mg/dL (<or=0.5)
== END 2024-08-14 10:13 | disposition home or self-care (01) ==
LOC: LOS 10:12
PROVIDERS: PCP Family Medicine; Referring Provider Family Medicine; Visit Provider Family Medicine
DX: D64.9 Anemia, unspecified (principal); I73.00 Raynaud's syndrome without gangrene; R41.89 Other symptoms and signs involving cognitive functions and awareness; R10.9 Unspecified abdominal pain
CPT/HCPCS: 36415; 80053; 85652; 85025; 86140